=== PATIENT | female | born 1975 | race Caucasian/White ===

== ENCOUNTER → 2017-07-21 10:06 | Outpatient (CLI) | payer MEDICARE, MEDICAID, SELFPAY ==
[2017-07-21 12:16] LABS: Amphetamine Urine VISTA NEGATIVE (<1000 ng/mL); Barbiturate Urine VISTA NEGATIVE (< 200 ng/mL); Benzodiazepine Urine VISTA POSITIVE (< 200 ng/mL); Cocaine Urine VISTA NEGATIVE (< 300 ng/mL); Ecstacy Urine VISTA NEGATIVE (< 500 ng/mL); Methadone Urine VISTA NEGATIVE (< 300 ng/mL); PCP Urine VISTA NEGATIVE (< 25 ng/mL); THC Urine VISTA NEGATIVE (< 50 ng/mL); Vista UDS pH Range 5
== END ==
PROVIDERS: Family Provider Family Medicine; PCP Family Medicine; Visit Provider Family Medicine
DX: Z51.81 Encounter for therapeutic drug level monitoring (principal)
CPT/HCPCS: 80307

== ENCOUNTER → 2017-08-01 11:50 | Outpatient (CLI) | payer MEDICARE, MEDICAID, SELFPAY ==
[2017-08-01 16:39] LABS: Amphetamine Urine VISTA NEGATIVE (<1000 ng/mL); Barbiturate Urine VISTA NEGATIVE (< 200 ng/mL); Benzodiazepine Urine VISTA POSITIVE (< 200 ng/mL); Cocaine Urine VISTA NEGATIVE (< 300 ng/mL); Ecstacy Urine VISTA NEGATIVE (< 500 ng/mL); Methadone Urine VISTA NEGATIVE (< 300 ng/mL); PCP Urine VISTA NEGATIVE (< 25 ng/mL); THC Urine VISTA NEGATIVE (< 50 ng/mL); Vista UDS pH Range 5
== END ==
PROVIDERS: Family Provider Family Medicine; PCP Family Medicine; Visit Provider Family Medicine
DX: Z51.81 Encounter for therapeutic drug level monitoring (principal)
CPT/HCPCS: 80307

== ENCOUNTER → 2017-09-09 16:04 | Outpatient (CLI) | payer MEDICARE, MEDICAID, SELFPAY ==
[2017-09-09 18:05] LABS: Amphetamine Urine VISTA NEGATIVE (<1000 ng/mL); Barbiturate Urine VISTA NEGATIVE (< 200 ng/mL); Benzodiazepine Urine VISTA NEGATIVE (< 200 ng/mL); Cocaine Urine VISTA NEGATIVE (< 300 ng/mL); Ecstacy Urine VISTA NEGATIVE (< 500 ng/mL); Methadone Urine VISTA NEGATIVE (< 300 ng/mL); PCP Urine VISTA NEGATIVE (< 25 ng/mL); THC Urine VISTA NEGATIVE (< 50 ng/mL); Vista UDS pH Range 5
[2017-09-10 10:36] LABS: OXY Internal Control LINE = VALID (VALID); Oxycodone Drug Screen Positive (<100 ng/mL)
== END ==
PROVIDERS: Family Provider Family Medicine; PCP Family Medicine; Visit Provider Family Medicine
DX: Z51.81 Encounter for therapeutic drug level monitoring (principal)
CPT/HCPCS: 80307; 80365; G0480

== ENCOUNTER → 2017-09-30 14:06 | Outpatient (CLI) | payer MEDICARE, MEDICAID, SELFPAY ==
[2017-09-30 14:09] LABS: Mucous, Urine 0 SEEN /hpf (<or=2+)
[2017-09-30 16:01] LABS: Color, Urine Yellow (Yellow); Glucose, Dipstick Normal (Normal); Ketone-Dipstick Negative (Negative); Leukocyte Esterase-Dipstick 500 /ul (Negative); Nitrite-Dipstick Positive (Negative); Occult Blood-Urine 10 /ul (Negative); Protein-Dipstick Negative (Negative); Urine Bilirubin Dipstick Negative (Negative); Urine Clarity Sl. Cloudy (Clear); Urine Urobilinogen Normal (Normal)
[2017-09-30 16:31] LABS: Bacteria 2+ /hpf (None Seen); Red Blood Cells-Urine 0-5 SEEN /hpf (0-5); Squamous Epithelial Cells - UA 0-5 SEEN /hpf (5-10); White Blood Cells 50-100 SEEN /hpf (0-5)
[2017-09-30 19:02] LABS: Amphetamine Urine VISTA NEGATIVE (<1000 ng/mL); Barbiturate Urine VISTA NEGATIVE (< 200 ng/mL); Benzodiazepine Urine VISTA NEGATIVE (< 200 ng/mL); Cocaine Urine VISTA NEGATIVE (< 300 ng/mL); Ecstacy Urine VISTA NEGATIVE (< 500 ng/mL); Methadone Urine VISTA NEGATIVE (< 300 ng/mL); OXY Internal Control LINE = VALID (VALID); PCP Urine VISTA NEGATIVE (< 25 ng/mL); THC Urine VISTA NEGATIVE (< 50 ng/mL); Vista UDS pH Range 6
[2017-09-30 19:03] LABS: Oxycodone Drug Screen Positive (<100 ng/mL)
== END ==
PROVIDERS: Family Provider Family Medicine; PCP Family Medicine; Visit Provider Family Medicine
DX: R30.0 Dysuria (principal); Z51.81 Encounter for therapeutic drug level monitoring
CPT/HCPCS: 36415; 80307; 80365; 81001; 87086; 87088; 87186; G0480

== ENCOUNTER 2018-04-29 21:22 | Inpatient (IN) | payer MEDICARE, SELFPAY ==
[2018-04-29 21:23] VITALS: BP 127/76; PULSE 79; RESP 20; TEMP 36.8; O2SAT 91; BMI 32.5
--- NOTE | 2018-04-29 22:19 | EKG12_ITS ---
Test Reason : SOB Blood Pressure : / mmHG Vent. Rate : 070 BPM Atrial Rate : 070 BPM P-R Int : 184 ms QRS Dur : 104 ms QT Int : 408 ms P-R-T Axes : 060 059 058 degrees QTc Int : 440 ms Normal sinus rhythm Septal infarct , age undetermined Abnormal ECG Confirmed by JEAN PAUL DANIELSON, REEMA ([id number]), newspaper photo editor EDMUND TORRES ([id number]) on 05/04/2018 2:05:21 PM Referred By: DR NEWBERRY Confirmed By:REEMA REAVES MD
--- NOTE | 2018-04-29 22:19 | RAD_ITS ---
STUDY: X-RAY CHEST REASON FOR EXAM: Female, 42 years old. Shortness of breath. Smoker. TECHNIQUE: PA and lateral views of the chest. COMPARISON: June 25, 2017. FINDINGS: Lungs well-expanded. Again seen is bandlike atelectasis versus scarring at both lung bases. There is no new infiltrate or mass. There is no demonstrated pleural abnormality. Normal size heart. Normal mediastinum and sherry. Normal visualized pulmonary arteries. Normal visualized aortic arch and descending thoracic aorta. Normal visualized thoracic spine. Normal visualized ribs, clavicles, and shoulders. There is no demonstrated abnormality of the visualized soft tissue structures of the upper abdomen. RAD/Chest PA and Lateral IMPRESSION: Atelectasis versus scarring at the lung bases without interval change. Electronically Signed: Devyn Fisher DO at 23:19 EST Tel [phone], Service support ,
[2018-04-29 22:35] VITALS: PULSE 101; RESP 18
[2018-04-29 22:36] VITALS: O2SAT 93
[2018-04-29] MEDS: Albuterol 2.5 MG/3 ML VIAL.NEB. INHALATION ×2 (22:40→23:55)
[2018-04-29] MEDS: Ipratropium/Albuterol Sulfate 3 ML AMPUL.NEB INHALATION (22:40)
[2018-04-29] MEDS: Morphine 4 MG/ML Syringe IV (22:47)
[2018-04-29] MEDS: MethylPREDNISolone 125 MG/2 ML Vial 60 MG IV (22:47)
[2018-04-29] MEDS: Ondansetron 4 MG/2 ML Vial IV (22:48)
[2018-04-29 23:11] LABS: Absolute Lymphocyte Count 3.93 X10^3/ul (0.83-4.51); Absolute Neutrophil Count 4.1 X10^3/uL (2.0-7.7); Basophil# 0.02 X10^3/uL; Basophil% 0.2 % (0-1); Eosinophil# 0.31 X10^3/uL; Eosinophils% 3.5 % (0-5); Hematocrit 44.9 % (37-47); Hemoglobin 14.6 g/dl (12.0-15.0); Lymphocyte # 3.93 X10^3/ul (4.0); Lymphocyte % 44.5 % (19-41); Mean Corp Hgb Conc 32.5 g/gl (32-36); Mean Corpuscular Hgb 29.3 pg (27.0-32.0); Mean Corpuscular Volume 90.2 fL (81-99); Mean Platelet Vol. 10.5 fl (6.2-12.0); Monocyte% 5.7 % (0-10); Neutrophil # 4.07 X10^3/uL (2.7-7.7); Platelet Count 271 K/mm3 (150-450); RBC Distribution Width CV 13.1 % (11.6-14.6); RBC Distribution Width SD 42.7 fl (35.1-43.9); Red Blood Count 4.98 M/mm3 (4.2-5.4); White Blood Count 8.8 K/mm3 (4.4-11.0)
[2018-04-29 23:12] LABS: POSITIVE COUNT NO; POSITIVE DIFFERENTIAL NO; POSITIVE MORPHOLOGY NO
[2018-04-29 23:22] LABS: Anion Gap 5 (5-15); BUN 6 mg/dL (7-18); Calcium,Total 8.3 mg/dL (8.5-10.1); Chloride 104 mmol/L (98-107); Creatinine, Serum 0.86 mg/dL (0.55-1.02); EST Glomerular Filtration Rate 76 mL/min (>60); Est Glom Filt Rate - Afr Amer 92 mL/min (>60); Estimated Creatinine Clearance 66.02 ml/min; Glucose 99 mg/dL (74-106); Potassium 3.2 mmol/L (3.5-5.1); Sodium Level 139 mmol/L (136-145)
[2018-04-29 23:25] VITALS: BP 121/88; PULSE 70; RESP 12; O2SAT 91
--- NOTE | 2018-04-29 23:34 | ED.DCSUM_ITS ---
- ER Visit Summary Date of Service: 04/29/18 Chief Complaint: Shortness of breath, wheezing and productive cough of brown colored sputum History of Present Illness: The patient is a 42 F with history of COPD on oxygen as needed at 2 L, type 2 diabetes, hypertension scoliosis who presents with productive cough of brown colored sputum with shortness of breath at rest and exertion. She does complain of wheezing. She denies fever, chills night sweats. She denies ocular, visual auditory symptoms. She denies ear pain, decreased hearing or tinnitus. She denies rhinorrhea, congestion or postnasal drainage. She denies sore throat. She complains of discomfort with coughing and palpitations. She denies abdominal pain, nausea, vomiting or diarrhea. She denies black or maroon stool. She denies urologic symptoms. She denies myalgias or arthralgias. She denies rash. She does complain of mild frontal headache with generalized weakness. She denies paresthesia, anesthesia motors. She denies polyuria, polydipsia or polyphagia. She denies bruising easily. She is on no anticoagulant. She denies urticaria or angioedema. Physical Examination: Vital signs noted. She has not febrile. She appears older than reported age. Head is atraumatic normocephalic. Pupils are equal round reactive. Extraocular muscles are intact. TMs are pearly white with landmarks noted. Nares patent with no drainage. Posterior pharynx without erythema or exudate. Uvula is midline. There is no dysphonia or dysphasia. Trachea is midline. There is no stridor with auscultation of the neck. Lungs reveal wheezing throughout with increased x-ray phase. There is end inspiratory rales noted. Heart is regular without murmur, gallop or rub. Abdomen soft nontender. No palpable cell mass. There is no asymmetry, swelling, discoloration, leg vein distention, palpable cords or tenderness along the distribution of the deep venous system. Neuro exam is nonfocal. Test Results: Two-view chest x-ray reveals chronic changes and there is a nodule noted peripherally left mid lung field that is new from June 2017. EKG reveals sinus rhythm rate of 70 with decreased anterior force. [place] interval is normal. QRS duration is slightly prolonged. [place] is normal. QT interval is not prolonged. White count is normal. Electro panels unremarkable. Emergency Department Course and Treatment: Patient presents with productive cough need to evaluate for aspiration COPD versus pneumonia. Chest x-ray, blood work and EKG were obtained. She was treated with DuoNeb and albuterol x3. She received 125 mg Solu-Medrol. She was reassessed at 2320. She still has wheezing throughout. She is presently on 4 L of oxygen and only saturating 90%. Treatment Plan: The hospitalist has been paged for admission for exacerbation of COPD and respiratory failure with hypoxia Disposition: [facility] surgical floor Impression: 1. Exacerbation of COPD with bronchospasm 2. Purulent bronchitis 3. Respiratory failure with hypoxia 5. Type 2 diabetes 4. History of hypertension This note was generated with [employer] dictation software. It may contain incorrect words, spelling, and punctuation that were not noted in review of the chart prior to signing ED Disposition - Plan for ED Patient: Chief Complaint: Shortness of Breath Referrals: Robert Patel DO [Primary Care Provider] -
[2018-04-29] MEDS: Doxycycline 100 MG CAPSULE PO (23:39)
--- NOTE | 2018-04-29 23:55 | PCM.HP.STD ---
Problem List (1) COPD exacerbation Status: Acute (2) DJD (degenerative joint disease), lumbar Status: Chronic (3) Lumbar spinal stenosis Status: Chronic (4) Peripheral neuropathy Status: Chronic (5) Anxiety Status: Chronic (6) Benign essential HTN Status: Chronic (7) DM2 (diabetes mellitus, type 2) Status: Chronic (8) Depression Status: Chronic (9) Obesity Status: Chronic History of Present Illness Date of Admission: 04/29/18 Chief Complaint: Shortness of breath and wheezing for 3-4 days The patient is a 42 year old F with history of COPD, currently smoker about 1 pack/day since age of 19 on 2 L of form oxygen as needed came to ER with progressive worsening of shortness of breath, wheezing last 3-4 days. Shortness of breath has progressed to the extent that she is short of breath at rest. Patient has cough with productive brownish sputum. Denies fever or chills. Patient complain of mild chest heaviness probably, pleuritic in nature due to shortness of breath/COPD exacerbation [] Patient has significant chronic back pain and is on Percocet, naproxen, Lyrica and Cymbalta and Elavil Past Medical History Past Medical History (Chronic Problems): Chronic Problems DJD (degenerative joint disease), lumbar (Chronic) Lumbar spinal stenosis (Chronic) Peripheral neuropathy (Chronic) Obesity (Chronic) DM2 (diabetes mellitus, type 2) (Chronic) Depression (Chronic) Benign essential HTN (Chronic) Anxiety (Chronic) Allergies sulfamethoxazole [From Bactrim] Allergy (Verified 04/29/18 21:25) Rash trimethoprim [From Bactrim] Allergy (Verified 04/29/18 21:25) Rash erythromycin base [Erythromycin Base] Adverse Reaction (Verified 04/29/18 21:25) Other ketorolac tromethamine [From Toradol] Adverse Reaction (Verified 04/29/18 21:25) Other PLASTIC TAPE Adverse Reaction (Uncoded 04/29/18 21:25) Rash Home Medications: Ambulatory Orders Medication Instructions Recorded Albuterol IH (ProAir) [Proair Hfa] 1 puff INHALATION Q4H PRN PRN 04/02/13 Amitriptyline HCl [Elavil] 100 mg PO QHS 04/02/13 Duloxetine Hcl [Cymbalta] 60 mg PO DAILY 04/02/13 Estradiol [Estrace] 2 mg PO QHS 04/02/13 Metformin HCl [Glucophage] 500 mg PO BIDCM 04/02/13 Metoprolol Tartrate [Lopressor] 25 mg PO BID 04/02/13 Cyanocobalamin [Vitamin B12] 500 mcg PO DAILY@0800 03/22/14 Potassium Chloride [K-Dur] 40 meq PO DAILY #20 tablet 03/22/14 Ondansetron [Zofran Odt] 4 mg PO Q8H PRN PRN #10 tablet 11/09/14 Pregabalin [Lyrica] 75 mg PO BID 05/13/15 Clonazepam 1 mg PO Q6H PRN PRN 04/29/18 Fluticasone/Salmeterol [Advair 2 puff INHALATION BID 04/29/18 250-50 Diskus] Naproxen [Naprosyn] 500 mg PO BID 04/29/18 Oxycodone HCl/Acetaminophen 1 tablet PO Q4H PRN PRN 04/29/18 [Percocet 10-325 mg Tablet] Surgical History: appendectomy Smoking Status: Current every day smoker Review of Systems Constitutional: Denies: Chills, Fever, Weight Change HEENT: Denies: Head Aches, Sinus Congestion, Sinus Drainage Cardiovascular: Reports: Heaviness. Denies: Chest Pain, Palpitations Respiratory: Reports: Cough, Pleuritic Pain, Shortness of Breath, Shortness of breath at rest, Shortness of breath upon exertion, Sputum production, Wheezing. Denies: Hemoptysis Gastrointestinal: Denies: Abdominal Pain, Nausea, Vomiting Genitourinary: Denies: Dysuria Musculoskeletal: Reports: Back Pain, Joint Pain, Joint stiffness, Leg Pain. Denies: Joint Tenderness Skin: Denies: Rash, Wounds Neurological: Denies: Numbness, Tingling, Focal weakness Psychiatric: Denies: Anxiety, Depression, Homicidal Ideations, Suicidal Ideations Hematologic/ Lymphatic: Denies: Easy Bruising, Easy Bleeding VTE Information - Inpt Only VTE Present on Admission: No VTE Mechan Device Prophylaxis: None VTE Pharm Prophylaxis ordered?: Yes Patient Problems: Active and Suspected Problems COPD exacerbation (Acute) - Physical Exam General: Alert, Oriented x3, Cooperative HEENT: Atraumatic, PERRLA, EOMI, Normocephalic Oral: Dry Mucosa Neck: Supple, No JVD, Negative Carotid Bruits Lungs: Diminished, Rhonchi, Short of Breath, Wheezes Cardiovascular: Regular rate, Regular Rhythm, Normal S1, Normal S2, No murmurs Abdomen: Bowel Sounds Present, Soft, Non Tender, Non-Distended Extremities: No edema, Capillary Refill Less than 3 Seconds Skin: No rashes, No breakdown Musculoskeletal: No Tenderness to Palpation of Joints or Extremities, Arthritic Changes Neurological: Cranial nerves II-XII grossly intact, Neuro grossly intact Psych/Mental Status: Normal Affect, Appropriate Vital Signs Temp Pulse Resp BP Pulse Ox 98.2 F 70 12 121/88 H 91 04/29/18 21:23 04/29/18 23:25 04/29/18 23:25 04/29/18 23:25 04/29/18 23:25 Oxygen Flow Rate (L/min) 4 Oxygen Delivery Method Nasal Cannula Weight: 177 lb 14.609 oz Body Mass Index (BMI) 32.5 Laboratory Tests Past 24 Hrs 04/29/18 04/29/18 22:50 22:50 WBC 8.8 RBC 4.98 Hgb 14.6 Hct 44.9 MCV 90.2 MCH 29.3 MCHC 32.5 RDW 13.1 RDW Differential 42.7 Plt Count 271 MPV 10.5 Immature Gran % (Auto) 0.100 Neut % (Auto) 46.0 L Lymph % (Auto) 44.5 H [place] % (Auto) 5.7 Eos % (Auto) 3.5 Baso % (Auto) 0.2 Absolute Neuts (auto) 4.1 Absolute Lymphs (auto) 3.93 Total Counted Not Reportable Sodium 139 Potassium 3.2 L Chloride 104 Carbon Dioxide 30.0 Anion Gap 5 BUN 6 L Creatinine 0.86 Estim Creat Clear Calc 66.02 Est GFR (MDRD) Af Amer 92 Est GFR (MDRD) Non-Af 76 BUN/Creatinine Ratio 7.0 L Glucose 99 Calcium 8.3 L Assessment/Plan All Active Problems COPD exacerbation (Acute) The patient is a 42 year old F with history of COPD, currently smoker about 1 pack/day since age of 19 on 2 L of form oxygen as needed came to ER with progressive worsening of shortness of breath, wheezing last 3-4 days. Shortness of breath has progressed to the extent that she is short of breath at rest. Denies fever or chills. Patient complain of mild chest heaviness probably, pleuritic in nature due to shortness of breath/COPD exacerbation. Chest x-ray PA and lateral reviewed does not show any acute change except bandlike atelectasis versus scarring at both lung bases. [] Patient has significant chronic back pain and is on Percocet, naproxen, Lyrica and Cymbalta and Elavil. 1. COPD exacerbation: Patient is being admitted on [facility] floor. Started on bronchodilator, DuoNeb [id number], albuterol as needed, IV Solu-Medrol, doxycycline. Flu panel ordered. 2. Chronic hypoxic respiratory failure on 2 L of home oxygen as needed: 3. Chronic lumbar degenerative joint disease with spinal stenosis and sciatica pain: Continue home medications as mentioned above. 4. Diabetes mellitus type 2: Continue metformin. Accu-Chek before meals and at bedtime and cover with NovoLog sliding scale as the patient is on Solu-Medrol. 5 hypertension: Blood pressure is normal. Continue home medications. 6. Other chronic comorbidities include anxiety, depression, mild obesity grade 1 and peripheral neuropathy: This note was generated with [employer] dictation software. Every effort was made to ensure accuracy, however computerized skid road man mistakes may persist. Code Visit Inpatient E&M: 16745 Init Hosp L3
[2018-04-29 23:56] VITALS: PULSE 71; RESP 18
[2018-04-30] VITALS (19 sets, daily range): BP systolic 102–127; BP diastolic 54–73; PULSE 65–93; RESP 14–22; TEMP 36.4–36.9; O2SAT 79–95; BMI 32.5
[2018-04-30 02:00] LABS: BNP,B-Type NATRIURETIC PEPTIDE 32.5 pg/mL (0-100)
[2018-04-30] MEDS: Pregabalin 75 MG Capsule PO ×3 (02:20→21:41)
[2018-04-30] MEDS: Metoprolol Tartrate 25 MG Tablet PO ×3 (02:21→21:40)
[2018-04-30] MEDS: oxyCODONE 5 MG Tablet 10 MG PO ×5 (02:21→23:59)
[2018-04-30] MEDS: Amitriptyline 100 MG Tablet PO ×2 (02:24→22:05)
[2018-04-30] MEDS: Ipratropium/Albuterol Sulfate 3 ML AMPUL.NEB INHALATION ×6 (02:45→23:44)
[2018-04-30] MEDS: Enoxaparin 40 MG/0.4 ML Syringe SC (05:46)
[2018-04-30 06:19] LABS: Absolute Neutrophil Count 5.5 X10^3/uL (2.0-7.7); Basophil# 0.01 X10^3/uL; Basophil% 0.1 % (0-1); Eosinophil# 0.01 X10^3/uL; Eosinophils% 0.1 % (0-5); Hematocrit 44.2 % (37-47); Lymphocyte % 17.6 % (19-41); Mean Corp Hgb Conc 31.7 g/gl (32-36); Mean Corpuscular Hgb 28.7 pg (27.0-32.0); Mean Corpuscular Volume 90.6 fL (81-99); Mean Platelet Vol. 10.8 fl (6.2-12.0); Monocyte# 0.09 X10^3/uL; Monocyte% 1.3 % (0-10); Neutrophil # 5.48 X10^3/uL (2.7-7.7); Neutrophil % 80.8 % (47-70); Platelet Count 287 K/mm3 (150-450); RBC Distribution Width CV 13.1 % (11.6-14.6); RBC Distribution Width SD 43.1 fl (35.1-43.9); Red Blood Count 4.88 M/mm3 (4.2-5.4); White Blood Count 6.8 K/mm3 (4.4-11.0)
[2018-04-30 06:34] LABS: POSITIVE COUNT NO; POSITIVE DIFFERENTIAL NO; POSITIVE MORPHOLOGY NO
[2018-04-30] MEDS: Insulin Lispro 100 UNIT/ML INSULN.PEN SQ ×4 (06:53→21:41)
[2018-04-30 06:56] LABS: Bedside Glucose 186 mg/dL (70-110)
[2018-04-30] MEDS: guaiFENesin 1,200 MG Tablet 1200 MG PO ×2 (08:13→21:41)
[2018-04-30] MEDS: Naproxen 500 MG Tablet PO ×2 (08:13→21:41)
[2018-04-30] MEDS: Doxycycline 100 MG CAPSULE PO ×2 (08:13→21:40)
[2018-04-30] MEDS: DULoxetine Hcl 60 MG Capsule PO (08:14)
--- NOTE | 2018-04-30 08:39 | PCM.PN.HOSP ---
Patient Problems: Active and Suspected Problems COPD exacerbation (Acute) Subjective: Patient is a 42-year-old lady with history of hypoxic respiratory failure secondary to COPD on baseline home O2 who presented with progressive shortness of breath as well as wheezing of 3-4-day duration. An assessment of COPD exacerbation made admitted to regular nursing floor for further management Patient seen still complains of shortness of breath at rest. Diagnostic data reviewed significant for potassium of 3.2 correction initiated Objective: GENERAL: cooperative HEENT: Atraumatic; moist oral mucosa EYES; Anicteric, Normal Conjunctiva NECK; supple, normal thyroid, no distended JVD. RESPIRATORY: Diminished to auscultation bilaterally, CARDIOVASCULAR: Regular S1 S2, no audible murmurs GI: soft, non-tender, normoactive bowel sounds, : No Renal angle tenderness; EXTREMITIES: No edema, no clubbing, no cyanosis. MUSCULOSKELETAL: No Joint Tenderness; no muscle waisting NEURO: Awake; no lateralizing signs. SKIN: No Rash PSYCH; Normal affect Vitals/I&O's: Vital Signs Temp Pulse Resp BP Pulse Ox 97.9 F 68 16 112/73 90 04/30/18 05:00 04/30/18 08:14 04/30/18 07:40 04/30/18 05:00 04/30/18 07:40 Oxygen Flow Rate (L/min) 4 Oxygen Delivery Method Nasal Cannula Weight: 80.7 kg Body Mass Index (BMI) 32.5 Intake and Output for Last 24 Hours 04/28/18 04/29/18 04/30/18 23:59 23:59 23:59 Intake Total 300 / 300 Balance 300 / 300 Microbiology Past 72 Hours 04/30/18 02:00 Sputum, Expectorated/Coughed Gram Stain - Preliminary 04/30/18 02:35 Mucosa - Nasopharyngeal Influenza Types A,B Direct FA (ESSIE) - Final Laboratory Results 04/29/18 22:50: WBC 8.8, RBC 4.98, Hgb 14.6, Hct 44.9, MCV 90.2, MCH 29.3, MCHC 32.5, RDW 13.1, RDW Differential 42.7, Plt Count 271, MPV 10.5, Immature Gran % (Auto) 0.100, Neut % (Auto) 46.0 L, Lymph % (Auto) 44.5 H, [place] % (Auto) 5.7, Eos % (Auto) 3.5, Baso % (Auto) 0.2, Absolute Neuts (auto) 4.1, Absolute Lymphs (auto) 3.93, Total Counted Not Reportable 04/29/18 22:50: Sodium 139, Potassium 3.2 L, Chloride 104, Carbon Dioxide 30.0, Anion Gap 5, BUN 6 L, Creatinine 0.86, Estim Creat Clear Calc 66.02, Est GFR (MDRD) Af Amer 92, Est GFR (MDRD) Non-Af 76, BUN/Creatinine Ratio 7.0 L, Glucose 99, Calcium 8.3 L 04/29/18 22:50: B-Natriuretic Peptide 32.5 04/30/18 05:46: WBC 6.8, RBC 4.88, Hgb 14.0, Hct 44.2, MCV 90.6, MCH 28.7, MCHC 31.7 L, RDW 13.1, RDW Differential 43.1, Plt Count 287, MPV 10.8, Immature Gran % (Auto) 0.100, Neut % (Auto) 80.8 H, Lymph % (Auto) 17.6 L, [place] % (Auto) 1.3, Eos % (Auto) 0.1, Baso % (Auto) 0.1, Absolute Neuts (auto) 5.5, Absolute Lymphs (auto) 1.20, Total Counted Not Reportable 04/30/18 06:50: POC Glucose 186 H Current Medications Acetaminophen (Tylenol) 650 mg PO Q6H PRN PRN PRN Reason: Mild Pain (scale 0-3)/T>100.7 Al Hydroxide/Mg Hydroxide (Mylanta Ii) 30 ml PO Q6H PRN PRN PRN Reason: Gastric Burning Albuterol Sulfate (Ventolin Aerosols) 2.5 mg INHALATION Q2H PRN PRN PRN Reason: SHORTNESS OF BREATH Albuterol/Ipratropium (Duoneb) 3 ml INHALATION Q4H.RT [facility] Last Admin: 04/30/18 07:39 Dose: 3 ml Amitriptyline HCl (Elavil) 100 mg PO QHS [facility] Last Admin: 04/30/18 02:24 Dose: 100 mg Bisacodyl (Dulcolax) 10 mg RECTAL DAILY PRN PRN PRN Reason: Constipation Clonazepam (Klonopin) 1 mg PO Q6H PRN PRN PRN Reason: ANXIETY Cyanocobalamin (Vitamin B12) 500 mcg PO DAILY@0800 [facility] Dextrose (D50w Syringe) 0 gm IV X1 PRN; Protocol PRN Reason: Hypoglycemia Docusate Sodium (Colace) 200 mg PO BID PRN PRN PRN Reason: Constipation Doxycycline Monohydrate (Doxycycline) 100 mg PO BID [facility] Stop: 05/05/18 10:01 Last Admin: 04/30/18 08:13 Dose: 100 mg Duloxetine HCl (Cymbalta) 60 mg PO DAILY [facility] Last Admin: 04/30/18 08:14 Dose: 60 mg Enoxaparin Sodium (Lovenox) 40 mg SC DAILY [facility] Last Admin: 04/30/18 07:00 Dose: Not Given Estradiol (Estrace (G)) 2 mg PO QHS [facility] Glucagon () 1 mg IM .X1 PRN PRN Reason: Hypoglycemia Guaifenesin (Mucinex) 1,200 mg PO BID [facility] Last Admin: 04/30/18 08:13 Dose: 1,200 mg Insulin Human Lispro (Humalog Kwikpen (Bkc)) 0 unit SQ ACHS [facility]; Protocol Last Admin: 04/30/18 06:53 Dose: 2 u [facility] Last Admin: 04/30/18 08:12 Dose: 500 mg Methylprednisolone (Solu-Medrol) 40 mg IV Q8 [facility] Last Admin: 04/30/18 05:42 Dose: 40 mg Metoprolol Tartrate (Lopressor (Beta Ángel)) 25 mg PO BID [facility] Last Admin: 04/30/18 08:14 Dose: 25 mg Naproxen (Naprosyn) 500 mg PO BID [facility] Last Admin: 04/30/18 08:13 Dose: 500 mg Nicotine (Nicoderm Cq (Pbkc)) 21 mg TRANSDERM. DAILY [facility] Last Admin: 04/30/18 08:13 Dose: 21 mg Ondansetron HCl (Zofran) 4 mg IV Q6H PRN PRN PRN Reason: Nausea Oxycodone HCl (Oxyir) 10 mg PO Q4H PRN PRN PRN Reason: Moderate Pain (pain scale 4-5) Last Admin: 04/30/18 08:30 Dose: 10 mg Polyethylene Glycol (Miralax) 17 gm PO DAILY [facility] Last Admin: 04/30/18 08:20 Dose: Not Given Pregabalin (Lyrica) 75 mg PO BID [facility] Last Admin: 04/30/18 08:19 Dose: 75 mg Sodium Chloride () 5 - 30 ml IV UD PRN PRN Reason: SALINE FLUSH Zolpidem Tartrate (Ambien (Generic)) 5 mg PO QHS PRN PRN PRN Reason: INSOMNIA Medical Necessity - Tobacco Use Smoking Status: Current every day smoker Assessment/Plan All Active Problems COPD exacerbation (Acute) Patient is a 42-year-old lady with history of hypoxic respiratory failure secondary to COPD on baseline home O2 who presented with progressive shortness of breath as well as wheezing of 3-4-day duration. An assessment of COPD exacerbation made admitted to regular nursing floor for further management 1. Acute COPD exacerbation: Patient is admitted to regular nursing floor where she is currently being managed with systemic steroids, antibiotics as well as bronchodilator treatment. Oxygen titrated to keep pulse ox greater than 90 2. Chronic hypoxic respiratory failure patient is on baseline home O2 3. Degenerative joint disease with spinal stenosis involving the lower lumbar spine 4. Diabetes mellitus type II: Controlled; patient's oral hypoglycemics held. Placed on long acting insulin, Accu-Cheks a.c. and at bedtime and covered with sliding scale insulin 5 Obesity with BMI of 32.5 6. Hypertension-blood pressure controlled, home medications continued with dose adjustment as needed 7. Depression with anxiety 8. Peripheral neuropathy 9. DVT prophylaxis SC Lovenox 10. Hypokalemia corrected per protocol Active Medications Acetaminophen (Tylenol) 650 mg PO Q6H PRN PRN PRN Reason: Mild Pain (scale 0-3)/T>100.7 Al Hydroxide/Mg Hydroxide (Mylanta Ii) 30 ml PO Q6H PRN PRN PRN Reason: Gastric Burning Albuterol Sulfate (Ventolin Aerosols) 2.5 mg INHALATION Q2H PRN PRN PRN Reason: SHORTNESS OF BREATH Albuterol/Ipratropium (Duoneb) 3 ml INHALATION Q4H.RT [facility] Last Admin: 04/30/18 07:39 Dose: 3 ml Amitriptyline HCl (Elavil) 100 mg PO QHS [facility] Last Admin: 04/30/18 02:24 Dose: 100 mg Bisacodyl (Dulcolax) 10 mg RECTAL DAILY PRN PRN PRN Reason: Constipation Clonazepam (Klonopin) 1 mg PO Q6H PRN PRN PRN Reason: ANXIETY Cyanocobalamin (Vitamin B12) 500 mcg PO DAILY@0800 [facility] Dextrose (D50w Syringe) 0 gm IV X1 PRN; Protocol PRN Reason: Hypoglycemia Docusate Sodium (Colace) 200 mg PO BID PRN PRN PRN Reason: Constipation Doxycycline Monohydrate (Doxycycline) 100 mg PO BID [facility] Stop: 05/05/18 10:01 Last Admin: 04/30/18 08:13 Dose: 100 mg Duloxetine HCl (Cymbalta) 60 mg PO DAILY [facility] Last Admin: 04/30/18 08:14 Dose: 60 mg Enoxaparin Sodium (Lovenox) 40 mg SC DAILY [facility] Last Admin: 04/30/18 07:00 Dose: Not Given Estradiol (Estrace (G)) 2 mg PO QHS [facility] Glucagon () 1 mg IM .X1 PRN PRN Reason: Hypoglycemia Guaifenesin (Mucinex) 1,200 mg PO BID [facility] Last Admin: 04/30/18 08:13 Dose: 1,200 mg Insulin Human Lispro (Humalog Kwikpen (Bkc)) 0 unit SQ ACHS [facility]; Protocol Last Admin: 04/30/18 06:53 Dose: 2 u Metformin [facility] (Glucophage) [facility] Last Admin: 04/30/18 08:12 Dose: 500 mg Methylprednisolone (Solu-Medrol) 40 mg IV Q8 [facility] Last Admin: 04/30/18 05:42 Dose: 40 mg Metoprolol Tartrate (Lopressor (Beta Ángel)) 25 mg PO BID [facility] Last Admin: 04/30/18 08:14 Dose: 25 mg Naproxen (Naprosyn) 500 mg PO BID [facility] Last Admin: 04/30/18 08:13 Dose: 500 mg Nicotine (Nicoderm Cq (Pbkc)) 21 mg TRANSDERM. DAILY [facility] Last Admin: 04/30/18 08:13 Dose: 21 mg Ondansetron HCl (Zofran) 4 mg IV Q6H PRN PRN PRN Reason: Nausea Oxycodone HCl (Oxyir) 10 mg PO Q4H PRN PRN PRN Reason: Moderate Pain (pain scale 4-5) Last Admin: 04/30/18 08:30 Dose: 10 mg Polyethylene Glycol (Miralax) 17 gm PO DAILY [facility] Last Admin: 04/30/18 08:20 Dose: Not Given Pregabalin (Lyrica) 75 mg PO BID [facility] Last Admin: 04/30/18 08:19 Dose: 75 mg Sodium Chloride () 5 - 30 ml IV UD PRN PRN Reason: SALINE FLUSH Zolpidem Tartrate (Ambien (Generic)) 5 mg PO QHS PRN PRN PRN Reason: INSOMNIA Clinical Impression(s) from Imaging Studies Chest X-Ray 04/29/18 22:19 IMPRESSION: Atelectasis versus scarring at the lung bases without interval change. Electronically Signed: Devyn Fisher DO at 23:19 EST Tel [phone], Service support , Code Visit Inpatient E&M: 86526 [facility] Hosp L3
--- NOTE | 2018-04-30 08:42 | PN_ITS ---
Patient Problems: Active and Suspected Problems COPD exacerbation (Acute) Subjective: Patient is a 42-year-old lady with history of hypoxic respiratory failure secondary to COPD on baseline home O2 who presented with progressive shortness of breath as well as wheezing of 3-4-day duration. An assessment of COPD exacerbation made admitted to regular nursing floor for further management Patient seen still complains of shortness of breath at rest. Diagnostic data reviewed significant for potassium of 3.2 correction initiated Objective: GENERAL: cooperative HEENT: Atraumatic; moist oral mucosa EYES; Anicteric, Normal Conjunctiva NECK; supple, normal thyroid, no distended JVD. RESPIRATORY: Diminished to auscultation bilaterally, CARDIOVASCULAR: Regular S1 S2, no audible murmurs GI: soft, non-tender, normoactive bowel sounds, : No Renal angle tenderness; EXTREMITIES: No edema, no clubbing, no cyanosis. MUSCULOSKELETAL: No Joint Tenderness; no muscle waisting NEURO: Awake; no lateralizing signs. SKIN: No Rash PSYCH; Normal affect Vitals/I&O's: Vital Signs Temp Pulse Resp BP Pulse Ox 97.9 F 68 16 112/73 90 04/30/18 05:00 04/30/18 08:14 04/30/18 07:40 04/30/18 05:00 04/30/18 07:40 Oxygen Flow Rate (L/min) 4 Oxygen Delivery Method Nasal Cannula Weight: 80.7 kg Body Mass Index (BMI) 32.5 Intake and Output for Last 24 Hours 04/28/18 04/29/18 04/30/18 23:59 23:59 23:59 Intake Total 300 / 300 Balance 300 / 300 Microbiology Past 72 Hours 04/30/18 02:00 Sputum, Expectorated/Coughed Gram Stain - Preliminary 04/30/18 02:35 Mucosa - Nasopharyngeal Influenza Types A,B Direct FA (ESSIE) - Final Laboratory Results 04/29/18 22:50: WBC 8.8, RBC 4.98, Hgb 14.6, Hct 44.9, MCV 90.2, MCH 29.3, MCHC 32.5, RDW 13.1, RDW Differential 42.7, Plt Count 271, MPV 10.5, Immature Gran % (Auto) 0.100, Neut % (Auto) 46.0 L, Lymph % (Auto) 44.5 H, Rains % (Auto) 5.7, Eos % (Auto) 3.5, Baso % (Auto) 0.2, Absolute Neuts (auto) 4.1, Absolute Lymphs (auto) 3.93, Total Counted Not Reportable 04/29/18 22:50: Sodium 139, Potassium 3.2 L, Chloride 104, Carbon Dioxide 30.0, Anion Gap 5, BUN 6 L, Creatinine 0.86, Estim Creat Clear Calc 66.02, Est GFR (MDRD) Af Amer 92, Est GFR (MDRD) Non-Af 76, BUN/Creatinine Ratio 7.0 L, Glucose 99, Calcium 8.3 L 04/29/18 22:50: B-Natriuretic Peptide 32.5 04/30/18 05:46: WBC 6.8, RBC 4.88, Hgb 14.0, Hct 44.2, MCV 90.6, MCH 28.7, MCHC 31.7 L, RDW 13.1, RDW Differential 43.1, Plt Count 287, MPV 10.8, Immature Gran % (Auto) 0.100, Neut % (Auto) 80.8 H, Lymph % (Auto) 17.6 L, Rains % (Auto) 1.3, Eos % (Auto) 0.1, Baso % (Auto) 0.1, Absolute Neuts (auto) 5.5, Absolute Lymphs (auto) 1.20, Total Counted Not Reportable 04/30/18 06:50: POC Glucose 186 H Current Medications Acetaminophen (Tylenol) 650 mg PO Q6H PRN PRN PRN Reason: Mild Pain (scale 0-3)/T>100.7 Al Hydroxide/Mg Hydroxide (Mylanta Ii) 30 ml PO Q6H PRN PRN PRN Reason: Gastric Burning Albuterol Sulfate (Ventolin Aerosols) 2.5 mg INHALATION Q2H PRN PRN PRN Reason: SHORTNESS OF BREATH Albuterol/Ipratropium (Duoneb) 3 ml INHALATION Q4H.RT [facility] Last Admin: 04/30/18 07:39 Dose: 3 ml Amitriptyline HCl (Elavil) 100 mg PO QHS [facility] Last Admin: 04/30/18 02:24 Dose: 100 mg Bisacodyl (Dulcolax) 10 mg RECTAL DAILY PRN PRN PRN Reason: Constipation Clonazepam (Klonopin) 1 mg PO Q6H PRN PRN PRN Reason: ANXIETY Cyanocobalamin (Vitamin B12) 500 mcg PO DAILY@0800 [facility] Dextrose (D50w Syringe) 0 gm IV X1 PRN; Protocol PRN Reason: Hypoglycemia Docusate Sodium (Colace) 200 mg PO BID PRN PRN PRN Reason: Constipation Doxycycline Monohydrate (Doxycycline) 100 mg PO BID [facility] Stop: 05/05/18 10:01 Last Admin: 04/30/18 08:13 Dose: 100 mg Duloxetine HCl (Cymbalta) 60 mg PO DAILY [facility] Last Admin: 04/30/18 08:14 Dose: 60 mg Enoxaparin Sodium (Lovenox) 40 mg SC DAILY [facility] Last Admin: 04/30/18 07:00 Dose: Not Given Estradiol (Estrace (G)) 2 mg PO QHS [facility] Glucagon () 1 mg IM .X1 PRN PRN Reason: Hypoglycemia Guaifenesin (Mucinex) 1,200 mg PO BID [facility] Last Admin: 04/30/18 08:13 Dose: 1,200 mg Insulin Human Lispro (Humalog Kwikpen (Bkc)) 0 unit SQ ACHS [facility]; Protocol Last Admin: 04/30/18 06:53 Dose: 2 u [facility] Last Admin: 04/30/18 08:12 Dose: 500 mg Methylprednisolone (Solu-Medrol) 40 mg IV Q8 [facility] Last Admin: 04/30/18 05:42 Dose: 40 mg Metoprolol Tartrate (Lopressor (Beta Ángel)) 25 mg PO BID [facility] Last Admin: 04/30/18 08:14 Dose: 25 mg Naproxen (Naprosyn) 500 mg PO BID [facility] Last Admin: 04/30/18 08:13 Dose: 500 mg Nicotine (Nicoderm Cq (Pbkc)) 21 mg TRANSDERM. DAILY [facility] Last Admin: 04/30/18 08:13 Dose: 21 mg Ondansetron HCl (Zofran) 4 mg IV Q6H PRN PRN PRN Reason: Nausea Oxycodone HCl (Oxyir) 10 mg PO Q4H PRN PRN PRN Reason: Moderate Pain (pain scale 4-5) Last Admin: 04/30/18 08:30 Dose: 10 mg Polyethylene Glycol (Miralax) 17 gm PO DAILY [facility] Last Admin: 04/30/18 08:20 Dose: Not Given Pregabalin (Lyrica) 75 mg PO BID [facility] Last Admin: 04/30/18 08:19 Dose: 75 mg Sodium Chloride () 5 - 30 ml IV UD PRN PRN Reason: SALINE FLUSH Zolpidem Tartrate (Ambien (Generic)) 5 mg PO QHS PRN PRN PRN Reason: INSOMNIA Medical Necessity - Tobacco Use Smoking Status: Current every day smoker Assessment/Plan All Active Problems COPD exacerbation (Acute) Patient is a 42-year-old lady with history of hypoxic respiratory failure sec ondary to COPD on baseline home O2 who presented with progressive shortness of breath as well as wheezing of 3-4-day duration. An assessment of COPD exacerbation made admitted to regular nursing floor for further management 1. Acute COPD exacerbation: Patient is admitted to regular nursing floor where she is currently being managed with systemic steroids, antibiotics as well as bronchodilator treatment. Oxygen titrated to keep pulse ox greater than 90 2. Chronic hypoxic respiratory failure patient is on baseline home O2 3. Degenerative joint disease with spinal stenosis involving the lower lumbar spine 4. Diabetes mellitus type II: Controlled; patient's oral hypoglycemics held. Placed on long acting insulin, Accu-Cheks a.c. and at bedtime and covered with sliding scale insulin 5 Obesity with BMI of 32.5 6. Hypertension-blood pressure controlled, home medications continued with dose adjustment as needed 7. Depression with anxiety 8. Peripheral neuropathy 9. DVT prophylaxis SC Lovenox 10. Hypokalemia corrected per protocol Active Medications Acetaminophen (Tylenol) 650 mg PO Q6H PRN PRN PRN Reason: Mild Pain (scale 0-3)/T>100.7 Al Hydroxide/Mg Hydroxide (Mylanta Ii) 30 ml PO Q6H PRN PRN PRN Reason: Gastric Burning Albuterol Sulfate (Ventolin Aerosols) 2.5 mg INHALATION Q2H PRN PRN PRN Reason: SHORTNESS OF BREATH Albuterol/Ipratropium (Duoneb) 3 ml INHALATION Q4H.RT [facility] Last Admin: 04/30/18 07:39 Dose: 3 ml Amitriptyline HCl (Elavil) 100 mg PO QHS [facility] Last Admin: 04/30/18 02:24 Dose: 100 mg Bisacodyl (Dulcolax) 10 mg RECTAL DAILY PRN PRN PRN Reason: Constipation Clonazepam (Klonopin) 1 mg PO Q6H PRN PRN PRN Reason: ANXIETY Cyanocobalamin (Vitamin B12) 500 mcg PO DAILY@0800 [facility] Dextrose (D50w Syringe) 0 gm IV X1 PRN; Protocol PRN Reason: Hypoglycemia Docusate Sodium (Colace) 200 mg PO BID PRN PRN PRN Reason: Constipation Doxycycline Monohydrate (Doxycycline) 100 mg PO BID [facility] Stop: 05/05/18 10:01 Last Admin: 04/30/18 08:13 Dose: 100 mg Duloxetine HCl (Cymbalta) 60 mg PO DAILY [facility] Last Admin: 04/30/18 08:14 Dose: 60 mg Enoxaparin Sodium (Lovenox) 40 mg SC DAILY [facility] Last Admin: 04/30/18 07:00 Dose: Not Given Estradiol (Estrace (G)) 2 mg PO QHS [facility] Glucagon () 1 mg IM .X1 PRN PRN Reason: Hypoglycemia Guaifenesin (Mucinex) 1,200 mg PO BID [facility] Last Admin: 04/30/18 08:13 Dose: 1,200 mg Insulin Human Lispro (Humalog Kwikpen (Bkc)) 0 unit SQ ACHS [facility]; Protocol Last Admin: 04/30/18 06:53 Dose: 2 u Metformin [facility] (Glucophage) [facility] Last Admin: 04/30/18 08:12 Dose: 500 mg Methylprednisolone (Solu-Medrol) 40 mg IV Q8 [facility] Last Admin: 04/30/18 05:42 Dose: 40 mg Metoprolol Tartrate (Lopressor (Beta Ángel)) 25 mg PO BID [facility] Last Admin: 04/30/18 08:14 Dose: 25 mg Naproxen (Naprosyn) 500 mg PO BID [facility] Last Admin: 04/30/18 08:13 Dose: 500 mg Nicotine (Nicoderm Cq (Pbkc)) 21 mg TRANSDERM. DAILY [facility] Last Admin: 04/30/18 08:13 Dose: 21 mg Ondansetron HCl (Zofran) 4 mg IV Q6H PRN PRN PRN Reason: Nausea Oxycodone HCl (Oxyir) 10 mg PO Q4H PRN PRN PRN Reason: Moderate Pain (pain scale 4-5) Last Admin: 04/30/18 08:30 Dose: 10 mg Polyethylene Glycol (Miralax) 17 gm PO DAILY [facility] Last Admin: 04/30/18 08:20 Dose: Not Given Pregabalin (Lyrica) 75 mg PO BID [facility] Last Admin: 04/30/18 08:19 Dose: 75 mg Sodium Chloride () 5 - 30 ml IV UD PRN PRN Reason: SALINE FLUSH Zolpidem Tartrate (Ambien (Generic)) 5 mg PO QHS PRN PRN PRN Reason: INSOMNIA Clinical Impression(s) from Imaging Studies Chest X-Ray 04/29/18 22:19 IMPRESSION: Atelectasis versus scarring at the lung bases without interval change. Electronically Signed: Devyn Fisher DO at 23:19 EST Tel [phone], Service support , Code Visit Inpatient E&M: [id number] [facility] Hosp L3
[2018-04-30] MEDS: clonazePAM 1 MG Tablet PO ×2 (09:28→23:56)
[2018-04-30] MEDS: Cyanocobalamin 500 MCG Tablet PO (09:29)
[2018-04-30 11:16] LABS: Bedside Glucose 185 mg/dL (70-110)
--- NOTE | 2018-04-30 11:35 | CASEMGMT ---
EDY SEVILLA Face to Face with patient for initial transition planning/care coordination assessment. RN DI introduced self and role at [facility]. Patient lying in bed, alert and oriented. Patient willing to participate in assessment and is able to answer all questions appropriately. Care providers, pharmacy, and demographics verified. Patient wishes to discharge home, denies need for home health at this time. Patient states she has no further needs or concerns at this time. CM to follow for discharge planning needs that may arise. PCP: Amanda Specialists: None Preferred Pharmacy: [facility] Insurance: [place] [employer] Prescription Benefit: [place] [employer] Living Will/HPOA: None LNOK: Sister Living Arrangements: Patient lives with sister in 1st floor apartment Transportation: Self or public transportation DME/HHC: Oxygen 2lpm through [facility]. Will monitor patient for need for nebulizer Disposition Plan: Patient to discharge home with family support and follow-up plans in place. Radha RUIZN, RN, CM
[2018-04-30] MEDS: Acetaminophen 325 MG Tablet 650 MG PO (14:30)
[2018-04-30] MEDS: 0.9% NaCl Peripheral Flush Adult/Peds IV (14:30)
[2018-04-30 17:00] LABS: Bedside Glucose 284 mg/dL (70-110)
[2018-04-30] MEDS: Estradiol 1 MG Tablet 2 MG PO (21:41)
[2018-04-30 21:51] LABS: Bedside Glucose 220 mg/dL (70-110)
[2018-05-01] VITALS (9 sets, daily range): BP systolic 116–134; BP diastolic 70–82; PULSE 68–84; RESP 16–19; TEMP 36.2–37.2; O2SAT 86–95
--- NOTE | 2018-05-01 01:31 | NURSING ---
I dropped 1 dose of mucinex in the trash in the patients room by accident. I sent it back to pharmacy in a bag with an explanation because I could not waste it in the accudose. Pharmacy sent up a replacement dose to put in patients medication drawer.
[2018-05-01] MEDS: Ipratropium/Albuterol Sulfate 3 ML AMPUL.NEB INHALATION ×2 (03:15→07:24)
[2018-05-01 07:01] LABS: Bedside Glucose 135 mg/dL (70-110)
[2018-05-01 07:43] LABS: Anion Gap 6 (5-15); BUN 8 mg/dL (7-18); BUN/Creat Ratio 10.3 RATIO (10-20); Calcium,Total 8.7 mg/dL (8.5-10.1); Chloride 108 mmol/L (98-107); Creatinine, Serum 0.78 mg/dL (0.55-1.02); EST Glomerular Filtration Rate 85 mL/min (>60); Est Glom Filt Rate - Afr Amer 103 mL/min (>60); Estimated Creatinine Clearance 72.79 ml/min; Glucose 133 mg/dL (74-106); Potassium 4.8 mmol/L (3.5-5.1); Sodium Level 142 mmol/L (136-145)
[2018-05-01] MEDS: oxyCODONE 5 MG Tablet 10 MG PO ×2 (08:29→12:20)
[2018-05-01] MEDS: Doxycycline 100 MG CAPSULE PO (08:30)
[2018-05-01] MEDS: DULoxetine Hcl 60 MG Capsule PO (08:30)
[2018-05-01] MEDS: Metoprolol Tartrate 25 MG Tablet PO (08:30)
[2018-05-01] MEDS: guaiFENesin 1,200 MG Tablet 1200 MG PO (08:31)
[2018-05-01] MEDS: Naproxen 500 MG Tablet PO (08:31)
[2018-05-01] MEDS: Enoxaparin 40 MG/0.4 ML Syringe SC (08:31)
[2018-05-01] MEDS: Cyanocobalamin 500 MCG Tablet PO (08:38)
--- NOTE | 2018-05-01 10:19 | DCINST_ITS ---
- Discharge Diagnoses Current Active Problems: Current Active and Chronic Problems COPD exacerbation (Acute) DJD (degenerative joint disease), lumbar (Chronic) Lumbar spinal stenosis (Chronic) Peripheral neuropathy (Chronic) You will use the following diet at home:: Calorie/Carbohydrate Controlled (specify 1200, 1400, etc) - 1800 Your food should be the consistency of: Regular Discharge Activity: May Not Drive Allergies/Adverse Reactions: Allergies sulfamethoxazole [From Bactrim] Allergy (Verified 04/29/18 21:25) Rash trimethoprim [From Bactrim] Allergy (Verified 04/29/18 21:25) Rash erythromycin base [Erythromycin Base] Adverse Reaction (Verified 04/29/18 21:25) Other ketorolac tromethamine [From Toradol] Adverse Reaction (Verified 04/29/18 21:25) Other PLASTIC TAPE Adverse Reaction (Uncoded 04/29/18 21:25) Rash Medications to take at Discharge Albuterol IH (ProAir) [Proair Hfa] 1 puff INHALATION Q4H PRN PRN 04/02/13 Amitriptyline HCl [Elavil] 100 mg PO QHS 04/02/13 Duloxetine Hcl [Cymbalta] 60 mg PO DAILY 04/02/13 Estradiol [Estrace] 2 mg PO QHS 04/02/13 Metformin HCl [Glucophage] 500 mg PO BIDCM 04/02/13 Metoprolol Tartrate [Lopressor (beta mike)] 25 mg PO BID 04/02/13 Cyanocobalamin [Vitamin B12] 500 mcg PO DAILY@0800 03/22/14 Potassium Chloride [K-Dur] 40 meq PO DAILY #20 tablet 03/22/14 Ondansetron [Zofran Odt] 4 mg PO Q8H PRN PRN #10 tablet 11/09/14 Pregabalin [Lyrica] 75 mg PO BID 05/13/15 Clonazepam 1 mg PO Q6H PRN PRN 04/29/18 Fluticasone/Salmeterol [Advair 250-50 Diskus] 2 puff INHALATION BID 04/29/18 Naproxen [Naprosyn] 500 mg PO BID 04/29/18 Oxycodone HCl/Acetaminophen [Percocet 10-325 mg Tablet] 1 tablet PO Q4H PRN PRN 04/29/18 Doxycycline 100 mg PO BID #14 capsule 05/01/18 Guaifenesin [Mucinex] 1,200 mg PO BID #14 tablet 05/01/18 Prednisone 20 mg PO BID #10 tablet 05/01/18 The following prescriptions were given: Doxycycline 100 mg PO BID #14 capsule Guaifenesin [Mucinex] 1,200 mg PO BID #14 tablet Prednisone 20 mg PO BID #10 tablet Primary Care Physician: Robert Patel DO [Primary Care Provider] - Please follow up with your Primary Care Physician in: in 5-7 days Test Results: Test results from this visit will be discussed in further detail at your follow- up appointment, if applicable. Proposed Discharge Date: 05/01/18
--- NOTE | 2018-05-01 10:22 | PCM.DC.SUM ---
Discharge Date and Diagnosis - Problem List Patient Problems: Active and Suspected Problems COPD exacerbation (Acute) Date of Admission: 04/29/18 Date of Discharge: 05/01/18 - Primary Discharge Diagnosis Active and Suspected Problems COPD exacerbation (Acute) - Secondary Discharge Diagnosis Chronic Problems DJD (degenerative joint disease), lumbar (Chronic) Lumbar spinal stenosis (Chronic) Peripheral neuropathy (Chronic) Obesity (Chronic) DM2 (diabetes mellitus, type 2) (Chronic) Depression (Chronic) Benign essential HTN (Chronic) Anxiety (Chronic) Hospital Course and Treatment Imaging Results: Clinical Impression(s) from Imaging Studies Chest X-Ray 04/29/18 22:19 IMPRESSION: Atelectasis versus scarring at the lung bases without interval change. Electronically Signed: Devyn Fisher DO at 23:19 EST Tel [phone], Service support , Summary of Care Provided: Patient is a 42-year-old lady with history of hypoxic respiratory failure secondary to COPD on baseline home O2 who presented with progressive shortness of breath as well as wheezing of 3-4-day duration. An assessment of COPD exacerbation made admitted to regular nursing floor for further management 1. Acute COPD exacerbation: Patient is admitted to regular nursing floor where she is currently being managed with systemic steroids, antibiotics as well as bronchodilator treatment. Oxygen titrated to keep pulse ox greater than 90 she did improve after 2 days of hospital stay discharged home instructed to follow-up with PCP for subsequent management 2. Chronic hypoxic respiratory failure patient is on baseline home O2 3. Degenerative joint disease with spinal stenosis involving the lower lumbar spine 4. Diabetes mellitus type II: Controlled; patient's oral hypoglycemics held. Placed on long acting insulin, Accu-Cheks a.c. and at bedtime and covered with sliding scale insulin 5 Obesity with BMI of 32.5 6. Hypertension-blood pressure controlled, home medications continued with dose adjustment as needed 7. Depression with anxiety 8. Peripheral neuropathy 9. DVT prophylaxis SC Lovenox 10. Hypokalemia corrected per protocol Patient Problems: Active and Suspected Problems COPD exacerbation (Acute) - Physical Exam General: Alert HEENT: Atraumatic Lungs: Diminished Cardiovascular: Regular rate Neurological: Neuro grossly intact Psych/Mental Status: Normal Affect Vital Signs Temp Pulse Resp BP Pulse Ox 97.1 F L 68 16 134/79 H 93 05/01/18 07:49 05/01/18 08:30 05/01/18 07:49 05/01/18 07:49 05/01/18 07:49 Oxygen Flow Rate (L/min) 4 Oxygen Delivery Method Nasal Cannula Weight: 80.7 kg Body Mass Index (BMI) 32.5 Intake and Output for Last 24 Hours 04/29/18 04/30/18 05/01/18 23:59 23:59 23:59 Intake Total 1100 / 1100 1100 / 1100 Output Total 600 / 600 Balance 1100 / 1100 500 / 500 Microbiology Past 72 Hours 04/30/18 02:00 Gram Stain - Final Sputum, Expectorated/Coughed Respiratory Culture - Preliminary Staphylococcus aureus 04/30/18 02:35 Influenza Types A,B Direct FA (ESSIE) - Final Mucosa - Nasopharyngeal Laboratory Tests Past 24 Hrs 05/01/18 07:07 Sodium 142 Potassium 4.8 Chloride 108 H Carbon Dioxide 28.0 Anion Gap 6 BUN 8 Creatinine 0.78 Estim Creat Clear Calc 72.79 Est GFR (MDRD) Af Amer 103 Est GFR (MDRD) Non-Af 85 BUN/Creatinine Ratio 10.3 Glucose 133 H Calcium 8.7 POC Glucose 05/01/18 04/30/18 04/30/18 06:51 21:38 16:27 POC Glucose 135 H 220 H 284 H 04/30/18 10:43 POC Glucose 185 H Discharge Diet: 1800 Calorie Control Diet Discharge Activity: May Not Drive Home Medications: Medications to take at Discharge Albuterol IH (ProAir) [Proair Hfa] 1 puff INHALATION Q4H PRN PRN 04/02/13 Amitriptyline HCl [Elavil] 100 mg PO QHS 04/02/13 Duloxetine Hcl [Cymbalta] 60 mg PO DAILY 04/02/13 Estradiol [Estrace] 2 mg PO QHS 04/02/13 Metformin HCl [Glucophage] 500 mg PO BIDCM 04/02/13 Metoprolol Tartrate [Lopressor (beta mike)] 25 mg PO BID 04/02/13 Cyanocobalamin [Vitamin B12] 500 mcg PO DAILY@0800 03/22/14 Potassium Chloride [K-Dur] 40 meq PO DAILY #20 tablet 03/22/14 Ondansetron [Zofran Odt] 4 mg PO Q8H PRN PRN #10 tablet 11/09/14 Pregabalin [Lyrica] 75 mg PO BID 05/13/15 Clonazepam 1 mg PO Q6H PRN PRN 04/29/18 Fluticasone/Salmeterol [Advair 250-50 Diskus] 2 puff INHALATION BID 04/29/18 Naproxen [Naprosyn] 500 mg PO BID 04/29/18 Oxycodone HCl/Acetaminophen [Percocet 10-325 mg Tablet] 1 tablet PO Q4H PRN PRN 04/29/18 Doxycycline 100 mg PO BID #14 capsule 05/01/18 Guaifenesin [Mucinex] 1,200 mg PO BID #14 tablet 05/01/18 Prednisone 20 mg PO BID #10 tablet 05/01/18 Following Prescrptions Were Given to Patient: Doxycycline 100 mg PO BID #14 capsule Guaifenesin [Mucinex] 1,200 mg PO BID #14 tablet Prednisone 20 mg PO BID #10 tablet Primary Care Physician: Robert Patel DO [Primary Care Provider] - Please follow up with your Primary Care Physician in: in 5-7 days Minutes spent on discharge:: 35 Patient Condition:: Stable Medical Necessity - Tobacco Use Smoking Status: Current every day smoker Meaningful Use Info Meaningful Use Diagnoses (Choose all that apply): None applicable Code Visit Inpatient E&M: [id number] Disch Hosp
--- NOTE | 2018-05-01 10:26 | DS.PCM_ITS ---
Discharge Date and Diagnosis - Problem List Patient Problems: Active and Suspected Problems COPD exacerbation (Acute) Date of Admission: 04/29/18 Date of Discharge: 05/01/18 - Primary Discharge Diagnosis Active and Suspected Problems COPD exacerbation (Acute) - Secondary Discharge Diagnosis Chronic Problems DJD (degenerative joint disease), lumbar (Chronic) Lumbar spinal stenosis (Chronic) Peripheral neuropathy (Chronic) Obesity (Chronic) DM2 (diabetes mellitus, type 2) (Chronic) Depression (Chronic) Benign essential HTN (Chronic) Anxiety (Chronic) Hospital Course and Treatment Imaging Results: Clinical Impression(s) from Imaging Studies Chest X-Ray 04/29/18 22:19 IMPRESSION: Atelectasis versus scarring at the lung bases without interval change. Electronically Signed: Devyn Fisher DO at 23:19 EST Tel [phone], Service support , Summary of Care Provided: Patient is a 42-year-old lady with history of hypoxic respiratory failure secondary to COPD on baseline home O2 who presented with progressive shortness of breath as well as wheezing of 3-4-day duration. An assessment of COPD exacerbation made admitted to regular nursing floor for further management 1. Acute COPD exacerbation: Patient is admitted to regular nursing floor where she is currently being managed with systemic steroids, antibiotics as well as bronchodilator treatment. Oxygen titrated to keep pulse ox greater than 90 she did improve after 2 days of hospital stay discharged home instructed to follow- up with PCP for subsequent management 2. Chronic hypoxic respiratory failure patient is on baseline home O2 3. Degenerative joint disease with spinal stenosis involving the lower lumbar spine 4. Diabetes mellitus type II: Controlled; patient's oral hypoglycemics held. Placed on long acting insulin, Accu-Cheks a.c. and at bedtime and covered with sliding scale insulin 5 Obesity with BMI of 32.5 6. Hypertension-blood pressure controlled, home medications continued with dose adjustment as needed 7. Depression with anxiety 8. Peripheral neuropathy 9. DVT prophylaxis SC Lovenox 10. Hypokalemia corrected per protocol Patient Problems: Active and Suspected Problems COPD exacerbation (Acute) - Physical Exam General: Alert HEENT: Atraumatic Lungs: Diminished Cardiovascular: Regular rate Neurological: Neuro grossly intact Psych/Mental Status: Normal Affect Vital Signs Temp Pulse Resp BP Pulse Ox 97.1 F L 68 16 134/79 H 93 05/01/18 07:49 05/01/18 08:30 05/01/18 07:49 05/01/18 07:49 05/01/18 07:49 Oxygen Flow Rate (L/min) 4 Oxygen Delivery Method Nasal Cannula Weight: 80.7 kg Body Mass Index (BMI) 32.5 Intake and Output for Last 24 Hours 04/29/18 04/30/18 05/01/18 23:59 23:59 23:59 Intake Total 1100 / 1100 1100 / 1100 Output Total 600 / 600 Balance 1100 / 1100 500 / 500 Microbiology Past 72 Hours 04/30/18 02:00 Gram Stain - Final Sputum, Expectorated/Coughed Respiratory Culture - Preliminary Staphylococcus aureus 04/30/18 02:35 Influenza Types A,B Direct FA (ESSIE) - Final Mucosa - Nasopharyngeal Laboratory Tests Past 24 Hrs 05/01/18 07:07 Sodium 142 Potassium 4.8 Chloride 108 H Carbon Dioxide 28.0 Anion Gap 6 BUN 8 Creatinine 0.78 Estim Creat Clear Calc 72.79 Est GFR (MDRD) Af Amer 103 Est GFR (MDRD) Non-Af 85 BUN/Creatinine Ratio 10.3 Glucose 133 H Calcium 8.7 POC Glucose 05/01/18 04/30/18 04/30/18 06:51 21:38 16:27 POC Glucose 135 H 220 H 284 H 04/30/18 10:43 POC Glucose 185 H Discharge Diet: 1800 Calorie Control Diet Discharge Activity: May Not Drive Home Medications: Medications to take at Discharge Albuterol IH (ProAir) [Proair Hfa] 1 puff INHALATION Q4H PRN PRN 04/02/13 Amitriptyline HCl [Elavil] 100 mg PO QHS 04/02/13 Duloxetine Hcl [Cymbalta] 60 mg PO DAILY 04/02/13 Estradiol [Estrace] 2 mg PO QHS 04/02/13 Metformin HCl [Glucophage] 500 mg PO BIDCM 04/02/13 Metoprolol Tartrate [Lopressor (beta mkie)] 25 mg PO BID 04/02/13 Cyanocobalamin [Vitamin B12] 500 mcg PO DAILY@0800 03/22/14 Potassium Chloride [K-Dur] 40 meq PO DAILY #20 tablet 03/22/14 Ondansetron [Zofran Odt] 4 mg PO Q8H PRN PRN #10 tablet 11/09/14 Pregabalin [Lyrica] 75 mg PO BID 05/13/15 Clonazepam 1 mg PO Q6H PRN PRN 04/29/18 Fluticasone/Salmeterol [Advair 250-50 Diskus] 2 puff INHALATION BID 04/29/18 Naproxen [Naprosyn] 500 mg PO BID 04/29/18 Oxycodone HCl/Acetaminophen [Percocet 10-325 mg Tablet] 1 tablet PO Q4H PRN PRN 04/29/18 Doxycycline 100 mg PO BID #14 capsule 05/01/18 Guaifenesin [Mucinex] 1,200 mg PO BID #14 tablet 05/01/18 Prednisone 20 mg PO BID #10 tablet 05/01/18 Following Prescrptions Were Given to Patient: Doxycycline 100 mg PO BID #14 capsule Guaifenesin [Mucinex] 1,200 mg PO BID #14 tablet Prednisone 20 mg PO BID #10 tablet Primary Care Physician: Robert Patel DO [Primary Care Provider] - Please follow up with your Primary Care Physician in: in 5-7 days Minutes spent on discharge:: 35 Patient Condition:: Stable Medical Necessity - Tobacco Use Smoking Status: Current every day smoker Meaningful Use Info Meaningful Use Diagnoses (Choose all that apply): None applicable Code Visit Inpatient E&M: [id number] Disch Hosp
[2018-05-01] MEDS: Pregabalin 75 MG Capsule PO (10:39)
--- NOTE | 2018-05-01 11:54 | NURSING ---
this rn taking over care of pt at this time
[2018-05-01] MEDS: Insulin Lispro 100 UNIT/ML INSULN.PEN SQ (12:15)
[2018-05-01] MEDS: Acetaminophen 325 MG Tablet 650 MG PO (12:19)
[2018-05-01 12:21] LABS: Bedside Glucose 279 mg/dL (70-110)
[2018-05-01] MEDS: 0.9% NaCl Peripheral Flush Adult/Peds IV (13:16)
--- NOTE | 2018-05-04 12:39 | CASEMGMT ---
EDY SEVILLA Discharge Follow-up Phone Call: LOUISEMargarita: Brittaney Strata: 3 Call Date: 05/04/18 Discharge Date: 05/01/18 Time of Call: [id number] Duration: 5 minutes ? Admitting Diagnosis: COPD exacerbation This EDY SEVILLA spoke with pt in follow up to her status since discharge. Pt states she is slowing getting better. Pt denies any difficulty with breathing. Pt reports she received her home O2 and has been using 4l/min. Pt has a pulse oximetry monitor which has showed a PO of 96-99%. Pt states her PO was 95% on RA at rest. Pt was on O2 at 4l/min per NC during her hospital stay. Encouraged pt to wear O2 especially while ambulating and during sleep. Pt states she was able to obtain her prescriptions, denied any questions about them or her discharge instructions. She has not yet made her follow up appointment as the Dr's office is closed today but will contact them in the morning. Pt denies any further questions or concerns and states she will call her physician's office or 911 for any needs.
== END 2018-05-01 15:03 | disposition home or self-care (01) | DRG 191 ==
LOC: ED 22:52 → MS3 23:51
PROVIDERS: Admitting Provider Internal Medicine; Emergency Provider Emergency Medicine; Family Provider Family Medicine; PCP Family Medicine; Visit Provider Internal Medicine
DX: J44.1 Chronic obstructive pulmonary disease with (acute) exacerbation (principal); J96.11 Chronic respiratory failure with hypoxia; F17.210 Nicotine dependence, cigarettes, uncomplicated; I10 Essential (primary) hypertension; Z99.81 Dependence on supplemental oxygen; M47.896 Other spondylosis, lumbar region; M48.061 Spinal stenosis, lumbar region without neurogenic claudication; E11.42 Type 2 diabetes mellitus with diabetic polyneuropathy; E66.9 Obesity, unspecified; Z79.84 Long term (current) use of oral hypoglycemic drugs; Z68.32 Body mass index [BMI] 32.0-32.9, adult; E87.6 Hypokalemia; F32.9 Major depressive disorder, single episode, unspecified; F41.9 Anxiety disorder, unspecified
CPT/HCPCS: 36415; 71046; 80048; 82962; 83880; 85025; 87070; 87077; 87186; 87205; 87804; 93005; 94640; 94668; 99283; 99406; A4216; J2405

== ENCOUNTER 2018-06-21 13:56 | Emergency (ER) | payer MEDICARE, SELFPAY ==
[2018-06-21 13:57] VITALS: BP 122/87; PULSE 86; RESP 16; TEMP 36.6; O2SAT 98; BMI 27.8
--- NOTE | 2018-06-21 14:57 | RAD_ITS ---
STUDY: X-RAY CHEST REASON FOR EXAM: Female, 42 years old. Shortness of breath, productive cough TECHNIQUE: PA and lateral views of the chest. COMPARISON: 04/29/2018 FINDINGS: Linear densities in the right middle lobe and lingula are similar when compared to the prior study. No superimposed airspace process. There is no demonstrated pleural abnormality. Normal size heart. Normal mediastinum and sherry. Normal visualized pulmonary arteries. Normal visualized aortic arch and descending thoracic aorta. Normal visualized thoracic spine. Normal visualized ribs, clavicles, and shoulders. There is no demonstrated abnormality of the visualized soft tissue structures of the upper abdomen. RAD/Chest PA and Lateral IMPRESSION: 1. Stable exam. No airspace consolidation. 2. Similar lingular and right middle lobe fibrotic scarring. Electronically Signed: Rohit Das MD at 16:22 EST , Service support ,
[2018-06-21 15:04] VITALS: PULSE 75; RESP 18
[2018-06-21] MEDS: Ipratropium/Albuterol Sulfate 3 ML AMPUL.NEB INHALATION (15:04)
[2018-06-21] MEDS: Albuterol 2.5 MG/3 ML VIAL.NEB. INHALATION ×3 (15:04→16:10)
[2018-06-21] MEDS: predniSONE 20 MG Tablet 60 MG PO (15:17)
[2018-06-21 15:51] LABS: Absolute Lymphocyte Count 3.92 X10^3/ul (0.83-4.51); Absolute Neutrophil Count 4.2 X10^3/uL (2.0-7.7); Basophil# 0.06 X10^3/uL; Basophil% 0.6 % (0-1); Eosinophil# 0.42 X10^3/uL; Eosinophils% 4.5 % (0-5); Hematocrit 46.3 % (37-47); Hemoglobin 15.2 g/dl (12.0-15.0); Lymphocyte # 3.92 X10^3/ul (4.0); Lymphocyte % 42.3 % (19-41); Mean Corp Hgb Conc 32.8 g/gl (32-36); Mean Corpuscular Hgb 28.9 pg (27.0-32.0); Mean Platelet Vol. 10.3 fl (6.2-12.0); Monocyte# 0.66 X10^3/uL; Monocyte% 7.1 % (0-10); Neutrophil # 4.19 X10^3/uL (2.7-7.7); Neutrophil % 45.3 % (47-70); Platelet Count 290 K/mm3 (150-450); RBC Distribution Width CV 13.9 % (11.6-14.6); RBC Distribution Width SD 44.9 fl (35.1-43.9); Red Blood Count 5.26 M/mm3 (4.2-5.4); White Blood Count 9.3 K/mm3 (4.4-11.0)
[2018-06-21 15:52] LABS: POSITIVE COUNT NO; POSITIVE DIFFERENTIAL NO; POSITIVE MORPHOLOGY NO
[2018-06-21 15:53] LABS: Anion Gap 6 (5-15); BUN 8 mg/dL (7-18); BUN/Creat Ratio 9.8 RATIO (10-20); Calcium,Total 8.4 mg/dL (8.5-10.1); Chloride 105 mmol/L (98-107); Creatinine, Serum 0.81 mg/dL (0.55-1.02); EST Glomerular Filtration Rate 81 mL/min (>60); Est Glom Filt Rate - Afr Amer 98 mL/min (>60); Estimated Creatinine Clearance 82.97 ml/min; Glucose 97 mg/dL (74-106); Potassium 3.7 mmol/L (3.5-5.1); Sodium Level 138 mmol/L (136-145)
[2018-06-21 16:05] VITALS: PULSE 77; RESP 18
[2018-06-21 16:27] VITALS: PULSE 81; O2SAT 92
[2018-06-21 17:38] VITALS: BP 127/63; PULSE 72; RESP 17; O2SAT 96
[2018-06-21] MEDS: Doxycycline 100 MG CAPSULE PO (17:38)
--- NOTE | 2018-06-21 17:50 | ED.DCSUM_ITS ---
- ER Visit Summary Date of Service: 06/21/18 Chief Complaint: Shortness of breath productive cough of brown colored sputum History of Present Illness: The patient is a 42 F who has history of O2 dependent COPD presents because of increased shortness of breath past 4 days. She reports brown colored sputum. She states she is trying to quit smoking. He is only had 4 cigarettes the last 2 days which is a significant decrease from 1.5 packs/day. She denies fever or chills. She denies night sweats or weight loss. She denies ocular, visual or auditory symptoms. She does report rhinorrhea. She denies chest pain, palpitations or rapid heartbeat. She does report shortness of breath, productive cough and dyspnea on exertion. She denies orthopnea or PND. She denies GI or symptoms. She denies myalgias arthralgias. She denies rash. Denies headache, generalized weakness, anesthesia, paresthesia or motor weakness. She denies hives or urticaria. Physical Examination: Vital signs are unremarkable. She not hypoxic on her baseline oxygen. TMs normal. Nares patent with clear discharge. Uvula midline. No erythema or exudate. Trachea midline. There is no stridor. There is rales right base posteriorly greater than left. There is increased x-ray phase with wheezing heard throughout. Heart is regular without murmur, gallop or rub. Abdomen soft nontender bowel sounds present normal. There is no asymmetry, swelling, discoloration, leg vein distention, palpable cords or tenderness along the distribution of the deep venous system. Neuro exam is nonfocal. Test Results: Chest x-ray reveals discoid atelectasis right and left. The abnormality on left is new. White count is normal at 9.3 thousand with 45 segs no bands 42 lymphs. Basic metabolic panel is unremarkable. Emergency Department Course and Treatment: Chest x-ray was obtained to evaluate for pneumonia. DuoNeb followed by 3 albuterol treatments and 60 mg of prednisone. Treatment Plan: Patient improved after treatment. Plan is to discharge to home with prescription for doxycycline and burst of prednisone. Disposition: Discharged home in stable and improved condition. Impression: 1. Exacerbation of COPD 2. Bronchospasm 3. Exacerbation of chronic bronchitis 4. History of diabetes 5. History of hypertension This note was generated with [employer] software. It may contain incorrect words, spelling, and punctuation that were not noted in review of the chart prior to signing ED Disposition - Plan for ED Patient: Disposition: Home or Assisted Living Chief Complaint: Shortness of Breath Instructions: ED COPD Flare Prescriptions: Prednisone 20 mg PO DAILY #8 tablet Doxycycline [Vibramycin] 100 mg PO BID #14 capsule Referrals: Robert Patel DO [Primary Care Provider] - 3-5 Days if not improving Additional Instructions: Your prescription was electronically transmitted to [facility] pharmacy in [place] your designated pharmacy of choice
== END 2018-06-21 17:39 | disposition home or self-care (01) ==
PROVIDERS: Emergency Provider Emergency Medicine; Family Provider Family Medicine; PCP Family Medicine
DX: J44.0 Chronic obstructive pulmonary disease with (acute) lower respiratory infection (principal); J20.9 Acute bronchitis, unspecified; J44.1 Chronic obstructive pulmonary disease with (acute) exacerbation; I10 Essential (primary) hypertension; E11.9 Type 2 diabetes mellitus without complications; Z99.81 Dependence on supplemental oxygen; F17.210 Nicotine dependence, cigarettes, uncomplicated
CPT/HCPCS: 36415; 71046; 80048; 85025; 94640; 99285; A4216

== ENCOUNTER → 2018-08-07 11:53 | Outpatient (CLI) | payer MEDICARE, SELFPAY ==
[2018-08-07 15:55] LABS: Absolute Lymphocyte Count 4.83 X10^3/ul (0.83-4.51); Absolute Neutrophil Count 5.2 X10^3/uL (2.0-7.7); Basophil# 0.05 X10^3/uL; Basophil% 0.4 % (0-1); Eosinophil# 0.65 X10^3/uL; Eosinophils% 5.7 % (0-5); Hemoglobin 15.4 g/dl (12.0-15.0); Lymphocyte # 4.83 X10^3/ul (4.0); Lymphocyte % 42.4 % (19-41); Mean Corp Hgb Conc 31.4 g/gl (32-36); Mean Corpuscular Hgb 28.4 pg (27.0-32.0); Mean Corpuscular Volume 90.4 fL (81-99); Monocyte# 0.67 X10^3/uL; Monocyte% 5.9 % (0-10); Neutrophil # 5.16 X10^3/uL (2.7-7.7); Neutrophil % 45.4 % (47-70); Platelet Count 317 K/mm3 (150-450); RBC Distribution Width CV 14.2 % (11.6-14.6); RBC Distribution Width SD 46.3 fl (35.1-43.9); Red Blood Count 5.42 M/mm3 (4.2-5.4); White Blood Count 11.4 K/mm3 (4.4-11.0)
[2018-08-07 15:58] LABS: POSITIVE COUNT NO; POSITIVE DIFFERENTIAL NO; POSITIVE MORPHOLOGY NO
[2018-08-07 16:07] LABS: AST(SGOT) 52 U/L (15-37); Alanine Aminotransfer ALT/SGPT 42 U/L (13-56); Albumin, Serum 3.6 g/dL (3.2-5.0); Alkaline Phosphatase 94 U/L (45-117); Anion Gap 9 (5-15); BUN 4 mg/dL (7-18); Calcium,Total 8.6 mg/dL (8.5-10.1); Chloride 103 mmol/L (98-107); Cholesterol 235 mg/dL (200); Creatinine, Serum 0.81 mg/dL (0.55-1.02); EST Glomerular Filtration Rate 82 mL/min (>60); Est Glom Filt Rate - Afr Amer 99 mL/min (>60); Globulin 3.7 g/dL (2.2-4.2); Glucose 87 mg/dL (74-106); High Density Lipoprotein 64 mg/dL; Potassium 3.6 mmol/L (3.5-5.1); Protein, Total 7.3 g/dL (6.4-8.2); Sodium Level 137 mmol/L (136-145); Triglycerides 129 mg/dL; Very Low Density Lipoprotein 26 mg/dL (5-40)
[2018-08-07 16:42] LABS: Microalbumin,Random Urine < 5.0 mg/L (NO RANGE EST.)
== END ==
PROVIDERS: Family Provider Family Medicine; PCP Family Medicine; Visit Provider Family Medicine
DX: E11.9 Type 2 diabetes mellitus without complications (principal); E78.5 Hyperlipidemia, unspecified; I10 Essential (primary) hypertension; Z51.81 Encounter for therapeutic drug level monitoring
CPT/HCPCS: 36415; 80053; 80061; 82043; 82570; 85025

== ENCOUNTER 2018-08-19 14:50 | Emergency (ER) | payer MEDICARE, MEDICAID, SELFPAY ==
[2018-08-19 14:51] VITALS: BP 156/107; PULSE 83; RESP 16; TEMP 36.6; O2SAT 97; BMI 31.9
--- NOTE | 2018-08-19 15:17 | RAD_ITS ---
STUDY: X-RAY - LUMBAR SPINE REASON FOR EXAM: Female, 43 years old. Trauma. TECHNIQUE: 3 view(s) of the lumbar spine were obtained. COMPARISON: Comparison is made with prior study dated January 24, 2017. FINDINGS: Normal lumbar lordosis. There is no substantial scoliosis. There is a normal alignment of the vertebrae. Normal vertebral bodies and endplates. Disc space narrowing and disc degeneration at the L5-S1 level The soft tissue structures are unremarkable. RAD/Lumbar Spine 2 or 3 Views IMPRESSION: Disc space narrowing and disc degeneration at the L5-S1 level. This has progressed as compared to prior study. Electronically Signed: Jaxson Gomez, at 15:43 EST , Service support ,
--- NOTE | 2018-08-19 15:45 | ED.DCSUM_ITS ---
- ER Visit Summary Date of Service: 08/19/18 Chief Complaint: Back pain History of Present Illness: The patient is a 43 F who states that she sleeps walks. Last night she states was walking hit a dresser fell struck the left side of her head on the dresser and landed on her buttocks. She has chronic back pain for which she takes Percocet. He states the Percocets are not helping today. She describes sensitivity over the left frontal forehead. No loss of consciousness or vomiting. No loss of function. She notes pain of the low back both in the midline and paraspinally. She notes painful range of motion. No change in her chronic radicular symptoms. Physical Examination: Afebrile vital signs stable Gen: Well-nourished well-developed Head: Normocephalic atraumatic tender to palpation of the left forehead without palpable depression or significant ecchymosis or hematoma Eyes: Perrl EOMI ENT: TMs clear no rhinorrhea moist mucous membranes Neck: Supple no lymphadenopathy no JVD nontender CVS: Regular rate rhythm no murmurs normal S1-S2 Respiratory: No distress clear to auscultation bilaterally chest nontender Abdomen: Soft nontender nondistended normal bowel sounds no masses Back: Diffusely tender over the lumbar paraspinal and midline tissue but no hematomas. Extremity: Nontender no edema Skin: Normal color no rash Neuro: alert orientated ?3 CN II-XII intact normal strength sensation Psych: Normal affect normal mood Test Results: Lumbar spine films did not demonstrate any fracture. Generative changes L5-S1 noted Emergency Department Course and Treatment: Patient already has narcotics at [facility]. We will add muscle relaxant for her. She is asked for a shot and I will give her Norflex. She notes an allergy to Toradol. Impression: 1. Forehead contusion 2. Acute on chronic low back pain This note was generated with [employer] dictation software. It may contain incorrect words, spelling, and punctuation that were not noted in review of the chart prior to signing ED Disposition - Plan for ED Patient: Disposition: Home or Assisted Living Instructions: ED Contusion Face, ED Sprain Strain Lumbar Prescriptions: Ibuprofen [Motrin] 800 mg PO TID PRN PRN #20 tab PRN Reason: Pain Cyclobenzaprine [Flexeril] 10 mg PO TID PRN #15 tab PRN Reason: Muscle Spasm Referrals: Robert Patel DO [Primary Care Provider] - 1 Week
[2018-08-19] MEDS: Orphenadrine 60 MG/2 ML Ampul IM (16:03)
[2018-08-19 16:23] VITALS: RESP 16
== END 2018-08-19 16:23 | disposition home or self-care (01) ==
PROVIDERS: Emergency Provider Emergency Medicine; Family Provider Family Medicine; PCP Family Medicine
DX: M54.5 Low back pain (principal); G89.29 Other chronic pain; S00.83XA Contusion of other part of head, initial encounter; Z72.0 Tobacco use; Z79.891 Long term (current) use of opiate analgesic; W01.190A Fall on same level from slipping, tripping and stumbling with subsequent striking against furniture, initial encounter; Y93.01 Activity, walking, marching and hiking; Y92.003 Bedroom of unspecified non-institutional (private) residence as the place of occurrence of the external cause; Y99.8 Other external cause status
CPT/HCPCS: 72100; 96372; 99282

== ENCOUNTER → 2018-09-28 | Outpatient (CLI) | payer MEDICARE, MEDICAID, SELFPAY ==
[2018-09-28 14:22] LABS: Mucous, Urine 0 SEEN /hpf (<or=2+); Red Blood Cells-Urine 0 SEEN /hpf (0-5)
[2018-09-28 18:26] LABS: OXY Internal Control LINE = VALID (VALID); Oxycodone Drug Screen Positive (<100 ng/mL)
[2018-09-28 18:32] LABS: Amphetamine Urine VISTA NEGATIVE (<1000 ng/mL); Barbiturate Urine VISTA NEGATIVE (< 200 ng/mL); Benzodiazepine Urine VISTA NEGATIVE (< 200 ng/mL); Cocaine Urine VISTA NEGATIVE (< 300 ng/mL); Ecstacy Urine VISTA NEGATIVE (< 500 ng/mL); Methadone Urine VISTA NEGATIVE (< 300 ng/mL); PCP Urine VISTA NEGATIVE (< 25 ng/mL); THC Urine VISTA NEGATIVE (< 50 ng/mL); Vista UDS pH Range 6
[2018-09-28 19:07] LABS: Color, Urine Yellow (Yellow); Glucose, Dipstick Normal (Normal); Ketone-Dipstick Negative (Negative); Leukocyte Esterase-Dipstick 500 /ul (Negative); Nitrite-Dipstick Positive (Negative); Occult Blood-Urine Negative /ul (Negative); Protein-Dipstick Negative (Negative); Urine Bilirubin Dipstick Negative (Negative); Urine Clarity Cloudy (Clear); Urine Urobilinogen Normal (Normal)
[2018-09-28 19:26] LABS: Squamous Epithelial Cells - UA 0-5 SEEN /hpf (5-10)
[2018-09-28 19:27] LABS: Bacteria 4+ /hpf (None Seen)
[2018-09-28 19:28] LABS: White Blood Cells 10-25 SEEN /hpf (0-5)
== END | disposition home or self-care (01) ==
LOC: BFHLAB 14:18
PROVIDERS: Family Provider Family Medicine; PCP Family Medicine; Visit Provider Family Medicine
DX: R30.0 Dysuria (principal); Z51.81 Encounter for therapeutic drug level monitoring
CPT/HCPCS: 36415; 80307; 80365; 81001; G0480

== ENCOUNTER 2018-10-08 06:54 | Observation (INO) | payer MEDICARE, MEDICAID, SELFPAY ==
[2018-10-08] VITALS (14 sets, daily range): BP systolic 117–170; BP diastolic 62–89; PULSE 65–95; RESP 18–24; TEMP 36.3–37; O2SAT 89–96; BMI 32.0; BMI 32.1
--- NOTE | 2018-10-08 07:25 | EKG12_ITS ---
Test Reason : SOB Blood Pressure : / mmHG Vent. Rate : 077 BPM Atrial Rate : 077 BPM P-R Int : 166 ms QRS Dur : 098 ms QT Int : 384 ms P-R-T Axes : 059 015 055 degrees QTc Int : 434 ms Normal sinus rhythm Incomplete right bundle branch block Borderline ECG Confirmed by SHELBY DANIELSON, FERNANDO ([id number]), editor at large CADEN LIMA ([id number]) on 10/12/2018 10:21:29 AM Referred By: MADHU Confirmed By:FERNANDO RYAN MD
--- NOTE | 2018-10-08 07:26 | RAD_ITS ---
STUDY: X-RAY CHEST REASON FOR EXAM: Female, 43 years old. Cough. Shortness of breath. TECHNIQUE: Single AP portable view of the chest. COMPARISON: Comparison is made with prior study dated June 21, 2018. FINDINGS: EKG electrodes are seen. Mild increased markings in the right middle lobe as well as at the left lung base. These have improved since prior study. This may represent scarring. There is no demonstrated pleural abnormality. Normal size heart. Normal mediastinum and sherry. Normal visualized pulmonary arteries. Normal visualized aortic arch and descending thoracic aorta. Normal visualized thoracic spine. Normal visualized ribs, clavicles, and shoulders. There is no demonstrated abnormality of the visualized soft tissue structures of the upper abdomen. RAD/Chest 1 View (Portable) IMPRESSION: Mild increased linear markings in the right mid lung as well as in the left lower lobe suggestive of scarring. These have improved as compared to prior study. Electronically Signed: Jaxson Gomez, at 8:03 EDT , Service support ,
--- NOTE | 2018-10-08 07:30 | ED.DCSUM_ITS ---
- ER Visit Summary Date of Service: 10/08/18 Chief Complaint: [] Harsh cough for 5 days runny nose History of Present Illness: The patient is a 43 F [] she has had a harsh cough runny nose for for 5 days, indicates she was exposed to a family baby/ child had pneumonia and since that time she has had these complaints, she has history of COPD asthma diabetes indicates she is on home O2 as needed at night she is an inhaler neb laser machine despite using the above she continues to have harsh cough and shortness of breath she just completed an antibiotic for UTI, her other health conditions have been stable and she reports that her diabetes is doing so well she may not require her medications much longer. She has a history of TX PE or DVT normal bowel bladder habits no numbness weakness or paresthesias Physical Examination: [] 170/80, afebrile pulse ox 91- 95% on 2 L General, no distress resting comfortably HEENT is generally unremarkable, she does have rhinorrhea and a very harsh cough The neck is supple no adenopathy Cardiovascular, regular rate and rhythm Lungs, wheezing throughout good excursion no respiratory distress Abdomen, soft nontender Extremities, no clubbing cyanosis or edema Neurologic, awake alert answering questions appropriately moving all 4 extremit ies Test Results: [] Emergency Department Course and Treatment: [] EKG shows a sinus rhythm rate about 80 no interval changes no acute injury appreciated, therapy screening labs reevaluation chest x-ray Screening labs are generally unremarkable see those reports, chest x-ray per radiology shows actually improvement nothing acute see that report, after aerosols and therapy her pulse ox now is around 91 on 2 L and she indicates that normally her pulse ox is 95 on room air she still feels congested does not feel well enough to be discharged home, there is no signs of cardiopulmonary respiratory distress or failure given all the above have asked hospitalist to see her for admission, there is no signs of pneumonia, she will be started on IV steroids continue the aerosols and admit Treatment Plan: [] Disposition: [] Admit stable Impression: [] Exacerbation of COPD, history of home O2 use This note was generated with [employer] dictation software. It may contain incorrect words, spelling, and punctuation that were not noted in review of the chart prior to signing ED Disposition - Plan for ED Patient: Referrals: Robert Patel DO [Primary Care Provider] -
[2018-10-08] MEDS: 0.9% Normal Saline 1,000 ML 150 ML IV (07:42)
[2018-10-08 07:46] LABS: Absolute Lymphocyte Count 1.54 X10^3/ul (0.83-4.51); Absolute Neutrophil Count 4.6 X10^3/uL (2.0-7.7); Basophil# 0.02 X10^3/uL; Basophil% 0.3 % (0-1); Eosinophil# 0.39 X10^3/uL; Eosinophils% 5.6 % (0-5); Hemoglobin 15.3 g/dl (12.0-15.0); Lymphocyte # 1.54 X10^3/ul (4.0); Lymphocyte % 22.1 % (19-41); Mean Corp Hgb Conc 32.6 g/gl (32-36); Mean Corpuscular Hgb 28.7 pg (27.0-32.0); Mean Platelet Vol. 10.7 fl (6.2-12.0); Monocyte# 0.44 X10^3/uL; Monocyte% 6.3 % (0-10); Neutrophil # 4.55 X10^3/uL (2.7-7.7); Neutrophil % 65.4 % (47-70); Platelet Count 264 K/mm3 (150-450); RBC Distribution Width CV 13.4 % (11.6-14.6); RBC Distribution Width SD 43.2 fl (35.1-43.9); Red Blood Count 5.34 M/mm3 (4.2-5.4)
[2018-10-08 07:48] LABS: POSITIVE COUNT NO; POSITIVE DIFFERENTIAL NO; POSITIVE MORPHOLOGY NO
[2018-10-08 07:56] LABS: Anion Gap 8 (5-15); BUN 6 mg/dL (7-18); Calcium,Total 8.4 mg/dL (8.5-10.1); Chloride 102 mmol/L (98-107); Creatinine, Serum 0.86 mg/dL (0.55-1.02); EST Glomerular Filtration Rate 76 mL/min (>60); Est Glom Filt Rate - Afr Amer 92 mL/min (>60); Estimated Creatinine Clearance 65.34 ml/min; Glucose 151 mg/dL (74-106); Potassium 3.6 mmol/L (3.5-5.1); Sodium Level 138 mmol/L (136-145)
[2018-10-08] MEDS: Ipratropium/Albuterol Sulfate 3 ML AMPUL.NEB INHALATION ×5 (07:56→23:52)
[2018-10-08] MEDS: HYDROcodone Bitartrate/Apap 5/325 Tablet PO (08:45)
--- NOTE | 2018-10-08 09:27 | PCM.HP.STD ---
Problem List (1) COPD exacerbation Status: Acute History of Present Illness Date of Admission: 10/08/18 Chief Complaint: shortness of breath. The patient is a 43 year old F [] Presents with a myriad of complaints including shortness of breath and cough. Patient has been short of breath over the past few days and just progressive getting worse. Presented to the emergency room and had audible wheezes and was in the low 90s on 2 L nasal cannula. Requested admission given this patient's history of COPD and increased oxygen requirements. Similar to other bouts of COPD that she has had before. Past Medical History Past Medical History (Chronic Problems): Chronic Problems DJD (degenerative joint disease), lumbar (Chronic) Lumbar spinal stenosis (Chronic) Peripheral neuropathy (Chronic) Obesity (Chronic) DM2 (diabetes mellitus, type 2) (Chronic) Depression (Chronic) Benign essential HTN (Chronic) Anxiety (Chronic) Allergies sulfamethoxazole [From Bactrim] Allergy (Verified 10/08/18 07:00) Rash trimethoprim [From Bactrim] Allergy (Verified 10/08/18 07:00) Rash erythromycin base [Erythromycin Base] Adverse Reaction (Verified 10/08/18 07:00) Other ketorolac tromethamine [From Toradol] Adverse Reaction (Verified 10/08/18 07:00) Other PLASTIC TAPE Adverse Reaction (Uncoded 10/08/18 07:00) Rash Home Medications: Ambulatory Orders Medication Instructions Recorded Albuterol IH (ProAir) [Proair Hfa] 1 puff INHALATION Q4H PRN PRN 04/02/13 Amitriptyline HCl [Elavil] 100 mg PO QHS 04/02/13 Duloxetine Hcl [Cymbalta] 60 mg PO DAILY 04/02/13 Estradiol [Estrace] 2 mg PO QHS 04/02/13 Metformin HCl [Glucophage] 500 mg PO BIDCM 04/02/13 Metoprolol Tartrate [Lopressor 25 mg PO BID 04/02/13 (beta mike)] Cyanocobalamin [Vitamin B12] 500 mcg PO DAILY@0800 03/22/14 Potassium Chloride [K-Dur] 40 meq PO DAILY #20 tablet 03/22/14 Pregabalin [Lyrica] 75 mg PO BID 05/13/15 Clonazepam 1 mg PO Q6H PRN PRN 04/29/18 Fluticasone/Salmeterol [Advair 2 puff INHALATION BID 04/29/18 250-50 Diskus] Naproxen [Naprosyn] 500 mg PO BID 04/29/18 Oxycodone HCl/Acetaminophen 1 tablet PO Q4H PRN PRN 04/29/18 [Percocet 10-325 mg Tablet] Guaifenesin [Mucinex] 1,200 mg PO BID #14 tablet 05/01/18 Cyclobenzaprine [Flexeril] 10 mg PO TID PRN #15 tab 08/19/18 Ibuprofen [Motrin] 800 mg PO TID PRN PRN #20 tab 08/19/18 Surgical History: appendectomy Smoking Status: Current every day smoker - *Family History Sibling History Items: - - Migraines Review of Systems Constitutional: Denies: Anorexia, Chills, Fever Eyes: Denies: Blurred vision, Double vision HEENT: Denies: Head Aches, Sinus Congestion, Sinus Drainage Cardiovascular: Reports: Chest Pain, Edema Respiratory: Reports: Cough, Shortness of Breath Gastrointestinal: Denies: Abdominal Pain, Nausea, Vomiting Genitourinary: Denies: Dysuria Musculoskeletal: Denies: Joint Pain, Joint Tenderness Skin: Denies: Rash, Wounds Neurological: Denies: Numbness, Tingling, Focal weakness Psychiatric: Denies: Anxiety, Depression Hematologic/ Lymphatic: Denies: Easy Bruising, Easy Bleeding, Hx of blood clot VTE Information - Inpt Only VTE Present on Admission: No VTE Mechan Device Prophylaxis: None VTE Pharm Prophylaxis ordered?: No Reason prophylaxis not ordered:: Procedure Not Indicated - Physical Exam General: Alert, Cooperative, No apparent distress, - - Appears older than stated age. No respiratory distress. No conversational dyspnea. HEENT: Atraumatic, Normocephalic Oral: Moist Mucosa, No Gingival or Mucosal Lesions/ Ulcerations Neck: No Nodes, Thyroid Normal Size and Texture Lungs: Diminished, Wheezes Cardiovascular: Regular rate, Regular Rhythm, Normal S1, Normal S2, No murmurs Abdomen: Bowel Sounds Present, Soft, Non Tender, Non-Distended, No Hepato-splenomegaly Extremities: No edema, No Calf Tenderness Skin: No rashes, No breakdown Musculoskeletal: No Tenderness to Palpation of Joints or Extremities, No Muscle Wasting Psych/Mental Status: Normal Affect, Appropriate Vital Signs Temp Pulse Resp BP Pulse Ox 37.0 C 78 18 170/88 H 91 04/18/19 06:55 10/08/18 07:56 10/08/18 09:02 10/08/18 06:55 10/08/18 08:15 Oxygen Flow Rate (L/min) 2 Oxygen Delivery Method Room Air Weight: 79.379 kg Body Mass Index (BMI) 32.0 Laboratory Tests Past 24 Hrs 10/08/18 10/08/18 10/08/18 07:00 07:00 07:00 WBC 7.0 RBC 5.34 Hgb 15.3 H Hct 47.0 MCV 88.0 MCH 28.7 MCHC 32.6 RDW 13.4 RDW Differential 43.2 Plt Count 264 MPV 10.7 Immature Gran % (Auto) 0.300 Neut % (Auto) 65.4 Lymph % (Auto) 22.1 [place] % (Auto) 6.3 Eos % (Auto) 5.6 H Baso % (Auto) 0.3 Absolute Neuts (auto) 4.6 Absolute Lymphs (auto) 1.54 Total Counted Not Reportable Sodium 138 Potassium 3.6 Chloride 102 Carbon Dioxide 28.0 Anion Gap 8 BUN 6 L Creatinine 0.86 Estim Creat Clear Calc 65.34 Est GFR (MDRD) Af Amer 92 Est GFR (MDRD) Non-Af 76 BUN/Creatinine Ratio 7.0 L Glucose 151 H Calcium 8.4 L Troponin I < 0.015 B-Natriuretic Peptide Pending Assessment/Plan All Active Problems COPD exacerbation (Acute) 1. Acute exacerbation of COPD Likely precipitated by a viral infection likely upper respiratory Patient oxygen was turned off when I arrived she did drop down to 89% with deep respirations. My plan is to have her on prednisone as well as bronchodilators and observe. Chest x-ray personally reviewed and was rather unremarkable. No evidence of any infiltrate therefore antibiotics are not indicated at this time. 2. Diabetes mellitus type 2 Continue with home medications plus sliding scale insulin. Would anticipate increased hyperglycemia with concomitant steroids but hopefully that can be muted to a certain extent since she will be on prednisone rather than methylprednisolone. 3. Chronic pain: Patient is on numerous medications, including Percocet. Patient was sure to tell me that she would need her PERC tens. I stated I would continue with her home medications as long as and compromise her overall care. Would advise reevaluation on outpatient basis in regards to utility of the Percocets for her chronic pain 4. VT E prophylaxis: Observation status therefore not indicated. Code Visit OBSV E&M: 13872 Initial observation care L2
--- NOTE | 2018-10-08 09:33 | HP.PCM_ITS ---
Problem List (1) COPD exacerbation Status: Acute History of Present Illness Date of Admission: 10/08/18 Chief Complaint: shortness of breath. The patient is a 43 year old F [] Presents with a myriad of complaints including shortness of breath and cough. Patient has been short of breath over the past few days and just progressive getting worse. Presented to the emergency room and had audible wheezes and was in the low 90s on 2 L nasal cannula. Requested admission given this patient's history of COPD and increased oxygen requirements. Similar to other bouts of COPD that she has had before. Past Medical History Past Medical History (Chronic Problems): Chronic Problems DJD (degenerative joint disease), lumbar (Chronic) Lumbar spinal stenosis (Chronic) Peripheral neuropathy (Chronic) Obesity (Chronic) DM2 (diabetes mellitus, type 2) (Chronic) Depression (Chronic) Benign essential HTN (Chronic) Anxiety (Chronic) Allergies sulfamethoxazole [From Bactrim] Allergy (Verified 10/08/18 07:00) Rash trimethoprim [From Bactrim] Allergy (Verified 10/08/18 07:00) Rash erythromycin base [Erythromycin Base] Adverse Reaction (Verified 10/08/18 07:00) Other ketorolac tromethamine [From Toradol] Adverse Reaction (Verified 10/08/18 07:00) Other PLASTIC TAPE Adverse Reaction (Uncoded 10/08/18 07:00) Rash Home Medications: Ambulatory Orders Medication Instructions Recorded Albuterol IH (ProAir) [Proair Hfa] 1 puff INHALATION Q4H PRN PRN 04/02/13 Amitriptyline HCl [Elavil] 100 mg PO QHS 04/02/13 Duloxetine Hcl [Cymbalta] 60 mg PO DAILY 04/02/13 Estradiol [Estrace] 2 mg PO QHS 04/02/13 Metformin HCl [Glucophage] 500 mg PO BIDCM 04/02/13 Metoprolol Tartrate [Lopressor 25 mg PO BID 04/02/13 (beta mike)] Cyanocobalamin [Vitamin B12] 500 mcg PO DAILY@0800 03/22/14 Potassium Chloride [K-Dur] 40 meq PO DAILY #20 tablet 03/22/14 Pregabalin [Lyrica] 75 mg PO BID 05/13/15 Clonazepam 1 mg PO Q6H PRN PRN 04/29/18 Fluticasone/Salmeterol [Advair 2 puff INHALATION BID 04/29/18 250-50 Diskus] Naproxen [Naprosyn] 500 mg PO BID 04/29/18 Oxycodone HCl/Acetaminophen 1 tablet PO Q4H PRN PRN 04/29/18 [Percocet 10-325 mg Tablet] Guaifenesin [Mucinex] 1,200 mg PO BID #14 tablet 05/01/18 Cyclobenzaprine [Flexeril] 10 mg PO TID PRN #15 tab 08/19/18 Ibuprofen [Motrin] 800 mg PO TID PRN PRN #20 tab 08/19/18 Surgical History: appendectomy Smoking Status: Current every day smoker - *Family History Sibling History Items: - - Migraines Review of Systems Constitutional: Denies: Anorexia, Chills, Fever Eyes: Denies: Blurred vision, Double vision HEENT: Denies: Head Aches, Sinus Congestion, Sinus Drainage Cardiovascular: Reports: Chest Pain, Edema Respiratory: Reports: Cough, Shortness of Breath Gastrointestinal: Denies: Abdominal Pain, Nausea, Vomiting Genitourinary: Denies: Dysuria Musculoskeletal: Denies: Joint Pain, Joint Tenderness Skin: Denies: Rash, Wounds Neurological: Denies: Numbness, Tingling, Focal weakness Psychiatric: Denies: Anxiety, Depression Hematologic/ Lymphatic: Denies: Easy Bruising, Easy Bleeding, Hx of blood clot VTE Information - Inpt Only VTE Present on Admission: No VTE Mechan Device Prophylaxis: None VTE Pharm Prophylaxis ordered?: No Reason prophylaxis not ordered:: Procedure Not Indicated - Physical Exam General: Alert, Cooperative, No apparent distress, - - Appears older than stated age. No respiratory distress. No conversational dyspnea. HEENT: Atraumatic, Normocephalic Oral: Moist Mucosa, No Gingival or Mucosal Lesions/ Ulcerations Neck: No Nodes, Thyroid Normal Size and Texture Lungs: Diminished, Wheezes Cardiovascular: Regular rate, Regular Rhythm, Normal S1, Normal S2, No murmurs Abdomen: Bowel Sounds Present, Soft, Non Tender, Non-Distended, No Hepato- splenomegaly Extremities: No edema, No Calf Tenderness Skin: No rashes, No breakdown Musculoskeletal: No Tenderness to Palpation of Joints or Extremities, No Muscle Wasting Psych/Mental Status: Normal Affect, Appropriate Vital Signs Temp Pulse Resp BP Pulse Ox 37.0 C 78 18 170/88 H 91 04/18/19 06:55 10/08/18 07:56 10/08/18 09:02 10/08/18 06:55 10/08/18 08:15 Oxygen Flow Rate (L/min) 2 Oxygen Delivery Method Room Air Weight: 79.379 kg Body Mass Index (BMI) 32.0 Laboratory Tests Past 24 Hrs 10/08/18 10/08/18 10/08/18 07:00 07:00 07:00 WBC 7.0 RBC 5.34 Hgb 15.3 H Hct 47.0 MCV 88.0 MCH 28.7 MCHC 32.6 RDW 13.4 RDW Differential 43.2 Plt Count 264 MPV 10.7 Immature Gran % (Auto) 0.300 Neut % (Auto) 65.4 Lymph % (Auto) 22.1 Mobile % (Auto) 6.3 Eos % (Auto) 5.6 H Baso % (Auto) 0.3 Absolute Neuts (auto) 4.6 Absolute Lymphs (auto) 1.54 Total Counted Not Reportable Sodium 138 Potassium 3.6 Chloride 102 Carbon Dioxide 28.0 Anion Gap 8 BUN 6 L Creatinine 0.86 Estim Creat Clear Calc 65.34 Est GFR (MDRD) Af Amer 92 Est GFR (MDRD) Non-Af 76 BUN/Creatinine Ratio 7.0 L Glucose 151 H Calcium 8.4 L Troponin I < 0.015 B-Natriuretic Peptide Pending Assessment/Plan All Active Problems COPD exacerbation (Acute) 1. Acute exacerbation of COPD * Likely precipitated by a viral infection likely upper respiratory * Patient oxygen was turned off when I arrived she did drop down to 89% with deep respirations. My plan is to have her on prednisone as well as bronchodilators and observe. * Chest x-ray personally reviewed and was rather unremarkable. No evidence of any infiltrate therefore antibiotics are not indicated at this time. 2. Diabetes mellitus type 2 * Continue with home medications plus sliding scale insulin. Would anticipate increased hyperglycemia with concomitant steroids but hopefully that can be muted to a certain extent since she will be on prednisone rather than methylprednisolone. 3. Chronic pain: Patient is on numerous medications, including Percocet. Patient was sure to tell me that she would need her PERC tens. I stated I would continue with her home medications as long as and compromise her overall care. Would advise reevaluation on outpatient basis in regards to utility of the Percocets for her chronic pain 4. VT E prophylaxis: Observation status therefore not indicated. Code Visit OBSV E&M: 28851 Initial observation care L2
[2018-10-08 10:00] LABS: BNP,B-Type NATRIURETIC PEPTIDE 64.8 pg/mL (0-100)
[2018-10-08] MEDS: DULoxetine Hcl 60 MG Capsule PO (10:59)
[2018-10-08] MEDS: predniSONE 20 MG Tablet 40 MG PO (10:59)
[2018-10-08] MEDS: guaiFENesin 1,200 MG Tablet 1200 MG PO ×2 (10:59→21:23)
[2018-10-08] MEDS: Naproxen 500 MG Tablet PO ×2 (11:13→21:23)
[2018-10-08 11:40] LABS: Bedside Glucose 145 mg/dL (70-110)
[2018-10-08] MEDS: oxyCODONE 5 MG Tablet 10 MG PO ×2 (15:07→20:20)
[2018-10-08] MEDS: Acetaminophen 325 MG Tablet 650 MG PO (15:07)
[2018-10-08] MEDS: Insulin Lispro 100 UNIT/ML INSULN.PEN SQ (17:03)
[2018-10-08 17:05] LABS: Bedside Glucose 258 mg/dL (70-110)
[2018-10-08] MEDS: clonazePAM 1 MG Tablet PO (17:06)
[2018-10-08] MEDS: Albuterol 2.5 MG/3 ML VIAL.NEB. INHALATION (17:12)
[2018-10-08] MEDS: Pregabalin 75 MG Capsule PO (21:22)
[2018-10-08] MEDS: Amitriptyline 100 MG Tablet PO (21:23)
[2018-10-08] MEDS: Metoprolol Tartrate 25 MG Tablet PO (21:24)
[2018-10-08] MEDS: Estradiol 1 MG Tablet 2 MG PO (21:24)
[2018-10-08 22:05] LABS: Bedside Glucose 233 mg/dL (70-110)
[2018-10-09] VITALS (10 sets, daily range): BP systolic 106–153; BP diastolic 58–93; PULSE 67–93; RESP 19–24; TEMP 36.6–36.7; O2SAT 85–99
[2018-10-09] MEDS: oxyCODONE 5 MG Tablet 10 MG PO ×2 (06:33→12:58)
[2018-10-09] MEDS: Acetaminophen 325 MG Tablet 650 MG PO ×2 (06:34→12:58)
[2018-10-09 06:36] LABS: Bedside Glucose 82 mg/dL (70-110)
[2018-10-09] MEDS: Ipratropium/Albuterol Sulfate 3 ML AMPUL.NEB INHALATION ×2 (06:38→11:42)
[2018-10-09] MEDS: Pregabalin 75 MG Capsule PO (07:58)
[2018-10-09] MEDS: clonazePAM 1 MG Tablet PO (07:58)
[2018-10-09] MEDS: guaiFENesin 1,200 MG Tablet 1200 MG PO (07:58)
[2018-10-09] MEDS: Naproxen 500 MG Tablet PO (07:59)
[2018-10-09] MEDS: Cyanocobalamin 500 MCG Tablet PO (07:59)
[2018-10-09] MEDS: DULoxetine Hcl 60 MG Capsule PO (07:59)
[2018-10-09] MEDS: Metoprolol Tartrate 25 MG Tablet PO (07:59)
[2018-10-09] MEDS: predniSONE 20 MG Tablet 40 MG PO (07:59)
--- NOTE | 2018-10-09 09:03 | DCINST_ITS ---
You will use the following diet at home:: Calorie/Carbohydrate Controlled (specify 1200, 1400, etc) - 1800 Your food should be the consistency of: Regular Your liquids should be the consistency of: Regular/Thin Call your doctor if you observe: Fever of 101 or Higher, Shortness of breath Allergies/Adverse Reactions: Allergies sulfamethoxazole [From Bactrim] Allergy (Verified 10/08/18 07:00) Rash trimethoprim [From Bactrim] Allergy (Verified 10/08/18 07:00) Rash erythromycin base [Erythromycin Base] Adverse Reaction (Verified 10/08/18 07:00) Other ketorolac tromethamine [From Toradol] Adverse Reaction (Verified 10/08/18 07:00) Other PLASTIC TAPE Adverse Reaction (Uncoded 10/08/18 07:00) Rash Medications to take at Discharge Albuterol IH (ProAir) [Proair Hfa] 1 puff INHALATION Q4H PRN PRN 04/02/13 Amitriptyline HCl [Elavil] 100 mg PO QHS 04/02/13 Duloxetine Hcl [Cymbalta] 60 mg PO DAILY 04/02/13 Estradiol [Estrace] 2 mg PO QHS 04/02/13 Metformin HCl [Glucophage] 500 mg PO BIDCM 04/02/13 Metoprolol Tartrate [Lopressor (beta mike)] 25 mg PO BID 04/02/13 Cyanocobalamin [Vitamin B12] 500 mcg PO DAILY@0800 03/22/14 Potassium Chloride [K-Dur] 40 meq PO DAILY #20 tablet 03/22/14 Pregabalin [Lyrica] 75 mg PO BID 05/13/15 Clonazepam 1 mg PO Q6H PRN PRN 04/29/18 Fluticasone/Salmeterol [Advair 250-50 Diskus] 2 puff INHALATION BID 04/29/18 Naproxen [Naprosyn] 500 mg PO BID PRN 04/29/18 Oxycodone HCl/Acetaminophen [Percocet 10-325 mg Tablet] 1 tablet PO Q4H PRN PRN 04/29/18 Guaifenesin [Mucinex] 1,200 mg PO BID #14 tablet 05/01/18 Cyclobenzaprine [Flexeril] 10 mg PO TID PRN #15 tab 08/19/18 Ibuprofen [Motrin] 800 mg PO TID PRN PRN #20 tab 08/19/18 Acetaminophen [Tylenol Tablet] 650 mg PO Q6H PRN PRN tablet 10/09/18 predniSONE tablet 2 tab PO DAILY@0800 #6 tablet 10/09/18 The following prescriptions were given: predniSONE tablet 2 tab PO DAILY@0800 #6 tablet Primary Care Physician: Robert Patel DO [Primary Care Provider] - Within 2 Weeks Test Results: Test results from this visit will be discussed in further detail at your follow- up appointment, if applicable. Proposed Discharge Date: 10/09/18
--- NOTE | 2018-10-09 09:03 | PCM.DC.SUM ---
Discharge Date and Diagnosis Date of Admission: 10/08/18 Date of Discharge: 10/09/18 - Primary Discharge Diagnosis 1. Acute exacerbation of COPD Likely precipitated by a viral infection likely upper respiratory Patient oxygen was turned off when I arrived she did drop down to 89% with deep respirations. My plan is to have her on prednisone as well as bronchodilators and observe. Chest x-ray personally reviewed and was rather unremarkable. No evidence of any infiltrate therefore antibiotics are not indicated at this time. 2. Diabetes mellitus type 2 Continue with home medications plus sliding scale insulin. Would anticipate increased hyperglycemia with concomitant steroids but hopefully that can be muted to a certain extent since she will be on prednisone rather than methylprednisolone. 3. Chronic pain: Patient is on numerous medications, including Percocet. Patient was sure to tell me that she would need her PERC tens. I stated I would continue with her home medications as long as and compromise her overall care. Would advise reevaluation on outpatient basis in regards to utility of the Percocets for her chronic pain - Secondary Discharge Diagnosis Chronic Problems DJD (degenerative joint disease), lumbar (Chronic) Lumbar spinal stenosis (Chronic) Peripheral neuropathy (Chronic) Obesity (Chronic) DM2 (diabetes mellitus, type 2) (Chronic) Depression (Chronic) Benign essential HTN (Chronic) Anxiety (Chronic) Hospital Course and Treatment Imaging Results: Clinical Impression(s) from Imaging Studies Chest X-Ray 10/08/18 07:26 IMPRESSION: Mild increased linear markings in the right mid lung as well as in the left lower lobe suggestive of scarring. These have improved as compared to prior study. Electronically Signed: Jaxson Gomez, at 8:03 EDT , Service support , Operations: None Procedures: None Summary of Care Provided: The patient is a 43 year old F presents with a 3-day history of progressive shortness of breath. Patient presented to the emergency room and was placed on oxygen but was still in the low 90s for her pulse ox. I went to evaluate her turned off the oxygen but patient is dropped down to 89% while talking. Patient was admitted with an acute exacerbation of COPD and started on prednisone. No infiltrate was noted on her chest x-ray. Patient was monitored overnight with prednisone and his done fine. She has had no fevers. Feel the patient has likely an upper respiratory tract infection which is likely viral and provide reassurance to patient that she will continue to get better. Patient requested to stay another night by tolerated have a clear indication in order to do so as she was overall appear to be doing better. Patient does have oxygen at home but only uses at night. We will check an amatory pulse ox to see if she will need more [id number] for the time being. [] - Physical Exam General: Alert, No apparent distress HEENT: Atraumatic, Normocephalic Lungs: Normal air movement, - - Coarse upper respiratory wheezes throughout Cardiovascular: Regular rate, Regular Rhythm, Normal S1, Normal S2 Vital Signs Temp Pulse Resp BP Pulse Ox 36.6 C 93 20 H 141/82 H 94 10/09/18 08:01 10/09/18 08:01 10/09/18 08:01 10/09/18 08:01 10/09/18 08:01 Oxygen Flow Rate (L/min) 2 Oxygen Delivery Method Nasal Cannula Weight: 79.56 kg Body Mass Index (BMI) 32.1 Intake and Output for Last 24 Hours 10/07/18 10/08/18 10/09/18 23:59 23:59 23:59 Intake Total 500 / 500 Balance 500 / 500 Laboratory Tests Past 24 Hrs 10/08/18 07:00 B-Natriuretic Peptide 64.8 POC Glucose 10/09/18 10/08/18 10/08/18 06:29 21:22 16:58 POC Glucose 82 233 H 258 H 10/08/18 11:12 POC Glucose 145 H Discharge Diet: 1800 Calorie Control Diet Discharge Activity: Return to Normal Activity Call your doctor if you observe: Fever of 101 or Higher, Shortness of breath Home Medications: Medications to take at Discharge Albuterol IH (ProAir) [Proair Hfa] 1 puff INHALATION Q4H PRN PRN 04/02/13 Amitriptyline HCl [Elavil] 100 mg PO QHS 04/02/13 Duloxetine Hcl [Cymbalta] 60 mg PO DAILY 04/02/13 Estradiol [Estrace] 2 mg PO QHS 04/02/13 Metformin HCl [Glucophage] 500 mg PO BIDCM 04/02/13 Metoprolol Tartrate [Lopressor (beta mike)] 25 mg PO BID 04/02/13 Cyanocobalamin [Vitamin B12] 500 mcg PO DAILY@0800 03/22/14 Potassium Chloride [K-Dur] 40 meq PO DAILY #20 tablet 03/22/14 Pregabalin [Lyrica] 75 mg PO BID 05/13/15 Clonazepam 1 mg PO Q6H PRN PRN 04/29/18 Fluticasone/Salmeterol [Advair 250-50 Diskus] 2 puff INHALATION BID 04/29/18 Naproxen [Naprosyn] 500 mg PO BID PRN 04/29/18 Oxycodone HCl/Acetaminophen [Percocet 10-325 mg Tablet] 1 tablet PO Q4H PRN PRN 04/29/18 Guaifenesin [Mucinex] 1,200 mg PO BID #14 tablet 05/01/18 Cyclobenzaprine [Flexeril] 10 mg PO TID PRN #15 tab 08/19/18 Ibuprofen [Motrin] 800 mg PO TID PRN PRN #20 tab 08/19/18 Acetaminophen [Tylenol Tablet] 650 mg PO Q6H PRN PRN tablet 10/09/18 predniSONE tablet 2 tab PO DAILY@0800 #6 tablet 10/09/18 Following Prescrptions Were Given to Patient: predniSONE tablet 2 tab PO DAILY@0800 #6 tablet Primary Care Physician: Robert Patel DO [Primary Care Provider] - Within 2 Weeks Disposition: Home Minutes spent on discharge:: 26 Patient Condition:: Fair Medical Necessity - Tobacco Use Smoking Status: Current every day smoker Tobacco Use: Cigarettes Meaningful Use Info Meaningful Use Diagnoses (Choose all that apply): None applicable Code Visit OBSV E&M: 60914 Observation care discharge
--- NOTE | 2018-10-09 09:06 | DS.PCM_ITS ---
Discharge Date and Diagnosis Date of Admission: 10/08/18 Date of Discharge: 10/09/18 - Primary Discharge Diagnosis 1. Acute exacerbation of COPD * Likely precipitated by a viral infection likely upper respiratory * Patient oxygen was turned off when I arrived she did drop down to 89% with deep respirations. My plan is to have her on prednisone as well as bronchodilators and observe. * Chest x-ray personally reviewed and was rather unremarkable. No evidence of any infiltrate therefore antibiotics are not indicated at this time. 2. Diabetes mellitus type 2 * Continue with home medications plus sliding scale insulin. Would anticipate increased hyperglycemia with concomitant steroids but hopefully that can be muted to a certain extent since she will be on prednisone rather than methylprednisolone. 3. Chronic pain: Patient is on numerous medications, including Percocet. Patient was sure to tell me that she would need her PERC tens. I stated I would continue with her home medications as long as and compromise her overall care. Would advise reevaluation on outpatient basis in regards to utility of the Percocets for her chronic pain - Secondary Discharge Diagnosis Chronic Problems DJD (degenerative joint disease), lumbar (Chronic) Lumbar spinal stenosis (Chronic) Peripheral neuropathy (Chronic) Obesity (Chronic) DM2 (diabetes mellitus, type 2) (Chronic) Depression (Chronic) Benign essential HTN (Chronic) Anxiety (Chronic) Hospital Course and Treatment Imaging Results: Clinical Impression(s) from Imaging Studies Chest X-Ray 10/08/18 07:26 IMPRESSION: Mild increased linear markings in the right mid lung as well as in the left lower lobe suggestive of scarring. These have improved as compared to prior study. Electronically Signed: Jaxson Gomez, at 8:03 EDT , Service support , Operations: None Procedures: None Summary of Care Provided: The patient is a 43 year old F presents with a 3-day history of progressive shortness of breath. Patient presented to the emergency room and was placed on oxygen but was still in the low 90s for her pulse ox. I went to evaluate her turned off the oxygen but patient is dropped down to 89% while talking. Patient was admitted with an acute exacerbation of COPD and started on prednisone. No infiltrate was noted on her chest x-ray. Patient was monitored overnight with prednisone and his done fine. She has had no fevers. Feel the patient has likely an upper respiratory tract infection which is likely viral and provide reassurance to patient that she will continue to get better. Patient requested to stay another night by tolerated have a clear indication in order to do so as she was overall appear to be doing better. Patient does have oxygen at home but only uses at night. We will check an amatory pulse ox to see if she will need more [id number] for the time being. [] - Physical Exam General: Alert, No apparent distress HEENT: Atraumatic, Normocephalic Lungs: Normal air movement, - - Coarse upper respiratory wheezes throughout Cardiovascular: Regular rate, Regular Rhythm, Normal S1, Normal S2 Vital Signs Temp Pulse Resp BP Pulse Ox 36.6 C 93 20 H 141/82 H 94 10/09/18 08:01 10/09/18 08:01 10/09/18 08:01 10/09/18 08:01 10/09/18 08:01 Oxygen Flow Rate (L/min) 2 Oxygen Delivery Method Nasal Cannula Weight: 79.56 kg Body Mass Index (BMI) 32.1 Intake and Output for Last 24 Hours 10/07/18 10/08/18 10/09/18 23:59 23:59 23:59 Intake Total 500 / 500 Balance 500 / 500 Laboratory Tests Past 24 Hrs 10/08/18 07:00 B-Natriuretic Peptide 64.8 POC Glucose 10/09/18 10/08/18 10/08/18 06:29 21:22 16:58 POC Glucose 82 233 H 258 H 10/08/18 11:12 POC Glucose 145 H Discharge Diet: 1800 Calorie Control Diet Discharge Activity: Return to Normal Activity Call your doctor if you observe: Fever of 101 or Higher, Shortness of breath Home Medications: Medications to take at Discharge Albuterol IH (ProAir) [Proair Hfa] 1 puff INHALATION Q4H PRN PRN 04/02/13 Amitriptyline HCl [Elavil] 100 mg PO QHS 04/02/13 Duloxetine Hcl [Cymbalta] 60 mg PO DAILY 04/02/13 Estradiol [Estrace] 2 mg PO QHS 04/02/13 Metformin HCl [Glucophage] 500 mg PO BIDCM 04/02/13 Metoprolol Tartrate [Lopressor (beta mike)] 25 mg PO BID 04/02/13 Cyanocobalamin [Vitamin B12] 500 mcg PO DAILY@0800 03/22/14 Potassium Chloride [K-Dur] 40 meq PO DAILY #20 tablet 03/22/14 Pregabalin [Lyrica] 75 mg PO BID 05/13/15 Clonazepam 1 mg PO Q6H PRN PRN 04/29/18 Fluticasone/Salmeterol [Advair 250-50 Diskus] 2 puff INHALATION BID 04/29/18 Naproxen [Naprosyn] 500 mg PO BID PRN 04/29/18 Oxycodone HCl/Acetaminophen [Percocet 10-325 mg Tablet] 1 tablet PO Q4H PRN PRN 04/29/18 Guaifenesin [Mucinex] 1,200 mg PO BID #14 tablet 05/01/18 Cyclobenzaprine [Flexeril] 10 mg PO TID PRN #15 tab 08/19/18 Ibuprofen [Motrin] 800 mg PO TID PRN PRN #20 tab 08/19/18 Acetaminophen [Tylenol Tablet] 650 mg PO Q6H PRN PRN tablet 10/09/18 predniSONE tablet 2 tab PO DAILY@0800 #6 tablet 10/09/18 Following Prescrptions Were Given to Patient: predniSONE tablet 2 tab PO DAILY@0800 #6 tablet Primary Care Physician: Robert Patel DO [Primary Care Provider] - Within 2 Weeks Disposition: Home Minutes spent on discharge:: 26 Patient Condition:: Fair Medical Necessity - Tobacco Use Smoking Status: Current every day smoker Tobacco Use: Cigarettes Meaningful Use Info Meaningful Use Diagnoses (Choose all that apply): None applicable Code Visit OBSV E&M: 40366 Observation care discharge
[2018-10-09] MEDS: Albuterol 2.5 MG/3 ML VIAL.NEB. INHALATION (09:11)
--- NOTE | 2018-10-09 11:06 | CASEMGMT ---
RN CM Assessment Note: Intro role of CM to patient who is to be dc'd today. Pt is awake, alert and able to participated in RN CM assessment. PCP: Dr. Patel Pharmacy: [facility] Prescription Coverage: yes. Pt had concerns re: Prescription cost. Prednisone is no cost. Tylenol is OTC medication. Pt updated. Insurance: [employer] DME: Home O2 through [employer]. Called [employer] to verify- concentrator and portability. No new scripts are needed. Transportation: pt's family is bringing portable tank and will provide ride home. DC Plan: home today. Kathy SHERWOOD RN ACM
[2018-10-09 13:11] LABS: Bedside Glucose 148 mg/dL (70-110)
== END 2018-10-09 13:37 | disposition home or self-care (01) ==
LOC: ED 07:25 → MS3 09:35
PROVIDERS: Emergency Provider Emergency Medicine; Family Provider Family Medicine; PCP Family Medicine
DX: J44.1 Chronic obstructive pulmonary disease with (acute) exacerbation (principal); G89.29 Other chronic pain; I25.2 Old myocardial infarction; I10 Essential (primary) hypertension; E11.42 Type 2 diabetes mellitus with diabetic polyneuropathy; E66.9 Obesity, unspecified; Z68.32 Body mass index [BMI] 32.0-32.9, adult; Z71.3 Dietary counseling and surveillance; F32.9 Major depressive disorder, single episode, unspecified; Z79.899 Other long term (current) drug therapy; Z79.84 Long term (current) use of oral hypoglycemic drugs; Z99.81 Dependence on supplemental oxygen; Z86.718 Personal history of other venous thrombosis and embolism; F17.210 Nicotine dependence, cigarettes, uncomplicated
CPT/HCPCS: 71045; 80048; 82962; 83880; 84484; 85025; 93005; 94640; 99283; 99406; J7030; A4216

== ENCOUNTER 2018-10-10 15:25 | Inpatient (IN) | payer MEDICARE, MEDICAID, SELFPAY ==
[2018-10-10] VITALS (15 sets, daily range): BP systolic 142–168; BP diastolic 70–89; PULSE 72–100; RESP 18–24; TEMP 36.4–36.7; O2SAT 90–94; BMI 32.0; BMI 32.3
[2018-10-10] MEDS: Ipratropium/Albuterol Sulfate 3 ML AMPUL.NEB INHALATION ×3 (16:15→22:30)
--- NOTE | 2018-10-10 16:40 | PCM.HP.STD ---
<Andrzej Michaels - Last Filed: 10/10/18 16:40> Problem List (1) COPD exacerbation Status: Acute (2) Anxiety Status: Chronic (3) Benign essential HTN Status: Chronic (4) DJD (degenerative joint disease), lumbar Status: Chronic (5) DM2 (diabetes mellitus, type 2) Status: Chronic (6) Depression Status: Chronic (7) Lumbar spinal stenosis Status: Chronic (8) Nicotine abuse Status: Chronic History of Present Illness Date of Admission: 10/10/18 Chief Complaint: sob The patient is a 43 year old F with past medical history of COPD, ongoing nicotine abuse, chronic hypoxic respiratory failure supposed to be on 3 L oxygen at home, hypertension, obesity, chronic back pain, type 2 diabetes, who presented to the emergency room in [place] with increased shortness of breath. This patient had been discharged from the hospital yesterday following treatment for COPD exacerbation. After discharge she went home and became more short of breath. She did admit to smoking after she went home. So she cannot identify a specific trigger that made her breathing worse. It continued to be worse throughout the night and she felt that she her breathing was much worse. She then reported to [place] ER. She has been coughing intermittently, nonproductive. No fevers or chills. She is significantly wheezy as well. She does not have a loss prevention representative. [] Past Medical History Past Medical History (Chronic Problems): Chronic Problems Nicotine abuse (Chronic) DJD (degenerative joint disease), lumbar (Chronic) Lumbar spinal stenosis (Chronic) Peripheral neuropathy (Chronic) Obesity (Chronic) DM2 (diabetes mellitus, type 2) (Chronic) Depression (Chronic) Benign essential HTN (Chronic) Anxiety (Chronic) Allergies sulfamethoxazole [From Bactrim] Allergy (Verified 10/08/18 07:00) Rash trimethoprim [From Bactrim] Allergy (Verified 10/08/18 07:00) Rash erythromycin base [Erythromycin Base] Adverse Reaction (Verified 10/08/18 07:00) Other ketorolac tromethamine [From Toradol] Adverse Reaction (Verified 10/08/18 07:00) Other PLASTIC TAPE Adverse Reaction (Uncoded 10/08/18 07:00) Rash Home Medications: Ambulatory Orders Medication Instructions Recorded Albuterol IH (ProAir) [Proair Hfa] 1 puff INHALATION Q4H PRN PRN 04/02/13 Amitriptyline HCl [Elavil] 100 mg PO QHS 04/02/13 Duloxetine Hcl [Cymbalta] 60 mg PO DAILY 04/02/13 Estradiol [Estrace] 2 mg PO QHS 04/02/13 Metformin HCl [Glucophage] 500 mg PO BIDCM 04/02/13 Metoprolol Tartrate [Lopressor 25 mg PO BID 04/02/13 (beta mike)] Cyanocobalamin [Vitamin B12] 500 mcg PO DAILY@0800 03/22/14 Potassium Chloride [K-Dur] 40 meq PO DAILY #20 tablet 03/22/14 Pregabalin [Lyrica] 75 mg PO BID 05/13/15 Clonazepam 1 mg PO Q6H PRN PRN 04/29/18 Fluticasone/Salmeterol [Advair 2 puff INHALATION BID 04/29/18 250-50 Diskus] Naproxen [Naprosyn] 500 mg PO BID PRN 04/29/18 Oxycodone HCl/Acetaminophen 1 tablet PO Q4H PRN PRN 04/29/18 [Percocet 10-325 mg Tablet] Guaifenesin [Mucinex] 1,200 mg PO BID #14 tablet 05/01/18 Cyclobenzaprine [Flexeril] 10 mg PO TID PRN #15 tab 08/19/18 Ibuprofen [Motrin] 800 mg PO TID PRN PRN #20 tab 08/19/18 Acetaminophen [Tylenol Tablet] 650 mg PO Q6H PRN PRN tablet 10/09/18 predniSONE tablet 40 mg PO DAILY@0800 10/10/18 Surgical History: appendectomy Smoking Status: Current every day smoker Tobacco Use: Cigarettes Alcohol: None Drugs: None - *Family History Sibling History Items: - - Migraines Review of Systems Constitutional: Denies: Chills, Fever, Weight Change HEENT: Denies: Head Aches, Sinus Congestion, Sinus Drainage Cardiovascular: Denies: Chest Pain, Palpitations Respiratory: Reports: Cough, Shortness of Breath, Shortness of breath at rest, Shortness of breath upon exertion, Wheezing. Denies: Sputum production Gastrointestinal: Denies: Abdominal Pain, Nausea, Vomiting Genitourinary: Denies: Dysuria Musculoskeletal: Denies: Joint Pain, Joint Tenderness Skin: Denies: Rash, Wounds Neurological: Denies: Numbness, Tingling, Focal weakness Psychiatric: Denies: Anxiety, Depression, Homicidal Ideations, Suicidal Ideations Hematologic/ Lymphatic: Denies: Easy Bruising, Easy Bleeding VTE Information - Inpt Only VTE Present on Admission: No VTE Mechan Device Prophylaxis: None VTE Pharm Prophylaxis ordered?: Yes - Physical Exam General: Alert, Oriented x3, Cooperative HEENT: Atraumatic, PERRLA, EOMI, Normocephalic Neck: Supple, No JVD, Negative Carotid Bruits Lungs: Normal air movement, Wheezes - Diffuse wheezing expiration Cardiovascular: Regular rate, No murmurs Abdomen: Bowel Sounds Present, Soft, Non Tender Extremities: No edema, Capillary Refill Less than 3 Seconds Skin: No rashes, No breakdown Musculoskeletal: No Tenderness to Palpation of Joints or Extremities Neurological: Cranial nerves II-XII grossly intact Psych/Mental Status: Normal Affect, Appropriate, Alert and oriented to time, place, person, mood and affect Vital Signs Temp Pulse Resp BP Pulse Ox 97.9 F 81 22 H 142/76 H 90 10/10/18 15:53 10/10/18 15:53 10/10/18 15:53 10/10/18 15:53 10/10/18 15:53 Oxygen Flow Rate (L/min) 5 Oxygen Delivery Method Nasal Cannula Weight: 176 lb 9.444 oz Body Mass Index (BMI) 32.3 Assessment/Plan All Active Problems COPD exacerbation (Acute) 1. Acute on chronic hypoxic respiratory failure secondary to rebound COPD exacerbation-resume IV Solu-Medrol. Start duo nebs. Reviewed labs from [place]. She did have lactic acidosis with lactic acid level of 2.2. Her chest x-ray was reported out as negative, uploaded into our system is pending. She had a mild leukocytosis, however she has been on steroids. She did not have a fever. We will add incentive spirometer. Consider outpatient follow-up with pulmonology. -The patient uses 3 L of oxygen per minute via nasal cannula at home. She required a Ventimask initially to maintain good sats, currently she is on 5 L/min and still short of breath with conversational dyspnea. -Her pH on ABG was 7.35 2. nicotine abuse-she did smoke after she went home. Will provide a patch while here. 3. Type 2 diabetes-hold metformin, start sliding scale insulin. 4. Chronic pain syndrome-secondary to degenerative joint disease and lumbar spinal stenosis patient is on oxycodone, Lyrica, NSAIDs, Flexeril, Cymbalta, and Elavil at home. 5. Hypertension-continue metoprolol 6. Anxiety and depression-Klonopin, Elavil, Cymbalta. DVT prophylaxis: Lovenox Discharge planning: Patient Sacha has home oxygen, will likely return home without additional support when she is stable. After discharge she will need referral to pulmonology. This patient was seen by Andrzej Michaels PA-C under the supervision of Doctor Adria. <Donita Covington - Last Filed: 10/10/18 17:40> History of Present Illness The patient is a 43 year old F [] Past Medical History Allergies sulfamethoxazole [From Bactrim] Allergy (Verified 10/08/18 07:00) Rash trimethoprim [From Bactrim] Allergy (Verified 10/08/18 07:00) Rash erythromycin base [Erythromycin Base] Adverse Reaction (Verified 10/08/18 07:00) Other ketorolac tromethamine [From Toradol] Adverse Reaction (Verified 10/08/18 07:00) Other PLASTIC TAPE Adverse Reaction (Uncoded 10/08/18 07:00) Rash - Physical Exam Vital Signs Temp Pulse Resp BP Pulse Ox 98 F 86 22 H 157/89 H 93 10/10/18 16:45 10/10/18 16:45 10/10/18 16:45 10/10/18 16:45 10/10/18 16:45 Oxygen Flow Rate (L/min) 5 Oxygen Delivery Method Nasal Cannula Weight: 80.1 kg Body Mass Index (BMI) 32.3 Assessment/Plan This patient was seen in conjunction with DIYA Bronson. I have independently interviewed and examined the patient and reviewed pertinent historical, laboratory, and other data. Please refer to DIYA Bronson note for his patient's presentation, findings, and recommendations. I have reviewed and his note and concur with his documentation CC: Progressive SOB HPI: 43 y/o female with medical history of COPD with chronic respiratory failure, on 2-1/2-3 L of oxygen who was recently discharged on 10/09/18 with acute COPD exacerbation. Patient went back to smoking when she was discharged. She presented to the [facility] the ED this morning with progressive shortness of breath. She presented without oxygen. Patient admits to using oxygen and her nebulizers after discharge. Paperwork from over the ED were reviewed. She had mild leukocytosis. Slight elevation in lactic acidosis to 2.2. Chest X-ray in [place] ED showed no acute abnormality., PMHX: PSHx: FHX: SHX: Review of systems was negative except for HPI Physical Exam: Vitals: Gen: On 5 L of oxygen, in mild respiratory distress with use of accessory muscles of respiration, not pale, not jaundiced CVS:HS I +II, regular, no murmurs RESP: Diminished throughout the lungs, generalised wheezes++ GI: BS present and normal, soft, nontender, no palpable organs EXT:No edema ASSESSMENT: 1. Acute COPD exacerbation 2. Chronic respiratory failure, on 2.5-3 L of oxygen 3. Nicotine dependence 4. Lactic acidosis, mild, secondary to hypoxia, no signs of sepsis 5. Type II DM 6. Hypertension 7. Anxiety/depression 8. Obesity, BMI 32.3 Plan: Admit to [facility], monitor on telemetry Breathing treatments, IV steroids Incentive parameter Oxygen per protocol Code Visit Inpatient E&M: 55779 Init Hosp L3
--- NOTE | 2018-10-10 16:45 | HP.PCM_ITS ---
<Andrzej Michaels - Last Filed: 10/10/18 16:40> Problem List (1) COPD exacerbation Status: Acute (2) Anxiety Status: Chronic (3) Benign essential HTN Status: Chronic (4) DJD (degenerative joint disease), lumbar Status: Chronic (5) DM2 (diabetes mellitus, type 2) Status: Chronic (6) Depression Status: Chronic (7) Lumbar spinal stenosis Status: Chronic (8) Nicotine abuse Status: Chronic History of Present Illness Date of Admission: 10/10/18 Chief Complaint: sob The patient is a 43 year old F with past medical history of COPD, ongoing ni cotine abuse, chronic hypoxic respiratory failure supposed to be on 3 L oxygen at home, hypertension, obesity, chronic back pain, type 2 diabetes, who presented to the emergency room in [place] with increased shortness of breath. This patient had been discharged from the hospital yesterday following treatment for COPD exacerbation. After discharge she went home and became more short of breath. She did admit to smoking after she went home. So she cannot identify a specific trigger that made her breathing worse. It continued to be worse throughout the night and she felt that she her breathing was much worse. She then reported to [place] ER. She has been coughing intermittently, nonproductive. No fevers or chills. She is significantly wheezy as well. She does not have a oil heat technician. [] Past Medical History Past Medical History (Chronic Problems): Chronic Problems Nicotine abuse (Chronic) DJD (degenerative joint disease), lumbar (Chronic) Lumbar spinal stenosis (Chronic) Peripheral neuropathy (Chronic) Obesity (Chronic) DM2 (diabetes mellitus, type 2) (Chronic) Depression (Chronic) Benign essential HTN (Chronic) Anxiety (Chronic) Allergies sulfamethoxazole [From Bactrim] Allergy (Verified 10/08/18 07:00) Rash trimethoprim [From Bactrim] Allergy (Verified 10/08/18 07:00) Rash erythromycin base [Erythromycin Base] Adverse Reaction (Verified 10/08/18 07:00) Other ketorolac tromethamine [From Toradol] Adverse Reaction (Verified 10/08/18 07:00) Other PLASTIC TAPE Adverse Reaction (Uncoded 10/08/18 07:00) Rash Home Medications: Ambulatory Orders Medication Instructions Recorded Albuterol IH (ProAir) [Proair Hfa] 1 puff INHALATION Q4H PRN PRN 10/11/13 Amitriptyline HCl [Elavil] 100 mg PO QHS 04/02/13 Duloxetine Hcl [Cymbalta] 60 mg PO DAILY 04/02/13 Estradiol [Estrace] 2 mg PO QHS 04/02/13 Metformin HCl [Glucophage] 500 mg PO BIDCM 04/02/13 Metoprolol Tartrate [Lopressor 25 mg PO BID 04/02/13 (beta mike)] Cyanocobalamin [Vitamin B12] 500 mcg PO DAILY@0800 03/22/14 Potassium Chloride [K-Dur] 40 meq PO DAILY #20 tablet 03/22/14 Pregabalin [Lyrica] 75 mg PO BID 05/13/15 Clonazepam 1 mg PO Q6H PRN PRN 04/29/18 Fluticasone/Salmeterol [Advair 2 puff INHALATION BID 04/29/18 250-50 Diskus] Naproxen [Naprosyn] 500 mg PO BID PRN 04/29/18 Oxycodone HCl/Acetaminophen 1 tablet PO Q4H PRN PRN 04/29/18 [Percocet 10-325 mg Tablet] Guaifenesin [Mucinex] 1,200 mg PO BID #14 tablet 05/01/18 Cyclobenzaprine [Flexeril] 10 mg PO TID PRN #15 tab 08/19/18 Ibuprofen [Motrin] 800 mg PO TID PRN PRN #20 tab 08/19/18 Acetaminophen [Tylenol Tablet] 650 mg PO Q6H PRN PRN tablet 10/09/18 predniSONE tablet 40 mg PO DAILY@0800 10/10/18 Surgical History: appendectomy Smoking Status: Current every day smoker Tobacco Use: Cigarettes Alcohol: None Drugs: None - *Family History Sibling History Items: - - Migraines Review of Systems Constitutional: Denies: Chills, Fever, Weight Change HEENT: Denies: Head Aches, Sinus Congestion, Sinus Drainage Cardiovascular: Denies: Chest Pain, Palpitations Respiratory: Reports: Cough, Shortness of Breath, Shortness of breath at rest, Shortness of breath upon exertion, Wheezing. Denies: Sputum production Gastrointestinal: Denies: Abdominal Pain, Nausea, Vomiting Genitourinary: Denies: Dysuria Musculoskeletal: Denies: Joint Pain, Joint Tenderness Skin: Denies: Rash, Wounds Neurological: Denies: Numbness, Tingling, Focal weakness Psychiatric: Denies: Anxiety, Depression, Homicidal Ideations, Suicidal Ideations Hematologic/ Lymphatic: Denies: Easy Bruising, Easy Bleeding VTE Information - Inpt Only VTE Present on Admission: No VTE Mechan Device Prophylaxis: None VTE Pharm Prophylaxis ordered?: Yes - Physical Exam General: Alert, Oriented x3, Cooperative HEENT: Atraumatic, PERRLA, EOMI, Normocephalic Neck: Supple, No JVD, Negative Carotid Bruits Lungs: Normal air movement, Wheezes - Diffuse wheezing expiration Cardiovascular: Regular rate, No murmurs Abdomen: Bowel Sounds Present, Soft, Non Tender Extremities: No edema, Capillary Refill Less than 3 Seconds Skin: No rashes, No breakdown Musculoskeletal: No Tenderness to Palpation of Joints or Extremities Neurological: Cranial nerves II-XII grossly intact Psych/Mental Status: Normal Affect, Appropriate, Alert and oriented to time, place, person, mood and affect Vital Signs Temp Pulse Resp BP Pulse Ox 97.9 F 81 22 H 142/76 H 90 10/10/18 15:53 10/10/18 15:53 10/10/18 15:53 10/10/18 15:53 10/10/18 15:53 Oxygen Flow Rate (L/min) 5 Oxygen Delivery Method Nasal Cannula Weight: 176 lb 9.444 oz Body Mass Index (BMI) 32.3 Assessment/Plan All Active Problems COPD exacerbation (Acute) 1. Acute on chronic hypoxic respiratory failure secondary to rebound COPD exacerbation-resume IV Solu-Medrol. Start duo nebs. Reviewed labs from [place]. She did have lactic acidosis with lactic acid level of 2.2. Her chest x-ray was reported out as negative, uploaded into our system is pending. She had a mild leukocytosis, however she has been on steroids. She did not have a fever. We will add incentive spirometer. Consider outpatient follow-up with pulmonology. -The patient uses 3 L of oxygen per minute via nasal cannula at home. She required a Ventimask initially to maintain good sats, currently she is on 5 L/min and still short of breath with conversational dyspnea. -Her pH on ABG was 7.35 2. nicotine abuse-she did smoke after she went home. Will provide a patch while here. 3. Type 2 diabetes-hold metformin, start sliding scale insulin. 4. Chronic pain syndrome-secondary to degenerative joint disease and lumbar spinal stenosis patient is on oxycodone, Lyrica, NSAIDs, Flexeril, Cymbalta, and Elavil at home. 5. Hypertension-continue metoprolol 6. Anxiety and depression-Klonopin, Elavil, Cymbalta. DVT prophylaxis: Lovenox Discharge planning: Patient Sacha has home oxygen, will likely return home without additional support when she is stable. After discharge she will need referral to pulmonology. This patient was seen by Andrzej Michaels PA-C under the supervision of Doctor Covington. <Donita Covington - Last Filed: 10/10/18 17:40> History of Present Illness The patient is a 43 year old F [] Past Medical History Allergies sulfamethoxazole [From Bactrim] Allergy (Verified 10/08/18 07:00) Rash trimethoprim [From Bactrim] Allergy (Verified 10/08/18 07:00) Rash erythromycin base [Erythromycin Base] Adverse Reaction (Verified 10/08/18 07:00) Other ketorolac tromethamine [From Toradol] Adverse Reaction (Verified 10/08/18 07:00) Other PLASTIC TAPE Adverse Reaction (Uncoded 10/08/18 07:00) Rash - Physical Exam Vital Signs Temp Pulse Resp BP Pulse Ox 98 F 86 22 H 157/89 H 93 10/10/18 16:45 10/10/18 16:45 10/10/18 16:45 10/10/18 16:45 10/10/18 16:45 Oxygen Flow Rate (L/min) 5 Oxygen Delivery Method Nasal Cannula Weight: 80.1 kg Body Mass Index (BMI) 32.3 Assessment/Plan This patient was seen in conjunction with DIYA Bronson. I have independently interviewed and examined the patient and reviewed pertinent historical, laboratory, and other data. Please refer to DIYA Bronson note for his patient's presentation, findings, and recommendations. I have reviewed and his note and concur with his documentation CC: Progressive SOB HPI: 43 y/o female with medical history of COPD with chronic respiratory failure, on 2-1/2-3 L of oxygen who was recently discharged on 10/09/18 with acute COPD exacerbation. Patient went back to smoking when she was discharged. [facility] this morning with progressive shortness of breath. She presented without oxygen. Patient admits to using oxygen and her nebulizers after discharge. Paperwork from over the ED were reviewed. She had mild leukocytosis. Slight elevation in lactic acidosis to 2.2. Chest X-ray in [place] ED showed no acute abnormality., PMHX: PSHx: FHX: SHX: Review of systems was negative except for HPI Physical Exam: Vitals: Gen: On 5 L of oxygen, in mild respiratory distress with use of accessory muscles of respiration, not pale, not jaundiced CVS:HS I +II, regular, no murmurs RESP: Diminished throughout the lungs, generalised wheezes++ GI: BS present and normal, soft, nontender, no palpable organs EXT:No edema ASSESSMENT: 1. Acute COPD exacerbation 2. Chronic respiratory failure, on 2.5-3 L of oxygen 3. Nicotine dependence 4. Lactic acidosis, mild, secondary to hypoxia, no signs of sepsis 5. Type II DM 6. Hypertension 7. Anxiety/depression 8. Obesity, BMI 32.3 Plan: Admit to [facility], monitor on telemetry Breathing treatments, IV steroids Incentive parameter Oxygen per protocol Code Visit Inpatient E&M: 39575 Init Hosp L3
[2018-10-10] MEDS: 0.9% NaCl Peripheral Flush Adult/Peds IV ×2 (17:06→21:16)
[2018-10-10] MEDS: Ibuprofen 400 MG Tablet 800 MG PO (18:00)
[2018-10-10 18:11] LABS: Bedside Glucose 110 mg/dL (70-110)
--- NOTE | 2018-10-10 19:52 | NURSING ---
Pts vs obtained, spo2 90% on 5L via n/c. Increased O2 to 6L. Sat up to 92%. Pt c/o SOB. LS diminished throughout with expiratory wheezes. Called RT for prn Ventolin.
[2018-10-10] MEDS: Albuterol 2.5 MG/3 ML VIAL.NEB. INHALATION (20:17)
[2018-10-10] MEDS: oxyCODONE 5 MG Tablet 10 MG PO (21:10)
[2018-10-10] MEDS: guaiFENesin 1,200 MG Tablet 1200 MG PO (21:11)
[2018-10-10] MEDS: Metoprolol Tartrate 25 MG Tablet PO (21:12)
[2018-10-10] MEDS: Estradiol 1 MG Tablet 2 MG PO (21:13)
[2018-10-10 23:16] LABS: Bedside Glucose 150 mg/dL (70-110)
[2018-10-10] MEDS: Pregabalin 75 MG Capsule PO (23:18)
[2018-10-10] MEDS: Insulin Lispro 100 UNIT/ML INSULN.PEN SQ (23:18)
[2018-10-10] MEDS: Amitriptyline 100 MG Tablet PO (23:26)
[2018-10-11] VITALS (19 sets, daily range): BP systolic 118–144; BP diastolic 61–84; PULSE 70–91; RESP 18–28; TEMP 36.4–37.1; O2SAT 92–94
[2018-10-11] MEDS: Ipratropium/Albuterol Sulfate 3 ML AMPUL.NEB INHALATION ×6 (02:25→23:32)
[2018-10-11] MEDS: oxyCODONE 5 MG Tablet 10 MG PO ×3 (04:15→17:02)
[2018-10-11] MEDS: Acetaminophen 325 MG Tablet 650 MG PO (04:16)
[2018-10-11 05:52] LABS: Absolute Lymphocyte Count 1.72 X10^3/ul (0.83-4.51); Absolute Neutrophil Count 8.5 X10^3/uL (2.0-7.7); Basophil# 0.01 X10^3/uL; Basophil% 0.1 % (0-1); Hemoglobin 13.5 g/dl (12.0-15.0); Lymphocyte # 1.72 X10^3/ul (4.0); Lymphocyte % 16.2 % (19-41); Mean Corp Hgb Conc 32.1 g/gl (32-36); Mean Corpuscular Hgb 28.1 pg (27.0-32.0); Mean Corpuscular Volume 87.5 fL (81-99); Mean Platelet Vol. 10.8 fl (6.2-12.0); Monocyte# 0.38 X10^3/uL; Monocyte% 3.6 % (0-10); Neutrophil # 8.47 X10^3/uL (2.7-7.7); Neutrophil % 79.9 % (47-70); Platelet Count 270 K/mm3 (150-450); RBC Distribution Width CV 13.4 % (11.6-14.6); RBC Distribution Width SD 42.4 fl (35.1-43.9); White Blood Count 10.6 K/mm3 (4.4-11.0)
[2018-10-11 05:56] LABS: POSITIVE COUNT NO; POSITIVE DIFFERENTIAL NO; POSITIVE MORPHOLOGY NO
[2018-10-11 06:05] LABS: Anion Gap 8 (5-15); BUN 8 mg/dL (7-18); BUN/Creat Ratio 9.9 RATIO (10-20); Calcium,Total 8.6 mg/dL (8.5-10.1); Chloride 104 mmol/L (98-107); Creatinine, Serum 0.81 mg/dL (0.55-1.02); EST Glomerular Filtration Rate 81 mL/min (>60); Est Glom Filt Rate - Afr Amer 98 mL/min (>60); Estimated Creatinine Clearance 69.37 ml/min; Glucose 183 mg/dL (74-106); Potassium 4.4 mmol/L (3.5-5.1); Sodium Level 139 mmol/L (136-145)
[2018-10-11] MEDS: 0.9% NaCl Peripheral Flush Adult/Peds IV ×3 (06:31→21:06)
[2018-10-11 06:41] LABS: Bedside Glucose 146 mg/dL (70-110)
[2018-10-11] MEDS: Pregabalin 75 MG Capsule PO ×2 (08:03→21:06)
[2018-10-11] MEDS: Metoprolol Tartrate 25 MG Tablet PO ×2 (08:04→20:54)
[2018-10-11] MEDS: guaiFENesin 1,200 MG Tablet 1200 MG PO ×2 (08:04→20:54)
[2018-10-11] MEDS: Cyanocobalamin 500 MCG Tablet PO (08:04)
[2018-10-11] MEDS: DULoxetine Hcl 60 MG Capsule PO (08:05)
--- NOTE | 2018-10-11 11:04 | CT_ITS ---
STUDY: CTA CHEST REASON FOR EXAM: Female, 43 years old. Hypoxia RADIATION DOSAGE (If Supplied By Facility): CTDIvol = ( 16.36 ) mGy, DLP = ( 408.05 ) mGycm TECHNIQUE: The examination was performed with the intravenous administration of 10ML IV Isovue 300. Post-processing of the angiographic images was performed, with multiplanar reformation and 3D reconstruction. Individualized dose optimization techniques were used for this CT. COMPARISON: None. FINDINGS: Normal enhancement of the main pulmonary artery and right and left pulmonary arteries. Normal enhancement of the bilateral peripheral pulmonary arteries. There is no demonstrated pulmonary embolism. Normal thoracic aorta and visualized great vessels. There is no demonstrated aortic dissection. Normal heart and pericardium. Normal mediastinum. Normal hilar regions. Normal visualized trachea and bronchi. The lungs are well expanded. There is mild patchy groundglass airspace disease in the upper lobes and left lower lobe. Nonspecific finding. Could represent inflammation, infection. Normal pleura. Normal chest wall structures. Normal osseous structures. Normal visualized upper abdomen. CT/CTA Chest W/WO Contrast IMPRESSION: Negative for pulmonary embolism. Negative for thoracic aortic dissection. Scattered nonspecific groundglass airspace disease as detailed above Electronically Signed: Gilles Browning DO at 12:03 EDT Tel , Service support ,
[2018-10-11] MEDS: Insulin Lispro 100 UNIT/ML INSULN.PEN SQ ×3 (11:11→21:13)
[2018-10-11 11:20] LABS: Bedside Glucose 293 mg/dL (70-110)
--- NOTE | 2018-10-11 12:21 | PCM.PROGNOTE ---
<Andrzej Michaels - Last Filed: 10/11/18 12:21> Subjective: Pt has not made progress with SOB and her O2 requirement has increased to 6lpm. She also has chest tightness and BL chest pain with deep breathing. Her sister has a hx of DVTs. She is a smoker still as well. She has no fever or chills. She has a nonproductive cough. - Physical Exam General: Alert, Oriented x3, Cooperative HEENT: Atraumatic, PERRLA, EOMI, Normocephalic Neck: Supple, No JVD, Negative Carotid Bruits Lungs: Diminished, Wheezes Cardiovascular: Regular rate, No murmurs Abdomen: Bowel Sounds Present, Soft, Non Tender Extremities: No edema, Capillary Refill Less than 3 Seconds Skin: No rashes, No breakdown Musculoskeletal: No Tenderness to Palpation of Joints or Extremities Neurological: Cranial nerves II-XII grossly intact Psych/Mental Status: Normal Affect, Appropriate, Alert and oriented to time, place, person, mood and affect Vital Signs Temp Pulse Resp BP Pulse Ox 97.5 F L 78 26 H 144/80 H 94 10/11/18 08:07 10/11/18 11:39 10/11/18 11:04 10/11/18 08:07 10/11/18 08:07 Oxygen Flow Rate (L/min) 6 Oxygen Delivery Method Nasal Cannula Weight: 176 lb 9.444 oz Body Mass Index (BMI) 32.3 Intake and Output for Last 24 Hours 10/09/18 10/10/18 10/11/18 23:59 23:59 23:59 Intake Total 240 / 240 1163 / 1163 Balance 240 / 240 1163 / 1163 Laboratory Tests Past 24 Hrs 10/11/18 10/11/18 05:15 05:15 WBC 10.6 RBC 4.80 Hgb 13.5 Hct 42.0 MCV 87.5 MCH 28.1 MCHC 32.1 RDW 13.4 RDW Differential 42.4 Plt Count 270 MPV 10.8 Immature Gran % (Auto) 0.200 Neut % (Auto) 79.9 H Lymph % (Auto) 16.2 L Will % (Auto) 3.6 Eos % (Auto) 0.0 Baso % (Auto) 0.1 Absolute Neuts (auto) 8.5 H Absolute Lymphs (auto) 1.72 Total Counted Not Reportable Sodium 139 Potassium 4.4 Chloride 104 Carbon Dioxide 27.0 Anion Gap 8 BUN 8 Creatinine 0.81 Estim Creat Clear Calc 69.37 Est GFR (MDRD) Af Amer 98 Est GFR (MDRD) Non-Af 81 BUN/Creatinine Ratio 9.9 L Glucose 183 H Calcium 8.6 POC Glucose 10/11/18 10/11/18 10/10/18 11:09 06:30 23:10 POC Glucose 293 H 146 H 150 H 10/10/18 17:56 POC Glucose 110 Medical Necessity - Tobacco Use Smoking Status: Current every day smoker Tobacco Use: Cigarettes Assessment/Plan All Active Problems COPD exacerbation (Acute) 1. Acute on chronic hypoxic respiratory failure secondary to rebound COPD exacerbation- continue steroids, aerosols, IS/PEP therapy. -Has chest pain, hx of smoking, and family hx of DVTs. Will obtain CTA chest for further evaluation. 2. nicotine abuse-Will provide a patch while here. 3. Type 2 diabetes-held metformin, continue sliding scale insulin. 4. Chronic pain syndrome-secondary to degenerative joint disease and lumbar spinal stenosis patient is on oxycodone, Lyrica, NSAIDs, Flexeril, Cymbalta, and Elavil at home. 5. Hypertension-continue metoprolol 6. Anxiety and depression-Klonopin, Elavil, Cymbalta. DVT prophylaxis: Lovenox Discharge planning: pt has o2, needs to establish care with a emergency communications dispatcher as an outpatient. This patient was seen by Andrzej Michaels PA-C under the supervision of Doctor Everardo. <Hubert Mcgee - Last Filed: 10/11/18 14:55> Subjective: The patient is short of breath, wheezy. She is a chronic smoker since age of 19 a pack per day about 30 pack years of his smoking. She still has chest tightness and pleuritic chest pain. - Physical Exam General: Alert, Oriented x3, Cooperative HEENT: Atraumatic, PERRLA, EOMI, Normocephalic Neck: Supple, No JVD, Negative Carotid Bruits Lungs: Diminished, Short of Breath, Wheezes Cardiovascular: Regular rate, Regular Rhythm, Normal S1, Normal S2, No murmurs Abdomen: Bowel Sounds Present, Soft, Non Tender, Non-Distended Extremities: No edema, Capillary Refill Less than 3 Seconds Skin: No rashes, No breakdown Musculoskeletal: No Tenderness to Palpation of Joints or Extremities, Arthritic Changes Lymphatic: No Cervical, Supraclavicular, or Inguinal Adenopathy Neurological: Cranial nerves II-XII grossly intact, Deep Tendon Reflexes 2+/4 and Symmetrical, Neuro grossly intact, Motor Exam 5/5 strength throughout Psych/Mental Status: Normal Affect, Appropriate Vital Signs Temp Pulse Resp BP Pulse Ox 98.7 F 75 20 H 118/61 93 10/11/18 13:45 10/11/18 13:45 10/11/18 13:45 10/11/18 13:45 10/11/18 13:45 Oxygen Flow Rate (L/min) 6 Oxygen Delivery Method Nasal Cannula Weight: 176 lb 9.444 oz Body Mass Index (BMI) 32.3 Intake and Output for Last 24 Hours 10/09/18 10/10/18 10/11/18 23:59 23:59 23:59 Intake Total 240 / 240 1163 / 1163 Balance 240 / 240 1163 / 1163 Microbiology Past 72 Hours 10/11/18 11:00 Respiratory Panel (PCR) - Final Mucosa - Nasopharyngeal Laboratory Tests Past 24 Hrs 10/11/18 10/11/18 05:15 05:15 WBC 10.6 RBC 4.80 Hgb 13.5 Hct 42.0 MCV 87.5 MCH 28.1 MCHC 32.1 RDW 13.4 RDW Differential 42.4 Plt Count 270 MPV 10.8 Immature Gran % (Auto) 0.200 Neut % (Auto) 79.9 H Lymph % (Auto) 16.2 L Will % (Auto) 3.6 Eos % (Auto) 0.0 Baso % (Auto) 0.1 Absolute Neuts (auto) 8.5 H Absolute Lymphs (auto) 1.72 Total Counted Not Reportable Sodium 139 Potassium 4.4 Chloride 104 Carbon Dioxide 27.0 Anion Gap 8 BUN 8 Creatinine 0.81 Estim Creat Clear Calc 69.37 Est GFR (MDRD) Af Amer 98 Est GFR (MDRD) Non-Af 81 BUN/Creatinine Ratio 9.9 L Glucose 183 H Calcium 8.6 POC Glucose 10/11/18 10/11/18 10/10/18 11:09 06:30 23:10 POC Glucose 293 H 146 H 150 H 10/10/18 17:56 POC Glucose 110 Assessment/Plan This patient was seen in conjunction with Andrzej KEANE. I have independently interviewed and examined the patient and reviewed pertinent history, examination findings, laboratory and plan of management. I have reviewed the note and agree with the documented findings with the few additional points. In brief, patient is admitted for acute on chronic hypoxic respiratory failure secondary to COPD exacerbation. CT chest was done and did not show PE but see chronic COPD changes with patchy groundglass opacities in bilateral upper lobes and left lower lobe. The patient is on bronchodilator, IV Solu-Medrol, incentive spirometry and chest physiotherapy. Patient has other comorbidities including chronic pain syndrome significant degenerative joint disease, hypertension, anxiety and depression and chronic smoker with nicotine dependence. I have discussed my assessment with Andrzej KEANE and orders have been reviewed. Code Visit Inpatient E&M: 09383 Subs Hosp L2
[2018-10-11 17:10] LABS: Bedside Glucose 158 mg/dL (70-110)
[2018-10-11] MEDS: Ibuprofen 600 MG Tablet PO (20:41)
[2018-10-11] MEDS: Amitriptyline 100 MG Tablet PO (20:42)
[2018-10-11] MEDS: Estradiol 1 MG Tablet 2 MG PO (20:53)
[2018-10-12] VITALS (18 sets, daily range): BP systolic 141–159; BP diastolic 83–95; PULSE 67–84; RESP 18–26; TEMP 36.3–36.9; O2SAT 93–95
[2018-10-12 01:10] LABS: Bedside Glucose 227 mg/dL (70-110)
[2018-10-12] MEDS: Ipratropium/Albuterol Sulfate 3 ML AMPUL.NEB INHALATION ×6 (02:24→23:08)
[2018-10-12] MEDS: 0.9% NaCl Peripheral Flush Adult/Peds IV ×2 (05:48→21:51)
[2018-10-12 06:06] LABS: Bedside Glucose 138 mg/dL (70-110)
[2018-10-12 06:31] LABS: Anion Gap 2 (5-15); BUN 11 mg/dL (7-18); BUN/Creat Ratio 15.5 RATIO (10-20); Calcium,Total 8.7 mg/dL (8.5-10.1); Chloride 101 mmol/L (98-107); Creatinine, Serum 0.71 mg/dL (0.55-1.02); EST Glomerular Filtration Rate 95 mL/min (>60); Est Glom Filt Rate - Afr Amer 114 mL/min (>60); Estimated Creatinine Clearance 79.14 ml/min; Glucose 134 mg/dL (74-106); Potassium 4.5 mmol/L (3.5-5.1); Sodium Level 136 mmol/L (136-145)
[2018-10-12] MEDS: oxyCODONE 5 MG Tablet 10 MG PO ×3 (08:40→20:38)
[2018-10-12] MEDS: DULoxetine Hcl 60 MG Capsule PO (08:42)
[2018-10-12] MEDS: Metoprolol Tartrate 25 MG Tablet PO ×2 (08:42→21:44)
[2018-10-12] MEDS: guaiFENesin 1,200 MG Tablet 1200 MG PO ×2 (08:42→21:46)
[2018-10-12] MEDS: Cyanocobalamin 500 MCG Tablet PO (08:43)
[2018-10-12] MEDS: Acetaminophen 325 MG Tablet 650 MG PO (08:45)
[2018-10-12] MEDS: Pregabalin 75 MG Capsule PO ×2 (08:45→21:45)
--- NOTE | 2018-10-12 11:26 | ECHOD_ITS ---
Reason For Study: SOB Procedure This was a 2D Doppler, Color Flow transthoracic echocardiogram. The study was technically difficult. Exam performed portable in patient room. Left Ventricle Normal LV size. Left ventricular systolic function is normal. The estimated ejection fraction is 70 %. Transmitral doppler flow suggestive of impaired relaxation of left ventricle. No regional wall motion abnormalities noted. Right Ventricle Normal RV size. Normal systolic function. Atria Normal left atrium. Normal right atrium. No doppler evidence for ASD. Mitral Valve There is no mitral annular calcification. Normal mitral valve. Trivial mitral valve insufficiency. Tricuspid Valve Normal tricuspid valve. Trivial tricuspid valve insufficiency. Right ventricular systolic pressure estimated to be 24 mmHg. Aortic Valve Trisinus/trileaflet aortic valve. Normal aortic valve. Pulmonic Valve The pulmonic valve is not well visualized. Great Vessels Normal sized aortic root. Pericardium/Pleural No pericardial effusion. MMode/2D Measurements & Calculations LVIDd: 4.5 cm IVSd: 1.3 cm Ao root diam: 2.8 cm LVIDs: 2.5 cm LVPWd: 0.80 cm RVDd: 3.8 cm FS: 44.4 % LAV(MOD-bp): 35.4 ml LVAd ap4: 24.4 cm2 SV(MOD-sp4): 44.0 ml LAV(MOD-bp) Indexed: 19.6 ml/m2 EDV(MOD-sp4): 63.8 ml LAV(MOD-sp2): 28.0 ml EDV(sp4-el): 64.3 ml LAV(MOD-sp4): 39.8 ml LVAs ap4: 11.9 cm2 ESV(MOD-sp4): 19.8 ml ESV(sp4-el): 19.4 ml EF(MOD-sp4): 68.9 % EF(sp4-el): 69.8 % SV(sp4-el): 44.9 ml LA A4 area: 16.4 cm2 LA dimension(2D): 3.2 cm RA A4 area: 16.6 cm2 Doppler Measurements & Calculations MV E max randal: 65.9 cm/sec Lat Peak E' Randal: 8.5 cm/sec Med Peak E' Randal: 6.1 cm/sec MV A max randal: 98.3 cm/sec E/E' lat: 7.8 E/E' med: 10.9 MV E/A: 0.67 Ao V2 max: 181.2 cm/sec LV V1 max: 130.3 cm/sec PA V2 max: 93.6 cm/sec Ao max P.1 mmHg LV V1 max P.8 mmHg Ao V2 mean: 126.7 cm/sec Ao mean P.1 mmHg Ao V2 VTI: 38.7 cm TR max randal: 146.1 cm/sec TR max P.5 mmHg Interpretation Summary The study was technically difficult. Left ventricular systolic function is normal. The estimated ejection fraction is 70 %. Trivial mitral valve insufficiency. Trivial tricuspid valve insufficiency. Right ventricular systolic pressure estimated to be 24 mmHg. Ordering Physician: Andrzej Michaels Referring Physician: Robert Patel Performed By: Kelsie Urbina, YESSENIA, RVT
--- NOTE | 2018-10-12 11:55 | CASEMGMT ---
EDY SEVILLA ASSESSMENT: Pt recently @ [facility] under observation status for COPD Exac and discharged home on 10/09. See EDY Brown CM, assessment. Pt admitted to [facility] for resp failure/COPD exac 10/10/18. EDY SEVILLA to room. Intro self and role of EDY SEVILLA to patient and her sister who is at bedside. Pt alert/oriented and agreeable to assessment. Pt states her oxygen thru [employer] is @ 2-2.5 L/M and she uses it @ night and during the day as needed. Her portable tank is in room with pt for discharge. Sister states she is able to drive pt home on discharge. Pt and sister live together in an apt. They state they received notice 4 days ago that they are being evicted from their apt and are supposed to be moved out by October 23. They state they are in the process of looking for another apt. Discussed financial concerns with pt. Pt states she and her sister are both already on disability and currently receive assistance w/food stamps. Plan: Home with sister and discharge plans in place. Will need Home O2 qualification testing completed prior to discharge. Pt states she is interested in referral to pulmonology as an out-pt. Dr Queen has been consulted for pt here @ [facility] and room with DI will schedule follow-up appt with pulmonology. Ingrid SHERWOOD RN, CM
--- NOTE | 2018-10-12 11:56 | PCM.CONS.PUL ---
Reason for Consult Date of Consultation: 10/12/18 Reason for Consultation: Shortness of breath and possible COPD History of Present Illness: The patient is a 43-year-old female, with a history as outlined below, who presented to the hospital on October 10 with progressive shortness of breath. The patient had just been admitted to the hospital October 08, during which time, she was treated for an acute exacerbation of COPD, felt likely to be secondary to a viral upper respiratory infection. The patient was treated symptomatically with bronchodilators and prednisone. The patient reports a 41-noon-nwud smoking history and currently smokes approximately 1 pack of cigarettes per day. She states that she has been on supplemental oxygen at 2 L/min since a hospitalization at an outside hospital last summer. However, the patient only utilizes her supplemental oxygen periodically. She does report that she was previously prescribed Advair Diskus and an albuterol rescue inhaler by her primary care provider. However, the patient ran out of her medications approximately 1 week ago. She also reports having been exposed to a sick baby, who then required hospitalization, also approximately 1 week ago. She has never been evaluated by a human development professor, nor has she undergone formal pulmonary function testing. She does recall having been told during her hospitalization last summer that she had emphysema. She currently endorses the presence of shortness of breath, chest tightness, wheezing and a productive cough. CTA chest completed on October 11 revealed no evidence for pulmonary embolism. However, there were patchy groundglass changes noted in the bilateral upper lobes. Past Medical History Past Medical History (Chronic Problems): Chronic Problems Nicotine abuse (Chronic) DJD (degenerative joint disease), lumbar (Chronic) Lumbar spinal stenosis (Chronic) Peripheral neuropathy (Chronic) Obesity (Chronic) DM2 (diabetes mellitus, type 2) (Chronic) Depression (Chronic) Benign essential HTN (Chronic) Anxiety (Chronic) Allergies sulfamethoxazole [From Bactrim] Allergy (Verified 10/08/18 07:00) Rash trimethoprim [From Bactrim] Allergy (Verified 10/08/18 07:00) Rash erythromycin base [Erythromycin Base] Adverse Reaction (Verified 10/08/18 07:00) Other ketorolac tromethamine [From Toradol] Adverse Reaction (Verified 10/08/18 07:00) Other PLASTIC TAPE Adverse Reaction (Uncoded 10/08/18 07:00) Rash Home Medications: Ambulatory Orders Medication Instructions Recorded Albuterol IH (ProAir) [Proair Hfa] 1 puff INHALATION Q4H PRN PRN 04/02/13 Amitriptyline HCl [Elavil] 100 mg PO QHS 04/02/13 Duloxetine Hcl [Cymbalta] 60 mg PO DAILY 04/02/13 Estradiol [Estrace] 2 mg PO QHS 04/02/13 Metformin HCl [Glucophage] 500 mg PO BIDCM 04/02/13 Metoprolol Tartrate [Lopressor 25 mg PO BID 04/02/13 (beta mike)] Cyanocobalamin [Vitamin B12] 500 mcg PO DAILY@0800 03/22/14 Potassium Chloride [K-Dur] 40 meq PO DAILY #20 tablet 03/22/14 Pregabalin [Lyrica] 75 mg PO BID 05/13/15 Clonazepam 1 mg PO Q6H PRN PRN 04/29/18 Fluticasone/Salmeterol [Advair 2 puff INHALATION BID 04/29/18 250-50 Diskus] Naproxen [Naprosyn] 500 mg PO BID PRN 04/29/18 Oxycodone HCl/Acetaminophen 1 tablet PO Q4H PRN PRN 04/29/18 [Percocet 10-325 mg Tablet] Guaifenesin [Mucinex] 1,200 mg PO BID #14 tablet 05/01/18 Cyclobenzaprine [Flexeril] 10 mg PO TID PRN #15 tab 08/19/18 Ibuprofen [Motrin] 800 mg PO TID PRN PRN #20 tab 08/19/18 Acetaminophen [Tylenol Tablet] 650 mg PO Q6H PRN PRN tablet 10/09/18 predniSONE tablet 40 mg PO DAILY@0800 10/10/18 Surgical History: appendectomy Smoking Status: Current every day smoker Tobacco Use: Cigarettes Alcohol: None Drugs: None - *Family History Sibling History Items: - - Migraines Review of Systems Constitutional: Denies: Chills, Fever Eyes: Denies: Blurred vision, Double vision HEENT: Denies: Head Aches, Sinus Congestion, Sinus Drainage Cardiovascular: Reports: Chest Tightness Respiratory: Reports: Cough, Shortness of Breath, Sputum production, Wheezing Gastrointestinal: Denies: Abdominal Pain, Nausea, Vomiting Genitourinary: Denies: Dysuria Musculoskeletal: Reports: Back Pain Skin: Denies: Rash, Wounds Neurological: Denies: Numbness, Tingling, Focal weakness Psychiatric: Reports: Anxiety Hematologic/ Lymphatic: Denies: Easy Bruising, Easy Bleeding Objective: The patient's most recent lab work, culture data and imaging studies have all been personally reviewed. Respiratory viral panel was negative. - Physical Exam General: Alert, Oriented x3, Cooperative, No apparent distress HEENT: Atraumatic, PERRLA, Normocephalic Oral: No Gingival or Mucosal Lesions/ Ulcerations Neck: Supple, No Nodes, Trachea Midline Lungs: No rhonchi, No rales, Diminished, Wheezes Cardiovascular: Regular rate, Regular Rhythm, Normal S1, Normal S2, No murmurs Abdomen: Bowel Sounds Present, Soft, Non Tender Extremities: No clubbing, No cyanosis, No edema Skin: No breakdown Musculoskeletal: No Tenderness to Palpation of Joints or Extremities Lymphatic: No Cervical, Supraclavicular, or Inguinal Adenopathy Neurological: Cranial nerves II-XII grossly intact, Neuro grossly intact Psych/Mental Status: Normal Affect, Appropriate Vital Signs Temp Pulse Resp BP Pulse Ox 97.4 F L 72 19 H 159/92 H 94 10/12/18 08:38 10/12/18 11:14 10/12/18 11:14 10/12/18 08:38 10/12/18 10:42 Oxygen Flow Rate (L/min) 4 Oxygen Delivery Method Room Air Weight: 176 lb 9.444 oz Body Mass Index (BMI) 32.3 Intake and Output for Last 24 Hours 10/10/18 10/11/18 10/12/18 23:59 23:59 23:59 Intake Total 240 / 240 1933 / 4 251 / 251 Balance 240 / 240 1933 / 1933 251 / 251 Microbiology Past 72 Hours 10/11/18 11:00 Respiratory Panel (PCR) - Final Mucosa - Nasopharyngeal Laboratory Tests Past 24 Hrs 10/12/18 05:20 Sodium 136 Potassium 4.5 Chloride 101 Carbon Dioxide 33.0 H Anion Gap 2 L BUN 11 Creatinine 0.71 Estim Creat Clear Calc 79.14 Est GFR (MDRD) Af Amer 114 Est GFR (MDRD) Non-Af 95 BUN/Creatinine Ratio 15.5 Glucose 134 H Calcium 8.7 POC Glucose 10/12/18 10/11/18 10/11/18 05:51 21:11 17:02 POC Glucose 138 H 227 H 158 H Clinical Impression(s) from Imaging Studies Chest CTA 10/11/18 11:04 IMPRESSION: Negative for pulmonary embolism. Negative for thoracic aortic dissection. Scattered nonspecific groundglass airspace disease as detailed above Electronically Signed: Gilles Browning at 12:03 EDT Tel , Service support , Assessment/Plan All Active Problems COPD exacerbation (Acute) RECOMMENDATIONS: 1. Continue scheduled bronchodilators and steroids. The patient can likely be transitioned to prednisone beginning tomorrow. 2. Given findings noted on CT chest, recommend treating with Levaquin x5 days. 3. Wean supplemental oxygen to maintain saturations at or above 90%. 4. Continue nicotine replacement therapy. 5. Obtain echocardiogram 6. Perform walking oximetry study prior to consideration for discharge from the hospital. 7. Outpatient pulmonary follow-up within 2 weeks is warranted. Baseline pulmonary function testing can be obtained at that time. IMPRESSIONS: 1. Acute on chronic respiratory failure Could certainly be related to underlying COPD with exacerbation. However, the patient has never undergone pulmonary function testing. Therefore, a diagnosis of obstructive lung disease would be presumptive. The patient CTA chest did reveal patchy areas of groundglass changes, which may represent infection. Given her recent sick contact exposure, I would advocate for treating the patient with Levaquin x5 days. Agree with continuing scheduled bronchodilators and steroids. The patient's current clinical state is likely a combination of the aforementioned along with noncompliance with her prescribed outpatient inhaler regimen coupled with continued tobacco dependency. The importance of tobacco cessation was emphasized to the patient. She is agreeable to following up in the pulmonary medicine clinic upon discharge so that baseline PFTs can be obtained. I would also recommend checking an echocardiogram to evaluate for the presence of any diastolic dysfunction and/or pulmonary hypertension. Continue to wean supplemental oxygen to maintain saturations at or above 90%. If the patient is able to expectorate any sputum, please send for culture. If needed, the patient can be provided with samples for her baseline inhaler regimen until she follows up in the pulmonary medicine clinic. 2. Long-standing tobacco dependency I personally counseled the patient regarding the deleterious effects of ongoing tobacco use, including modalities which could be utilized to achieve a smoke-free lifestyle. This note was generated with Rangespanation software. It may contain incorrect words, spelling, and punctuation that were not noted in checking the note before signing. Code Visit Inpatient E&M: 69225 Init Hosp L3
--- NOTE | 2018-10-12 12:00 | CON.PCM_ITS ---
Reason for Consult Date of Consultation: 10/12/18 Reason for Consultation: Shortness of breath and possible COPD History of Present Illness: The patient is a 43-year-old female, with a history as outlined below, who presented to the hospital on October 10 with progressive shortness of breath. The patient had just been admitted to the hospital October 08, during which time, she was treated for an acute exacerbation of COPD, felt likely to be secondary to a viral upper respiratory infection. The patient was treated symptomatically with bronchodilators and prednisone. The patient reports a [id number] smoking history and currently smokes approximately 1 pack of cigarettes per day. She states that she has been on supplemental oxygen at 2 L/min since a hospitalization at an outside hospital last summer. However, the patient only utilizes her supplemental oxygen periodically. She does report that she was previously prescribed Advair Diskus and an albuterol rescue inhaler by her primary care provider. However, the patient ran out of her medications approximately 1 week ago. She also reports having been exposed to a sick baby, who then required hospitalization, also approximately 1 week ago. She has never been evaluated by a animal geneticist, nor has she undergone formal pulmonary function testing. She does recall having been told during her hospitalization last summer that she had emphysema. She currently endorses the presence of shortness of breath, chest tightness, whe ezing and a productive cough. CTA chest completed on October 11 revealed no evidence for pulmonary embolism. However, there were patchy groundglass changes noted in the bilateral upper lobes. Past Medical History Past Medical History (Chronic Problems): Chronic Problems Nicotine abuse (Chronic) DJD (degenerative joint disease), lumbar (Chronic) Lumbar spinal stenosis (Chronic) Peripheral neuropathy (Chronic) Obesity (Chronic) DM2 (diabetes mellitus, type 2) (Chronic) Depression (Chronic) Benign essential HTN (Chronic) Anxiety (Chronic) Allergies sulfamethoxazole [From Bactrim] Allergy (Verified 10/08/18 07:00) Rash trimethoprim [From Bactrim] Allergy (Verified 10/08/18 07:00) Rash erythromycin base [Erythromycin Base] Adverse Reaction (Verified 10/08/18 07:00) Other ketorolac tromethamine [From Toradol] Adverse Reaction (Verified 10/08/18 07:00) Other PLASTIC TAPE Adverse Reaction (Uncoded 10/08/18 07:00) Rash Home Medications: Ambulatory Orders Medication Instructions Recorded Albuterol IH (ProAir) [Proair Hfa] 1 puff INHALATION Q4H PRN PRN 04/02/13 Amitriptyline HCl [Elavil] 100 mg PO QHS 04/02/13 Duloxetine Hcl [Cymbalta] 60 mg PO DAILY 04/02/13 Estradiol [Estrace] 2 mg PO QHS 04/02/13 Metformin HCl [Glucophage] 500 mg PO BIDCM 04/02/13 Metoprolol Tartrate [Lopressor 25 mg PO BID 04/02/13 (beta mike)] Cyanocobalamin [Vitamin B12] 500 mcg PO DAILY@0800 03/22/14 Potassium Chloride [K-Dur] 40 meq PO DAILY #20 tablet 03/22/14 Pregabalin [Lyrica] 75 mg PO BID 05/13/15 Clonazepam 1 mg PO Q6H PRN PRN 04/29/18 Fluticasone/Salmeterol [Advair 2 puff INHALATION BID 04/29/18 250-50 Diskus] Naproxen [Naprosyn] 500 mg PO BID PRN 04/29/18 Oxycodone HCl/Acetaminophen 1 tablet PO Q4H PRN PRN 04/29/18 [Percocet 10-325 mg Tablet] Guaifenesin [Mucinex] 1,200 mg PO BID #14 tablet 05/01/18 Cyclobenzaprine [Flexeril] 10 mg PO TID PRN #15 tab 08/19/18 Ibuprofen [Motrin] 800 mg PO TID PRN PRN #20 tab 08/19/18 Acetaminophen [Tylenol Tablet] 650 mg PO Q6H PRN PRN tablet 10/09/18 predniSONE tablet 40 mg PO DAILY@0800 10/10/18 Surgical History: appendectomy Smoking Status: Current every day smoker Tobacco Use: Cigarettes Alcohol: None Drugs: None - *Family History Sibling History Items: - - Migraines Review of Systems Constitutional: Denies: Chills, Fever Eyes: Denies: Blurred vision, Double vision HEENT: Denies: Head Aches, Sinus Congestion, Sinus Drainage Cardiovascular: Reports: Chest Tightness Respiratory: Reports: Cough, Shortness of Breath, Sputum production, Wheezing Gastrointestinal: Denies: Abdominal Pain, Nausea, Vomiting Genitourinary: Denies: Dysuria Musculoskeletal: Reports: Back Pain Skin: Denies: Rash, Wounds Neurological: Denies: Numbness, Tingling, Focal weakness Psychiatric: Reports: Anxiety Hematologic/ Lymphatic: Denies: Easy Bruising, Easy Bleeding Objective: The patient's most recent lab work, culture data and imaging studies have all been personally reviewed. Respiratory viral panel was negative. - Physical Exam General: Alert, Oriented x3, Cooperative, No apparent distress HEENT: Atraumatic, PERRLA, Normocephalic Oral: No Gingival or Mucosal Lesions/ Ulcerations Neck: Supple, No Nodes, Trachea Midline Lungs: No rhonchi, No rales, Diminished, Wheezes Cardiovascular: Regular rate, Regular Rhythm, Normal S1, Normal S2, No murmurs Abdomen: Bowel Sounds Present, Soft, Non Tender Extremities: No clubbing, No cyanosis, No edema Skin: No breakdown Musculoskeletal: No Tenderness to Palpation of Joints or Extremities Lymphatic: No Cervical, Supraclavicular, or Inguinal Adenopathy Neurological: Cranial nerves II-XII grossly intact, Neuro grossly intact Psych/Mental Status: Normal Affect, Appropriate Vital Signs Temp Pulse Resp BP Pulse Ox 97.4 F L 72 19 H 159/92 H 94 10/12/18 08:38 10/12/18 11:14 10/12/18 11:14 10/12/18 08:38 10/12/18 10:42 Oxygen Flow Rate (L/min) 4 Oxygen Delivery Method Room Air Weight: 176 lb 9.444 oz Body Mass Index (BMI) 32.3 Intake and Output for Last 24 Hours 10/10/18 10/11/18 10/12/18 23:59 23:59 23:59 Intake Total 240 / 240 1933 / 4 251 / 251 Balance 240 / 240 1933 / 1933 251 / 251 Microbiology Past 72 Hours 10/11/18 11:00 Respiratory Panel (PCR) - Final Mucosa - Nasopharyngeal Laboratory Tests Past 24 Hrs 10/12/18 05:20 Sodium 136 Potassium 4.5 Chloride 101 Carbon Dioxide 33.0 H Anion Gap 2 L BUN 11 Creatinine 0.71 Estim Creat Clear Calc 79.14 Est GFR (MDRD) Af Amer 114 Est GFR (MDRD) Non-Af 95 BUN/Creatinine Ratio 15.5 Glucose 134 H Calcium 8.7 POC Glucose 10/12/18 10/11/18 10/11/18 05:51 21:11 17:02 POC Glucose 138 H 227 H 158 H Clinical Impression(s) from Imaging Studies Chest CTA 10/11/18 11:04 IMPRESSION: Negative for pulmonary embolism. Negative for thoracic aortic dissection. Scattered nonspecific groundglass airspace disease as detailed above Electronically Signed: Gilles Browning DO at 12:03 EDT Tel , Service support , Assessment/Plan All Active Problems COPD exacerbation (Acute) RECOMMENDATIONS: 1. Continue scheduled bronchodilators and steroids. The patient can likely be transitioned to prednisone beginning tomorrow. 2. Given findings noted on CT chest, recommend treating with Levaquin x5 days. 3. Wean supplemental oxygen to maintain saturations at or above 90%. 4. Continue nicotine replacement therapy. 5. Obtain echocardiogram 6. Perform walking oximetry study prior to consideration for discharge from the hospital. 7. Outpatient pulmonary follow-up within 2 weeks is warranted. Baseline pulmonary function testing can be obtained at that time. IMPRESSIONS: 1. Acute on chronic respiratory failure Could certainly be related to underlying COPD with exacerbation. However, the patient has never undergone pulmonary function testing. Therefore, a diagnosis of obstructive lung disease would be presumptive. The patient CTA chest did reveal patchy areas of groundglass changes, which may represent infection. Given her recent sick contact exposure, I would advocate for treating the patient with Levaquin x5 days. Agree with continuing scheduled bronchodilators and steroids. The patient's current clinical state is likely a combination of the aforementioned along with noncompliance with her prescribed outpatient inhaler regimen coupled with continued tobacco dependency. The importance of tobacco cessation was emphasized to the patient. She is agreeable to following up in the pulmonary medicine clinic upon discharge so that baseline PFTs can be obtained. I would also recommend checking an echocardiogram to evaluate for the presence of any diastolic dysfunction and/or pulmonary hypertension. Continue to wean supplemental oxygen to maintain saturations at or above 90%. If the patient is able to expectorate any sputum, please send for culture. If needed, the patient can be provided with samples for her baseline inhaler regimen until she follows up in the pulmonary medicine clinic. 2. Long-standing tobacco dependency I personally counseled the patient regarding the deleterious effects of ongoing tobacco use, including modalities which could be utilized to achieve a smoke- free lifestyle. This note was generated with [employer] software. It may contain incorrect words, spelling, and punctuation that were not noted in checking the note before signing. Code Visit Inpatient E&M: 85808 Init Hosp L3
[2018-10-12] MEDS: Insulin Lispro 100 UNIT/ML INSULN.PEN SQ ×3 (12:20→21:43)
[2018-10-12 12:35] LABS: Bedside Glucose 344 mg/dL (70-110)
--- NOTE | 2018-10-12 13:28 | PCM.PROGNOTE ---
<Andrzej Michaels - Last Filed: 10/12/18 13:28> - Physical Exam General: Alert, Oriented x3, Cooperative HEENT: Atraumatic, PERRLA, EOMI, Normocephalic Neck: Supple, No JVD, Negative Carotid Bruits Lungs: Wheezes Cardiovascular: Regular rate, No murmurs Abdomen: Bowel Sounds Present, Soft, Non Tender Extremities: No edema, Capillary Refill Less than 3 Seconds Skin: No rashes, No breakdown Musculoskeletal: No Tenderness to Palpation of Joints or Extremities Neurological: Cranial nerves II-XII grossly intact Psych/Mental Status: Normal Affect, Appropriate, Alert and oriented to time, place, person, mood and affect Vital Signs Temp Pulse Resp BP Pulse Ox 97.4 F L 72 19 H 159/92 H 94 10/12/18 08:38 10/12/18 11:14 10/12/18 11:14 10/12/18 08:38 10/12/18 10:42 Oxygen Flow Rate (L/min) 4 Oxygen Delivery Method Room Air Weight: 176 lb 9.444 oz Body Mass Index (BMI) 32.3 Intake and Output for Last 24 Hours 10/10/18 10/11/18 10/12/18 23:59 23:59 23:59 Intake Total 240 / 240 1934 / 1934 731 / 731 Balance 240 / 240 193 / 1934 731 / 731 Microbiology Past 72 Hours 10/11/18 11:00 Respiratory Panel (PCR) - Final Mucosa - Nasopharyngeal Laboratory Tests Past 24 Hrs 10/12/18 05:20 Sodium 136 Potassium 4.5 Chloride 101 Carbon Dioxide 33.0 H Anion Gap 2 L BUN 11 Creatinine 0.71 Estim Creat Clear Calc 79.14 Est GFR (MDRD) Af Amer 114 Est GFR (MDRD) Non-Af 95 BUN/Creatinine Ratio 15.5 Glucose 134 H Calcium 8.7 POC Glucose 10/12/18 10/12/18 10/11/18 12:28 05:51 21:11 POC Glucose 344 H 138 H 227 H 10/11/18 17:02 POC Glucose 158 H Medical Necessity - Tobacco Use Smoking Status: Current every day smoker Tobacco Use: Cigarettes Assessment/Plan All Active Problems COPD exacerbation (Acute) 1. Acute on chronic hypoxic respiratory failure secondary to rebound COPD exacerbation- continue steroids, aerosols, IS/PEP therapy. - CTA with no PE. Nonspecific groundglass opacities noted -Pulm consulted -Empiric levaquin -O2 is not being weaned down -Some CO2 retention -Suspect JCARLOS - Sister is present, states the patient has apneic episodes at home. 2. nicotine abuse-Will provide a patch while here. 3. Type 2 diabetes-held metformin, continue sliding scale insulin. 4. Chronic pain syndrome-secondary to degenerative joint disease and lumbar spinal stenosis patient is on oxycodone, Lyrica, NSAIDs, Flexeril, Cymbalta, and Elavil at home. 5. Hypertension-continue metoprolol 6. Anxiety and depression-Klonopin, Elavil, Cymbalta. DVT prophylaxis: Lovenox Discharge planning: pt has o2, needs to establish care with a rotary cutter operator as an outpatient. This patient was seen by Andrzej Michaels PA-C under the supervision of Doctor Everardo. <Hubert Mcgee - Last Filed: 10/14/18 16:24> Subjective: Seen and examined. Patient is still short of breath and wheezing. CT chest reviewed. Mild upper lobes patchy groundglass opacity in left lower lobe opacity This might be atypical presentation of pneumonia and therefore started on Levaquin. - Physical Exam General: Alert, Oriented x3, Cooperative HEENT: Atraumatic, PERRLA, EOMI, Normocephalic Neck: Supple, No JVD, Negative Carotid Bruits Lungs: Diminished, Short of Breath, Wheezes Cardiovascular: Regular rate, Regular Rhythm, Normal S1, Normal S2, No murmurs Abdomen: Bowel Sounds Present, Soft, Non Tender, Non-Distended Extremities: No edema, Capillary Refill Less than 3 Seconds Skin: No rashes, No breakdown Musculoskeletal: No Tenderness to Palpation of Joints or Extremities, Arthritic Changes Lymphatic: No Cervical, Supraclavicular, or Inguinal Adenopathy Neurological: Cranial nerves II-XII grossly intact, Deep Tendon Reflexes 2+/4 and Symmetrical, Neuro grossly intact Psych/Mental Status: Normal Affect, Appropriate Vital Signs Temp Pulse Resp BP Pulse Ox 97.8 F 76 18 129/83 H 92 10/14/18 10:00 10/14/18 11:18 10/14/18 11:18 10/14/18 10:00 10/14/18 11:18 Oxygen Flow Rate (L/min) [ 2 AMBULATION with Oxygen] Oxygen Flow Rate (L/min) 2 Oxygen Delivery Method Nasal Cannula Weight: 176 lb 9.444 oz Body Mass Index (BMI) 32.3 Intake and Output for Last 24 Hours 10/12/18 10/13/18 10/14/18 23:59 23:59 23:59 Intake Total 1731 / 1731 600 / 600 Balance 1731 / 1731 600 / 600 Microbiology Past 72 Hours 10/12/18 16:18 Gram Stain - Final Sputum, Expectorated/Coughed Respiratory Culture - Preliminary Presumptive C albicans 10/11/18 11:00 Respiratory Panel (PCR) - Final Mucosa - Nasopharyngeal Laboratory Tests Past 24 Hrs 10/14/18 05:35 Sodium 139 Potassium 3.9 Chloride 98 Carbon Dioxide 37.0 H Anion Gap 4 L BUN 12 Creatinine 0.75 Estim Creat Clear Calc 74.92 Est GFR (MDRD) Af Amer 108 Est GFR (MDRD) Non-Af 89 BUN/Creatinine Ratio 16.0 Glucose 93 Calcium 8.4 L POC Glucose 10/14/18 10/14/18 10/14/18 11:23 09:58 06:45 POC Glucose 77 88 93 10/13/18 10/13/18 21:56 16:13 POC Glucose 128 H 154 H Assessment/Plan This patient was seen in conjunction with Andrzej KEANE. I have independently interviewed and examined the patient and reviewed pertinent history, examination findings, laboratory and plan of management. I have reviewed the note and agree with the documented findings with the few additional points. In brief, patient is admitted for acute on chronic hypoxic respiratory failure secondary to COPD exacerbation. CT chest was done and did not show PE but see chronic COPD changes with patchy groundglass opacities in bilateral upper lobes and left lower lobe. The patient is on bronchodilator, IV Solu-Medrol, incentive spirometry and chest physiotherapy. Pulmonary consult requested and seen by Dr. Queen. Patient is started on Levaquin. Patient is still on high oxygen and patient is symptomatic. Patient has other comorbidities including chronic pain syndrome significant degenerative joint disease, hypertension, anxiety and depression and chronic smoker with nicotine dependence. I have discussed my assessment with Andrzej KEANE and orders have been reviewed. Code Visit Inpatient E&M: 08259 Subs Hosp L2
[2018-10-12] MEDS: levoFLOXacin IV 750 MG/150 ML BAG 100 MG IV (13:48)
[2018-10-12] MEDS: Ondansetron ODT 4 MG Tablet PO (14:38)
[2018-10-12] MEDS: Enoxaparin 40 MG/0.4 ML Syringe SC (14:38)
[2018-10-12 16:05] LABS: Bedside Glucose 178 mg/dL (70-110)
[2018-10-12] MEDS: Estradiol 1 MG Tablet 2 MG PO (21:45)
[2018-10-12] MEDS: Amitriptyline 100 MG Tablet PO (21:45)
[2018-10-12 21:56] LABS: Bedside Glucose 190 mg/dL (70-110)
[2018-10-13] VITALS (16 sets, daily range): BP systolic 127–165; BP diastolic 76–95; PULSE 61–77; RESP 12–20; TEMP 36.4–37.2; O2SAT 91–96
[2018-10-13] MEDS: Ipratropium/Albuterol Sulfate 3 ML AMPUL.NEB INHALATION ×6 (03:12→23:12)
[2018-10-13] MEDS: Enoxaparin 40 MG/0.4 ML Syringe SC (06:22)
[2018-10-13] MEDS: 0.9% NaCl Peripheral Flush Adult/Peds IV ×2 (06:25→09:01)
[2018-10-13 06:32] LABS: Bedside Glucose 137 mg/dL (70-110)
[2018-10-13 07:50] LABS: Anion Gap 5 (5-15); BUN 14 mg/dL (7-18); BUN/Creat Ratio 18.1 RATIO (10-20); Calcium,Total 8.9 mg/dL (8.5-10.1); Chloride 97 mmol/L (98-107); Creatinine, Serum 0.77 mg/dL (0.55-1.02); EST Glomerular Filtration Rate 86 mL/min (>60); Est Glom Filt Rate - Afr Amer 104 mL/min (>60); Estimated Creatinine Clearance 72.97 ml/min; Glucose 137 mg/dL (74-106); Potassium 4.4 mmol/L (3.5-5.1); Sodium Level 139 mmol/L (136-145)
[2018-10-13] MEDS: guaiFENesin 1,200 MG Tablet 1200 MG PO ×2 (08:59→22:00)
[2018-10-13] MEDS: oxyCODONE 5 MG Tablet 10 MG PO ×3 (09:00→20:05)
[2018-10-13] MEDS: Metoprolol Tartrate 25 MG Tablet PO ×2 (09:00→22:00)
[2018-10-13] MEDS: Cyanocobalamin 500 MCG Tablet PO (09:00)
[2018-10-13] MEDS: DULoxetine Hcl 60 MG Capsule PO (09:01)
[2018-10-13] MEDS: Pregabalin 75 MG Capsule PO ×2 (09:01→22:00)
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
[2018-10-13] MEDS: levoFLOXacin IV 750 MG/150 ML BAG 100 MG IV (11:11)
--- NOTE | 2018-10-13 11:12 | PN_ITS ---
Subjective: The patient was seen and examined at the bedside this morning. Events from the last 24 hours have been reviewed. The patient is currently afebrile, hemodynamically stable and maintaining appropriate oxygen saturations on 3 L/min via nasal cannula. She does report some interval improvement in her breathing quality. Objective: The patient's most recent lab work, culture data and imaging studies have all been personally reviewed. Respiratory viral panel was negative. Expectorated sputum culture appears to be normal respiratory angeli. Surface echocardiogram revealed normal LV size and function with an ejection fraction of 70%, along with diastolic dysfunction and a right ventricular systolic pressure estimated to be 24 mmHg. - Physical Exam General: Alert, Oriented x3, Cooperative, No apparent distress HEENT: Atraumatic, PERRLA, Normocephalic Oral: No Gingival or Mucosal Lesions/ Ulcerations Neck: Supple, No Nodes, Trachea Midline Lungs: Diminished, Wheezes - Improving Cardiovascular: Regular rate, Regular Rhythm, Normal S1, Normal S2, No murmurs Abdomen: Bowel Sounds Present, Soft, Non Tender Extremities: No clubbing, No cyanosis, No edema Skin: No breakdown Musculoskeletal: No Tenderness to Palpation of Joints or Extremities Lymphatic: No Cervical, Supraclavicular, or Inguinal Adenopathy Neurological: Cranial nerves II-XII grossly intact, Neuro grossly intact Psych/Mental Status: Normal Affect, Appropriate Vital Signs Temp Pulse Resp BP Pulse Ox 98.8 F 69 18 165/95 H 95 10/13/18 08:47 10/13/18 09:00 10/13/18 08:47 10/13/18 08:47 10/13/18 08:47 Oxygen Flow Rate (L/min) 3 Oxygen Delivery Method Nasal Cannula Weight: 176 lb 9.444 oz Body Mass Index (BMI) 32.3 Intake and Output for Last 24 Hours 10/11/18 10/12/18 10/13/18 23:59 23:59 23:59 Intake Total 1933 1731 / 1731 600 / 600 Balance 1933 173 / 1731 600 / 600 Microbiology Past 72 Hours 10/12/18 16:18 Gram Stain - Preliminary Sputum, Expectorated/Coughed Respiratory Culture - Preliminary Appears to be normal respiratory angeli. Further studies to follow. 10/11/18 11:00 Respiratory Panel (PCR) - Final Mucosa - Nasopharyngeal Laboratory Tests Past 24 Hrs 10/13/18 06:30 Sodium 139 Potassium 4.4 Chloride 97 L Carbon Dioxide 37.0 H Anion Gap 5 BUN 14 Creatinine 0.77 Estim Creat Clear Calc 72.97 Est GFR (MDRD) Af Amer 104 Est GFR (MDRD) Non-Af 86 BUN/Creatinine Ratio 18.1 Glucose 137 H Calcium 8.9 POC Glucose 10/13/18 10/12/18 10/12/18 06:21 21:40 16:01 POC Glucose 137 H 190 H 178 H 10/12/18 12:28 POC Glucose 344 H Labs (Last 48 Hours) 10/11/18 10/11/18 10/11/18 11:09 17:02 21:11 Sodium Potassium Chloride Carbon Dioxide Anion Gap BUN Creatinine Estim Creat Clear Calc Est GFR (MDRD) Af Amer Est GFR (MDRD) Non-Af BUN/Creatinine Ratio Glucose Calcium POC Glucose 293 H 158 H 227 H 10/12/18 10/12/18 10/12/18 05:20 05:51 12:28 Sodium 136 Potassium 4.5 Chloride 101 Carbon Dioxide 33.0 H Anion Gap 2 L BUN 11 Creatinine 0.71 Estim Creat Clear Calc 79.14 Est GFR (MDRD) Af Amer 114 Est GFR (MDRD) Non-Af 95 BUN/Creatinine Ratio 15.5 Glucose 134 H Calcium 8.7 POC Glucose 138 H 344 H 10/12/18 10/12/18 10/13/18 16:01 21:40 06:21 Sodium Potassium Chloride Carbon Dioxide Anion Gap BUN Creatinine Estim Creat Clear Calc Est GFR (MDRD) Af Amer Est GFR (MDRD) Non-Af BUN/Creatinine Ratio Glucose Calcium POC Glucose 178 H 190 H 137 H 10/13/18 06:30 Sodium 139 Potassium 4.4 Chloride 97 L Carbon Dioxide 37.0 H Anion Gap 5 BUN 14 Creatinine 0.77 Estim Creat Clear Calc 72.97 Est GFR (MDRD) Af Amer 104 Est GFR (MDRD) Non-Af 86 BUN/Creatinine Ratio 18.1 Glucose 137 H Calcium 8.9 POC Glucose Microbiology 10/12/18 16:18 Sputum, Expectorated/Coughed Gram Stain - Preliminary 10/12/18 16:18 Sputum, Expectorated/Coughed Respiratory Culture - Preliminary Appears to be normal respiratory angeli. Further studies to follow. 10/11/18 11:00 Mucosa - Nasopharyngeal Respiratory Panel (PCR) - Final Clinical Impression(s) from Imaging Studies Chest CTA 10/11/18 11:04 IMPRESSION: Negative for pulmonary embolism. Negative for thoracic aortic dissection. Scattered nonspecific groundglass airspace disease as detailed above Electronically Signed: Gilles Hanlexi at 12:03 EDT Tel , Service support , Medical Necessity - Tobacco Use Smoking Status: Current every day smoker Tobacco Use: Cigarettes Assessment/Plan All Active Problems COPD exacerbation (Acute) RECOMMENDATIONS: 1. Given the patient's elevated serum bicarbonate on chemistry profile from this morning, recommend obtaining baseline arterial blood gas. 2. Continue scheduled bronchodilators. The patient will be transitioned to prednisone 40 mg daily. 3. At discharge, recommend the patient continue prednisone 40 mg x 5 days. 4. Continue Levaquin with plans to complete a 5-day treatment course. 5. Continue nicotine replacement therapy. 6. Perform walking oximetry study prior to consideration for discharge from the hospital. 7. Outpatient pulmonary follow-up within 2 weeks is warranted. Baseline pulmonary function testing can be obtained at that time. IMPRESSIONS: 1. Acute on chronic respiratory failure Could certainly be related to underlying COPD with exacerbation. However, the patient has never undergone pulmonary function testing. Therefore, a diagnosis of obstructive lung disease would be presumptive. The patient CTA chest did reveal patchy areas of groundglass changes, which may represent infection. Given her recent sick contact exposure, I would advocate for treating the patient with Levaquin x5 days. Agree with continuing scheduled bronchodilators and steroids. The patient's current clinical state is likely a combination of the aforementioned along with noncompliance with her prescribed outpatient inhaler regimen coupled with continued tobacco dependency. The importance of tobacco cessation was emphasized to the patient. She is agreeable to following up in the pulmonary medicine clinic upon discharge so that baseline PFTs can be obtained. Continue to wean supplemental oxygen to maintain saturations at or above 90%. If needed, the patient can be provided with samples for her baseline inhaler regimen until she follows up in the pulmonary medicine clinic. 2. Long-standing tobacco dependency I personally counseled the patient regarding the deleterious effects of ongoing tobacco use, including modalities which could be utilized to achieve a smoke- free lifestyle. This note was generated with [employer]ation software. It may contain incorrect words, spelling, and punctuation that were not noted in checking the note before signing. Code Visit Inpatient E&M: 94202 Subs Hosp L2
[2018-10-13] MEDS: Insulin Lispro 100 UNIT/ML INSULN.PEN SQ (11:13)
[2018-10-13 11:26] LABS: Bedside Glucose 312 mg/dL (70-110)
[2018-10-13 13:45] LABS: Base Excess 5 mmol/L (-2 to +2); Bicarbonate 31.1 mmol/L (22-26); Blood Gas Specimen Type ART; O2 Delivery Device Nasal Can; PO2 70 mmHG (75-100); SITE L Radial; SO2 91 % (95-99); Time Given 1340; Total Carbon Dioxide 33 mmol/L; pCO2 63.8 mmHg (35-45)
--- NOTE | 2018-10-13 15:10 | PCM.PROGNOTE ---
<Andrzej Michaels - Last Filed: 10/13/18 15:10> Subjective: Pt O2 requirement stable at 3, however she is still SOB and very wheezy. Nonproductive cough. No fever/chills. No dizziness/LH. No events on tele. No palp. - Physical Exam General: Alert, Oriented x3, Cooperative HEENT: Atraumatic, PERRLA, EOMI, Normocephalic Neck: Supple, No JVD, Negative Carotid Bruits Lungs: Wheezes Cardiovascular: Regular rate, No murmurs Abdomen: Bowel Sounds Present, Soft, Non Tender Extremities: No edema, Capillary Refill Less than 3 Seconds Skin: No rashes, No breakdown Musculoskeletal: No Tenderness to Palpation of Joints or Extremities Neurological: Cranial nerves II-XII grossly intact Psych/Mental Status: Normal Affect, Appropriate, Alert and oriented to time, place, person, mood and affect Vital Signs Temp Pulse Resp BP Pulse Ox 98.3 F 77 18 146/90 H 93 10/13/18 14:19 10/13/18 14:19 10/13/18 14:19 10/13/18 14:19 10/13/18 14:19 Oxygen Flow Rate (L/min) 3 Oxygen Delivery Method Nasal Cannula Weight: 176 lb 9.444 oz Body Mass Index (BMI) 32.3 Intake and Output for Last 24 Hours 10/11/18 10/12/18 10/13/18 23:59 23:59 23:59 Intake Total 1933 1731 / 1731 600 / 600 Balance 1933 1731 / 1731 600 / 600 Microbiology Past 72 Hours 10/12/18 16:18 Gram Stain - Final Sputum, Expectorated/Coughed Respiratory Culture - Preliminary Appears to be normal respiratory angeli. Further studies to follow. 10/11/18 11:00 Respiratory Panel (PCR) - Final Mucosa - Nasopharyngeal Laboratory Tests Past 24 Hrs 10/13/18 10/13/18 06:30 13:41 Specimen Type ART Sample Site L Radial pH 7.30 L Bicarbonate Actual 31.1 H POC Total CO2 33 Base Excess 5 H O2 Saturation 91 L ABG pCO2 63.8 H ABG pO2 70 L O2 Delivery Device Nasal Can Liter Flow 3.0 Blood Gas Notified Whom ICU Blood Gas Notified Time 1340 Sodium 139 Potassium 4.4 Chloride 97 L Carbon Dioxide 37.0 H Anion Gap 5 BUN 14 Creatinine 0.77 Estim Creat Clear Calc 72.97 Est GFR (MDRD) Af Amer 104 Est GFR (MDRD) Non-Af 86 BUN/Creatinine Ratio 18.1 Glucose 137 H Calcium 8.9 POC Glucose 10/13/18 10/13/18 10/12/18 11:10 06:21 21:40 POC Glucose 312 H 137 H 190 H 10/12/18 16:01 POC Glucose 178 H Medical Necessity - Tobacco Use Smoking Status: Current every day smoker Tobacco Use: Cigarettes Assessment/Plan All Active Problems COPD exacerbation (Acute) 1. Acute on chronic hypoxic respiratory failure secondary to rebound COPD exacerbation- continue steroids, aerosols, IS/PEP therapy. -Bicarb more elevated on BMP. ABG showed mild acidosis pH 7.30, pco2 63, pO2 70. - CTA with no PE. Nonspecific groundglass opacities noted -Pulm consulted -levaquin to PO -O2 is not being weaned down -Suspect JCARLOS - Sister states the patient has apneic episodes at home. 2. nicotine abuse-Will provide a patch while here. 3. Type 2 diabetes-held metformin, continue sliding scale insulin. 4. Chronic pain syndrome-secondary to degenerative joint disease and lumbar spinal stenosis patient is on oxycodone, Lyrica, NSAIDs, Flexeril, Cymbalta, and Elavil at home. 5. Hypertension-continue metoprolol 6. Anxiety and depression-Klonopin, Elavil, Cymbalta. DVT prophylaxis: Lovenox Discharge planning: needs PSG, o/p Pulm f/u. This patient was seen by Andrzej Michaels PA-C under the supervision of Doctor Everardo. <Hubert Mcgee - Last Filed: 10/14/18 16:28> Subjective: Patient ABG reviewed. Patient short of breath and mild wheezing but better than before. On 3 L of oxygen. - Physical Exam General: Alert, Oriented x3, Cooperative HEENT: Atraumatic, PERRLA, EOMI, Normocephalic Neck: Supple, No JVD, Negative Carotid Bruits Lungs: Diminished - air entry is diffusely diminished., Rhonchi, Short of Breath, Wheezes Cardiovascular: Regular rate, Regular Rhythm, Normal S1, Normal S2, No murmurs Abdomen: Bowel Sounds Present, Soft, Non Tender Extremities: No edema, Capillary Refill Less than 3 Seconds Skin: No rashes, No breakdown Musculoskeletal: No Tenderness to Palpation of Joints or Extremities Lymphatic: No Cervical, Supraclavicular, or Inguinal Adenopathy Neurological: Cranial nerves II-XII grossly intact, Deep Tendon Reflexes 2+/4 and Symmetrical, Neuro grossly intact Psych/Mental Status: Normal Affect, Appropriate Vital Signs Temp Pulse Resp BP Pulse Ox 97.8 F 76 18 129/83 H 92 10/14/18 10:00 10/14/18 11:18 10/14/18 11:18 10/14/18 10:00 10/14/18 11:18 Oxygen Flow Rate (L/min) [ 2 AMBULATION with Oxygen] Oxygen Flow Rate (L/min) 2 Oxygen Delivery Method Nasal Cannula Weight: 176 lb 9.444 oz Body Mass Index (BMI) 32.3 Intake and Output for Last 24 Hours 10/12/18 10/13/18 10/14/18 23:59 23:59 23:59 Intake Total 1731 / 1731 600 / 600 Balance 1731 / 1731 600 / 600 Microbiology Past 72 Hours 10/12/18 16:18 Gram Stain - Final Sputum, Expectorated/Coughed Respiratory Culture - Preliminary Presumptive C albicans 10/11/18 11:00 Respiratory Panel (PCR) - Final Mucosa - Nasopharyngeal Laboratory Tests Past 24 Hrs 10/14/18 05:35 Sodium 139 Potassium 3.9 Chloride 98 Carbon Dioxide 37.0 H Anion Gap 4 L BUN 12 Creatinine 0.75 Estim Creat Clear Calc 74.92 Est GFR (MDRD) Af Amer 108 Est GFR (MDRD) Non-Af 89 BUN/Creatinine Ratio 16.0 Glucose 93 Calcium 8.4 L POC Glucose 10/14/18 10/14/18 10/14/18 11:23 09:58 06:45 POC Glucose 77 88 93 10/13/18 10/13/18 21:56 16:13 POC Glucose 128 H 154 H Assessment/Plan This patient was seen in conjunction with Andrzej KEANE. I have independently interviewed and examined the patient and reviewed pertinent history, examination findings, laboratory and plan of management. I have reviewed the note and agree with the documented findings with the few additional points. In brief, patient is admitted for acute on chronic hypoxic respiratory failure secondary to COPD exacerbation. CT chest was done and did not show PE but see chronic COPD changes with patchy groundglass opacities in bilateral upper lobes and left lower lobe. The patient is on bronchodilator, incentive spirometry and chest physiotherapy. Pulmonary consult requested and seen by Dr. Queen. Patient is started on Levaquin. Patient is still on 3 L oxygen. ABG was done for history of COPD. ABG 7.3 0/70 on 3 L of oxygen. Solu-Medrol converted to prednisone. Patient has other comorbidities including chronic pain syndrome significant degenerative joint disease, hypertension, anxiety and depression and chronic smoker with nicotine dependence. I have discussed my assessment with Andrzej KEANE and orders have been reviewed. Code Visit Inpatient E&M: 58339 Subs Hosp L2
--- NOTE | 2018-10-13 15:23 | NURSING ---
Geraldine cps in room and has BIPAT set up.
[2018-10-13 16:25] LABS: Bedside Glucose 154 mg/dL (70-110)
[2018-10-13] MEDS: Insulin Lispro 100 UNIT/ML INSULN.PEN 10 UNIT SC (16:43)
[2018-10-13] MEDS: Estradiol 1 MG Tablet 2 MG PO (22:00)
[2018-10-13] MEDS: Amitriptyline 100 MG Tablet PO (22:00)
[2018-10-13 22:16] LABS: Bedside Glucose 128 mg/dL (70-110)
[2018-10-14] VITALS (9 sets, daily range): BP systolic 129–146; BP diastolic 79–96; PULSE 68–77; RESP 12–18; TEMP 36.6–36.9; O2SAT 2–98
[2018-10-14] MEDS: Ipratropium/Albuterol Sulfate 3 ML AMPUL.NEB INHALATION ×3 (03:07→11:18)
[2018-10-14] MEDS: oxyCODONE 5 MG Tablet 10 MG PO ×2 (03:41→08:29)
[2018-10-14 06:28] LABS: Anion Gap 4 (5-15); BUN 12 mg/dL (7-18); Calcium,Total 8.4 mg/dL (8.5-10.1); Chloride 98 mmol/L (98-107); Creatinine, Serum 0.75 mg/dL (0.55-1.02); EST Glomerular Filtration Rate 89 mL/min (>60); Est Glom Filt Rate - Afr Amer 108 mL/min (>60); Estimated Creatinine Clearance 74.92 ml/min; Glucose 93 mg/dL (74-106); Potassium 3.9 mmol/L (3.5-5.1); Sodium Level 139 mmol/L (136-145)
[2018-10-14] MEDS: Enoxaparin 40 MG/0.4 ML Syringe SC (06:47)
[2018-10-14] MEDS: levoFLOXacin 750 MG Tablet PO (06:47)
[2018-10-14 06:55] LABS: Bedside Glucose 93 mg/dL (70-110)
[2018-10-14] MEDS: Metoprolol Tartrate 25 MG Tablet PO (08:25)
[2018-10-14] MEDS: predniSONE 20 MG Tablet 40 MG PO (08:26)
[2018-10-14] MEDS: Cyanocobalamin 500 MCG Tablet PO (08:26)
[2018-10-14] MEDS: guaiFENesin 1,200 MG Tablet 1200 MG PO (08:26)
[2018-10-14] MEDS: DULoxetine Hcl 60 MG Capsule PO (08:26)
[2018-10-14] MEDS: Pregabalin 75 MG Capsule PO (08:30)
[2018-10-14] MEDS: Insulin Lispro 100 UNIT/ML INSULN.PEN 10 UNIT SC (08:32)
--- NOTE | 2018-10-14 09:48 | PCM.PN.PUL ---
Subjective: The patient was seen and examined at the bedside this morning. Events from the last 24 hours have been reviewed. The patient is currently afebrile, hemodynamically stable and maintaining appropriate oxygen saturations on 3 L/min via nasal cannula. An arterial blood gas was collected yesterday on 3 L/min and did reveal a pH of 7.3 with a corresponding PCO2 of 64 and PO2 of 70. There is some concern for underlying sleep disordered breathing, which will require outpatient work-up. Objective: The patient's most recent lab work, culture data and imaging studies have all been personally reviewed. Respiratory viral panel was negative. Expectorated sputum culture appears to be normal respiratory angeli. Surface echocardiogram revealed normal LV size and function with an ejection fraction of 70%, along with diastolic dysfunction and a right ventricular systolic pressure estimated to be 24 mmHg. - Physical Exam General: Alert, Cooperative, No apparent distress HEENT: Atraumatic, PERRLA, Normocephalic Oral: No Gingival or Mucosal Lesions/ Ulcerations Neck: Supple, No Nodes, Trachea Midline Lungs: No rhonchi, No wheeze, No rales, Diminished Cardiovascular: Regular rate, Regular Rhythm, Normal S1, Normal S2, No murmurs Abdomen: Bowel Sounds Present, Soft, Non Tender Extremities: No clubbing, No cyanosis, No edema Skin: No breakdown Musculoskeletal: No Tenderness to Palpation of Joints or Extremities, No Muscle Wasting Lymphatic: No Cervical, Supraclavicular, or Inguinal Adenopathy Neurological: Cranial nerves II-XII grossly intact, Neuro grossly intact Psych/Mental Status: Normal Affect, Appropriate Vital Signs Temp Pulse Resp BP Pulse Ox 98.4 F 68 15 146/96 H 92 10/14/18 02:10 10/14/18 08:25 10/14/18 07:57 10/14/18 08:25 10/14/18 07:16 Oxygen Flow Rate (L/min) 3 Oxygen Delivery Method Nasal Cannula Weight: 176 lb 9.444 oz Body Mass Index (BMI) 32.3 Intake and Output for Last 24 Hours 10/12/18 10/13/18 10/14/18 23:59 23:59 23:59 Intake Total 1731 / 1731 600 / 600 Balance 1731 / 1731 600 / 600 Microbiology Past 72 Hours 10/12/18 16:18 Gram Stain - Final Sputum, Expectorated/Coughed Respiratory Culture - Preliminary Presumptive C albicans 10/11/18 11:00 Respiratory Panel (PCR) - Final Mucosa - Nasopharyngeal Laboratory Tests Past 24 Hrs 10/13/18 10/14/18 13:41 05:35 Specimen Type ART Sample Site L Radial pH 7.30 L Bicarbonate Actual 31.1 H POC Total CO2 33 Base Excess 5 H O2 Saturation 91 L ABG pCO2 63.8 H ABG pO2 70 L O2 Delivery Device Nasal Can Liter Flow 3.0 Blood Gas Notified Whom ICU Blood Gas Notified Time 1340 Sodium 139 Potassium 3.9 Chloride 98 Carbon Dioxide 37.0 H Anion Gap 4 L BUN 12 Creatinine 0.75 Estim Creat Clear Calc 74.92 Est GFR (MDRD) Af Amer 108 Est GFR (MDRD) Non-Af 89 BUN/Creatinine Ratio 16.0 Glucose 93 Calcium 8.4 L POC Glucose 10/14/18 10/13/18 10/13/18 06:45 21:56 16:13 POC Glucose 93 128 H 154 H 10/13/18 11:10 POC Glucose 312 H Clinical Impression(s) from Imaging Studies Chest CTA 10/11/18 11:04 IMPRESSION: Negative for pulmonary embolism. Negative for thoracic aortic dissection. Scattered nonspecific groundglass airspace disease as detailed above Electronically Signed: Gilles Browning DO at 12:03 EDT Tel , Service support , Medical Necessity - Tobacco Use Smoking Status: Current every day smoker Tobacco Use: Cigarettes Assessment/Plan All Active Problems COPD exacerbation (Acute) RECOMMENDATIONS: 1. Continue scheduled bronchodilators and prednisone 40 mg daily. 2. At discharge, recommend the patient continue prednisone 40 mg x 5 days. 3. Continue Levaquin with plans to complete a 5-day treatment course. 4. Continue nicotine replacement therapy. 5. Perform walking oximetry study prior to consideration for discharge from the hospital. 6. The patient was provided with samples of Breo and instructed on inhaler use. She is currently scheduled to follow-up in the pulmonary medicine clinic on October 19 at 1:45 PM. The patient was provided with an appointment card for follow-up and new patient packet. IMPRESSIONS: 1. Acute on chronic respiratory failure Could certainly be related to underlying COPD with exacerbation. However, the patient has never undergone pulmonary function testing. Therefore, a diagnosis of obstructive lung disease would be presumptive. The patient CTA chest did reveal patchy areas of groundglass changes, which may represent infection. Given her recent sick contact exposure, I would advocate for treating the patient with Levaquin x5 days. Agree with continuing scheduled bronchodilators and steroids. The patient's current clinical state is likely a combination of the aforementioned along with noncompliance with her prescribed outpatient inhaler regimen coupled with continued tobacco dependency. The importance of tobacco cessation was emphasized to the patient. She is agreeable to following up in the pulmonary medicine clinic upon discharge so that baseline PFTs can be obtained. Continue to wean supplemental oxygen to maintain saturations at or above 90%. The patient was provided with samples of Breo today as a bridge for her follow-up office visit. Given the patient's baseline CO2 retention and questionable sleep disordered breathing, would also recommend outpatient polysomnogram. 2. Long-standing tobacco dependency I personally counseled the patient regarding the deleterious effects of ongoing tobacco use, including modalities which could be utilized to achieve a smoke-free lifestyle. This note was generated with [employer] dictation software. It may contain incorrect words, spelling, and punctuation that were not noted in checking the note before signing. Code Visit Inpatient E&M: 80882 Subs Hosp L2
[2018-10-14 10:06] LABS: Bedside Glucose 88 mg/dL (70-110)
--- NOTE | 2018-10-14 11:17 | DCINST_ITS ---
- Discharge Diagnoses Current Active Problems: Current Active and Chronic Problems Nicotine abuse (Chronic) You will use the following diet at home:: Calorie/Carbohydrate Controlled (specify 1200, 1400, etc) - 1800 stephen / day, Cardiac Your food should be the consistency of: Regular Your liquids should be the consistency of: Regular/Thin Discharge Activity: Return to Normal Activity Additional Instructions: Pursue pulmonary function testing and sleep study with your pulmonologists. Avoid all smoking. Allergies/Adverse Reactions: Allergies sulfamethoxazole [From Bactrim] Allergy (Verified 10/08/18 07:00) Rash trimethoprim [From Bactrim] Allergy (Verified 10/08/18 07:00) Rash erythromycin base [Erythromycin Base] Adverse Reaction (Verified 10/08/18 07:00) Other ketorolac tromethamine [From Toradol] Adverse Reaction (Verified 10/08/18 07:00) Other PLASTIC TAPE Adverse Reaction (Uncoded 10/08/18 07:00) Rash Medications to take at Discharge Albuterol IH (ProAir) [Proair Hfa] 1 puff INHALATION Q4H PRN PRN 04/02/13 Amitriptyline HCl [Elavil] 100 mg PO QHS 04/02/13 Duloxetine Hcl [Cymbalta] 60 mg PO DAILY 04/02/13 Estradiol [Estrace] 2 mg PO QHS 04/02/13 Metformin HCl [Glucophage] 500 mg PO BIDCM 04/02/13 Metoprolol Tartrate [Lopressor (beta mike)] 25 mg PO BID 04/02/13 Cyanocobalamin [Vitamin B12] 500 mcg PO DAILY@0800 03/22/14 Potassium Chloride [K-Dur] 40 meq PO DAILY #20 tablet 03/22/14 Pregabalin [Lyrica] 75 mg PO BID 05/13/15 Clonazepam 1 mg PO Q6H PRN PRN 04/29/18 Fluticasone/Salmeterol [Advair 250-50 Diskus] 2 puff INHALATION BID 04/29/18 Oxycodone HCl/Acetaminophen [Percocet 10-325 mg Tablet] 1 tablet PO Q4H PRN PRN 04/29/18 Guaifenesin [Mucinex] 1,200 mg PO BID #14 tablet 05/01/18 Cyclobenzaprine [Flexeril] 10 mg PO TID PRN #15 tab 08/19/18 Ibuprofen [Motrin] 800 mg PO TID PRN PRN #20 tab 08/19/18 Acetaminophen [Tylenol Tablet] 650 mg PO Q6H PRN PRN tablet 10/09/18 Ipratropium/Albuterol Sulfate [Duoneb] 3 ml INHALATION Q6H #120 ampul.neb 10/14/18 Prednisone 40 mg PO DAILY #10 tablet 10/14/18 levoFLOXacin tablet [Levaquin tablet] 750 mg PO DAILY@0600 #2 tablet 10/14/18 The following prescriptions were given: Ipratropium/Albuterol Sulfate [Duoneb] 3 ml INHALATION Q6H #120 ampul.neb levoFLOXacin tablet [Levaquin tablet] 750 mg PO DAILY@0600 #2 tablet Prednisone 40 mg PO DAILY #10 tablet Primary Care Physician: Robert Patel DO [Primary Care Provider] - Please follow up with your Primary Care Physician in: robert patel Test Results: Test results from this visit will be discussed in further detail at your follow- up appointment, if applicable. Please Follow Up With: robert patel When: 1-2 weeks Please Follow Up With: Pulmonary medicine When: 1-2 weeks Proposed Discharge Date: 10/14/18
[2018-10-14 11:31] LABS: Bedside Glucose 77 mg/dL (70-110)
--- NOTE | 2018-10-14 14:44 | PCM.DC.SUM ---
<Andrzej Michaels - Last Filed: 10/14/18 14:44> Discharge Date and Diagnosis Date of Admission: 10/10/18 Date of Discharge: 10/14/18 - Primary Discharge Diagnosis Acute on chronic hypoxic and hypercapnic respiratory failure secondary to COPD exacerbation Ongoing nicotine abuse Type 2 diabetes Chronic pain syndrome Anxiety and depression Suspected underlying sleep apnea - Secondary Discharge Diagnosis Chronic Problems Nicotine abuse (Chronic) DJD (degenerative joint disease), lumbar (Chronic) Lumbar spinal stenosis (Chronic) Peripheral neuropathy (Chronic) Obesity (Chronic) DM2 (diabetes mellitus, type 2) (Chronic) Depression (Chronic) Benign essential HTN (Chronic) Anxiety (Chronic) Hospital Course and Treatment Imaging Results: Imaging: CT/CTA Chest W/WO Contrast IMPRESSION: Negative for pulmonary embolism. Negative for thoracic aortic dissection. Scattered nonspecific groundglass airspace disease as detailed above Echocardiogram: LV function normal, EF 70%, trivial MVI, trivial TBI, RVSP 24 mmHg. Consultations: Pulmonology-[facility] Operations: None Procedures: 2-D Echocardiogram Summary of Care Provided: Hospital Course: The patient is a 43 year old F with past medical history of COPD, chronic hypoxic respiratory failure on 2-3 L oxygen chronically at home, nicotine abuse, type 2 diabetes, chronic pain syndrome, anxiety depression, who presented to the emergency room 1 day after being discharged from the hospital after being treated for COPD exacerbation. After leaving the hospital she went home and smoke cigarettes, and she admitted that she was out of her home medications. She came back short of breath, severely wheezy, and hypoxic. In [facility] emergency room she reportedly had a ABG with pH of 7.35, she required a Ventimask at first to maintain good saturations, her lactic acid was elevated at 2.2, and she had a mild leukocytosis. She was transferred to [facility] and admitted to the medical surgical floor. She was started on Solu-Medrol, duo nebs, incentive spirometer, 5 L of oxygen. She continued to require 5 L of oxygen, and was severely wheezy for the first 2 days. Given her slow improvement and rapid readmission to the hospital, a CTA of the chest was obtained which demonstrated nonspecific groundglass opacities, no PE. Pulmonary medicine was consulted. She was started on IV Levaquin empirically. Her CO2 increased on BMP. An ABG was obtained which demonstrated a pH of 7.30, PCO2 of 63.8, PO2 of 70. Echo was obtained with minimal findings as above. She was given an overnight trial of BiPAP which she tolerated for about 4 hours. Her wheezing improved, she was able to be weaned down to 2-3 L of oxygen. She was transitioned to oral Levaquin and oral prednisone. We discussed risk factors for obstructive sleep apnea as well, per discussion with the patient and with her sister who lives with her, she does have witnessed apneic episodes at home. She was discharged home in stable condition. She will need to follow-up with pulmonology in 1-2 weeks, follow-up with her PCP in 1-2 weeks, and she will need outpatient polysomnogram, and pulmonary function testing. She was given a one-month supply of Brio by pulmonology. She was also given 5 days of prednisone. We also gave her a prescription for duo nebs as she has a home nebulizer. She already is set up with home oxygen. We strongly reemphasized the importance of nicotine cessation. This patient was seen by Andrzej Michaels PA-C under the supervision of Dr. Mcgee. [] - Physical Exam General: Alert, Oriented x3, Cooperative HEENT: Atraumatic, PERRLA, EOMI, Normocephalic Neck: Supple, No JVD, Negative Carotid Bruits Lungs: Diminished, Wheezes Cardiovascular: Regular rate, No murmurs Abdomen: Bowel Sounds Present, Soft, Non Tender, Obese Extremities: No edema, Capillary Refill Less than 3 Seconds Skin: No rashes, No breakdown Musculoskeletal: No Tenderness to Palpation of Joints or Extremities Neurological: Cranial nerves II-XII grossly intact Psych/Mental Status: Normal Affect, Appropriate Vital Signs Temp Pulse Resp BP Pulse Ox 97.8 F 76 18 129/83 H 92 10/14/18 10:00 10/14/18 11:18 10/14/18 11:18 10/14/18 10:10/14/18 11:18 Oxygen Flow Rate (L/min) [ 2 AMBULATION with Oxygen] Oxygen Flow Rate (L/min) 2 Oxygen Delivery Method Nasal Cannula Weight: 176 lb 9.444 oz Body Mass Index (BMI) 32.3 Intake and Output for Last 24 Hours 10/12/18 10/13/18 10/14/18 23:59 23:59 23:59 Intake Total 1731 / 1731 600 / 600 Balance 1731 / 1731 600 / 600 Microbiology Past 72 Hours 10/12/18 16:18 Gram Stain - Final Sputum, Expectorated/Coughed Respiratory Culture - Preliminary Presumptive C albicans 10/11/18 11:00 Respiratory Panel (PCR) - Final Mucosa - Nasopharyngeal Laboratory Tests Past 24 Hrs 10/14/18 05:35 Sodium 139 Potassium 3.9 Chloride 98 Carbon Dioxide 37.0 H Anion Gap 4 L BUN 12 Creatinine 0.75 Estim Creat Clear Calc 74.92 Est GFR (MDRD) Af Amer 108 Est GFR (MDRD) Non-Af 89 BUN/Creatinine Ratio 16.0 Glucose 93 Calcium 8.4 L POC Glucose 10/14/18 10/14/18 10/14/18 11:23 09:58 06:45 POC Glucose 77 88 93 10/13/18 10/13/18 21:56 16:13 POC Glucose 128 H 154 H Discharge Diet: Low fat/ Low Cholesterol, 1800 Calorie Control Diet, 2000 mg Sodium Diet Discharge Activity: Return to Normal Activity Home Medications: Medications to take at Discharge Albuterol IH (ProAir) [Proair Hfa] 1 puff INHALATION Q4H PRN PRN 04/02/13 Amitriptyline HCl [Elavil] 100 mg PO QHS 04/02/13 Duloxetine Hcl [Cymbalta] 60 mg PO DAILY 04/02/13 Estradiol [Estrace] 2 mg PO QHS 04/02/13 Metformin HCl [Glucophage] 500 mg PO BIDCM 04/02/13 Metoprolol Tartrate [Lopressor (beta mike)] 25 mg PO BID 04/02/13 Cyanocobalamin [Vitamin B12] 500 mcg PO DAILY@0800 03/22/14 Potassium Chloride [K-Dur] 40 meq PO DAILY #20 tablet 03/22/14 Pregabalin [Lyrica] 75 mg PO BID 05/13/15 Clonazepam 1 mg PO Q6H PRN PRN 04/29/18 Fluticasone/Salmeterol [Advair 250-50 Diskus] 2 puff INHALATION BID 04/29/18 Oxycodone HCl/Acetaminophen [Percocet 10-325 mg Tablet] 1 tablet PO Q4H PRN PRN 11/07/18 Guaifenesin [Mucinex] 1,200 mg PO BID #14 tablet 05/01/18 Cyclobenzaprine [Flexeril] 10 mg PO TID PRN #15 tab 08/19/18 Ibuprofen [Motrin] 800 mg PO TID PRN PRN #20 tab 08/19/18 Acetaminophen [Tylenol Tablet] 650 mg PO Q6H PRN PRN tablet 10/09/18 Ipratropium/Albuterol Sulfate [Duoneb] 3 ml INHALATION Q6H #120 ampul.neb 10/14/18 Prednisone 40 mg PO DAILY #10 tab 10/14/18 levoFLOXacin tablet [Levaquin tablet] 750 mg PO DAILY@0600 #2 tablet 10/14/18 Following Prescrptions Were Given to Patient: Ipratropium/Albuterol Sulfate [Duoneb] 3 ml INHALATION Q6H #120 ampul.neb levoFLOXacin tablet [Levaquin tablet] 750 mg PO DAILY@0600 #2 tablet Prednisone 40 mg PO DAILY #10 tab Primary Care Physician: Sebastian Patel DO [Primary Care Provider] - Please follow up with your Primary Care Physician in: sebastian patel Please Follow Up With: sebastian patel When: 1-2 weeks Please Follow Up With: Pulmonary medicine When: 1-2 weeks Disposition: Home Minutes spent on discharge:: 35 Patient Condition:: Stable Medical Necessity - Tobacco Use Smoking Status: Current every day smoker Tobacco Use: Cigarettes Meaningful Use Info Meaningful Use Diagnoses (Choose all that apply): None applicable <Hubert Mcgee - Last Filed: 10/14/18 16:32> Discharge Date and Diagnosis - Secondary Discharge Diagnosis Chronic Problems Nicotine abuse (Chronic) DJD (degenerative joint disease), lumbar (Chronic) Lumbar spinal stenosis (Chronic) Peripheral neuropathy (Chronic) Obesity (Chronic) DM2 (diabetes mellitus, type 2) (Chronic) Depression (Chronic) Benign essential HTN (Chronic) Anxiety (Chronic) Hospital Course and Treatment Summary of Care Provided: This patient was seen in conjunction with Andrzej KEANE. I have independently interviewed and examined the patient and reviewed pertinent history, examination findings, laboratory and plan of management. I have reviewed the note and agree with the documented findings with the few additional points. In brief, patient is admitted for acute on chronic hypoxic respiratory failure secondary to COPD exacerbation. CT chest was done and did not show PE but see chronic COPD changes with patchy groundglass opacities in bilateral upper lobes and left lower lobe. The patient is on bronchodilator, incentive spirometry and chest physiotherapy. Pulmonary consult requested and seen by Dr. Queen. Patient is started on Levaquin. Patient is still on 3 L oxygen. ABG was done for history of COPD. ABG 7.3 0/60/70 on 3 L of oxygen. Solu-Medrol converted to prednisone. Patient to complete 5 days of antibiotic Levaquin. Prednisone 40 mg daily for 5 days after discharge. Patient has other comorbidities including chronic pain syndrome significant degenerative joint disease, hypertension, anxiety and depression and chronic smoker with nicotine dependence. Discharge medication reconciliation done. Discharge follow-up instructions completed. Discharge process discussed with the patient and all questions were answered to patient's satisfaction. Dr. Queen was kind an appointment on 10/19 in pulmonary clinic. He also gave him 1 month supply of Breo. Patient was taught inhalation technique, advised to quit smoking and follow-up with pulmonary clinic Total time spent, exact 35 minutes on discharge meds reconciliation, examination, review of imaging and blood test and discussion with the patient on follow-up instructions. I have discussed my assessment with Andrzej KEANE and orders have been reviewed. - Physical Exam Vital Signs Temp Pulse Resp BP Pulse Ox 97.8 F 76 18 129/83 H 92 10/14/18 10:00 10/14/18 11:18 10/14/18 11:18 10/14/18 10:00 10/14/18 11:18 Oxygen Flow Rate (L/min) [ 2 AMBULATION with Oxygen] Oxygen Flow Rate (L/min) 2 Oxygen Delivery Method Nasal Cannula Weight: 176 lb 9.444 oz Body Mass Index (BMI) 32.3 Intake and Output for Last 24 Hours 10/12/18 10/13/18 10/14/18 23:59 23:59 23:59 Intake Total 1731 / 1731 600 / 600 Balance 1731 / 1731 600 / 600 Microbiology Past 72 Hours 10/12/18 16:18 Gram Stain - Final Sputum, Expectorated/Coughed Respiratory Culture - Preliminary Presumptive C albicans 10/11/18 11:00 Respiratory Panel (PCR) - Final Mucosa - Nasopharyngeal Laboratory Tests Past 24 Hrs 10/14/18 05:35 Sodium 139 Potassium 3.9 Chloride 98 Carbon Dioxide 37.0 H Anion Gap 4 L BUN 12 Creatinine 0.75 Estim Creat Clear Calc 74.92 Est GFR (MDRD) Af Amer 108 Est GFR (MDRD) Non-Af 89 BUN/Creatinine Ratio 16.0 Glucose 93 Calcium 8.4 L POC Glucose 10/14/18 10/14/18 10/14/18 11:23 09:58 06:45 POC Glucose 77 88 93 10/13/18 21:56 POC Glucose 128 H Code Visit Inpatient E&M: 61983 Disch Hosp
--- NOTE | 2018-10-16 14:49 | CASEMGMT ---
EDY SEVILLA DC PHONE CALL DC DATE: 10/14/18 DC Disposition: Home LACE/STRATA: 02/23 Intro role of CM to patient via phone. Pt states she understands her medications and instructions, still is feeling winded at times with activity and tired. EDY SEVILLA reviewed medications; pt is taking her Duoneb Q 6 hrs. Discussed spacing activities and resting in between. Pt states she made appts with pulmonology on Friday, and her PCP on Fri. -No care improvement suggestions given; pt states her stay @ [facility] was 100%. Kathy RUIZN RN ACM
== END 2018-10-14 12:43 | disposition home or self-care (01) | DRG 189 ==
PROVIDERS: Internal Medicine; Physician Assistant; Admitting Provider Internal Medicine; Family Provider Family Medicine; PCP Family Medicine; Visit Provider Internal Medicine
DX: J96.21 Acute and chronic respiratory failure with hypoxia (principal); J44.1 Chronic obstructive pulmonary disease with (acute) exacerbation; Z99.81 Dependence on supplemental oxygen; G89.4 Chronic pain syndrome; F41.9 Anxiety disorder, unspecified; F32.9 Major depressive disorder, single episode, unspecified; G47.30 Sleep apnea, unspecified; I10 Essential (primary) hypertension; E11.42 Type 2 diabetes mellitus with diabetic polyneuropathy; E66.9 Obesity, unspecified; Z68.32 Body mass index [BMI] 32.0-32.9, adult; M47.896 Other spondylosis, lumbar region; M48.061 Spinal stenosis, lumbar region without neurogenic claudication; F17.210 Nicotine dependence, cigarettes, uncomplicated; I25.2 Old myocardial infarction; Z71.3 Dietary counseling and surveillance; Z79.899 Other long term (current) drug therapy; Z79.84 Long term (current) use of oral hypoglycemic drugs; Z86.718 Personal history of other venous thrombosis and embolism
CPT/HCPCS: 36415; 36600; 71045; 71275; 80048; 82803; 82962; 83880; 84484; 85025; 87070; 87077; 87186; 87205; 87633; 93005; 93306; 94002; 94003; 94640; 94667; 94668; 96360; 96361; 99218; 99283; 99284; 99406; J7030; Q9957; Q9967; A4216; G0378

== ENCOUNTER → 2018-11-12 | Outpatient (CLI) | payer MEDICARE, MEDICAID, SELFPAY ==
[2018-10-19 13:52] VITALS: BMI 32.0
== END | disposition home or self-care (01) ==
PROVIDERS: Family Provider Family Medicine; PCP Family Medicine; Referring Provider Nurse Practitioner Acute Care; Visit Provider Nurse Practitioner Acute Care
DX: G47.33 Obstructive sleep apnea (adult) (pediatric) (principal)
CPT/HCPCS: 95810

== ENCOUNTER 2019-03-25 14:27 | Emergency (ER) | payer MEDICARE, MEDICAID, SELFPAY ==
[2018-10-19 13:52] VITALS: BMI 32.0
[2019-03-25 14:27] VITALS: BP 119/89; PULSE 120; RESP 21; TEMP 36.7; O2SAT 94; BMI 29.9
--- NOTE | 2019-03-25 16:51 | ED.RN ---
left without being seen.
== END 2019-03-25 16:55 | disposition left against medical advice (07) ==
LOC: ED 16:18
PROVIDERS: Emergency Provider Emergency Medicine; Family Provider Family Medicine; PCP Family Medicine
DX: R06.02 Shortness of breath (principal)

== ENCOUNTER 2019-04-23 15:59 | Emergency (ER) | payer MEDICARE, SELFPAY ==
[2019-04-23 16:01] VITALS: BP 136/91; PULSE 89; RESP 14; TEMP 36.8; O2SAT 96; BMI 31.5
[2019-04-23] MEDS: 0.9% Normal Saline 1,000 ML 1000 ML IV (16:31)
[2019-04-23] MEDS: LORazepam 2 MG/ML Syringe 1 MG IV (16:31)
[2019-04-23 16:46] LABS: Absolute Lymphocyte Count 4.02 X10^3/uL (0.83-4.51); Absolute Neutrophil Count 6.7 X10^3/uL (2.0-7.7); Basophil# 0.06 X10^3/uL; Basophil% 0.5 % (0-1); Eosinophil# 0.34 X10^3/uL; Eosinophils% 2.9 % (0-5); Hemoglobin 16.2 g/dL (12.0-15.0); Lymphocyte # 4.02 X10^3/ul (4.0); Lymphocyte % 33.8 % (19-41); Mean Corp Hgb Conc 33.1 g/dL (32-36); Mean Corpuscular Volume 87.7 fL (81-99); Mean Platelet Vol. 10.6 fl (6.2-12.0); Monocyte# 0.79 X10^3/uL; Monocyte% 6.6 % (0-10); NRBC Flagged by Analyzer 0 % (0-5); Neutrophil # 6.66 X10^3/uL (2.7-7.7); Neutrophil % 55.9 % (47-70); Platelet Count 294 K/mm3 (150-450); RBC Distribution Width CV 13.4 % (11.6-14.6); RBC Distribution Width SD 42.8 fl (35.1-43.9); Red Blood Count 5.59 M/mm3 (4.2-5.4); White Blood Count 11.9 K/mm3 (4.4-11.0)
--- NOTE | 2019-04-23 16:51 | ED.DCSUM_ITS ---
History of Present Illness Chief Complaint: Anxiety Informant: Patient Onset: Today Context: Gradual Onset Timing: Intermittent Current Severity: Moderate Maximum Severity: Moderate Narrative: The patient presents to the emergency department generalized shakiness. Patient has a history of COPD. She states that today, she does not feel herself. She states that she felt just generally unwell. She went to the grocery store and states that she began to shake and panic. She denies being short of breath or having chest pain. She denies any fevers or chills. She does take anxiety medication, but states she is never had a panic attack like this. She has otherwise been in her normal state of health. Prior similar symptoms: No Recent Illness/Hospitalization: No Past Medical History - Allergies and Home Meds Allergies/Adverse Reactions: Allergies sulfamethoxazole [From Bactrim] Allergy (Verified 04/23/19 16:05) Rash trimethoprim [From Bactrim] Allergy (Verified 04/23/19 16:05) Rash erythromycin base [Erythromycin Base] Adverse Reaction (Verified 04/23/19 16:05) Other ketorolac tromethamine [From Toradol] Adverse Reaction (Verified 04/23/19 16:05) Other PLASTIC TAPE Adverse Reaction (Uncoded 04/23/19 16:05) Rash Primary Care Physician: Robert Patel DO [Primary Care Provider] - Prior records reviewed: Yes Past Medical History: - - Anxiety, COPD Surgical History: appendectomy Smoking Status: Unknown if ever smoked - Family History Sibling Family History: Reports: - - Migraines Review of Systems General: Denies: Chills, Fever, Sweats Eyes: Denies: Visual changes - bilaterally, Diplopia ENT: Denies: Rhinorrhea, Sore throat Cardiovascular: Denies: Chest pain, Palpitations Respiratory: Denies: Dyspnea, Cough, Dyspnea on exertion Gastrointestinal: Denies: Abdominal pain, Nausea, Vomiting, Diarrhea, Melena, Hematochezia Genitourinary: Denies: Dysuria, Hematuria, Frequency Musculoskeletal: Denies: Back pain, Extremity Pain Skin: Denies: Rash, Wounds Neurological: Denies: Headache, Weakness, Numbness Physical Exam Vital Signs/Narrative: Vital Signs Temp Pulse Resp BP Pulse Ox 04/23/19 16:01 98.3 F 89 14 136/91 H 96 Inital Vital Signs reviewed: Yes General: Well nourished, Well developed, No Acute Distress Head: Normocephalic, Atraumatic Eyes: Perrl, EOMI ENT: Moist mucous membranes, No rhinorrhea Neck: Supple, Nontender Cardiovascular: Regular rate, Regular rhythm, No murmurs Respiratory: No distress, CTA bilaterally, Chest nontender Abdomen: Soft, Nontender, Nondistended, Normal bowel sounds Back: Nontender, Normal Inspection Extremities: Nontender, No edema Skin: Normal color, No rash Neurological: Alert, Oriented x3, Cranial nerves II-XII grossly intact, Normal Strength, Normal Sensation Psychological: Normal affect, Normal Mood Diagnostic/Tx/Re-eval Abnormal Lab Results 04/23/19 04/23/19 16:30 16:30 WBC 11.9 H RBC 5.59 H Hgb 16.2 H Hct 49.0 H MCV 87.7 MCH 29.0 MCHC 33.1 RDW Std Deviation 42.8 RDW Coeff of Afshin 13.4 Plt Count 294 MPV 10.6 Immature Gran % (Auto) 0.300 Neut % (Auto) 55.9 Lymph % (Auto) 33.8 Appling % (Auto) 6.6 Eos % (Auto) 2.9 Baso % (Auto) 0.5 Absolute Neuts (auto) 6.7 Absolute Lymphs (auto) 4.02 Nucleated RBC % 0 Sodium 141 Potassium 3.6 Chloride 107 Carbon Dioxide 24.0 Anion Gap 10 BUN 5 L Creatinine 0.87 Estim Creat Clear Calc 64.58 Est GFR (MDRD) Af Amer 90 Est GFR (MDRD) Non-Af 75 BUN/Creatinine Ratio 5.7 L Glucose 111 H Calcium 9.0 - Medical Decision Making I do feel that this is likely an underlying anxiety exacerbation. The patient is not hypoxic, tachypneic, hypotensive. Metabolic work-up was pursued and was unremarkable. The patient was given fluids and Ativan. On reevaluation, she is resting comfortably and had us resolution of symptoms. At this point, I do not suspect a dangerous process. I do feel that the patient is safe for outpatient therapy and she is comfortable with this plan of care. She will be discharged home. 1. Anxiety exacerbation ED Disposition - Plan for ED Patient: Disposition: Home or Assisted Living Instructions: Anxiety Reaction Referrals: Robert Patel DO [Primary Care Provider] -
[2019-04-23 17:04] LABS: Anion Gap 10 (5-15); BUN 5 mg/dL (7-18); BUN/Creat Ratio 5.7 RATIO (10-20); Chloride 107 mmol/L (98-107); Creatinine, Serum 0.87 mg/dL (0.55-1.02); EST Glomerular Filtration Rate 75 mL/min (>60); Est Glom Filt Rate - Afr Amer 90 mL/min (>60); Estimated Creatinine Clearance 64.58 ml/min; Glucose 111 mg/dL (74-106); Potassium 3.6 mmol/L (3.5-5.1); Sodium Level 141 mmol/L (136-145)
[2019-04-23 17:24] VITALS: BP 119/89; PULSE 98; RESP 18; O2SAT 99
== END 2019-04-23 17:25 | disposition home or self-care (01) ==
LOC: ED 16:27
PROVIDERS: Emergency Provider Emergency Medicine; Family Provider Family Medicine; PCP Family Medicine
DX: F41.9 Anxiety disorder, unspecified (principal); J44.9 Chronic obstructive pulmonary disease, unspecified
CPT/HCPCS: 80048; 85025; 96361; 96374; 99285; J7030; A4216

== ENCOUNTER 2019-08-04 15:12 | Emergency (ER) | payer MEDICARE, MEDICAID, SELFPAY ==
[2019-08-04 15:14] VITALS: BP 160/93; PULSE 102; RESP 17; TEMP 36.9; O2SAT 97; BMI 34.1
--- NOTE | 2019-08-04 15:30 | RAD_ITS ---
STUDY: X-RAY CHEST REASON FOR EXAM: Female, 44 years old. INCREASED SOB AND CHEST PAIN WITH COUGH/DEEP BREATHING TECHNIQUE: PA and lateral views of the chest. COMPARISON: Previous study of 10/08/2018 FINDINGS: There are streaky fibrotic changes of the lung bases. There is no demonstrated pleural abnormality. Normal size heart. Normal mediastinum and sheryr. Normal visualized pulmonary arteries. Normal visualized aortic arch and descending thoracic aorta. Normal visualized thoracic spine. Normal visualized ribs, clavicles, and shoulders. There is no demonstrated abnormality of the visualized soft tissue structures of the upper abdomen. RAD/Chest PA and Lateral IMPRESSION: Streaky fibrotic changes in the lung bases. Chest findings are stable in the interval. No acute cardiopulmonary disease process is seen. Electronically Signed: Rodolfo Ramirez MD at 16:28 EST , Service support ,
--- NOTE | 2019-08-04 15:30 | EKG12_ITS ---
Test Reason : CP Blood Pressure : / mmHG Vent. Rate : 094 BPM Atrial Rate : 094 BPM P-R Int : 160 ms QRS Dur : 098 ms QT Int : 348 ms P-R-T Axes : 037 023 031 degrees QTc Int : 435 ms Normal sinus rhythm Incomplete right bundle branch block Borderline ECG Confirmed by MARTY DANIELSON, MYRNA ([id number]), editor book SHANTEL AMATO ([id number]) on 08/06/2019 8:02:01 AM Referred By: MAURO Confirmed By:RONALD FERGUSON MD
--- NOTE | 2019-08-04 15:32 | ED.DCSUM_ITS ---
- ER Visit Summary Date of Service: 08/04/19 Chief Complaint: Shortness of breath and chest pain History of Present Illness: The patient is a 44 F who presents with shortness of breath and chest pain that has been getting worse over the past 2 days. Patient describes her pain as dull. Patient admits to subjective fevers but does not have a thermometer. Patient admits to a sore throat. Patient admits to nausea but denies any vomiting or abdominal pain. Patient states nothing has helped her breathing or made it worse. Patient is a smoker. Physical Examination: Vital signs are stable. Patient is afebrile. Patient is in no acute distress. Oral mucosa is pink and moist. Neck is supple. Trachea is midline. There is no JVD. Heart was regular rate and rhythm. Lungs showed diffuse expiratory wheezing. There is good respiratory effort. Abdomen is soft. Bowel sounds are normal. There is no tenderness. Cranial nerves II through XII are intact. There are no focal motor or sensory deficits noted. Extremities are intact. There is no calf tenderness or edema. Test Results: EKG shows a normal sinus rhythm with a rate of 94. There is an incomplete right bundle branch block. There are no acute ST or T wave changes. This was unchanged compared to previous EKG dated 10/08/2018. CBC was within normal limits. Comprehensive metabolic profile showed a slightly elevated glucose of 222. Troponin was normal. Influenza swab was normal. PA and lateral chest x-ray shows chronic changes but no acute cardiopulmonary process. Urinalysis shows leukocyte esterase of 500 with 10-25 white blood cells. Emergency Department Course and Treatment: Patient was given a DuoNeb aerosol here. Patient still has a faint wheeze on reevaluation. Patient was given an albuterol inhaler prescription. Patient was also given a prescription for Cipro. Patient was instructed to drink plenty of fluids. Patient was instructed to take Tylenol or ibuprofen as needed for pain or fever. Patient was instructed to return if worse in any way. Patient was instructed to follow- up with her primary care physician in 5 to 7 days. Disposition: Discharge home Impression: 1. Viral upper respiratory infection 2. Urinary tract infection This note was generated with [employer] software. It may contain incorrect words, spelling, and punctuation that were not noted in review of the chart prior to signing ED Disposition - Plan for ED Patient: Disposition: Home or Assisted Living Diagnosis: Viral upper respiratory tract infection with cough, Urinary tract infection Instructions: BRONCHITIS, No Antibiotic (Adult) Prescriptions: Ciprofloxacin [Cipro] 500 mg PO BID #6 tab Prescription Printed Albuterol Inhaler [Ventolin Hfa] 2 puff INHALATION Q4H PRN PRN #1 inhaler PRN Reason: Wheezing Prescription Printed Referrals: Robert Patel DO [Primary Care Provider] - 5-7 Days
[2019-08-04] MEDS: Ipratropium/Albuterol Sulfate 3 ML AMPUL.NEB INHALATION (15:44)
[2019-08-04 15:49] VITALS: PULSE 93; RESP 18
[2019-08-04 15:51] LABS: Bacteria 0 SEEN /hpf (None Seen); Mucous, Urine 0 SEEN /hpf (<or=2+); Red Blood Cells-Urine 0 SEEN /hpf (0-5)
[2019-08-04 15:57] LABS: Color, Urine Yellow (Yellow); Glucose, Dipstick 100 mg/dl (Normal); Ketone-Dipstick Negative (Negative); Leukocyte Esterase-Dipstick 500 /ul (Negative); Nitrite-Dipstick Negative (Negative); Occult Blood-Urine Negative /ul (Negative); Protein-Dipstick Negative (Negative); Specific Gravity, Urine 1.005 (1.002-1.030); Urine Bilirubin Dipstick Negative (Negative); Urine Clarity Clear (Clear); Urine Urobilinogen Normal (Normal); Urine pH 6.5 (5.0 - 8.0)
[2019-08-04 16:13] LABS: Absolute Lymphocyte Count 2.62 X10^3/uL (0.83-4.51); Absolute Neutrophil Count 4.6 X10^3/uL (2.0-7.7); Basophil# 0.03 X10^3/uL; Basophil% 0.4 % (0-1); Eosinophil# 0.34 X10^3/uL; Eosinophils% 4.2 % (0-5); Hematocrit 45.4 % (37-47); Hemoglobin 14.6 g/dL (12.0-15.0); Lymphocyte # 2.62 X10^3/ul (4.0); Lymphocyte % 32.3 % (19-41); Mean Corp Hgb Conc 32.2 g/dL (32-36); Mean Corpuscular Hgb 28.9 pg (27.0-32.0); Mean Corpuscular Volume 89.9 fL (81-99); Mean Platelet Vol. 10.1 fl (6.2-12.0); Monocyte% 6.2 % (0-10); NRBC Flagged by Analyzer 0 % (0-5); Neutrophil # 4.58 X10^3/uL (2.7-7.7); Neutrophil % 56.5 % (47-70); Platelet Count 278 K/mm3 (150-450); RBC Distribution Width CV 12.8 % (11.6-14.6); RBC Distribution Width SD 42.1 fl (35.1-43.9); Red Blood Count 5.05 M/mm3 (4.2-5.4); White Blood Count 8.1 K/mm3 (4.4-11.0)
[2019-08-04 16:29] LABS: ALB/GLOB Ratio 0.9 RATIO (0.9-2.4); AST(SGOT) 50 U/L (15-37); Alanine Aminotransfer ALT/SGPT 39 U/L (13-56); Albumin, Serum 3.1 g/dL (3.2-5.0); Alkaline Phosphatase 107 U/L (45-117); Anion Gap 5 (5-15); BUN 6 mg/dL (7-18); BUN/Creat Ratio 7.3 RATIO (10-20); Calcium,Total 8.9 mg/dL (8.5-10.1); Chloride 106 mmol/L (98-107); Creatinine, Serum 0.82 mg/dL (0.55-1.02); EST Glomerular Filtration Rate 80 mL/min (>60); Est Glom Filt Rate - Afr Amer 97 mL/min (>60); Globulin 3.5 g/dL (2.2-4.2); Glucose 222 mg/dL (74-106); Potassium 4.2 mmol/L (3.5-5.1); Protein, Total 6.6 g/dL (6.4-8.2); Sodium Level 138 mmol/L (136-145)
[2019-08-04 16:33] LABS: White Blood Cells 10-25 SEEN /hpf (0-5)
[2019-08-04 16:34] LABS: Squamous Epithelial Cells - UA 0-5 SEEN /hpf (5-10)
[2019-08-04 17:14] VITALS: PULSE 91; RESP 17; O2SAT 99
[2019-08-04] MEDS: Acetaminophen 325 MG Tablet 1000 MG PO (17:19)
== END 2019-08-04 17:30 | disposition home or self-care (01) ==
PROVIDERS: Emergency Provider Emergency Medicine; PCP Family Medicine
DX: J06.9 Acute upper respiratory infection, unspecified (principal); N39.0 Urinary tract infection, site not specified; I10 Essential (primary) hypertension; E11.9 Type 2 diabetes mellitus without complications; M79.7 Fibromyalgia; F32.9 Major depressive disorder, single episode, unspecified; Z72.0 Tobacco use; Z79.899 Other long term (current) drug therapy; Z79.84 Long term (current) use of oral hypoglycemic drugs
CPT/HCPCS: 71046; 80053; 81001; 84484; 85025; 87804; 93005; 94640; 99283; A4216

== ENCOUNTER 2019-09-03 16:26 | Inpatient (IN) | payer MEDICARE, SELFPAY ==
[2019-09-03] VITALS (18 sets, daily range): BP systolic 82–154; BP diastolic 46–87; PULSE 84–127; RESP 18–27; TEMP 36.7–38.1; O2SAT 87–99; BMI 33.8; BMI 35.2
--- NOTE | 2019-09-03 17:01 | EKG12_ITS ---
Test Reason : Blood Pressure : / mmHG Vent. Rate : 121 BPM Atrial Rate : 121 BPM P-R Int : 158 ms QRS Dur : 100 ms QT Int : 286 ms P-R-T Axes : 047 044 069 degrees QTc Int : 406 ms Sinus tachycardia Incomplete right bundle branch block ST depression, consider subendocardial injury Nonspecific T wave abnormality Abnormal ECG Confirmed by MARTY DANIELSON, MYRNA ([id number]), news editor SHANTEL AMATO ([id number]) on 09/06/2019 1:49:39 PM Referred By: ASHLEY Confirmed By:RONALD FERGUSON MD
--- NOTE | 2019-09-03 17:09 | ED.VIS.GEN ---
History of Present Illness Chief Complaint: Fever Informant: Patient Onset: Days Context: Gradual Onset Current Severity: Moderate Maximum Severity: Moderate Narrative: Patient presents with fever, cough, chest wall pain, shortness of breath for the past 4 to 5 days. She states she developed head congestion and cough for 5 days ago that is continued to worsen. She has some congestion in her chest now as well. She states that she was sleepwalking last night and fell, causing abrasions to her left side. She is complaining of headache. - Past Medical History (1) COPD (chronic obstructive pulmonary disease) Status: Chronic (2) JCARLOS (obstructive sleep apnea) Status: Chronic (3) DJD (degenerative joint disease), lumbar Status: Chronic (4) Lumbar spinal stenosis Status: Chronic (5) Peripheral neuropathy Status: Chronic (6) DM2 (diabetes mellitus, type 2) Status: Chronic (7) Depression Status: Chronic (8) Benign essential HTN Status: Chronic (9) Anxiety Status: Chronic Past Medical History - Allergies and Home Meds Allergies/Adverse Reactions: Allergies sulfamethoxazole [From Bactrim] Allergy (Verified 09/03/19 16:26) Rash trimethoprim [From Bactrim] Allergy (Verified 09/03/19 16:26) Rash erythromycin base [Erythromycin Base] Adverse Reaction (Verified 09/03/19 16:26) Other ketorolac tromethamine [From Toradol] Adverse Reaction (Verified 09/03/19 16:26) Other IV FORM ONLY PLASTIC TAPE Adverse Reaction (Uncoded 08/04/19 15:14) Rash Primary Care Physician: Robert Patel DO [Primary Care Provider] - Prior records reviewed: Yes Surgical History: appendectomy Smoking Status: Current every day smoker - Family History Sibling Family History: Reports: - - Migraines Review of Systems General: Reports: Chills, Fever Eyes: Denies: Visual changes - bilaterally ENT: Reports: - - Congestion. Denies: Bilateral ear pain Cardiovascular: Reports: Chest pain Respiratory: Reports: Dyspnea, Cough Gastrointestinal: Denies: Abdominal pain, Nausea, Vomiting, Diarrhea Musculoskeletal: Reports: Back pain - Left lower flank pain secondary to fall Skin: Reports: Abrasions Neurological: Reports: Headache Endocrine: Denies: Polyuria, Polydipsia Hematologic: Denies: Easy bruising, Easy bleeding Allergy: Denies: Uticaria Physical Exam Vital Signs/Narrative: Vital Signs Temp Pulse Resp BP Pulse Ox 09/03/19 16:27 100.6 F H 122 H 18 135/87 H 99 Inital Vital Signs reviewed: Yes General: Well nourished, Well developed Head: Normocephalic ENT: Moist mucous membranes, TM's clear, - - Normal posterior pharynx Neck: Supple Cardiovascular: Tachycardia Respiratory: No distress, - - Expiratory wheezes at the bilateral bases Abdomen: Soft, Nontender Back: - - Linear superficial abrasions on the left lateral lower flank. No palpable hematoma or mass. Skin: - - Abrasions as above Neurological: Alert, Oriented x3 Psychological: Normal affect Diagnostic/Tx/Re-eval Impressions Chest X-Ray 09/03/19 17:10 IMPRESSION: Normal x-ray examination of the chest. Electronically Signed: Yamil Colon MD at 17:42 EDT , Service support , 09/03/19 17:10 Chest 1 View (Portable) [RAD] Stat 09/03/19 17:46 Mucosa - Nose Influenza Types A,B Direct FA (ESSIE) - Final Laboratory Results 09/03/19 09/03/19 09/03/19 17:30 17:30 17:30 WBC 7.5 RBC 5.01 Hgb 14.6 Hct 45.0 MCV 89.8 MCH 29.1 MCHC 32.4 RDW Std Deviation 42.6 RDW Coeff of Afshin 12.9 Plt Count 245 MPV 10.8 Immature Gran % (Auto) 0.900 Neut % (Auto) 80.4 H Lymph % (Auto) 14.2 L [place] % (Auto) 3.7 Eos % (Auto) 0.5 Baso % (Auto) 0.3 Absolute Neuts (auto) 6.0 Absolute Lymphs (auto) 1.06 Nucleated RBC % 0 Sodium 134 L Potassium 3.8 Chloride 101 Carbon Dioxide 27.0 Anion Gap 6 BUN 5 L Creatinine 1.00 Estim Creat Clear Calc 55.60 Est GFR (MDRD) Af Amer 77 Est GFR (MDRD) Non-Af 63 BUN/Creatinine Ratio 5.0 L Glucose 211 H Lactic Acid 3.5 H* Calcium 8.7 Urine Color Urine Clarity Urine pH Ur Specific [place] Urine Protein Urine Glucose (UA) Urine Ketones Urine Occult Blood Urine Nitrite Urine Bilirubin Urine Urobilinogen Ur Leukocyte Esterase Urine RBC Urine WBC Ur Squamous Epith Cells Urine Bacteria Urine Mucus 09/03/19 17:30 WBC RBC Hgb Hct MCV MCH MCHC RDW Std Deviation RDW Coeff of Afshin Plt Count MPV Immature Gran % (Auto) Neut % (Auto) Lymph % (Auto) [place] % (Auto) Eos % (Auto) Baso % (Auto) Absolute Neuts (auto) Absolute Lymphs (auto) Nucleated RBC % Sodium Potassium Chloride Carbon Dioxide Anion Gap BUN Creatinine Estim Creat Clear Calc Est GFR (MDRD) Af Amer Est GFR (MDRD) Non-Af BUN/Creatinine Ratio Glucose Lactic Acid Calcium Urine Color Yellow Urine Clarity Clear Urine pH 6.0 Ur Specific [place] 1.010 Urine Protein Negative Urine Glucose (UA) 100 H Urine Ketones Negative Urine Occult Blood Negative Urine Nitrite Negative Urine Bilirubin Negative Urine Urobilinogen Normal Ur Leukocyte Esterase 25 H Urine RBC 0 SEEN Urine WBC 0-5 SEEN Ur Squamous Epith Cells 0 SEEN Urine Bacteria 1+ Urine Mucus 0 SEEN - EKG Initial EKG Interpretation: Sinus Tachycardia - Sinus tach at 121. No obvious acute ischemia noted, but wandering baseline is noted secondary to her breathing pattern. - Medical Decision Making Patient was initially given aerosols, Solu-Medrol, morphine, and Zofran. Nursing staff advised me that her O2 sat did drop to 88% after her breathing treatments and she was placed on 4 L nasal cannula. At this time she is satting in the mid 90s on 4 L nasal cannula. She continues to have expiratory wheezes. Patient's lactic acid is elevated. IV fluid bolus has been ordered. Patient will be admitted to the ICU for severe sepsis. Influenza swab is negative. Viral respiratory panel will be added at this time. She will be given a dose of Levaquin. ED Disposition - Plan for ED Patient: Disposition: Acute Care Hospital [facility] Diagnosis: Severe sepsis, COPD exacerbation Referrals: Robert Patel DO [Primary Care Provider] -
--- NOTE | 2019-09-03 17:10 | RAD_ITS ---
STUDY: X-RAY CHEST REASON FOR EXAM: Female, 44 years old. C/O FEVER, COUGH, CHEST WALL PAIN, SOB, DIZZINESS AND WEAKNESS WITH SYMPTOMS STARTING 4-5 DAYS AGO TECHNIQUE: Single AP portable view of the chest. COMPARISON: August 04, 2019 FINDINGS: The lungs are clear and expanded. There is no demonstrated pleural abnormality. Normal size heart. Normal mediastinum and sherry. Normal visualized pulmonary arteries. Normal visualized aortic arch and descending thoracic aorta. Normal visualized thoracic spine. Normal visualized ribs, clavicles, and shoulders. There is no demonstrated abnormality of the visualized soft tissue structures of the upper abdomen. RAD/Chest 1 View (Portable) IMPRESSION: Normal x-ray examination of the chest. Electronically Signed: Yamil Colon MD at 17:42 EDT , Service support ,
[2019-09-03] MEDS: Albuterol 2.5 MG/3 ML VIAL.NEB. INHALATION ×3 (17:27→17:28)
[2019-09-03] MEDS: Ipratropium/Albuterol Sulfate 3 ML AMPUL.NEB INHALATION ×2 (17:27→22:48)
[2019-09-03] MEDS: MethylPREDNISolone 125 MG/2 ML Vial IV (17:46)
[2019-09-03] MEDS: Ondansetron 4 MG/2 ML Vial IV (17:46)
[2019-09-03] MEDS: Morphine 4 MG/ML Syringe IV (17:46)
[2019-09-03] MEDS: 0.9% Normal Saline 1,000 ML 150 ML IV ×2 (17:46→20:44)
[2019-09-03 17:51] LABS: Absolute Lymphocyte Count 1.06 X10^3/uL (0.83-4.51); Basophil# 0.02 X10^3/uL; Basophil% 0.3 % (0-1); Eosinophil# 0.04 X10^3/uL; Eosinophils% 0.5 % (0-5); Hemoglobin 14.6 g/dL (12.0-15.0); Lymphocyte # 1.06 X10^3/ul (4.0); Lymphocyte % 14.2 % (19-41); Mean Corp Hgb Conc 32.4 g/dL (32-36); Mean Corpuscular Hgb 29.1 pg (27.0-32.0); Mean Corpuscular Volume 89.8 fL (81-99); Mean Platelet Vol. 10.8 fl (6.2-12.0); Monocyte# 0.28 X10^3/uL; Monocyte% 3.7 % (0-10); NRBC Flagged by Analyzer 0 % (0-5); Neutrophil # 6.01 X10^3/uL (2.7-7.7); Neutrophil % 80.4 % (47-70); POSITIVE COUNT YES; Platelet Count 245 K/mm3 (150-450); RBC Distribution Width CV 12.9 % (11.6-14.6); RBC Distribution Width SD 42.6 fl (35.1-43.9); Red Blood Count 5.01 M/mm3 (4.2-5.4); White Blood Count 7.5 K/mm3 (4.4-11.0)
[2019-09-03 18:04] LABS: Anion Gap 6 (5-15); BUN 5 mg/dL (7-18); Calcium,Total 8.7 mg/dL (8.5-10.1); Chloride 101 mmol/L (98-107); EST Glomerular Filtration Rate 63 mL/min (>60); Est Glom Filt Rate - Afr Amer 77 mL/min (>60); Glucose 211 mg/dL (74-106); Potassium 3.8 mmol/L (3.5-5.1); Sodium Level 134 mmol/L (136-145)
[2019-09-03 18:05] LABS: Differential Indicated SCAN CRITERIA MET
[2019-09-03 18:24] LABS: Lactic Acid 3.5 mmol/L (0.4-1.9)
[2019-09-03 18:29] LABS: Mucous, Urine 0 SEEN /hpf (<or=2+); Red Blood Cells-Urine 0 SEEN /hpf (0-5); Squamous Epithelial Cells - UA 0 SEEN /hpf (5-10)
[2019-09-03 18:33] LABS: Color, Urine Yellow (Yellow); Glucose, Dipstick 100 mg/dl (Normal); Ketone-Dipstick Negative (Negative); Leukocyte Esterase-Dipstick 25 /ul (Negative); Nitrite-Dipstick Negative (Negative); Occult Blood-Urine Negative /ul (Negative); Protein-Dipstick Negative (Negative); Urine Bilirubin Dipstick Negative (Negative); Urine Clarity Clear (Clear); Urine Urobilinogen Normal (Normal)
[2019-09-03 18:40] LABS: Bacteria 1+ /hpf (None Seen); White Blood Cells 0-5 SEEN /hpf (0-5)
[2019-09-03 18:46] LABS: Platelet Estimate ADEQUATE (ADEQ); Red Cell Morphology NORM C+C NORMAL (NORM C&C)
[2019-09-03] MEDS: 0.9% Normal Saline 1,000 ML 999 ML IV ×3 (19:00→23:13)
[2019-09-03] MEDS: levoFLOXacin IV 750 MG/150 ML BAG 100 MG IV (19:00)
[2019-09-03] MEDS: Acetaminophen 500 MG Tablet 1000 MG PO (19:01)
--- NOTE | 2019-09-03 19:40 | PCM.HP.STD ---
Problem List (1) Obesity (BMI 30.0-34.9) Status: Chronic (2) Hyponatremia Status: Acute (3) Lactic acidosis Status: Acute (4) Respiratory insufficiency Status: Acute Comment: With hypoxia (5) COPD (chronic obstructive pulmonary disease) Status: Chronic Comment: has not had PFT's (6) Severe sepsis Status: Acute (7) Pneumonia Status: Resolved Comment: has had MRSA pneumonia in the past (8) Bronchitis Status: Acute (9) Nicotine abuse Status: Chronic (10) JCARLOS (obstructive sleep apnea) Status: Chronic (11) COPD exacerbation Status: Suspected Comment: She has never had a sleep study (12) DJD (degenerative joint disease), lumbar Status: Chronic (13) Lumbar spinal stenosis Status: Chronic (14) Peripheral neuropathy Status: Chronic (15) DM2 (diabetes mellitus, type 2) Status: Chronic (16) Depression Status: Chronic (17) Benign essential HTN Status: Chronic (18) Anxiety Status: Chronic (19) Chronic prescription benzodiazepine use Status: Chronic (20) Family history of bipolar disorder Status: Chronic Comment: in her sister History of Present Illness Date of Admission: 09/03/19 Chief Complaint: cough, feels hot and has shaking chills The patient is a 44 year old F with a past medical history of hypertension, diabetes mellitus type 2, morbid obesity, COPD, suspected sleep apnea, tobacco dependence, chronic benzodiazepine use, endometriosis(S/P AGA with BSO), Depression, spinal canal stenosis with radiculopathy a dn HLD who presented to the emergency department at [facility] on 09/03/2019 complaining of a nonproductive cough for 3 to 5 days, shortness of breath, feeling hot and having shaking chills. She does not have a thermometer at home. She denied any recent travel out of the country. She has not been exposed to anyone that she knows of who has traveled outside the country. She has not had exposure to anyone who has coronavirus that she knows of. She was seen by Skyla Campuzano in the past and was to have had PFT's and a split sleep study but she never had this done. She is a smoker. She uses duoneb aerosols PRN and has been using the aerosols 3-4 times a day for the past few days and continues to be SOB. Vital signs at presentation to the emergency department are temperature 100.6, pulse rate 122, blood pressure 135/87, respiratory rate 20 and she was 87% on room air. White blood cell count is normal at 7.5 but there is a left shift. Hemoglobin and platelets were normal. The sodium was mildly decreased at 134. Serum bicarb is normal at 27. The BUN is 5 and the creatinine is 1.0. Lactic acid was 3.5. UA had 0-5 WBCs with +1 bacteria. Influenza swab is negative. Chest x-ray showed no infiltrates, pleural effusions or pulmonary vascular congestion. Respiratory panel was ordered but is not resulted yet. She is being admitted to the ICU with severe sepsis. She was given Levaquin 750 mg IV in the ER which will be continued and we will add Vancomycin due to a hx of MRSA pneumonia within the past year. Past Medical History Past Medical History (Chronic Problems): Chronic Problems (Last Reviewed 09/03/19 @ 19:[address] Deepthi Monique DO) COPD (chronic obstructive pulmonary disease) (Chronic) has not had PFT's Obesity (BMI 30.0-34.9) (Chronic) Chronic prescription benzodiazepine use (Chronic) Family history of bipolar disorder (Chronic) in her sister Nicotine abuse (Chronic) JCARLOS (obstructive sleep apnea) (Chronic) DJD (degenerative joint disease), lumbar (Chronic) Lumbar spinal stenosis (Chronic) Peripheral neuropathy (Chronic) DM2 (diabetes mellitus, type 2) (Chronic) Depression (Chronic) Benign essential HTN (Chronic) Anxiety (Chronic) Medical History: Medical History (Last Reviewed 09/03/19 @ 19:[address] Deepthi Monique DO) Bronchitis (Acute) J40 Nicotine abuse (Chronic) Z72.0 JCARLOS (obstructive sleep apnea) (Chronic) G47.33 COPD exacerbation (Suspected) J44.1 She has never had a sleep study DJD (degenerative joint disease), lumbar (Chronic) M47.816 Lumbar spinal stenosis (Chronic) Peripheral neuropathy (Chronic) G62.9 DM2 (diabetes mellitus, type 2) (Chronic) E11.9 Depression (Chronic) F32.9 Benign essential HTN (Chronic) I10 Anxiety (Chronic) F41.9 Pneumonia (Resolved) J18.9 has had MRSA pneumonia in the past Allergies sulfamethoxazole [From Bactrim] Allergy (Verified 09/03/19 16:26) Rash trimethoprim [From Bactrim] Allergy (Verified 09/03/19 16:26) Rash erythromycin base [Erythromycin Base] Adverse Reaction (Verified 09/03/19 16:26) Other ketorolac tromethamine [From Toradol] Adverse Reaction (Verified 09/03/19 16:26) Other IV FORM ONLY PLASTIC TAPE Adverse Reaction (Uncoded 08/04/19 15:14) Rash Home Medications: Ambulatory Orders Medication Instructions Recorded Albuterol IH (ProAir) [Proair Hfa] 1 puff INHALATION Q4H PRN PRN 04/02/13 Amitriptyline HCl [Elavil] 100 mg PO QHS 04/02/13 Estradiol [Estrace] 2 mg PO QHS 04/02/13 Metoprolol Tartrate [Lopressor 25 mg PO BID 04/02/13 (beta mike)] metFORMIN HCl [Glucophage] 500 mg PO BIDCM 04/02/13 Cyanocobalamin [Vitamin B12] 500 mcg PO DAILY@0800 03/22/14 Potassium Chloride [K-Dur] 40 meq PO DAILY #20 tab 03/22/14 Pregabalin [Lyrica] 150 mg PO BID 05/13/15 Clonazepam 1 mg PO Q6H PRN PRN 04/29/18 Ibuprofen [Motrin] 800 mg PO TID PRN PRN #20 tab 08/19/18 Acetaminophen [Tylenol Tablet] 650 mg PO Q6H PRN PRN tab 10/09/18 Ipratropium/Albuterol Sulfate 3 ml INHALATION Q6H #120 ampul.neb 10/14/18 [Duoneb] nystatin 100,000 unit/mL oral 15 ml MUCOUS MEMBRANE TID #250 ml 10/19/18 suspension fluticasone furoate 200 1 inh INHALATION QDAY #60 ea 06/09/19 mcg-vilanterol 25 mcg/dose inhalation powder Albuterol Inhaler [Ventolin Hfa] 2 puff INHALATION Q4H PRN PRN #1 08/04/19 inhaler Fluticasone/Vilanterol [Breo 1 ea IH DAILY 08/04/19 Ellipta 200-25 Mcg INH] Surgical History: appendectomy, hysterectomy - With bilateral oophorectomy, - - She had a lung biopsy at the [facility] which was negative Psychiatric History: Depression, - - She has a sister who has bipolar disorder [employer] History: endometriosis Lives: Alone Smoking Status: Current every day smoker Tobacco Use: Cigarettes - 1 pack/day since she was 23 years of age for a 19-eymo-miwi history Alcohol: Rare Drugs: None - *Family History Sibling History Items: - - Migraines, bipolar disorder Maternal History Items: COPD, - - Mother of COPD Paternal History Items: - - Her father at the age of 65 from COPD Review of Systems Constitutional: Reports: Chills, Fever - she feels hot but, she has not checked her temp, Malaise. Denies: Weight Change HEENT: Reports: Sore Throat. Denies: Difficulty Swallowing, Ear Pain, Head Aches, Sinus Congestion, Sinus Drainage Cardiovascular: Denies: Chest Pain, Light Headedness, Palpitations Respiratory: Reports: Cough, Shortness of Breath, Shortness of breath upon exertion, Wheezing. Denies: Hemoptysis, Pleuritic Pain, Shortness of breath at rest, Sputum production Gastrointestinal: Denies: Abdominal Pain, Constipation, Diarrhea, Nausea, Vomiting Genitourinary: Denies: Dysuria Musculoskeletal: Reports: Back Pain - Chronic. Denies: Joint Pain, Joint Tenderness, Neck Pain Skin: Denies: Jaundice, Rash, Wounds Neurological: Denies: Confusion, Focal weakness, Numbness, Tingling, Tremor, Seizures Psychiatric: Reports: Anxiety, Depression, - - She has had a suicide attempt in the past when her mother . Denies: Homicidal Ideations, Suicidal Ideations Endocrine: Denies: Hx of Thyroiditis Hematologic/ Lymphatic: Denies: Easy Bruising, Easy Bleeding, Hx of blood clot VTE Information - Inpt Only VTE Present on Admission: No VTE Mechan Device Prophylaxis: Knee High RICHARD Hose VTE Pharm Prophylaxis ordered?: Yes Patient Problems: Active and Suspected Problems (Last Reviewed 09/03/19 @ 19:[address] Deepthi Monique DO) Severe sepsis (Acute) Hyponatremia (Acute) Lactic acidosis (Acute) Respiratory insufficiency (Acute) With hypoxia COPD exacerbation (Suspected) She has never had a sleep study - Physical Exam Vitals/I&O's: Vital Signs Temp Pulse Resp BP Pulse Ox 99.8 F H 112 H 25 H 140/87 H 97 09/03/19 19:28 09/03/19 19:28 09/03/19 19:28 09/03/19 19:28 09/03/19 19:28 Oxygen Flow Rate (L/min) 4 Oxygen Delivery Method Nasal Cannula Weight: 185 lb 3.013 oz Body Mass Index (BMI) 33.8 Intake and Output for Last 24 Hours 09/01/19 09/02/19 09/03/19 23:59 23:59 23:59 Intake Total 640 / 640 Balance 640 / 640 General: Alert, Oriented x3, Cooperative, Well developed, Well nourished HEENT: Atraumatic, PERRLA, EOMI, Normocephalic Oral: No Gingival or Mucosal Lesions/ Ulcerations, Dry Mucosa Neck: Supple, No JVD, Negative Carotid Bruits, No Nodes, No Nuchal Rigidity, Trachea Midline Lungs: No rales, Diminished, Short of Breath, Tachypneic, Wheezes Cardiovascular: Regular Rhythm, Normal S1, Normal S2, No murmurs, No rub noted, No Gallop, Tachycardic Abdomen: Bowel Sounds Present, Soft, Non Tender, Non-Distended, Obese Extremities: No clubbing, No cyanosis, No edema, No Calf Tenderness, Peripheral Pulses Normal Skin: No rashes, No breakdown Musculoskeletal: No Muscle Wasting Neurological: Cranial nerves II-XII grossly intact, Neuro grossly intact Psych/Mental Status: Normal Affect, Appropriate Microbiology Past 72 Hours 09/03/19 17:46 Mucosa - Nose Influenza Types A,B Direct FA (ESSIE) - Final Laboratory Results 09/03/19 17:30: WBC 7.5, RBC 5.01, Hgb 14.6, Hct 45.0, MCV 89.8, MCH 29.1, MCHC 32.4, RDW Std Deviation 42.6, RDW Coeff of Afshin 12.9, Plt Count 245, MPV 10.8, Immature Gran % (Auto) 0.900, Neut % (Auto) 80.4 H, Lymph % (Auto) 14.2 L, [place] % (Auto) 3.7, Eos % (Auto) 0.5, Baso % (Auto) 0.3, Absolute Neuts (auto) 6.0, Absolute Lymphs (auto) 1.06, Nucleated RBC % 0, Platelet Estimate ADEQUATE, RBC Morphology NORM C+C 09/03/19 17:30: Sodium 134 L, Potassium 3.8, Chloride 101, Carbon Dioxide 27.0, Anion Gap 6, BUN 5 L, Creatinine 1.00, Estim Creat Clear Calc 55.60, Est GFR (MDRD) Af Amer 77, Est GFR (MDRD) Non-Af 63, BUN/Creatinine Ratio 5.0 L, Glucose 211 H, Calcium 8.7 09/03/19 17:30: Lactic Acid 3.5 H* 09/03/19 17:30: Urine Color Yellow, Urine Clarity Clear, Urine pH 6.0, Ur Specific [place] 1.010, Urine Protein Negative, Urine Glucose (UA) 100 H, Urine Ketones Negative, Urine Occult Blood Negative, Urine Nitrite Negative, Urine Bilirubin Negative, Urine Urobilinogen Normal, Ur Leukocyte Esterase 25 H, Urine RBC 0 SEEN, Urine WBC 0-5 SEEN, Ur Squamous Epith Cells 0 SEEN, Urine Bacteria 1+, Urine Mucus 0 SEEN Current Medications Sodium Chloride () 1,000 mls @ 150 mls/hr IV .Q6H40M [facility] Last Infusion: 09/03/19 18:42 Dose: 0 mls/hr Documented by: Sodium Chloride () 1,000 mls @ 999 mls/hr IV .Q1H1M FARHANA Stop: 09/03/19 20:25 Last Admin: 09/03/19 19:00 Dose: 999 mls/hr Documented by: Levofloxacin (Levaquin Iv) 750 mg in 150 mls @ 100 mls/hr IV X1 ONE Stop: 09/03/19 20:09 Last Admin: 09/03/19 19:00 Dose: 100 mls/hr Documented by: Assessment/Plan All Active Problems (Last Reviewed 09/03/19 @ 19:[address] Deepthi Monique, DO) Severe sepsis (Acute) Hyponatremia (Acute) Lactic acidosis (Acute) Respiratory insufficiency (Acute) Bronchitis (Acute) Pneumonia (Resolved) Impressions 1. severe sepsis - due to respiratory illness with Dry cough, fever and shaking chills but no infiltrates on the CXR. + hx of MRSA pneumonia within the past year. No risk factors for Joyce virus. Influenza swab is negative. Respiratory panel is pending. She has a history of MRSA pneumonia within the past year. She received Levaquin 750 mg IV in the emergency department and vancomycin has been added to the drug regimen. Lactic acid is 3.5 and will be rechecked in 3 hours. She has been admitted to the intensive care unit with a diagnosis of severe sepsis secondary to respiratory illness. Dr. Queen was consulted to participate in management. 2. Acute exacerbation presumed COPD......has never had PFT's. Steroids, aerosolized bronchodilators, Mucinex ordered. 3. respiratory insufficiency with hypoxia -oxygen protocol initiated 4. Hyponatremia-IV fluids ordered. More likely than not secondary to fever and increased insensible water loss. Will check a urine sodium and urine creatinine. 5. chronic medical conditions include: DM II/HTN/HLD/morbid obesity/chronic back pain/canal stenosis and radiculopathy/suspected sleep apnea(never went for the sleep study that was ordered)/endometriosis - complicate care, management, prognosis and recovery. Check a PA and lateral chest x-ray in the a.m. Dr. Queen has been consulted and I discussed the case with him Sputum culture, urine for Legionella and urine for pneumococcal pneumonia have been ordered If the respiratory panel is negative and she develops infiltrates on the chest x-ray tomorrow she may be a candidate for a COVID-19 test. May need CPAP overnight if she desaturates with sleeping Smoking cessation counselling given Weight loss recommended Encouraged her to follow through with PFT's and sleep study Check a HGBA1C SSI coverage while on high dose IV steroids Continue home medications. Decrease the Klonopin to 0.5 mg p.o. every 12 hours as needed anxiety Inpatient E&M: 30589 Init Hosp L3
--- NOTE | 2019-09-03 21:18 | PCM.RX.CS ---
<Joaquim Maldonado - Last Filed: 09/03/19 21:18> Consult Pharmacy has been consulted to manage selected antiobiotic: Vancomycin Type of Consult: New start Suspected Infection: Pneumonia Labs: Sodium 134 mmol/L (136-145) L 09/03/19 17:30 Potassium 3.8 mmol/L (3.5-5.1) 09/03/19 17:30 Chloride 101 mmol/L (98-107) 09/03/19 17:30 Carbon Dioxide 27.0 mmol/L (21.0-32.0) 09/03/19 17:30 Anion Gap 6 (5-15) 09/03/19 17:30 BUN 5 mg/dL (7-18) L 09/03/19 17:30 Creatinine 1.00 mg/dL (0.55-1.02) 09/03/19 17:30 Est GFR (MDRD) Af Amer 77 mL/min (>60) 09/03/19 17:30 Est GFR (MDRD) Non-Af 63 mL/min (>60) 09/03/19 17:30 BUN/Creatinine Ratio 5.0 RATIO (10-20) L 09/03/19 17:30 Glucose 211 mg/dL (74-106) H 09/03/19 17:30 Microbiology: Microbiology 09/03/19 17:46 Mucosa - Nose Influenza Types A,B Direct FA (ESSIE) - Final Weight used for dosin lb 12.835 oz Estimated Creatinine Clearance: 55ml/min Goal Trough: 15-20 mcg/mL Pharmacy Plan for Drug Dosing: Pt to receive a 15mg/kg loading dose (Vancomycin 1250mg IV x1) on 09/03/19 at 2100. Initial dosing recommendation based on pt's weight and renal function is for Vancomycin 750mg IV q12h to start 09/04/19 at 0900. Trough will be drawn before the 4th total dose on 09/05/19 at 0830. Pharmacy Service will continue to monitor and adjust dosing as required. Follow-Up Labs: Trough Vancomycin - 09/05/19 at 0830 <Hubert Mcgee - Last Filed: 09/05/19 09:40> Consult Labs: Sodium 137 mmol/L (136-145) 09/05/19 05:42 Potassium 4.6 mmol/L (3.5-5.1) 09/05/19 05:42 Chloride 106 mmol/L (98-107) 09/05/19 05:42 Carbon Dioxide 23.0 mmol/L (21.0-32.0) 09/05/19 05:42 Anion Gap 8 (5-15) 09/05/19 05:42 BUN 8 mg/dL (7-18) 09/05/19 05:42 Creatinine 1.08 mg/dL (0.55-1.02) H 09/05/19 05:42 Est GFR (MDRD) Af Amer 70 mL/min (>60) 09/05/19 05:42 Est GFR (MDRD) Non-Af 58 mL/min (>60) L 09/05/19 05:42 BUN/Creatinine Ratio 7.4 RATIO (10-20) L 09/05/19 05:42 Glucose 422 mg/dL (74-106) H 09/05/19 05:42 Vancomycin Trough 4.9 ug/mL (5.0-15.0) L 09/05/19 08:30 Microbiology: Microbiology 09/03/19 21:26 Mucosa - Nasopharyngeal Respiratory Panel (PCR) - Final Influenza A (Subtype H1) 09/03/19 17:46 Mucosa - Nose Influenza Types A,B Direct FA (ESSIE) - Final Pharmacy Plan for Drug Dosing: Pharmacy Service will continue to monitor and adjust dosing as required.
[2019-09-03] MEDS: oxyCODONE 5 MG Tablet PO (21:36)
[2019-09-03] MEDS: Insulin Lispro 100 UNIT/ML INSULN.PEN SC (21:36)
[2019-09-03] MEDS: Pregabalin 75 MG Capsule 150 MG PO (21:36)
[2019-09-03] MEDS: guaiFENesin 1,200 MG Tablet 1200 MG PO (21:36)
[2019-09-03] MEDS: Amitriptyline 100 MG Tablet 150 MG PO (21:36)
[2019-09-03 21:42] LABS: Urine Sodium 46 mmol/L (Not Establ.)
[2019-09-03 21:44] LABS: Reflex Lactate? Y
[2019-09-03 21:51] LABS: Bedside Glucose 311 mg/dL (70-110)
[2019-09-03] MEDS: clonazePAM 0.5 MG Tablet PO (22:22)
[2019-09-03] MEDS: 0.9% Saline Lock 10 ML Syringe IV (22:23)
[2019-09-03 22:55] LABS: M R Staph aureus DNA By PCR Negative (Negative); Probe Check PASS; Specimen Processing Control PASS
[2019-09-03 22:56] LABS: Lactic Acid 6.5 mmol/L (0.4-1.9)
[2019-09-03 23:02] LABS: Magnesium 1.4 mg/dL (1.6-2.6)
[2019-09-03 23:23] LABS: Hemoglobin A1c 8.3 % (4.2-6.3)
[2019-09-04] VITALS (26 sets, daily range): BP systolic 99–123; BP diastolic 54–76; PULSE 66–99; RESP 16–21; TEMP 36.7–36.9; O2SAT 87–96
--- NOTE | 2019-09-04 01:06 | NURSING ---
Patient removing pepsi cola from her purse and hiding them in her own personal cups. Pt is a diabetic on a diabetic diet. She would like me to call you and tell you she is not going to stop drinking her pop and will be very upset if we take them away from her.Dr Gaxiola would like for us to tell the patient we will let her keep the pop, but we are very disappointed in the fact she is making it more difficult for us to care for her at this time by not being compliant with her dietary restrictions.
--- NOTE | 2019-09-04 01:12 | CPS ---
NURSING INFORMED RT THAT PATIENT WAS INCREASED TO 6 LPM DUE TO LOW SP02. AT TIME OF VISIT, PATIENT WAS 88% ON 6 LPM NC. PATIENT INCREASED TO 7 LPM VIA HIGH FLOW NC. PATIENTS NURSE AWARE.
--- NOTE | 2019-09-04 01:55 | CPS ---
ABG ATTEMPTED TIMES 1 IN LEFT RADIAL WITHOUT SUCCESS. RT OBTAINED ABG IN LEFT BRACHIAL TIMES 1. RESULTS OF TESTING GIVEN TO PATIENTS NURSE AND RESULTS SENT TO DR. OBRIEN. NURSING PAGED TO DR. OBRIEN WITH RESULTS. DR. OBRIEN STATED THAT SHE WAS GOING TO CANCEL BIPAP ORDER AND PLACE CPAP ORDER PRN. NO ADVERSE REACTION NOTED.
[2019-09-04 02:10] LABS: Allen Test POS; Base Excess -11 mmol/L (-2 to +2); Blood Gas Specimen Type ART; O2 Delivery Device Nasal Can; PO2 76 mmHG (75-100); SITE L Brachial; SO2 92 % (95-99); Time Given 150; Total Carbon Dioxide 18 mmol/L; pCO2 43.3 mmHg (35-45)
[2019-09-04] MEDS: oxyCODONE 5 MG Tablet PO ×4 (02:19→20:33)
[2019-09-04 04:01] LABS: Hematocrit 37.7 % (37-47); Hemoglobin 11.9 g/dL (12.0-15.0); Mean Corp Hgb Conc 31.6 g/dL (32-36); Mean Corpuscular Hgb 29.1 pg (27.0-32.0); Mean Corpuscular Volume 92.2 fL (81-99); Mean Platelet Vol. 10.6 fl (6.2-12.0); Platelet Count 239 K/mm3 (150-450); RBC Distribution Width CV 13.1 % (11.6-14.6); RBC Distribution Width SD 44.7 fl (35.1-43.9); Red Blood Count 4.09 M/mm3 (4.2-5.4); White Blood Count 6.3 K/mm3 (4.4-11.0)
[2019-09-04 04:35] LABS: ALB/GLOB Ratio 0.8 RATIO (0.9-2.4); AST(SGOT) 51 U/L (15-37); Alanine Aminotransfer ALT/SGPT 32 U/L (13-56); Albumin, Serum 2.6 g/dL (3.2-5.0); Alkaline Phosphatase 91 U/L (45-117); Anion Gap 8 (5-15); BUN 5 mg/dL (7-18); BUN/Creat Ratio 5.1 RATIO (10-20); Calcium,Total 7.3 mg/dL (8.5-10.1); Chloride 111 mmol/L (98-107); Creatinine, Serum 0.97 mg/dL (0.55-1.02); EST Glomerular Filtration Rate 65 mL/min (>60); Est Glom Filt Rate - Afr Amer 79 mL/min (>60); Estimated Creatinine Clearance 57.32 ml/min; Globulin 3.2 g/dL (2.2-4.2); Glucose 348 mg/dL (74-106); Magnesium 2.1 mg/dL (1.6-2.6); Phosphorus 2.4 mg/dL (2.5-4.9); Potassium 4.7 mmol/L (3.5-5.1); Protein, Total 5.8 g/dL (6.4-8.2); Sodium Level 141 mmol/L (136-145)
[2019-09-04 04:36] LABS: Lactic Acid 3.7 mmol/L (0.4-1.9)
[2019-09-04] MEDS: Oseltamivir Phosphate 75 MG Capsule PO ×2 (05:07→22:18)
--- NOTE | 2019-09-04 05:55 | RAD_ITS ---
STUDY: X-RAY CHEST REASON FOR EXAM: Female, 44 years old. Fever, cough AND SOB TECHNIQUE: Single AP portable view of the chest. COMPARISON: September 03, 2019 chest x-ray, FINDINGS: There is less expansion of the lungs. There is a patchy left lower lobe infiltrate. There is no demonstrated pleural abnormality. Normal size heart. Normal mediastinum and sherry. Normal visualized pulmonary arteries. Normal visualized aortic arch and descending thoracic aorta. Normal visualized thoracic spine. Normal visualized ribs, clavicles, and shoulders. There is no demonstrated abnormality of the visualized soft tissue structures of the upper abdomen. RAD/Chest 1 View (Portable) IMPRESSION: Patchy left lower lobe infiltrate suspicious for pneumonia. Electronically Signed: Leanna Carrington MD at 8:28 EDT Tel , Service support ,
--- NOTE | 2019-09-04 06:27 | PCM.CON.CC ---
Reason for Consult Date of Consultation: 09/04/19 Reason for Consultation: Severe sepsis History of Present Illness: The patient is a 44-year-old female, with a history as outlined below, who presented to the emergency department with complaints of a subjective fever, shortness of breath and cough. The patient does have a suspected history of COPD, questionable obstructive sleep apnea and tobacco dependency. She has a [id number] smoking history and utilizes 2 L/min of supplemental oxygen on a nightly basis. The patient was last hospitalized for breathing related complications in September 2018. She did follow-up in the pulmonary medicine clinic later that month, at which time, PFTs and a sleep study were ordered. The patient did complete the diagnostic polysomnogram, which did not reveal evidence of sleep apnea that necessitated treatment. Nevertheless, she failed to complete her pulmonary function studies and has yet to follow-up in the pulmonary medicine clinic. She continues to smoke between 0.75 and 1 pack of cigarettes per day. On presentation to the emergency department, the patient was noted to be febrile, tachycardic and tachypneic. Laboratory evaluation initially revealed a normal white blood cell count. Chemistry profile was largely unremarkable. Hemoglobin A1c was elevated to 8.3. Lactate was elevated to 3.5, which later peaked at 6.5. Magnesium was low at 1.4. MRSA screen was negative. Initial plain film chest x-ray revealed no acute cardiopulmonary process. The patient received aerosolized bronchodilators and IV steroids. She was subsequently admitted to the medical intensive care unit for further management of her severe sepsis. Overnight, no issues were identified by the nursing staff. Respiratory viral panel was found to be positive for influenza A. In addition to Tamiflu, the patient is also receiving Levaquin and vancomycin. Past Medical History Past Medical History (Chronic Problems): Chronic Problems (Last Reviewed 09/03/19 @ 19:[address] Deepthi Monique, ) COPD (chronic obstructive pulmonary disease) (Chronic) has not had PFT's Obesity (BMI 30.0-34.9) (Chronic) Chronic prescription benzodiazepine use (Chronic) Family history of bipolar disorder (Chronic) in her sister Nicotine abuse (Chronic) JCARLOS (obstructive sleep apnea) (Chronic) DJD (degenerative joint disease), lumbar (Chronic) Lumbar spinal stenosis (Chronic) Peripheral neuropathy (Chronic) DM2 (diabetes mellitus, type 2) (Chronic) Depression (Chronic) Benign essential HTN (Chronic) Anxiety (Chronic) Medical History: Medical History (Last Reviewed 09/03/19 @ 19:[address] Deepthi Monique DO) Bronchitis (Acute) J40 Nicotine abuse (Chronic) Z72.0 JCARLOS (obstructive sleep apnea) (Chronic) G47.33 COPD exacerbation (Suspected) J44.1 She has never had a sleep study DJD (degenerative joint disease), lumbar (Chronic) M47.816 Lumbar spinal stenosis (Chronic) Peripheral neuropathy (Chronic) G62.9 DM2 (diabetes mellitus, type 2) (Chronic) E11.9 Depression (Chronic) F32.9 Benign essential HTN (Chronic) I10 Anxiety (Chronic) F41.9 Pneumonia (Resolved) J18.9 has had MRSA pneumonia in the past Allergies sulfamethoxazole [From Bactrim] Allergy (Verified 09/03/19 16:26) Rash trimethoprim [From Bactrim] Allergy (Verified 09/03/19 16:26) Rash erythromycin base [Erythromycin Base] Adverse Reaction (Verified 09/03/19 16:26) Other ketorolac tromethamine [From Toradol] Adverse Reaction (Verified 09/03/19 16:26) Other IV FORM ONLY PLASTIC TAPE Adverse Reaction (Uncoded 08/04/19 15:14) Rash Home Medications: Ambulatory Orders Medication Instructions Recorded Estradiol [Estrace] 2 mg PO QHS 04/02/13 Metoprolol Tartrate [Lopressor 25 mg PO BID 04/02/13 (beta ángel)] metFORMIN HCl [Glucophage] 1,000 mg PO BIDCM 04/02/13 Cyanocobalamin [Vitamin B12] 500 mcg PO DAILY@0800 03/22/14 Clonazepam 1 mg PO Q6H PRN PRN 04/29/18 Albuterol Inhaler [Ventolin Hfa] 2 puff INHALATION Q4H PRN PRN #1 08/04/19 inhaler Fluticasone/Vilanterol [Breo 1 ea IH DAILY 08/04/19 Ellipta 200-25 Mcg INH] Amitriptyline HCl [Elavil] 150 mg PO QHS 09/03/19 Ibuprofen [Advil] 400 - 600 mg PO Q4H PRN PRN 09/03/19 Ipratropium/Albuterol Sulfate 3 ml INHALATION Q6H 09/03/19 [Duoneb] Potassium Chloride [K-Dur] 10 meq PO BID 09/03/19 Pregabalin [Lyrica] 150 mg PO BID 09/03/19 Surgical History: appendectomy, hysterectomy - With bilateral oophorectomy, - - She had a lung biopsy at the [facility] which was negative Psychiatric History: Depression, - - She has a sister who has bipolar disorder [employer] History: endometriosis Lives: Alone Smoking Status: Current every day smoker Tobacco Use: Cigarettes Alcohol: Rare Drugs: None - *Family History Sibling History Items: - - Migraines, bipolar disorder Maternal History Items: COPD, - - Mother of COPD Paternal History Items: - - Her father at the age of 65 from COPD Review of Systems Constitutional: Reports: Malaise, Fatigue Eyes: Denies: Blurred vision, Double vision HEENT: Denies: Head Aches, Sinus Congestion, Sinus Drainage Cardiovascular: Denies: Chest Pain, Palpitations Respiratory: Reports: Cough, Shortness of Breath. Denies: Sputum production Gastrointestinal: Denies: Abdominal Pain, Nausea, Vomiting Genitourinary: Denies: Dysuria Musculoskeletal: Denies: Joint Pain, Joint Tenderness Skin: Denies: Rash, Wounds Neurological: Denies: Numbness, Tingling, Focal weakness Psychiatric: Denies: Anxiety, Depression, Homicidal Ideations, Suicidal Ideations Hematologic/ Lymphatic: Reports: Anemia Patient Problems: Active and Suspected Problems (Last Reviewed 09/03/19 @ 19:[address] Deepthi Monique, DO) Severe sepsis (Acute) Hyponatremia (Acute) Lactic acidosis (Acute) Respiratory insufficiency (Acute) With hypoxia COPD exacerbation (Suspected) She has never had a sleep study Objective: The patient's most recent lab work, culture data and imaging studies have all been personally reviewed. Surface echocardiogram from September 2018 revealed evidence of diastolic dysfunction with an ejection fraction of 70%. - Physical Exam Vitals/I&O's: Vital Signs Temp Pulse Resp BP Pulse Ox 98.0 F 82 16 101/59 L 87 09/04/19 04:00 09/04/19 06:00 09/04/19 06:00 09/04/19 06:00 09/04/19 06:00 Oxygen Flow Rate (L/min) 7 Oxygen Delivery Method Nasal Cannula Weight: 194 lb 7.163 oz Body Mass Index (BMI) 35.2 Intake and Output for Last 24 Hours 09/02/19 09/03/19 09/04/19 23:59 23:59 23:59 Intake Total 3290.0 / 3640.0 2433 Balance 3290.0 / 3640.0 2433 General: Alert, Cooperative, No apparent distress HEENT: Atraumatic, PERRLA, Normocephalic Oral: No Gingival or Mucosal Lesions/ Ulcerations Neck: Supple, No Nodes, Trachea Midline Lungs: No rhonchi, No wheeze, No rales, Diminished Cardiovascular: Regular rate, Regular Rhythm, Normal S1, Normal S2, No murmurs Abdomen: Bowel Sounds Present, Soft, Non Tender, Obese Extremities: No clubbing, No cyanosis, No edema Skin: No breakdown Musculoskeletal: No Tenderness to Palpation of Joints or Extremities, No Muscle Wasting Lymphatic: No Cervical, Supraclavicular, or Inguinal Adenopathy Neurological: Cranial nerves II-XII grossly intact, Neuro grossly intact Psych/Mental Status: Alert and oriented to time, place, person, mood and affect Labs (Last 48 Hours) 09/03/19 09/03/19 09/03/19 17:30 17:30 17:30 WBC 7.5 RBC 5.01 Hgb 14.6 Hct 45.0 MCV 89.8 MCH 29.1 MCHC 32.4 RDW Std Deviation 42.6 RDW Coeff of Afshin 12.9 Plt Count 245 MPV 10.8 Immature Gran % (Auto) 0.900 Neut % (Auto) 80.4 H Lymph % (Auto) 14.2 L [place] % (Auto) 3.7 Eos % (Auto) 0.5 Baso % (Auto) 0.3 Absolute Neuts (auto) 6.0 Absolute Lymphs (auto) 1.06 Nucleated RBC % 0 Platelet Estimate ADEQUATE RBC Morphology NORM C+C Specimen Type Sample Site pH Bicarbonate Actual POC Total CO2 Base Excess O2 Saturation ABG pCO2 ABG pO2 [place] Test O2 Delivery Device Liter Flow Blood Gas Notified Whom Blood Gas Notified Time Sodium 134 L Potassium 3.8 Chloride 101 Carbon Dioxide 27.0 Anion Gap 6 BUN 5 L Creatinine 1.00 Estim Creat Clear Calc 55.60 Est GFR (MDRD) Af Amer 77 Est GFR (MDRD) Non-Af 63 BUN/Creatinine Ratio 5.0 L Glucose 211 H Hemoglobin A1c Lactic Acid 3.5 H* Calcium 8.7 Phosphorus Magnesium Total Bilirubin AST ALT Alkaline Phosphatase Total Protein Albumin Globulin Albumin/Globulin Ratio Urine Color Urine Clarity Urine pH Ur Specific [place] Urine Protein Urine Glucose (UA) Urine Ketones Urine Occult Blood Urine Nitrite Urine Bilirubin Urine Urobilinogen Ur Leukocyte Esterase Urine RBC Urine WBC Ur Squamous Epith Cells Urine Bacteria Urine Mucus Ur Random Sodium Urine Creatinine MRSA (PCR) POC Glucose 09/03/19 09/03/19 09/03/19 17:30 17:30 17:30 WBC RBC Hgb Hct MCV MCH MCHC RDW Std Deviation RDW Coeff of Afshin Plt Count MPV Immature Gran % (Auto) Neut % (Auto) Lymph % (Auto) [place] % (Auto) Eos % (Auto) Baso % (Auto) Absolute Neuts (auto) Absolute Lymphs (auto) Nucleated RBC % Platelet Estimate RBC Morphology Specimen Type Sample Site pH Bicarbonate Actual POC Total CO2 Base Excess O2 Saturation ABG pCO2 ABG pO2 [place] Test O2 Delivery Device Liter Flow Blood Gas Notified Whom Blood Gas Notified Time Sodium Potassium Chloride Carbon Dioxide Anion Gap BUN Creatinine Estim Creat Clear Calc Est GFR (MDRD) Af Amer Est GFR (MDRD) Non-Af BUN/Creatinine Ratio Glucose Hemoglobin A1c 8.3 H Lactic Acid Calcium Phosphorus Magnesium 1.4 L Total Bilirubin AST ALT Alkaline Phosphatase Total Protein Albumin Globulin Albumin/Globulin Ratio Urine Color Yellow Urine Clarity Clear Urine pH 6.0 Ur Specific [place] 1.010 Urine Protein Negative Urine Glucose (UA) 100 H Urine Ketones Negative Urine Occult Blood Negative Urine Nitrite Negative Urine Bilirubin Negative Urine Urobilinogen Normal Ur Leukocyte Esterase 25 H Urine RBC 0 SEEN Urine WBC 0-5 SEEN Ur Squamous Epith Cells 0 SEEN Urine Bacteria 1+ Urine Mucus 0 SEEN Ur Random Sodium Urine Creatinine MRSA (PCR) POC Glucose 09/03/19 09/03/19 09/03/19 17:30 17:30 20:50 WBC RBC Hgb Hct MCV MCH MCHC RDW Std Deviation RDW Coeff of Afshin Plt Count MPV Immature Gran % (Auto) Neut % (Auto) Lymph % (Auto) [place] % (Auto) Eos % (Auto) Baso % (Auto) Absolute Neuts (auto) Absolute Lymphs (auto) Nucleated RBC % Platelet Estimate RBC Morphology Specimen Type Sample Site pH Bicarbonate Actual POC Total CO2 Base Excess O2 Saturation ABG pCO2 ABG pO2 [place] Test O2 Delivery Device Liter Flow Blood Gas Notified Whom Blood Gas Notified Time Sodium Potassium Chloride Carbon Dioxide Anion Gap BUN Creatinine Estim Creat Clear Calc Est GFR (MDRD) Af Amer Est GFR (MDRD) Non-Af BUN/Creatinine Ratio Glucose Hemoglobin A1c Lactic Acid Calcium Phosphorus Magnesium Total Bilirubin AST ALT Alkaline Phosphatase Total Protein Albumin Globulin Albumin/Globulin Ratio Urine Color Urine Clarity Urine pH Ur Specific [place] Urine Protein Urine Glucose (UA) Urine Ketones Urine Occult Blood Urine Nitrite Urine Bilirubin Urine Urobilinogen Ur Leukocyte Esterase Urine RBC Urine WBC Ur Squamous Epith Cells Urine Bacteria Urine Mucus Ur Random Sodium 46 Urine Creatinine 25.70 MRSA (PCR) Negative POC Glucose 09/03/19 09/03/19 09/04/19 21:35 22:20 01:51 WBC RBC Hgb Hct MCV MCH MCHC RDW Std Deviation RDW Coeff of Afshin Plt Count MPV Immature Gran % (Auto) Neut % (Auto) Lymph % (Auto) [place] % (Auto) Eos % (Auto) Baso % (Auto) Absolute Neuts (auto) Absolute Lymphs (auto) Nucleated RBC % Platelet Estimate RBC Morphology Specimen Type ART Sample Site L Brachial pH 7.20 L Bicarbonate Actual 17.0 L POC Total CO2 18 Base Excess -11 L O2 Saturation 92 L ABG pCO2 43.3 ABG pO2 76 [place] Test POS O2 Delivery Device Nasal Can Liter Flow 7.0 Blood Gas Notified Whom ICU MD Blood Gas Notified Time 150 Sodium Potassium Chloride Carbon Dioxide Anion Gap BUN Creatinine Estim Creat Clear Calc Est GFR (MDRD) Af Amer Est GFR (MDRD) Non-Af BUN/Creatinine Ratio Glucose Hemoglobin A1c Lactic Acid 6.5 H* Calcium Phosphorus Magnesium Total Bilirubin AST ALT Alkaline Phosphatase Total Protein Albumin Globulin Albumin/Globulin Ratio Urine Color Urine Clarity Urine pH Ur Specific [place] Urine Protein Urine Glucose (UA) Urine Ketones Urine Occult Blood Urine Nitrite Urine Bilirubin Urine Urobilinogen Ur Leukocyte Esterase Urine RBC Urine WBC Ur Squamous Epith Cells Urine Bacteria Urine Mucus Ur Random Sodium Urine Creatinine MRSA (PCR) POC Glucose 311 H 09/04/19 09/04/19 09/04/19 03:50 03:50 03:50 WBC 6.3 RBC 4.09 L Hgb 11.9 L Hct 37.7 MCV 92.2 MCH 29.1 MCHC 31.6 L RDW Std Deviation 44.7 H RDW Coeff of Afshin 13.1 Plt Count 239 MPV 10.6 Immature Gran % (Auto) Neut % (Auto) Lymph % (Auto) [place] % (Auto) Eos % (Auto) Baso % (Auto) Absolute Neuts (auto) Absolute Lymphs (auto) Nucleated RBC % Platelet Estimate RBC Morphology Specimen Type Sample Site pH Bicarbonate Actual POC Total CO2 Base Excess O2 Saturation ABG pCO2 ABG pO2 [place] Test O2 Delivery Device Liter Flow Blood Gas Notified Whom Blood Gas Notified Time Sodium 141 Potassium 4.7 Chloride 111 H Carbon Dioxide 22.0 Anion Gap 8 BUN 5 L Creatinine 0.97 Estim Creat Clear Calc 57.32 Est GFR (MDRD) Af Amer 79 Est GFR (MDRD) Non-Af 65 BUN/Creatinine Ratio 5.1 L Glucose 348 H Hemoglobin A1c Lactic Acid 3.7 H* Calcium 7.3 L Phosphorus 2.4 L Magnesium 2.1 Total Bilirubin 0.10 L AST 51 H ALT 32 Alkaline Phosphatase 91 Total Protein 5.8 L Albumin 2.6 L Globulin 3.2 Albumin/Globulin Ratio 0.8 L Urine Color Urine Clarity Urine pH Ur Specific [place] Urine Protein Urine Glucose (UA) Urine Ketones Urine Occult Blood Urine Nitrite Urine Bilirubin Urine Urobilinogen Ur Leukocyte Esterase Urine RBC Urine WBC Ur Squamous Epith Cells Urine Bacteria Urine Mucus Ur Random Sodium Urine Creatinine MRSA (PCR) POC Glucose Microbiology 09/03/19 21:26 Mucosa - Nasopharyngeal Respiratory Panel (PCR) - Final Influenza A (Subtype H1) 09/03/19 17:46 Mucosa - Nose Influenza Types A,B Direct FA (ESSIE) - Final Clinical Impression(s) from Imaging Studies Chest X-Ray 09/03/19 17:10 IMPRESSION: Normal x-ray examination of the chest. Electronically Signed: Yamil Colon MD at 17:42 EDT , Service support , Current Medications Acetaminophen (Tylenol) 650 mg PO Q6H PRN PRN PRN Reason: Mild Pain (1-3)/Temp > 100.7 F Albuterol Sulfate (Ventolin Aerosols) 2.5 mg INHALATION Q2H PRN PRN PRN Reason: SOB/Wheezing Albuterol/Ipratropium (Duoneb) 3 ml INHALATION Q4H.RT FARHANA Last Admin: 09/04/19 03:21 Dose: Not Given Documented by: Amitriptyline HCl (Elavil) 150 mg PO QHS [facility] Last Admin: 09/03/19 21:36 Dose: 150 mg Documented by: Bisacodyl (Dulcolax) 5 mg PO DAILY PRN PRN PRN Reason: Constipation Clonazepam (Klonopin) 0.5 mg PO Q12H PRN PRN PRN Reason: ANXIETY Last Admin: 09/03/19 22:22 Dose: 0.5 mg Documented by: Cyanocobalamin (Vitamin B12) 500 mcg PO DAILY@0800 [facility] Enoxaparin Sodium (Lovenox) 40 mg SC DAILY [facility] Glucagon () 1 mg IM .X1 PRN PRN Reason: Hypoglycemia Guaifenesin (Mucinex) 1,200 mg PO BID [facility] Last Admin: 09/03/19 21:36 Dose: 1,200 mg Documented by: Sodium Chloride () 1,000 mls @ 150 mls/hr IV .Q6H40M [facility] Last Infusion: 09/04/19 05:41 Dose: 150 mls/hr Documented by: Vancomycin IV Pharmacy to Dose (1 ea/ Sodium Chloride) 500 mls @ 250 mls/hr IV X1 PRN; Protocol PRN Reason: Rx to Dose Levofloxacin (Levaquin Iv) 750 mg in 150 mls @ 100 mls/hr IV Q24 FARHANA Sodium Chloride () 250 mls @ 15 mls/hr IV .[id number] PRN PRN Reason: Saline Flush Sodium Chloride () 250 mls @ 15 mls/hr IV .[id number] PRN PRN Reason: Additional IVPB Infusion Dextrose (Dextrose 10%-Water) 250 mls @ 999 mls/hr IV .Q16M PRN; Protocol PRN Reason: HYPOGLYCEMIA Vancomycin HCl 750 mg/ Sodium (Chloride) 265 mls @ 250 mls/hr IV Q12H [facility] Ibuprofen (Motrin) 800 mg PO TID PRN PRN PRN Reason: Pain Score 1-10/10 Insulin Human Lispro (Humalog Kwikpen (Bkc)) 0 unit SC ACHS [facility]; Protocol Last Admin: 09/03/19 21:36 Dose: 6 u Documented by: Magnesium Hydroxide (Milk Of Magnesia) 30 ml PO DAILY PRN PRN PRN Reason: Constipation Melatonin (Melatonin) 3 mg PO QHS PRN PRN PRN Reason: INSOMNIA [facility] Methylprednisolone (Solu-Medrol) 40 mg IV Q8 [facility] Last Admin: 09/04/19 05:07 Dose: 40 mg Documented by: Metoprolol Tartrate (Lopressor (Beta Ángel)) 25 mg PO BID [facility] Last Admin: 09/03/19 21:45 Dose: Not Given Documented by: Nitroglycerin (Nitrostat) 0.4 mg SUBLINGUAL Q5M PRN PRN Reason: CARDIAC/CHEST PAIN Ondansetron HCl (Zofran) 4 mg IV Q8H PRN PRN PRN Reason: NAUSEA/VOMITING Oseltamivir Phosphate (Tamiflu) 75 mg PO BID [facility] Stop: 09/08/19 22:01 Last Admin: 09/04/19 05:07 Dose: 75 mg Documented by: Oxycodone HCl (Oxyir) 5 - 10 mg PO Q4H PRN PRN PRN Reason: Pain Score 4-5/10 Last Admin: 09/04/19 02:19 Dose: 10 mg Documented by: Potassium Chloride (K-Dur) 40 meq PO DAILY@0800 [facility] Pregabalin (Lyrica) 150 mg PO BID [facility] Last Admin: 09/03/19 21:36 Dose: 150 mg Documented by: Prochlorperazine Edisylate (Compazine Iv) 5 mg IV Q4H PRN PRN PRN Reason: Breakthrough Nausea/Vomiting Senna/Docusate Sodium (Senokot-S, Jacquelyn-Colace) 2 tablet PO BID PRN PRN PRN Reason: Constipation Sodium Chloride () 10 - 40 ml IV UD PRN PRN Reason: SALINE FLUSH Last Admin: 09/03/19 22:23 Dose: 20 ml Documented by: Throat Lozenges (Cepacol Sore Throat Lozenge) 1 lozenge MUCOUS MEM Q2H PRN PRN PRN Reason: SORE THROAT Assessment/Plan Active and Suspected Problems (Last Reviewed 09/03/19 @ 19:[address] Deepthi Monique ) Severe sepsis (Acute) Hyponatremia (Acute) Lactic acidosis (Acute) Respiratory insufficiency (Acute) With hypoxia COPD exacerbation (Suspected) She has never had a sleep study RECOMMENDATIONS: 1. Continue scheduled bronchodilators and IV steroids. 2. Continue Tamiflu x5 days. 3. Given the lack of infiltrate on chest x-ray, it is reasonable to discontinue antibiotics at this time. 4. Recommend holding metformin and starting sliding scale insulin coverage. 5. Continue gentle IV fluid hydration to offset insensible losses. 6. Wean supplemental oxygen to maintain saturations at or above 90%. Encourage incentive spirometer use and mobilize patient as tolerated. IMPRESSIONS: 1. Severe sepsis secondary to influenza A infection leading to COPD exacerbation The patient has been adequately volume resuscitated and remains hemodynamically stable. Continue Tamiflu with plans to complete 5 days of treatment. Antibiotics can be discontinued from my perspective. 2. Acute hypoxemic respiratory failure secondary to COPD with exacerbation due to influenza A infection Continue to wean supplemental oxygen to maintain saturations at or above 90%. Continue current supportive measures as noted above. Continue scheduled bronchodilators along with IV steroids. Encourage incentive spirometer use and mobilize patient as tolerated. 3. Nicotine dependency I personally spent 5 minutes discussing the deleterious effects of continued tobacco use with the patient, including modalities which could be utilized to achieve a smoke-free lifestyle. The patient remains pre-contemplative. Nicotine replacement therapy can be offered to the patient while admitted to the hospital. 4. Diabetes mellitus/hypertension/hyperlipidemia/morbid obesity Complicates care, management, recovery and prognosis. Recommend holding metformin and utilizing sliding scale insulin coverage while admitted to the hospital. This note was generated with [employer] dictation software. It may contain incorrect words, spelling, and punctuation that were not noted in checking the note before signing. Inpatient E&M: 13767 Init Hosp L3 - Behavior Interventions Behavior Intervention: 26777 Smoking Cessation 3-10 min
[2019-09-04] MEDS: 0.9% Normal Saline 1,000 ML 150 ML IV (07:02)
[2019-09-04 07:59] LABS: Reflex Lactate? Y
[2019-09-04] MEDS: Ipratropium/Albuterol Sulfate 3 ML AMPUL.NEB INHALATION ×5 (08:03→22:47)
--- NOTE | 2019-09-04 08:37 | PN_ITS ---
Patient Problems: Active and Suspected Problems (Last Reviewed 09/03/19 @ 19:[address] Deepthi Monique, DO) Severe sepsis (Acute) Hyponatremia (Acute) Lactic acidosis (Acute) Respiratory insufficiency (Acute) With hypoxia COPD exacerbation (Suspected) She has never had a sleep study Reason for Visit: Acute hypoxic respiratory failure, severe sepsis Subjective: Shortness of breath has mildly improved. Complain of dry nose. T-max 100.6 Fahrenheit last evening. Tachycardia has improved. Blood pressure 106/73, map 84. Influenza A positive Objective: On physical exam General: Alert, Oriented x3, Cooperative HEENT: Atraumatic, PERRLA, EOMI, Normocephalic Neck: Supple, No JVD, Negative Carotid Bruits Lungs: Clear to auscultation, No wheeze, No rales, Diminished, Rhonchi Cardiovascular: Regular rate, Regular Rhythm, Normal S1, Normal S2, No murmurs Abdomen: Bowel Sounds Present, Soft, Non Tender, Non-Distended Extremities: Capillary Refill Less than 3 Seconds, Edema Skin: No rashes, No breakdown Musculoskeletal: No Tenderness to Palpation of Joints or Extremities, Arthritic Changes Neurological: Cranial nerves II-XII grossly intact, Deep Tendon Reflexes 2+/4 and Symmetrical, Neuro grossly intact, Motor Exam 5/5 strength throughout Psych/Mental Status: Normal Affect, Appropriate Vitals/I&O's: Vital Signs Temp Pulse Resp BP Pulse Ox 98.0 F 78 16 105/62 91 09/04/19 04:00 09/04/19 08:04 09/04/19 08:04 09/04/19 08:00 09/04/19 08:04 Oxygen Flow Rate (L/min) 8 Oxygen Delivery Method Nasal Cannula Weight: 194 lb 7.163 oz Body Mass Index (BMI) 35.2 Intake and Output for Last 24 Hours 09/02/19 09/03/19 09/04/19 23:59 23:59 23:59 Intake Total 3290.0 / 3640.0 262 / 2629 Balance 3290.0 / 3640.0 2628 / 2629 Microbiology Past 72 Hours 09/03/19 21:26 Mucosa - Nasopharyngeal Respiratory Panel (PCR) - Final Influenza A (Subtype H1) 09/03/19 17:46 Mucosa - Nose Influenza Types A,B Direct FA (ESSIE) - Final Laboratory Results 09/03/19 17:30: WBC 7.5, RBC 5.01, Hgb 14.6, Hct 45.0, MCV 89.8, MCH 29.1, MCHC 32.4, RDW Std Deviation 42.6, RDW Coeff of Afshin 12.9, Plt Count 245, MPV 10.8, Immature Gran % (Auto) 0.900, Neut % (Auto) 80.4 H, Lymph % (Auto) 14.2 L, Redwood % (Auto) 3.7, Eos % (Auto) 0.5, Baso % (Auto) 0.3, Absolute Neuts (auto) 6.0, Absolute Lymphs (auto) 1.06, Nucleated RBC % 0, Platelet Estimate ADEQUATE, RBC Morphology NORM C+C 09/03/19 17:30: Sodium 134 L, Potassium 3.8, Chloride 101, Carbon Dioxide 27.0, Anion Gap 6, BUN 5 L, Creatinine 1.00, Estim Creat Clear Calc 55.60, Est GFR (MDRD) Af Amer 77, Est GFR (MDRD) Non-Af 63, BUN/Creatinine Ratio 5.0 L, Glucose 211 H, Calcium 8.7 09/03/19 17:30: Lactic Acid 3.5 H* 09/03/19 17:30: Urine Color Yellow, Urine Clarity Clear, Urine pH 6.0, Ur Specific Clarissa 1.010, Urine Protein Negative, Urine Glucose (UA) 100 H, Urine Ketones Negative, Urine Occult Blood Negative, Urine Nitrite Negative, Urine Bilirubin Negative, Urine Urobilinogen Normal, Ur Leukocyte Esterase 25 H, Urine RBC 0 SEEN, Urine WBC 0-5 SEEN, Ur Squamous Epith Cells 0 SEEN, Urine Bacteria 1+, Urine Mucus 0 SEEN 09/03/19 17:30: Magnesium 1.4 L 09/03/19 17:30: Hemoglobin A1c 8.3 H 09/03/19 17:30: Urine Creatinine 25.70 09/03/19 17:30: Ur Random Sodium 46 09/03/19 20:50: MRSA (PCR) Negative 09/03/19 21:35: POC Glucose 311 H 09/03/19 22:20: Lactic Acid 6.5 H* 09/04/19 01:51: Specimen Type ART, Sample Site L Brachial, pH 7.20 L, Bicarbonate Actual 17.0 L, POC Total CO2 18, Base Excess -11 L, O2 Saturation 92 L, ABG pCO2 43.3, ABG pO2 76, Wayne Test POS, O2 Delivery Device Nasal Can, Liter Flow 7.0, Blood Gas Notified Whom ICU MD, Blood Gas Notified Time 150 09/04/19 03:50: WBC 6.3, RBC 4.09 L, Hgb 11.9 L, Hct 37.7, MCV 92.2, MCH 29.1, MCHC 31.6 L, RDW Std Deviation 44.7 H, RDW Coeff of Afshin 13.1, Plt Count 239, MPV 10.6 09/04/19 03:50: Sodium 141, Potassium 4.7, Chloride 111 H, Carbon Dioxide 22.0, Anion Gap 8, BUN 5 L, Creatinine 0.97, Estim Creat Clear Calc 57.32, Est GFR (MDRD) Af Amer 79, Est GFR (MDRD) Non-Af 65, BUN/Creatinine Ratio 5.1 L, Glucose 348 H, Calcium 7.3 L, Phosphorus 2.4 L, Magnesium 2.1, Total Bilirubin 0.10 L, AST 51 H, ALT 32, Alkaline Phosphatase 91, Total Protein 5.8 L, Albumin 2.6 L, Globulin 3.2, Albumin/Globulin Ratio 0.8 L 09/04/19 03:50: Lactic Acid 3.7 H* Current Medications Acetaminophen (Tylenol) 650 mg PO Q6H PRN PRN PRN Reason: Mild Pain (1-3)/Temp > 100.7 F Albuterol Sulfate (Ventolin Aerosols) 2.5 mg INHALATION Q2H PRN PRN PRN Reason: SOB/Wheezing Albuterol/Ipratropium (Duoneb) 3 ml INHALATION Q4H.RT FARHANA Last Admin: 09/04/19 08:03 Dose: 3 ml Documented by: Amitriptyline HCl (Elavil) 150 mg PO QHS FARHANA Last Admin: 09/03/19 21:36 Dose: 150 mg Documented by: Bisacodyl (Dulcolax) 5 mg PO DAILY PRN PRN PRN Reason: Constipation Clonazepam (Klonopin) 0.5 mg PO Q12H PRN PRN PRN Reason: ANXIETY Last Admin: 09/03/19 22:22 Dose: 0.5 mg Documented by: Cyanocobalamin (Vitamin B12) 500 mcg PO DAILY@0800 [facility] Enoxaparin Sodium (Lovenox) 40 mg SC DAILY [facility] Glucagon () 1 mg IM .X1 PRN PRN Reason: Hypoglycemia Guaifenesin (Mucinex) 1,200 mg PO BID [facility] Last Admin: 09/03/19 21:36 Dose: 1,200 mg Documented by: Sodium Chloride () 1,000 mls @ 150 mls/hr IV .Q6H40M [facility] Last Admin: 09/04/19 07:02 Dose: 150 mls/hr Documented by: Vancomycin IV Pharmacy to Dose (1 ea/ Sodium Chloride) 500 mls @ 250 mls/hr IV X1 PRN; Protocol PRN Reason: Rx to Dose Levofloxacin (Levaquin Iv) 750 mg in 150 mls @ 100 mls/hr IV Q24 [facility] Sodium Chloride () 250 mls @ 15 mls/hr IV .[id number] PRN PRN Reason: Saline Flush Sodium Chloride () 250 mls @ 15 mls/hr IV .[id number] PRN PRN Reason: Additional IVPB Infusion Dextrose (Dextrose 10%-Water) 250 mls @ 999 mls/hr IV .Q16M PRN; Protocol PRN Reason: HYPOGLYCEMIA Vancomycin HCl 750 mg/ Sodium (Chloride) 265 mls @ 250 mls/hr IV Q12H [facility] Ibuprofen (Motrin) 800 mg PO TID PRN PRN PRN Reason: Pain Score 1-10/10 Insulin Human Lispro (Humalog Kwikpen (Bkc)) 0 unit SC ACHS [facility]; Protocol Last Admin: 09/03/19 21:36 Dose: 6 u Documented by: Magnesium Hydroxide (Milk Of Magnesia) 30 ml PO DAILY PRN PRN PRN Reason: Constipation Melatonin (Melatonin) 3 mg PO QHS PRN PRN PRN Reason: INSOMNIA [facility] Methylprednisolone (Solu-Medrol) 40 mg IV Q8 [facility] Last Admin: 09/04/19 05:07 Dose: 40 mg Documented by: Metoprolol Tartrate (Lopressor (Beta Ángel)) 25 mg PO BID [facility] Last Admin: 09/03/19 21:45 Dose: Not Given Documented by: Nitroglycerin (Nitrostat) 0.4 mg SUBLINGUAL Q5M PRN PRN Reason: CARDIAC/CHEST PAIN Ondansetron HCl (Zofran) 4 mg IV Q8H PRN PRN PRN Reason: NAUSEA/VOMITING Oseltamivir Phosphate (Tamiflu) 75 mg PO BID [facility] Stop: 09/08/19 22:01 Last Admin: 09/04/19 05:07 Dose: 75 mg Documented by: Oxycodone HCl (Oxyir) 5 - 10 mg PO Q4H PRN PRN PRN Reason: Pain Score 4-5/10 Last Admin: 09/04/19 02:19 Dose: 10 mg Documented by: Potassium Chloride (K-Dur) 40 meq PO DAILY@0800 [facility] Pregabalin (Lyrica) 150 mg PO BID [facility] Last Admin: 09/03/19 21:36 Dose: 150 mg Documented by: Prochlorperazine Edisylate (Compazine Iv) 5 mg IV Q4H PRN PRN PRN Reason: Breakthrough Nausea/Vomiting Senna/Docusate Sodium (Senokot-S, Jacquelyn-Colace) 2 tablet PO BID PRN PRN PRN Reason: Constipation Sodium Chloride () 10 - 40 ml IV UD PRN PRN Reason: SALINE FLUSH Last Admin: 09/03/19 22:23 Dose: 20 ml Documented by: Throat Lozenges (Cepacol Sore Throat Lozenge) 1 lozenge MUCOUS MEM Q2H PRN PRN PRN Reason: SORE THROAT STROKE Vital Signs/Narrative: Vital Signs Pulse Resp BP Pulse Ox 09/04/19 08:04 78 16 91 09/04/19 08:00 78 18 105/62 92 09/04/19 07:00 80 18 106/73 92 09/04/19 06:00 82 16 101/59 L 87 09/04/19 05:00 85 20 H 104/59 L 92 Medical Necessity - Tobacco Use Smoking Status: Current every day smoker Tobacco Use: Cigarettes Assessment/Plan All Active Problems (Last Reviewed 09/03/19 @ 19:[address] Deepthi Monique DO) Severe sepsis (Acute) Hyponatremia (Acute) Lactic acidosis (Acute) Respiratory insufficiency (Acute) Bronchitis (Acute) Pneumonia (Resolved) This 44-year-old female with multiple comorbidities admitted with fever, nonproductive cough, shortness of breath for 3 to 5 days and respiratory panel positive of influenza A and chest x-ray finding of patchy left lower lobe infiltrate consistent with pneumonia was admitted in ICU with severe sepsis se condary to pneumonia. She has history of MRSA pneumonia. 1 severe sepsis (tachycardia, fever, tachypnea and lactic acidosis) secondary to influenza A infection and possible bacterial superinfection left lower lobe pneumonia: Respiratory panel positive of influenza A subtype H1. Patient on antibiotic vancomycin and Levaquin. Tamiflu to complete 5 days, total of 10 doses. ABG 7.2/43/76 on 7 L of oxygen. 2. Acute hypoxic respiratory failure secondary to COPD exacerbation and pneumonia: Patient on a scheduled bronchodilator, IV steroid, incentive spirometry, chest physiotherapy and Mucinex. Patient was advised PFT and split sleep study but has not done it. 3. Hyponatremia-IV fluids ordered. More likely than not secondary to fever and increased insensible water loss. Will check a urine sodium and urine creatinine. 4. Diabetes mellitus type 2: Glucose is uncontrolled. A1c 8.3. On Accu-Chek and insulin and cover with blood sliding scale. On Lantus 10 units subcutaneous twice daily. chronic medical conditions include: HTN/HLD/morbid obesity/chronic back pain/canal stenosis and radiculopathy/suspected sleep apnea and endometriosis post total abdominal hysterectomy- complicate care, management, prognosis and recovery. And has chronic retention of bladder and does self intermittent catheterization. DVT prophylaxis: On Lovenox 40 mils subcu daily Active Medications Acetaminophen (Tylenol) 650 mg PO Q6H PRN PRN PRN Reason: Mild Pain (1-3)/Temp > 100.7 F Albuterol Sulfate (Ventolin Aerosols) 2.5 mg INHALATION Q2H PRN PRN PRN Reason: SOB/Wheezing Albuterol/Ipratropium (Duoneb) 3 ml INHALATION Q4H.RT [facility] Last Admin: 09/04/19 08:03 Dose: 3 ml Documented by: Amitriptyline HCl (Elavil) 150 mg PO QHS [facility] Last Admin: 09/03/19 21:36 Dose: 150 mg Documented by: Bisacodyl (Dulcolax) 5 mg PO DAILY PRN PRN PRN Reason: Constipation Clonazepam (Klonopin) 0.5 mg PO Q12H PRN PRN PRN Reason: ANXIETY Last Admin: 09/03/19 22:22 Dose: 0.5 mg Documented by: Cyanocobalamin (Vitamin B12) 500 mcg PO DAILY@0800 [facility] Enoxaparin Sodium (Lovenox) 40 mg SC DAILY [facility] Glucagon () 1 mg IM .X1 PRN PRN Reason: Hypoglycemia Guaifenesin (Mucinex) 1,200 mg PO BID [facility] Last Admin: 09/03/19 21:36 Dose: 1,200 mg Documented by: Sodium Chloride () 1,000 mls @ 150 mls/hr IV .Q6H40M [facility] Last Admin: 09/04/19 07:02 Dose: 150 mls/hr Documented by: Vancomycin IV Pharmacy to Dose (1 ea/ Sodium Chloride) 500 mls @ 250 mls/hr IV X1 PRN; Protocol PRN Reason: Rx to Dose Levofloxacin (Levaquin Iv) 750 mg in 150 mls @ 100 mls/hr IV Q24 [facility] Sodium Chloride () 250 mls @ 15 mls/hr IV .[id number] PRN PRN Reason: Saline Flush Sodium Chloride () 250 mls @ 15 mls/hr IV .[id number] PRN PRN Reason: Additional IVPB Infusion Dextrose (Dextrose 10%-Water) 250 mls @ 999 mls/hr IV .Q16M PRN; Protocol PRN Reason: HYPOGLYCEMIA Vancomycin HCl 750 mg/ Sodium (Chloride) 265 mls @ 250 mls/hr IV Q12H [facility] Ibuprofen (Motrin) 800 mg PO TID PRN PRN PRN Reason: Pain Score 1-10/10 Insulin Human Lispro (Humalog Kwikpen (Bkc)) 0 unit SC ACHS [facility]; Protocol Last Admin: 09/03/19 21:36 Dose: 6 u Documented by: Magnesium Hydroxide (Milk Of Magnesia) 30 ml PO DAILY PRN PRN PRN Reason: Constipation Melatonin (Melatonin) 3 mg PO QHS PRN PRN PRN Reason: INSOMNIA [facility]ophage) [facility] Methylprednisolone (Solu-Medrol) 40 mg IV Q8 [facility] Last Admin: 09/04/19 05:07 Dose: 40 mg Documented by: Metoprolol Tartrate (Lopressor (Beta Ángel)) 25 mg PO BID [facility] Last Admin: 09/03/19 21:45 Dose: Not Given Documented by: Nitroglycerin (Nitrostat) 0.4 mg SUBLINGUAL Q5M PRN PRN Reason: CARDIAC/CHEST PAIN Ondansetron HCl (Zofran) 4 mg IV Q8H PRN PRN PRN Reason: NAUSEA/VOMITING Oseltamivir Phosphate (Tamiflu) 75 mg PO BID [facility] Stop: 09/08/19 22:01 Last Admin: 09/04/19 05:07 Dose: 75 mg Documented by: Oxycodone HCl (Oxyir) 5 - 10 mg PO Q4H PRN PRN PRN Reason: Pain Score 4-5/10 Last Admin: 09/04/19 02:19 Dose: 10 mg Documented by: Potassium Chloride (K-Dur) 40 meq PO DAILY@0800 [facility] Pregabalin (Lyrica) 150 mg PO BID [facility] Last Admin: 09/03/19 21:36 Dose: 150 mg Documented by: Prochlorperazine Edisylate (Compazine Iv) 5 mg IV Q4H PRN PRN PRN Reason: Breakthrough Nausea/Vomiting Senna/Docusate Sodium (Senokot-S, Jacquelyn-Colace) 2 tablet PO BID PRN PRN PRN Reason: Constipation Sodium Chloride () 10 - 40 ml IV UD PRN PRN Reason: SALINE FLUSH Last Admin: 09/03/19 22:23 Dose: 20 ml Documented by: Throat Lozenges (Cepacol Sore Throat Lozenge) 1 lozenge MUCOUS MEM Q2H PRN PRN PRN Reason: SORE THROAT Inpatient E&M: [id number] [place] [id number]
[2019-09-04] MEDS: Pregabalin 75 MG Capsule 150 MG PO ×2 (09:00→22:17)
[2019-09-04] MEDS: Metoprolol Tartrate 25 MG Tablet PO ×2 (09:00→22:18)
[2019-09-04] MEDS: metFORMIN HCl 500 MG Tablet PO ×2 (09:00→17:53)
[2019-09-04] MEDS: Cyanocobalamin 500 MCG Tablet PO (09:01)
[2019-09-04] MEDS: guaiFENesin 1,200 MG Tablet 1200 MG PO ×2 (09:01→22:18)
[2019-09-04] MEDS: Enoxaparin 40 MG/0.4 ML Syringe SC (09:01)
[2019-09-04] MEDS: Insulin Lispro 100 UNIT/ML INSULN.PEN SC ×4 (09:05→22:28)
[2019-09-04 10:06] LABS: Bedside Glucose 327 mg/dL (70-110)
[2019-09-04] MEDS: levoFLOXacin IV 750 MG/150 ML BAG 100 MG IV (10:09)
[2019-09-04 12:31] LABS: Bedside Glucose 368 mg/dL (70-110)
--- NOTE | 2019-09-04 14:27 | CM.UR ---
EDY SEVILLA Face to Face with patient for initial transition planning/care coordination assessment. EDY SEVILLA introduced self and role at [facility]. Patient lying in bed, alert and oriented. Patient willing to participate in assessment and is able to answer all questions appropriately. Care providers, pharmacy, and demographics verified. Patient wishes to discharge home, denies need for home health at this time. Patient states she has no further needs or concerns at this time. CM to follow for discharge planning needs that may arise. PCP: Amanda Specialists: Dr. Morales (pain mgmt) Preferred Pharmacy: [facility] Insurance: [facility] mcr/mateus dual complete Prescription Benefit: [facility] dual complete--states she does have co-pays. Living Will/HPOA: None LNOK: Sister Living Arrangements: Patient lives with sister in a one story home. Only has 1 step to get in. Transportation: Self. States they currently have a car. DME/HHC: Oxygen 2 LNC during sleep, [facility]. Disposition Plan: Home, No needs anticipated. RX will need faxed to [employer], if o2 orders change. Ronnie Borjas RN, CCM.
[2019-09-04 17:11] LABS: Bedside Glucose 284 mg/dL (70-110)
[2019-09-04] MEDS: Ibuprofen 400 MG Tablet 800 MG PO (17:14)
[2019-09-04] MEDS: 0.9% Saline Lock 10 ML Syringe IV ×2 (17:16→22:17)
--- NOTE | 2019-09-04 18:29 | NURSING ---
Estradiol sent to pharmacy to be verified.
[2019-09-04] MEDS: ESTRADIOL 2 MG TABLET PO (22:17)
[2019-09-04] MEDS: clonazePAM 0.5 MG Tablet PO (22:17)
[2019-09-04] MEDS: Amitriptyline 100 MG Tablet 150 MG PO (22:18)
[2019-09-05] VITALS (18 sets, daily range): BP systolic 115–149; BP diastolic 62–80; PULSE 69–86; RESP 15–21; TEMP 36.7–36.8; O2SAT 95–97
[2019-09-05 00:31] LABS: Bedside Glucose 274 mg/dL (70-110)
[2019-09-05] MEDS: Ipratropium/Albuterol Sulfate 3 ML AMPUL.NEB INHALATION ×6 (02:57→23:35)
[2019-09-05] MEDS: oxyCODONE 5 MG Tablet PO ×3 (04:09→20:37)
[2019-09-05] MEDS: 0.9% Saline Lock 10 ML Syringe IV ×3 (05:48→15:52)
[2019-09-05 05:54] LABS: Absolute Lymphocyte Count 1.75 X10^3/uL (0.83-4.51); Absolute Neutrophil Count 16.1 X10^3/uL (2.0-7.7); Basophil# 0.04 X10^3/uL; Basophil% 0.2 % (0-1); Eosinophil# 0.06 X10^3/uL; Eosinophils% 0.3 % (0-5); Hematocrit 39.8 % (37-47); Hemoglobin 12.3 g/dL (12.0-15.0); Lymphocyte # 1.75 X10^3/ul (4.0); Lymphocyte % 9.2 % (19-41); Mean Corp Hgb Conc 30.9 g/dL (32-36); Mean Corpuscular Hgb 28.9 pg (27.0-32.0); Mean Corpuscular Volume 93.6 fL (81-99); Mean Platelet Vol. 10.6 fl (6.2-12.0); Monocyte# 0.78 X10^3/uL; Monocyte% 4.1 % (0-10); NRBC Flagged by Analyzer 0 % (0-5); Neutrophil # 16.13 X10^3/uL (2.7-7.7); Neutrophil % 84.4 % (47-70); Platelet Count 272 K/mm3 (150-450); RBC Distribution Width CV 13.7 % (11.6-14.6); RBC Distribution Width SD 46.5 fl (35.1-43.9); Red Blood Count 4.25 M/mm3 (4.2-5.4); White Blood Count 19.1 K/mm3 (4.4-11.0)
[2019-09-05 06:24] LABS: Anion Gap 8 (5-15); BUN 8 mg/dL (7-18); BUN/Creat Ratio 7.4 RATIO (10-20); Calcium,Total 8.2 mg/dL (8.5-10.1); Chloride 106 mmol/L (98-107); Creatinine, Serum 1.08 mg/dL (0.55-1.02); EST Glomerular Filtration Rate 58 mL/min (>60); Est Glom Filt Rate - Afr Amer 70 mL/min (>60); Estimated Creatinine Clearance 51.48 ml/min; Glucose 422 mg/dL (74-106); Potassium 4.6 mmol/L (3.5-5.1); Sodium Level 137 mmol/L (136-145)
[2019-09-05] MEDS: Insulin Lispro 100 UNIT/ML INSULN.PEN SC ×4 (06:35→22:08)
[2019-09-05] MEDS: Insulin Lispro 100 UNIT/ML INSULN.PEN 9 UNIT SC (06:59)
[2019-09-05 07:01] LABS: Bedside Glucose 459 mg/dL (70-110)
--- NOTE | 2019-09-05 07:25 | PN_ITS ---
Patient Problems: Active and Suspected Problems (Last Reviewed 09/03/19 @ 19:[address] Deepthi Monique, DO) Severe sepsis (Acute) Hyponatremia (Acute) Lactic acidosis (Acute) Respiratory insufficiency (Acute) With hypoxia COPD exacerbation (Suspected) She has never had a sleep study Subjective: The patient was seen and examined at the bedside this morning. Events from the last 24 hours have been reviewed. The patient is currently afebrile, hemodynamically stable and maintaining appropriate oxygen saturations on 4 L/min via nasal cannula. Patient still reports the presence of shortness of breath. Objective: The patient's most recent lab work, culture data and imaging studies have all b een personally reviewed. Respiratory viral panel was positive for influenza A. - Physical Exam Vitals/I&O's: Vital Signs Temp Pulse Resp BP Pulse Ox 98.0 F 74 18 115/62 97 09/05/19 04:00 09/05/19 04:00 09/05/19 04:00 09/05/19 04:00 09/05/19 04:00 Oxygen Flow Rate (L/min) 4 Oxygen Delivery Method Nasal Cannula Weight: 196 lb 10.437 oz Body Mass Index (BMI) 35.2 Intake and Output for Last 24 Hours 09/03/19 09/04/19 09/05/19 23:59 23:59 23:59 Intake Total 3290.0 / 3640.0 5389 / 5389 240 / 240 Balance 3290.0 / 3640.0 5389 / 5389 240 / 240 General: Alert, Cooperative, No apparent distress HEENT: Atraumatic, Normocephalic Oral: No Gingival or Mucosal Lesions/ Ulcerations Neck: Supple, No Nodes, Trachea Midline Lungs: No rhonchi, No wheeze, No rales, Diminished Cardiovascular: Regular rate, Regular Rhythm, Normal S1, Normal S2, No murmurs Abdomen: Bowel Sounds Present, Soft, Non Tender, Obese Extremities: No clubbing, No cyanosis, No edema Skin: No breakdown Musculoskeletal: No Tenderness to Palpation of Joints or Extremities Lymphatic: No Cervical, Supraclavicular, or Inguinal Adenopathy Neurological: Neuro grossly intact Psych/Mental Status: Normal Affect, Appropriate Labs (Last 48 Hours) 09/03/19 09/03/19 09/03/19 17:30 17:30 17:30 WBC 7.5 RBC 5.01 Hgb 14.6 Hct 45.0 MCV 89.8 MCH 29.1 MCHC 32.4 RDW Std Deviation 42.6 RDW Coeff of Afshin 12.9 Plt Count 245 MPV 10.8 Immature Gran % (Auto) 0.900 Neut % (Auto) 80.4 H Lymph % (Auto) 14.2 L [place] % (Auto) 3.7 Eos % (Auto) 0.5 Baso % (Auto) 0.3 Absolute Neuts (auto) 6.0 Absolute Lymphs (auto) 1.06 Nucleated RBC % 0 Platelet Estimate ADEQUATE RBC Morphology NORM C+C Specimen Type Sample Site pH Bicarbonate Actual POC Total CO2 Base Excess O2 Saturation ABG pCO2 ABG pO2 Wayne Test O2 Delivery Device Liter Flow Blood Gas Notified Whom Blood Gas Notified Time Sodium 134 L Potassium 3.8 Chloride 101 Carbon Dioxide 27.0 Anion Gap 6 BUN 5 L Creatinine 1.00 Estim Creat Clear Calc 55.60 Est GFR (MDRD) Af Amer 77 Est GFR (MDRD) Non-Af 63 BUN/Creatinine Ratio 5.0 L Glucose 211 H Hemoglobin A1c Lactic Acid 3.5 H* Calcium 8.7 Phosphorus Magnesium Total Bilirubin AST ALT Alkaline Phosphatase Total Protein Albumin Globulin Albumin/Globulin Ratio Urine Color Urine Clarity Urine pH Ur Specific [place] Urine Protein Urine Glucose (UA) Urine Ketones Urine Occult Blood Urine Nitrite Urine Bilirubin Urine Urobilinogen Ur Leukocyte Esterase Urine RBC Urine WBC Ur Squamous Epith Cells Urine Bacteria Urine Mucus Ur Random Sodium Urine Creatinine MRSA (PCR) POC Glucose 09/03/19 09/03/19 09/03/19 17:30 17:30 17:30 WBC RBC Hgb Hct MCV MCH MCHC RDW Std Deviation RDW Coeff of Afshin Plt Count MPV Immature Gran % (Auto) Neut % (Auto) Lymph % (Auto) [place] % (Auto) Eos % (Auto) Baso % (Auto) Absolute Neuts (auto) Absolute Lymphs (auto) Nucleated RBC % Platelet Estimate RBC Morphology Specimen Type Sample Site pH Bicarbonate Actual POC Total CO2 Base Excess O2 Saturation ABG pCO2 ABG pO2 Wayne Test O2 Delivery Device Liter Flow Blood Gas Notified Whom Blood Gas Notified Time Sodium Potassium Chloride Carbon Dioxide Anion Gap BUN Creatinine Estim Creat Clear Calc Est GFR (MDRD) Af Amer Est GFR (MDRD) Non-Af BUN/Creatinine Ratio Glucose Hemoglobin A1c 8.3 H Lactic Acid Calcium Phosphorus Magnesium 1.4 L Total Bilirubin AST ALT Alkaline Phosphatase Total Protein Albumin Globulin Albumin/Globulin Ratio Urine Color Yellow Urine Clarity Clear Urine pH 6.0 Ur Specific [place] 1.010 Urine Protein Negative Urine Glucose (UA) 100 H Urine Ketones Negative Urine Occult Blood Negative Urine Nitrite Negative Urine Bilirubin Negative Urine Urobilinogen Normal Ur Leukocyte Esterase 25 H Urine RBC 0 SEEN Urine WBC 0-5 SEEN Ur Squamous Epith Cells 0 SEEN Urine Bacteria 1+ Urine Mucus 0 SEEN Ur Random Sodium Urine Creatinine MRSA (PCR) POC Glucose 09/03/19 09/03/19 09/03/19 17:30 17:30 20:50 WBC RBC Hgb Hct MCV MCH MCHC RDW Std Deviation RDW Coeff of Afshin Plt Count MPV Immature Gran % (Auto) Neut % (Auto) Lymph % (Auto) [place] % (Auto) Eos % (Auto) Baso % (Auto) Absolute Neuts (auto) Absolute Lymphs (auto) Nucleated RBC % Platelet Estimate RBC Morphology Specimen Type Sample Site pH Bicarbonate Actual POC Total CO2 Base Excess O2 Saturation ABG pCO2 ABG pO2 Wayne Test O2 Delivery Device Liter Flow Blood Gas Notified Whom Blood Gas Notified Time Sodium Potassium Chloride Carbon Dioxide Anion Gap BUN Creatinine Estim Creat Clear Calc Est GFR (MDRD) Af Amer Est GFR (MDRD) Non-Af BUN/Creatinine Ratio Glucose Hemoglobin A1c Lactic Acid Calcium Phosphorus Magnesium Total Bilirubin AST ALT Alkaline Phosphatase Total Protein Albumin Globulin Albumin/Globulin Ratio Urine Color Urine Clarity Urine pH Ur Specific [place] Urine Protein Urine Glucose (UA) Urine Ketones Urine Occult Blood Urine Nitrite Urine Bilirubin Urine Urobilinogen Ur Leukocyte Esterase Urine RBC Urine WBC Ur Squamous Epith Cells Urine Bacteria Urine Mucus Ur Random Sodium 46 Urine Creatinine 25.70 MRSA (PCR) Negative POC Glucose 09/03/19 09/03/19 09/04/19 21:35 22:20 01:51 WBC RBC Hgb Hct MCV MCH MCHC RDW Std Deviation RDW Coeff of Afshin Plt Count MPV Immature Gran % (Auto) Neut % (Auto) Lymph % (Auto) [place] % (Auto) Eos % (Auto) Baso % (Auto) Absolute Neuts (auto) Absolute Lymphs (auto) Nucleated RBC % Platelet Estimate RBC Morphology Specimen Type ART Sample Site L Brachial pH 7.20 L Bicarbonate Actual 17.0 L POC Total CO2 18 Base Excess -11 L O2 Saturation 92 L ABG pCO2 43.3 ABG pO2 76 Wayne Test POS O2 Delivery Device Nasal Can Liter Flow 7.0 Blood Gas Notified Whom ICU MD Blood Gas Notified Time 150 Sodium Potassium Chloride Carbon Dioxide Anion Gap BUN Creatinine Estim Creat Clear Calc Est GFR (MDRD) Af Amer Est GFR (MDRD) Non-Af BUN/Creatinine Ratio Glucose Hemoglobin A1c Lactic Acid 6.5 H* Calcium Phosphorus Magnesium Total Bilirubin AST ALT Alkaline Phosphatase Total Protein Albumin Globulin Albumin/Globulin Ratio Urine Color Urine Clarity Urine pH Ur Specific [place] Urine Protein Urine Glucose (UA) Urine Ketones Urine Occult Blood Urine Nitrite Urine Bilirubin Urine Urobilinogen Ur Leukocyte Esterase Urine RBC Urine WBC Ur Squamous Epith Cells Urine Bacteria Urine Mucus Ur Random Sodium Urine Creatinine MRSA (PCR) POC Glucose 311 H 09/04/19 09/04/19 09/04/19 03:50 03:50 03:50 WBC 6.3 RBC 4.09 L Hgb 11.9 L Hct 37.7 MCV 92.2 MCH 29.1 MCHC 31.6 L RDW Std Deviation 44.7 H RDW Coeff of Afshin 13.1 Plt Count 239 MPV 10.6 Immature Gran % (Auto) Neut % (Auto) Lymph % (Auto) [place] % (Auto) Eos % (Auto) Baso % (Auto) Absolute Neuts (auto) Absolute Lymphs (auto) Nucleated RBC % Platelet Estimate RBC Morphology Specimen Type Sample Site pH Bicarbonate Actual POC Total CO2 Base Excess O2 Saturation ABG pCO2 ABG pO2 Wayne Test O2 Delivery Device Liter Flow Blood Gas Notified Whom Blood Gas Notified Time Sodium 141 Potassium 4.7 Chloride 111 H Carbon Dioxide 22.0 Anion Gap 8 BUN 5 L Creatinine 0.97 Estim Creat Clear Calc 57.32 Est GFR (MDRD) Af Amer 79 Est GFR (MDRD) Non-Af 65 BUN/Creatinine Ratio 5.1 L Glucose 348 H Hemoglobin A1c Lactic Acid 3.7 H* Calcium 7.3 L Phosphorus 2.4 L Magnesium 2.1 Total Bilirubin 0.10 L AST 51 H ALT 32 Alkaline Phosphatase 91 Total Protein 5.8 L Albumin 2.6 L Globulin 3.2 Albumin/Globulin Ratio 0.8 L Urine Color Urine Clarity Urine pH Ur Specific [place] Urine Protein Urine Glucose (UA) Urine Ketones Urine Occult Blood Urine Nitrite Urine Bilirubin Urine Urobilinogen Ur Leukocyte Esterase Urine RBC Urine WBC Ur Squamous Epith Cells Urine Bacteria Urine Mucus Ur Random Sodium Urine Creatinine MRSA (PCR) POC Glucose 09/04/19 09/04/19 09/04/19 07:01 12:24 16:46 WBC RBC Hgb Hct MCV MCH MCHC RDW Std Deviation RDW Coeff of Afshin Plt Count MPV Immature Gran % (Auto) Neut % (Auto) Lymph % (Auto) [place] % (Auto) Eos % (Auto) Baso % (Auto) Absolute Neuts (auto) Absolute Lymphs (auto) Nucleated RBC % Platelet Estimate RBC Morphology Specimen Type Sample Site pH Bicarbonate Actual POC Total CO2 Base Excess O2 Saturation ABG pCO2 ABG pO2 Wayne Test O2 Delivery Device Liter Flow Blood Gas Notified Whom Blood Gas Notified Time Sodium Potassium Chloride Carbon Dioxide Anion Gap BUN Creatinine Estim Creat Clear Calc Est GFR (MDRD) Af Amer Est GFR (MDRD) Non-Af BUN/Creatinine Ratio Glucose Hemoglobin A1c Lactic Acid Calcium Phosphorus Magnesium Total Bilirubin AST ALT Alkaline Phosphatase Total Protein Albumin Globulin Albumin/Globulin Ratio Urine Color Urine Clarity Urine pH Ur Specific [place] Urine Protein Urine Glucose (UA) Urine Ketones Urine Occult Blood Urine Nitrite Urine Bilirubin Urine Urobilinogen Ur Leukocyte Esterase Urine RBC Urine WBC Ur Squamous Epith Cells Urine Bacteria Urine Mucus Ur Random Sodium Urine Creatinine MRSA (PCR) POC Glucose 327 H 368 H 284 H 09/04/19 09/05/19 09/05/19 22:22 05:42 05:42 WBC 19.1 H RBC 4.25 Hgb 12.3 Hct 39.8 MCV 93.6 MCH 28.9 MCHC 30.9 L RDW Std Deviation 46.5 H RDW Coeff of Afshin 13.7 Plt Count 272 MPV 10.6 Immature Gran % (Auto) 1.800 H Neut % (Auto) 84.4 H Lymph % (Auto) 9.2 L [place] % (Auto) 4.1 Eos % (Auto) 0.3 Baso % (Auto) 0.2 Absolute Neuts (auto) 16.1 H Absolute Lymphs (auto) 1.75 Nucleated RBC % 0 Platelet Estimate RBC Morphology Specimen Type Sample Site pH Bicarbonate Actual POC Total CO2 Base Excess O2 Saturation ABG pCO2 ABG pO2 Wayne Test O2 Delivery Device Liter Flow Blood Gas Notified Whom Blood Gas Notified Time Sodium 137 Potassium 4.6 Chloride 106 Carbon Dioxide 23.0 Anion Gap 8 BUN 8 Creatinine 1.08 H Estim Creat Clear Calc 51.48 Est GFR (MDRD) Af Amer 70 Est GFR (MDRD) Non-Af 58 L BUN/Creatinine Ratio 7.4 L Glucose 422 H Hemoglobin A1c Lactic Acid Calcium 8.2 L Phosphorus Magnesium Total Bilirubin AST ALT Alkaline Phosphatase Total Protein Albumin Globulin Albumin/Globulin Ratio Urine Color Urine Clarity Urine pH Ur Specific [place] Urine Protein Urine Glucose (UA) Urine Ketones Urine Occult Blood Urine Nitrite Urine Bilirubin Urine Urobilinogen Ur Leukocyte Esterase Urine RBC Urine WBC Ur Squamous Epith Cells Urine Bacteria Urine Mucus Ur Random Sodium Urine Creatinine MRSA (PCR) POC Glucose 274 H 09/05/19 06:34 WBC RBC Hgb Hct MCV MCH MCHC RDW Std Deviation RDW Coeff of Afshin Plt Count MPV Immature Gran % (Auto) Neut % (Auto) Lymph % (Auto) [place] % (Auto) Eos % (Auto) Baso % (Auto) Absolute Neuts (auto) Absolute Lymphs (auto) Nucleated RBC % Platelet Estimate RBC Morphology Specimen Type Sample Site pH Bicarbonate Actual POC Total CO2 Base Excess O2 Saturation ABG pCO2 ABG pO2 Wayne Test O2 Delivery Device Liter Flow Blood Gas Notified Whom Blood Gas Notified Time Sodium Potassium Chloride Carbon Dioxide Anion Gap BUN Creatinine Estim Creat Clear Calc Est GFR (MDRD) Af Amer Est GFR (MDRD) Non-Af BUN/Creatinine Ratio Glucose Hemoglobin A1c Lactic Acid Calcium Phosphorus Magnesium Total Bilirubin AST ALT Alkaline Phosphatase Total Protein Albumin Globulin Albumin/Globulin Ratio Urine Color Urine Clarity Urine pH Ur Specific [place] Urine Protein Urine Glucose (UA) Urine Ketones Urine Occult Blood Urine Nitrite Urine Bilirubin Urine Urobilinogen Ur Leukocyte Esterase Urine RBC Urine WBC Ur Squamous Epith Cells Urine Bacteria Urine Mucus Ur Random Sodium Urine Creatinine MRSA (PCR) POC Glucose 459 H* Microbiology 09/03/19 21:26 Mucosa - Nasopharyngeal Respiratory Panel (PCR) - Final Influenza A (Subtype H1) 09/03/19 17:46 Mucosa - Nose Influenza Types A,B Direct FA (ESSIE) - Final Clinical Impression(s) from Imaging Studies Chest X-Ray 09/03/19 17:10 IMPRESSION: Normal x-ray examination of the chest. Electronically Signed: Yamil Colon MD at 17:42 EDT , Service support , Chest X-Ray 09/04/19 05:55 IMPRESSION: Patchy left lower lobe infiltrate suspicious for pneumonia. Electronically Signed: Leanna Carrington MD at 8:28 EDT Tel , Service support , Current Medications Acetaminophen (Tylenol) 650 mg PO Q6H PRN PRN PRN Reason: Mild Pain (1-3)/Temp > 100.7 F Albuterol Sulfate (Ventolin Aerosols) 2.5 mg INHALATION Q2H PRN PRN PRN Reason: SOB/Wheezing Albuterol/Ipratropium (Duoneb) 3 ml INHALATION Q4H.RT [facility] Last Admin: 09/05/19 06:58 Dose: 3 ml Documented by: Amitriptyline HCl (Elavil) 150 mg PO QHS [facility] Last Admin: 09/04/19 22:18 Dose: 150 mg Documented by: Bisacodyl (Dulcolax) 5 mg PO DAILY PRN PRN PRN Reason: Constipation Clonazepam (Klonopin) 0.5 mg PO Q12H PRN PRN PRN Reason: ANXIETY Last Admin: 09/04/19 22:17 Dose: 0.5 mg Documented by: Cyanocobalamin (Vitamin B12) 500 mcg PO DAILY@0800 [facility] Last Admin: 09/04/19 09:01 Dose: 500 mcg Documented by: Enoxaparin Sodium (Lovenox) 40 mg SC DAILY [facility] Last Admin: 09/04/19 09:01 Dose: 40 mg Documented by: Estradiol (Estradiol) 2 mg PO QHS [facility] Last Admin: 09/04/19 22:17 Dose: 2 mg Documented by: Glucagon () 1 mg IM .X1 PRN PRN Reason: Hypoglycemia Guaifenesin (Mucinex) 1,200 mg PO BID [facility] Last Admin: 09/04/19 22:18 Dose: 1,200 mg Documented by: Vancomycin IV Pharmacy to Dose (1 ea/ Sodium Chloride) 500 mls @ 250 mls/hr IV X1 PRN; Protocol PRN Reason: Rx to Dose Levofloxacin (Levaquin Iv) 750 mg in 150 mls @ 100 mls/hr IV Q24 [facility] Last Infusion: 09/04/19 11:40 Dose: Infused Documented by: Sodium Chloride () 250 mls @ 15 mls/hr IV .[id number] PRN PRN Reason: Additional IVPB Infusion Dextrose (Dextrose 10%-Water) 250 mls @ 999 mls/hr IV .Q16M PRN; Protocol PRN Reason: HYPOGLYCEMIA Vancomycin HCl 750 mg/ Sodium (Chloride) 265 mls @ 250 mls/hr IV Q12H [facility] Last Infusion: 09/04/19 23:02 Dose: Infused Documented by: Ibuprofen (Motrin) 800 mg PO TID PRN PRN PRN Reason: Pain Score 1-10/10 Last Admin: 09/04/19 17:14 Dose: 800 mg Documented by: Insulin Human Lispro (Humalog Kwikpen (Bkc)) 0 unit SC ACHS [facility]; Protocol Last Admin: 09/05/19 06:35 Dose: 11 u Documented by: Magnesium Hydroxide (Milk Of Magnesia) 30 ml PO DAILY PRN PRN PRN Reason: Constipation Melatonin (Melatonin) 3 mg PO QHS PRN PRN PRN Reason: INSOMNIA [facility] Last Admin: 09/04/19 17:53 Dose: 500 mg Documented by: Methylprednisolone (Solu-Medrol) 40 mg IV Q8 [facility] Last Admin: 09/05/19 05:47 Dose: 40 mg Documented by: Metoprolol Tartrate (Lopressor (Beta Ángel)) 25 mg PO BID [facility] Last Admin: 09/04/19 22:18 Dose: 25 mg Documented by: Nicotine (Nicoderm Cq (Pbkc)) 21 mg TRANSDERM. DAILY [facility] Last Admin: 09/04/19 12:31 Dose: 21 mg Documented by: Nitroglycerin (Nitrostat) 0.4 mg SUBLINGUAL Q5M PRN PRN Reason: CARDIAC/CHEST PAIN Ondansetron HCl (Zofran) 4 mg IV Q8H PRN PRN PRN Reason: NAUSEA/VOMITING Oseltamivir Phosphate (Tamiflu) 75 mg PO BID [facility] Stop: 09/08/19 22:01 Last Admin: 09/04/19 22:18 Dose: 75 mg Documented by: Oxycodone HCl (Oxyir) 5 - 10 mg PO Q4H PRN PRN PRN Reason: Pain Score 4-5/10 Last Admin: 09/05/19 04:09 Dose: 10 mg Documented by: Potassium Chloride (K-Dur) 40 meq PO DAILY@0800 [facility] Last Admin: 09/04/19 09:00 Dose: 40 meq Documented by: Pregabalin (Lyrica) 150 mg PO BID [facility] Last Admin: 09/04/19 22:17 Dose: 150 mg Documented by: Prochlorperazine Edisylate (Compazine Iv) 5 mg IV Q4H PRN PRN PRN Reason: Breakthrough Nausea/Vomiting Senna/Docusate Sodium (Senokot-S, Jacquelyn-Colace) 2 tablet PO BID PRN PRN PRN Reason: Constipation Sodium Chloride () 10 - 40 ml IV UD PRN PRN Reason: SALINE FLUSH Last Admin: 09/05/19 05:48 Dose: 10 ml Documented by: Throat Lozenges (Cepacol Sore Throat Lozenge) 1 lozenge MUCOUS MEM Q2H PRN PRN PRN Reason: SORE THROAT Medical Necessity - Tobacco Use Smoking Status: Current every day smoker Tobacco Use: Cigarettes Assessment/Plan All Active Problems (Last Reviewed 09/03/19 @ 19:[address] Deepthi Monique, DO) Severe sepsis (Acute) Hyponatremia (Acute) Lactic acidosis (Acute) Respiratory insufficiency (Acute) Bronchitis (Acute) Pneumonia (Resolved) RECOMMENDATIONS: 1. Continue scheduled bronchodilators and IV steroids. 2. Continue Tamiflu x5 days. 3. Given the lack of infiltrate on chest x-ray, it is reasonable to discontinue antibiotics at this time. 4. Recommend holding metformin and starting sliding scale insulin coverage. 5. Wean supplemental oxygen to maintain saturations at or above 90%. Encourage incentive spirometer use and mobilize patient as tolerated. 6. The patient needs to follow-up once again in the pulmonary medicine clinic within 2 weeks of discharge from the hospital. IMPRESSIONS: 1. Severe sepsis secondary to influenza A infection leading to COPD exacerbation The patient has been adequately volume resuscitated and remains hemodynamically stable. Continue Tamiflu with plans to complete 5 days of treatment. Antibiotics can be discontinued from my perspective. 2. Acute hypoxemic respiratory failure secondary to COPD with exacerbation due to influenza A infection Continue to wean supplemental oxygen to maintain saturations at or above 90%. Continue current supportive measures as noted above. Continue scheduled bronchodilators along with IV steroids. Encourage incentive spirometer use and mobilize patient as tolerated. 3. Nicotine dependency Tobacco cessation counseling was provided. Nicotine replacement therapy can be offered to the patient while admitted to the hospital. 4. Diabetes mellitus/hypertension/hyperlipidemia/morbid obesity Complicates care, management, recovery and prognosis. Recommend holding metformin and utilizing sliding scale insulin coverage while admitted to the hospital. This note was generated with [employer] dictation software. It may contain incorrect words, spelling, and punctuation that were not noted in checking the note before signing. Inpatient E&M: 93924 Subs Hosp L2
[2019-09-05 09:05] LABS: Vancomycin, Trough Level 4.9 ug/mL (5.0-15.0)
[2019-09-05] MEDS: metFORMIN HCl 500 MG Tablet PO ×2 (09:07→17:14)
[2019-09-05] MEDS: levoFLOXacin IV 750 MG/150 ML BAG 100 MG IV (09:08)
[2019-09-05] MEDS: Metoprolol Tartrate 25 MG Tablet PO ×2 (09:08→22:06)
[2019-09-05] MEDS: Cyanocobalamin 500 MCG Tablet PO (09:08)
[2019-09-05] MEDS: guaiFENesin 1,200 MG Tablet 1200 MG PO ×2 (09:09→22:07)
[2019-09-05] MEDS: Pregabalin 75 MG Capsule 150 MG PO ×2 (09:09→22:06)
[2019-09-05] MEDS: Oseltamivir Phosphate 75 MG Capsule PO ×2 (09:10→22:06)
[2019-09-05] MEDS: Enoxaparin 40 MG/0.4 ML Syringe SC (09:13)
--- NOTE | 2019-09-05 11:28 | PN_ITS ---
Patient Problems: Active and Suspected Problems (Last Reviewed 09/03/19 @ 19:[address] Deepthi Monique, DO) Severe sepsis (Acute) Hyponatremia (Acute) Lactic acidosis (Acute) Respiratory insufficiency (Acute) With hypoxia COPD exacerbation (Suspected) She has never had a sleep study Reason for Visit: Follow-up for severe sepsis secondary to left lower lobe pneumonia Objective: No fever or chills. Pulse ox 95% on 4 L of oxygen. Still gets short of breath on exertion. Vitals/I&O's: Vital Signs Temp Pulse Resp BP Pulse Ox 98.2 F 71 16 122/68 H 95 09/05/19 08:55 09/05/19 11:20 09/05/19 08:55 09/05/19 09:08 09/05/19 08:55 Oxygen Flow Rate (L/min) 4 Oxygen Delivery Method Nasal Cannula Weight: 196 lb 10.437 oz Body Mass Index (BMI) 35.2 Intake and Output for Last 24 Hours 09/03/19 09/04/19 09/05/19 23:59 23:59 23:59 Intake Total 3290.0 / 3640.0 5389 / 5389 390 / 390 Balance 3290.0 / 3640.0 5389 / 5389 390 / 390 General: Alert, Oriented x3, Cooperative HEENT: Atraumatic, PERRLA, EOMI, Normocephalic Neck: Supple, No JVD, Negative Carotid Bruits Lungs: Diminished - Air entry diffusely diminished bilaterally., Rhonchi Cardiovascular: Regular rate, Regular Rhythm, Normal S1, Normal S2, No murmurs Abdomen: Bowel Sounds Present, Soft, Non Tender, Non-Distended Extremities: No edema, Capillary Refill Less than 3 Seconds Skin: No rashes, No breakdown Musculoskeletal: No Tenderness to Palpation of Joints or Extremities Neurological: Cranial nerves II-XII grossly intact, Deep Tendon Reflexes 2+/4 and Symmetrical, Neuro grossly intact Psych/Mental Status: Normal Affect, Appropriate Microbiology Past 72 Hours 09/03/19 21:26 Mucosa - Nasopharyngeal Respiratory Panel (PCR) - Final Influenza A (Subtype H1) 09/03/19 17:46 Mucosa - Nose Influenza Types A,B Direct FA (ESSIE) - Final Laboratory Results 09/04/19 12:24: POC Glucose 368 H 09/04/19 16:46: POC Glucose 284 H 09/04/19 22:22: POC Glucose 274 H 09/05/19 05:42: WBC 19.1 H, RBC 4.25, Hgb 12.3, Hct 39.8, MCV 93.6, MCH 28.9, MCHC 30.9 L, RDW Std Deviation 46.5 H, RDW Coeff of Afshin 13.7, Plt Count 272, MPV 10.6, Immature Gran % (Auto) 1.800 H, Neut % (Auto) 84.4 H, Lymph % (Auto) 9.2 L , Payne % (Auto) 4.1, Eos % (Auto) 0.3, Baso % (Auto) 0.2, Absolute Neuts (auto) 16.1 H, Absolute Lymphs (auto) 1.75, Nucleated RBC % 0 09/05/19 05:42: Sodium 137, Potassium 4.6, Chloride 106, Carbon Dioxide 23.0, Anion Gap 8, BUN 8, Creatinine 1.08 H, Estim Creat Clear Calc 51.48, Est GFR (MDRD) Af Amer 70, Est GFR (MDRD) Non-Af 58 L, BUN/Creatinine Ratio 7.4 L, Glucose 422 H, Calcium 8.2 L 09/05/19 06:34: POC Glucose 459 H* 09/05/19 08:30: Vancomycin Trough 4.9 L Current Medications Acetaminophen (Tylenol) 650 mg PO Q6H PRN PRN PRN Reason: Mild Pain (1-3)/Temp > 100.7 F Albuterol Sulfate (Ventolin Aerosols) 2.5 mg INHALATION Q2H PRN PRN PRN Reason: SOB/Wheezing Albuterol/Ipratropium (Duoneb) 3 ml INHALATION Q4H.RT FARHANA Last Admin: 09/05/19 11:10 Dose: 3 ml Documented by: Amitriptyline HCl (Elavil) 150 mg PO QHS [facility] Last Admin: 09/04/19 22:18 Dose: 150 mg Documented by: Bisacodyl (Dulcolax) 5 mg PO DAILY PRN PRN PRN Reason: Constipation Clonazepam (Klonopin) 0.5 mg PO Q12H PRN PRN PRN Reason: ANXIETY Last Admin: 09/04/19 22:17 Dose: 0.5 mg Documented by: Cyanocobalamin (Vitamin B12) 500 mcg PO DAILY@0800 [facility] Last Admin: 09/05/19 09:08 Dose: 500 mcg Documented by: Enoxaparin Sodium (Lovenox) 40 mg SC DAILY [facility] Last Admin: 09/05/19 09:13 Dose: 40 mg Documented by: Estradiol (Estradiol) 2 mg PO QHS [facility] Last Admin: 09/04/19 22:17 Dose: 2 mg Documented by: Glucagon () 1 mg IM .X1 PRN PRN Reason: Hypoglycemia Guaifenesin (Mucinex) 1,200 mg PO BID [facility] Last Admin: 09/05/19 09:09 Dose: 1,200 mg Documented by: Levofloxacin (Levaquin Iv) 750 mg in 150 mls @ 100 mls/hr IV Q24 [facility] Last Infusion: 09/05/19 10:40 Dose: Infused Documented by: Sodium Chloride () 250 mls @ 15 mls/hr IV .[id number] PRN PRN Reason: Additional IVPB Infusion Dextrose (Dextrose 10%-Water) 250 mls @ 999 mls/hr IV .Q16M PRN; Protocol PRN Reason: HYPOGLYCEMIA Ibuprofen (Motrin) 400 mg PO TID PRN PRN PRN Reason: Pain Score 1-10/10 Insulin Glargine (Lantus (Bkc)) 10 units SC BID [facility] Insulin Human Lispro (Humalog Kwikpen (Bkc)) 0 unit SC ACHS [facility]; Protocol Last Admin: 09/05/19 11:23 Dose: 8 u Documented by: Insulin Human Lispro (Humalog Kwikpen (Bkc)) 10 unit SC TIDAC [facility] Magnesium Hydroxide (Milk Of Magnesia) 30 ml PO DAILY PRN PRN PRN Reason: Constipation Melatonin (Melatonin) 3 mg PO QHS PRN PRN PRN Reason: INSOMNIA [facility] Last Admin: 09/05/19 09:07 Dose: 500 mg Documented by: Metoprolol Tartrate (Lopressor (Beta Ángel)) 25 mg PO BID [facility] Last Admin: 09/05/19 09:08 Dose: 25 mg Documented by: Nicotine (Nicoderm Cq (Pbkc)) 21 mg TRANSDERM. DAILY [facility] Last Admin: 09/05/19 09:10 Dose: 21 mg Documented by: Nitroglycerin (Nitrostat) 0.4 mg SUBLINGUAL Q5M PRN PRN Reason: CARDIAC/CHEST PAIN Ondansetron HCl (Zofran) 4 mg IV Q8H PRN PRN PRN Reason: NAUSEA/VOMITING Oseltamivir Phosphate (Tamiflu) 75 mg PO BID [facility] Stop: 09/08/19 22:01 Last Admin: 09/05/19 09:10 Dose: 75 mg Documented by: Oxycodone HCl (Oxyir) 5 - 10 mg PO Q4H PRN PRN PRN Reason: Pain Score 4-5/10 Last Admin: 09/05/19 11:16 Dose: 5 mg Documented by: Potassium Chloride (K-Dur) 40 meq PO DAILY@0800 [facility] Last Admin: 09/05/19 09:08 Dose: 40 meq Documented by: Prednisone () 40 mg PO DAILY@0800 [facility] Pregabalin (Lyrica) 150 mg PO BID [facility] Last Admin: 09/05/19 09:09 Dose: 150 mg Documented by: Prochlorperazine Edisylate (Compazine Iv) 5 mg IV Q4H PRN PRN PRN Reason: Breakthrough Nausea/Vomiting Senna/Docusate Sodium (Senokot-S, Jacquelyn-Colace) 2 tablet PO BID PRN PRN PRN Reason: Constipation Sodium Chloride () 10 - 40 ml IV UD PRN PRN Reason: SALINE FLUSH Last Admin: 09/05/19 09:19 Dose: 10 ml Documented by: Throat Lozenges (Cepacol Sore Throat Lozenge) 1 lozenge MUCOUS MEM Q2H PRN PRN PRN Reason: SORE THROAT STROKE Vital Signs/Narrative: Vital Signs Temp Pulse Resp BP Pulse Ox 09/05/19 11:20 71 09/05/19 09:08 79 122/68 H 09/05/19 08:55 98.2 F 79 16 122/68 H 95 09/05/19 07:55 95 Medical Necessity - Tobacco Use Smoking Status: Current every day smoker Tobacco Use: Cigarettes Assessment/Plan All Active Problems (Last Reviewed 09/03/19 @ 19:[address] Deepthi Monique DO) Severe sepsis (Acute) Hyponatremia (Acute) Lactic acidosis (Acute) Respiratory insufficiency (Acute) Bronchitis (Acute) Pneumonia (Resolved) This 44-year-old female with multiple comorbidities admitted with fever, nonproductive cough, shortness of breath for 3 to 5 days and respiratory panel positive of influenza A and chest x-ray finding of patchy left lower lobe infiltrate consistent with pneumonia was admitted in ICU with severe sepsis secondary to pneumonia. She has history of MRSA pneumonia. 1 severe sepsis (tachycardia, fever, tachypnea and lactic acidosis) secondary to influenza A infection and possible bacterial superinfection left lower lobe pneumonia with mixed acid-base abnormality: Respiratory panel positive of influenza A subtype H1. Patient on antibiotic vancomycin and Levaquin. Tamiflu to complete 5 days, total of 10 doses. ABG 7.2 on 7 L of oxygen and bicarb 22, chloride 111, anion gap 5 suggestive of non-anion gap metabolic acidosis due to lactic acidosis. 3: No fever. Respiratory status is better. 2. Acute hypoxic respiratory failure secondary to COPD exacerbation and pneumonia: Patient on a scheduled bronchodilator, IV steroid, incentive spirometry, chest physiotherapy and Mucinex. Patient was advised PFT and split sleep study but has not done it. 3: Prednisone 40 mg oral daily from tomorrow a.m.. Discontinue Solu-Medrol 3. Hyponatremia-IV fluids ordered. More likely than not secondary to fever and increased insensible water loss. Will check a urine sodium and urine creatinine. 09/04: Sodium 137, K4.6. 4. Diabetes mellitus type 2: Glucose is uncontrolled. A1c 8.3. On Accu-Chek and insulin and cover with blood sliding scale. On Lantus 10 units subcutaneous twice daily. 09/04: Glucose 459. Solu-Medrol discontinued. Started on Lantus 10 units twice daily, Humulin insulin 10 units subcutaneous 3 times daily with meals along with sliding scale coverage. Continue Accu-Cheks. other chronic medical conditions include: HTN/HLD/morbid obesity/chronic back pain/canal stenosis and radiculopathy/suspected sleep apnea and endometriosis post total abdominal hysterectomy- complicate care, management, prognosis and recovery. And has chronic retention of bladder and does self intermittent catheterization. DVT prophylaxis: On Lovenox 40 mg subcu daily Total time of the visit including total time spent in counseling or coordination of care, (more than 50% of the total time, spent in obtaining medical information from nurses and other ancillary care providers), coordination of care with consultants and nursing staff, review of labs and imaging is 30 minutes Microbiology Past 72 Hours 09/03/19 21:26 Mucosa - Nasopharyngeal Respiratory Panel (PCR) - Final Influenza A (Subtype H1) 09/03/19 17:46 Mucosa - Nose Influenza Types A,B Direct FA (ESSIE) - Final Microbiology Past 72 Hours 09/03/19 21:26 Mucosa - Nasopharyngeal Respiratory Panel (PCR) - Final Influenza A (Subtype H1) 09/03/19 17:46 Mucosa - Nose Influenza Types A,B Direct FA (ESSIE) - Final Laboratory Results 09/04/19 16:46: POC Glucose 284 H 09/04/19 22:22: POC Glucose 274 H 09/05/19 05:42: WBC 19.1 H, RBC 4.25, Hgb 12.3, Hct 39.8, MCV 93.6, MCH 28.9, MCHC 30.9 L, RDW Std Deviation 46.5 H, RDW Coeff of Afshin 13.7, Plt Count 272, MPV 10.6, Immature Gran % (Auto) 1.800 H, Neut % (Auto) 84.4 H, Lymph % (Auto) 9.2 L , Payne % (Auto) 4.1, Eos % (Auto) 0.3, Baso % (Auto) 0.2, Absolute Neuts (auto) 16.1 H, Absolute Lymphs (auto) 1.75, Nucleated RBC % 0 09/05/19 05:42: Sodium 137, Potassium 4.6, Chloride 106, Carbon Dioxide 23.0, Anion Gap 8, BUN 8, Creatinine 1.08 H, Estim Creat Clear Calc 51.48, Est GFR (MDRD) Af Amer 70, Est GFR (MDRD) Non-Af 58 L, BUN/Creatinine Ratio 7.4 L, Glucose 422 H, Calcium 8.2 L 09/05/19 06:34: POC Glucose 459 H* 09/05/19 08:30: Vancomycin Trough 4.9 L Active Medications Acetaminophen (Tylenol) 650 mg PO Q6H PRN PRN PRN Reason: Mild Pain (1-3)/Temp > 100.7 F Albuterol Sulfate (Ventolin Aerosols) 2.5 mg INHALATION Q2H PRN PRN PRN Reason: SOB/Wheezing Albuterol/Ipratropium (Duoneb) 3 ml INHALATION Q4H.RT FARHANA Last Admin: 09/05/19 11:10 Dose: 3 ml Documented by: Amitriptyline HCl (Elavil) 150 mg PO QHS [facility] Last Admin: 09/04/19 22:18 Dose: 150 mg Documented by: Bisacodyl (Dulcolax) 5 mg PO DAILY PRN PRN PRN Reason: Constipation Clonazepam (Klonopin) 0.5 mg PO Q12H PRN PRN PRN Reason: ANXIETY Last Admin: 09/04/19 22:17 Dose: 0.5 mg Documented by: Cyanocobalamin (Vitamin B12) 500 mcg PO DAILY@0800 [facility] Last Admin: 09/05/19 09:08 Dose: 500 mcg Documented by: Enoxaparin Sodium (Lovenox) 40 mg SC DAILY [facility] Last Admin: 09/05/19 09:13 Dose: 40 mg Documented by: Estradiol (Estradiol) 2 mg PO QHS [facility] Last Admin: 09/04/19 22:17 Dose: 2 mg Documented by: Glucagon () 1 mg IM .X1 PRN PRN Reason: Hypoglycemia Guaifenesin (Mucinex) 1,200 mg PO BID [facility] Last Admin: 09/05/19 09:09 Dose: 1,200 mg Documented by: Levofloxacin (Levaquin Iv) 750 mg in 150 mls @ 100 mls/hr IV Q24 [facility] Last Infusion: 09/05/19 10:40 Dose: Infused Documented by: Sodium Chloride () 250 mls @ 15 mls/hr IV .[id number] PRN PRN Reason: Additional IVPB Infusion Dextrose (Dextrose 10%-Water) 250 mls @ 999 mls/hr IV .Q16M PRN; Protocol PRN Reason: HYPOGLYCEMIA Ibuprofen (Motrin) 400 mg PO TID PRN PRN PRN Reason: Pain Score 1-10/10 Insulin Glargine (Lantus (Bkc)) 10 units SC BID [facility] Insulin Human Lispro (Humalog Kwikpen (Bkc)) 0 unit SC ACHS [facility]; Protocol Last Admin: 09/05/19 11:23 Dose: 8 u Documented by: Insulin Human Lispro (Humalog Kwikpen (Bkc)) 10 unit SC TIDAC [facility] Magnesium Hydroxide (Milk Of Magnesia) 30 ml PO DAILY PRN PRN PRN Reason: Constipation Melatonin (Melatonin) 3 mg PO QHS PRN PRN PRN Reason: INSOMNIA [facility] Last Admin: 09/05/19 09:07 Dose: 500 mg Documented by: Metoprolol Tartrate (Lopressor (Beta Ángel)) 25 mg PO BID [facility] Last Admin: 09/05/19 09:08 Dose: 25 mg Documented by: Nicotine (Nicoderm Cq (Pbkc)) 21 mg TRANSDERM. DAILY [facility] Last Admin: 09/05/19 09:10 Dose: 21 mg Documented by: Nitroglycerin (Nitrostat) 0.4 mg SUBLINGUAL Q5M PRN PRN Reason: CARDIAC/CHEST PAIN Ondansetron HCl (Zofran) 4 mg IV Q8H PRN PRN PRN Reason: NAUSEA/VOMITING Oseltamivir Phosphate (Tamiflu) 75 mg PO BID [facility] Stop: 09/08/19 22:01 Last Admin: 09/05/19 09:10 Dose: 75 mg Documented by: Oxycodone HCl (Oxyir) 5 - 10 mg PO Q4H PRN PRN PRN Reason: Pain Score 4-5/10 Last Admin: 09/05/19 11:16 Dose: 5 mg Documented by: Potassium Chloride (K-Dur) 40 meq PO DAILY@0800 [facility] Last Admin: 09/05/19 09:08 Dose: 40 meq Documented by: Prednisone () 40 mg PO DAILY@0800 [facility] Pregabalin (Lyrica) 150 mg PO BID [facility] Last Admin: 09/05/19 09:09 Dose: 150 mg Documented by: Prochlorperazine Edisylate (Compazine Iv) 5 mg IV Q4H PRN PRN PRN Reason: Breakthrough Nausea/Vomiting Senna/Docusate Sodium (Senokot-S, Jacquelyn-Colace) 2 tablet PO BID PRN PRN PRN Reason: Constipation Sodium Chloride () 10 - 40 ml IV UD PRN PRN Reason: SALINE FLUSH Last Admin: 09/05/19 09:19 Dose: 10 ml Documented by: Throat Lozenges (Cepacol Sore Throat Lozenge) 1 lozenge MUCOUS MEM Q2H PRN PRN PRN Reason: SORE THROAT Inpatient E&M: 218[address] [facility] Hosp L3
[2019-09-05 12:36] LABS: Bedside Glucose 355 mg/dL (70-110)
[2019-09-05] MEDS: clonazePAM 0.5 MG Tablet PO (13:08)
[2019-09-05] MEDS: Ondansetron 4 MG/2 ML Vial IV (15:51)
[2019-09-05] MEDS: Insulin Lispro 100 UNIT/ML INSULN.PEN 10 UNIT SC (17:10)
[2019-09-05 18:11] LABS: Bedside Glucose 167 mg/dL (70-110)
[2019-09-05] MEDS: Amitriptyline 100 MG Tablet 150 MG PO (22:06)
[2019-09-05] MEDS: ESTRADIOL 2 MG TABLET PO (22:09)
[2019-09-05 23:31] LABS: Bedside Glucose 194 mg/dL (70-110)
[2019-09-06] VITALS (10 sets, daily range): BP systolic 107–135; BP diastolic 69–85; PULSE 67–93; RESP 16–20; TEMP 36.5–36.9; O2SAT 90–97
[2019-09-06] MEDS: oxyCODONE 5 MG Tablet PO ×2 (02:50→08:17)
[2019-09-06] MEDS: Ipratropium/Albuterol Sulfate 3 ML AMPUL.NEB INHALATION ×3 (03:31→10:32)
[2019-09-06 06:27] LABS: Absolute Neutrophil Count 8.6 X10^3/uL (2.0-7.7); Basophil# 0.04 X10^3/uL; Basophil% 0.3 % (0-1); Eosinophil# 0.03 X10^3/uL; Eosinophils% 0.2 % (0-5); Hematocrit 37.3 % (37-47); Hemoglobin 11.7 g/dL (12.0-15.0); Lymphocyte % 26.7 % (19-41); Mean Corp Hgb Conc 31.4 g/dL (32-36); Mean Corpuscular Volume 92.3 fL (81-99); Mean Platelet Vol. 10.6 fl (6.2-12.0); Monocyte# 0.65 X10^3/uL; NRBC Flagged by Analyzer 0.2 % (0-5); Neutrophil # 8.62 X10^3/uL (2.7-7.7); Neutrophil % 65.7 % (47-70); Platelet Count 238 K/mm3 (150-450); RBC Distribution Width CV 13.9 % (11.6-14.6); RBC Distribution Width SD 47.4 fl (35.1-43.9); Red Blood Count 4.04 M/mm3 (4.2-5.4); White Blood Count 13.1 K/mm3 (4.4-11.0)
[2019-09-06 07:09] LABS: Anion Gap 4 (5-15); BUN 8 mg/dL (7-18); BUN/Creat Ratio 9.8 RATIO (10-20); Calcium,Total 8.2 mg/dL (8.5-10.1); Chloride 102 mmol/L (98-107); Creatinine, Serum 0.82 mg/dL (0.55-1.02); EST Glomerular Filtration Rate 80 mL/min (>60); Est Glom Filt Rate - Afr Amer 96 mL/min (>60); Glucose 221 mg/dL (74-106); Potassium 3.6 mmol/L (3.5-5.1); Sodium Level 138 mmol/L (136-145)
[2019-09-06] MEDS: Insulin Lispro 100 UNIT/ML INSULN.PEN SC ×2 (08:04→11:30)
[2019-09-06] MEDS: Insulin Lispro 100 UNIT/ML INSULN.PEN 10 UNIT SC ×2 (08:05→11:31)
[2019-09-06] MEDS: predniSONE 20 MG Tablet 40 MG PO (08:06)
[2019-09-06] MEDS: levoFLOXacin IV 750 MG/150 ML BAG 100 MG IV (08:15)
[2019-09-06] MEDS: Metoprolol Tartrate 25 MG Tablet PO (08:17)
[2019-09-06] MEDS: Pregabalin 75 MG Capsule 150 MG PO (08:17)
[2019-09-06] MEDS: guaiFENesin 1,200 MG Tablet 1200 MG PO (08:19)
[2019-09-06] MEDS: Oseltamivir Phosphate 75 MG Capsule PO (08:19)
[2019-09-06] MEDS: Enoxaparin 40 MG/0.4 ML Syringe SC (08:19)
[2019-09-06] MEDS: Cyanocobalamin 500 MCG Tablet PO (08:19)
[2019-09-06] MEDS: metFORMIN HCl 500 MG Tablet PO (08:33)
[2019-09-06 09:40] LABS: Bedside Glucose 160 mg/dL (70-110)
[2019-09-06 09:48] LABS: Hemoglobin A1c 8.9 % (4.2-6.3)
--- NOTE | 2019-09-06 10:30 | PCM.PN.PUL ---
Patient Problems: Active and Suspected Problems (Last Reviewed 09/03/19 @ 19:[address] Deepthi Monique, DO) Severe sepsis (Acute) Hyponatremia (Acute) Lactic acidosis (Acute) Respiratory insufficiency (Acute) With hypoxia COPD exacerbation (Suspected) She has never had a sleep study Subjective: Patient did okay overnight. Patient continues to have a dry cough, but oxygen saturations have improved. Patient does report she uses 2 L nasal cannula at baseline at home. Patient is still reporting some dyspnea on exertion, but overall feels she is improved. - Physical Exam Vitals/I&O's: Vital Signs Temp Pulse Resp BP Pulse Ox 36.5 C L 72 18 135/85 H 95 09/06/19 08:01 09/06/19 08:17 09/06/19 08:01 09/06/19 08:17 09/06/19 08:01 Oxygen Flow Rate (L/min) 2 Oxygen Delivery Method Nasal Cannula Weight: 89.5 kg Body Mass Index (BMI) 35.2 Intake and Output for Last 24 Hours 09/04/19 09/05/19 09/06/19 23:59 23:59 23:59 Intake Total 5389 / 5389 1440 / 1440 740 / 740 Balance 5389 / 5389 1440 / 1440 740 / 740 General: Alert, Oriented x3, Cooperative, No apparent distress, - - Appears older than stated age. Speaking in full sentences HEENT: Atraumatic, PERRLA, EOMI, Normocephalic, - - Slight scleral injection without icterus. Nasal cannula in place. Oral: Moist Mucosa, No Gingival or Mucosal Lesions/ Ulcerations Neck: Supple, No JVD, No Nodes, Trachea Midline Lungs: No rhonchi, No rales, Diminished, Wheezes, - - Symmetric expansion. Cardiovascular: Regular rate, Regular Rhythm, Normal S1, Normal S2, No murmurs, No rub noted, No Gallop Abdomen: Bowel Sounds Present, Soft, Non Tender, Non-Distended Extremities: No clubbing, No cyanosis, No edema Skin: No rashes, No breakdown Musculoskeletal: No Tenderness to Palpation of Joints or Extremities Lymphatic: No Cervical, Supraclavicular, or Inguinal Adenopathy Neurological: Cranial nerves II-XII grossly intact, Neuro grossly intact, Motor Exam 5/5 strength throughout Psych/Mental Status: Alert and oriented to time, place, person, mood and affect Microbiology Past 72 Hours 09/03/19 17:30 Blood Culture (Wb) - Anticubital Right Blood Culture - Preliminary No growth in 48 hours. 09/03/19 17:30 Blood Culture (Wb) - Anticubital Left Blood Culture - Preliminary No growth in 48 hours. 09/03/19 21:26 Mucosa - Nasopharyngeal Respiratory Panel (PCR) - Final Influenza A (Subtype H1) 09/03/19 17:46 Mucosa - Nose Influenza Types A,B Direct FA (ESSIE) - Final Laboratory Results 09/05/19 11:22: POC Glucose 355 H 09/05/19 17:09: POC Glucose 167 H 09/05/19 22:05: POC Glucose 194 H 09/06/19 05:25: WBC 13.1 H, RBC 4.04 L, Hgb 11.7 L, Hct 37.3, MCV 92.3, MCH 29.0, MCHC 31.4 L, RDW Std Deviation 47.4 H, RDW Coeff of Afshin 13.9, Plt Count 238, MPV 10.6, Immature Gran % (Auto) 2.100 H, Neut % (Auto) 65.7, Lymph % (Auto) 26.7, Owsley % (Auto) 5.0, Eos % (Auto) 0.2, Baso % (Auto) 0.3, Absolute Neuts (auto) 8.6 H, Absolute Lymphs (auto) 3.50, Nucleated RBC % 0.2 09/06/19 05:25: Sodium 138, Potassium 3.6, Chloride 102, Carbon Dioxide 32.0, Anion Gap 4 L, BUN 8, Creatinine 0.82, Estim Creat Clear Calc 67.80, Est GFR (MDRD) Af Amer 96, Est GFR (MDRD) Non-Af 80, BUN/Creatinine Ratio 9.8 L, Glucose 221 H, Calcium 8.2 L 09/06/19 05:25: Hemoglobin A1c 8.9 H 09/06/19 08:03: POC Glucose 160 H Current Medications Acetaminophen (Tylenol) 650 mg PO Q6H PRN PRN PRN Reason: Mild Pain (1-3)/Temp > 100.7 F Albuterol Sulfate (Ventolin Aerosols) 2.5 mg INHALATION Q2H PRN PRN PRN Reason: SOB/Wheezing Albuterol/Ipratropium (Duoneb) 3 ml INHALATION Q4H.RT [facility] Last Admin: 09/06/19 06:45 Dose: 3 ml Documented by: Amitriptyline HCl (Elavil) 150 mg PO QHS [facility] Last Admin: 09/05/19 22:06 Dose: 150 mg Documented by: Bisacodyl (Dulcolax) 5 mg PO DAILY PRN PRN PRN Reason: Constipation Clonazepam (Klonopin) 0.5 mg PO Q12H PRN PRN PRN Reason: ANXIETY Last Admin: 09/05/19 13:08 Dose: 0.5 mg Documented by: Cyanocobalamin (Vitamin B12) 500 mcg PO DAILY@0800 [facility] Last Admin: 09/06/19 08:19 Dose: 500 mcg Documented by: Enoxaparin Sodium (Lovenox) 40 mg SC DAILY [facility] Last Admin: 09/06/19 08:19 Dose: 40 mg Documented by: Estradiol (Estradiol) 2 mg PO QHS [facility] Last Admin: 09/05/19 22:09 Dose: 2 mg Documented by: Glucagon () 1 mg IM .X1 PRN PRN Reason: Hypoglycemia Guaifenesin (Mucinex) 1,200 mg PO BID [facility] Last Admin: 09/06/19 08:19 Dose: 1,200 mg Documented by: Levofloxacin (Levaquin Iv) 750 mg in 150 mls @ 100 mls/hr IV Q24 [facility] Last Admin: 09/06/19 08:15 Dose: 100 mls/hr Documented by: Sodium Chloride () 250 mls @ 15 mls/hr IV .[id number] PRN PRN Reason: Additional IVPB Infusion Dextrose (Dextrose 10%-Water) 250 mls @ 999 mls/hr IV .Q16M PRN; Protocol PRN Reason: HYPOGLYCEMIA Ibuprofen (Motrin) 400 mg PO TID PRN PRN PRN Reason: Pain Score 1-10/10 Insulin Glargine (Lantus (Bkc)) 10 units SC BID [facility] Last Admin: 09/06/19 08:19 Dose: 10 units Documented by: Insulin Human Lispro (Humalog Kwikpen (Bkc)) 0 unit SC ACHS [facility]; Protocol Last Admin: 09/06/19 08:04 Dose: 2 u Documented by: Insulin Human Lispro (Humalog Kwikpen (Bkc)) 10 unit SC TIDAC [facility] Last Admin: 09/06/19 08:05 Dose: 10 units Documented by: Magnesium Hydroxide (Milk Of Magnesia) 30 ml PO DAILY PRN PRN PRN Reason: Constipation Melatonin (Melatonin) 3 mg PO QHS PRN PRN PRN Reason: INSOMNIA [facility] Admin: 09/06/19 08:33 Dose: 500 mg Documented by: Metoprolol Tartrate (Lopressor (Beta Ángel)) 25 mg PO BID [facility] Last Admin: 09/06/19 08:17 Dose: 25 mg Documented by: Nicotine (Nicoderm Cq (Pbkc)) 21 mg TRANSDERM. DAILY [facility] Last Admin: 09/06/19 08:18 Dose: 21 mg Documented by: Nitroglycerin (Nitrostat) 0.4 mg SUBLINGUAL Q5M PRN PRN Reason: CARDIAC/CHEST PAIN Ondansetron HCl (Zofran) 4 mg IV Q8H PRN PRN PRN Reason: NAUSEA/VOMITING Last Admin: 09/05/19 15:51 Dose: 4 mg Documented by: Oseltamivir Phosphate (Tamiflu) 75 mg PO BID [facility] Stop: 09/08/19 22:01 Last Admin: 09/06/19 08:19 Dose: 75 mg Documented by: Oxycodone HCl (Oxyir) 5 - 10 mg PO Q4H PRN PRN PRN Reason: Pain Score 4-10/10 Last Admin: 09/06/19 08:17 Dose: 10 mg Documented by: Potassium Chloride (K-Dur) 40 meq PO DAILY@0800 [facility] Last Admin: 09/06/19 08:17 Dose: 40 meq Documented by: Prednisone () 40 mg PO DAILY@0800 [facility] Last Admin: 09/06/19 08:06 Dose: 40 mg Documented by: Pregabalin (Lyrica) 150 mg PO BID [facility] Last Admin: 09/06/19 08:17 Dose: 150 mg Documented by: Prochlorperazine Edisylate (Compazine Iv) 5 mg IV Q4H PRN PRN PRN Reason: Breakthrough Nausea/Vomiting Senna/Docusate Sodium (Senokot-S, Jacquelyn-Colace) 2 tablet PO BID PRN PRN PRN Reason: Constipation Sodium Chloride () 10 - 40 ml IV UD PRN PRN Reason: SALINE FLUSH Last Admin: 09/05/19 15:52 Dose: 10 ml Documented by: Throat Lozenges (Cepacol Sore Throat Lozenge) 1 lozenge MUCOUS MEM Q2H PRN PRN PRN Reason: SORE THROAT Medical Necessity - Tobacco Use Smoking Status: Current every day smoker Tobacco Use: Cigarettes Assessment/Plan All Active Problems (Last Reviewed 09/03/19 @ 19:[address] Deepthi Monique, DO) Severe sepsis (Acute) Hyponatremia (Acute) Lactic acidosis (Acute) Respiratory insufficiency (Acute) Bronchitis (Acute) Pneumonia (Resolved) RECOMMENDATIONS: 1. Continue scheduled bronchodilators. Wean steroids over the next 12 to 14 days. 2. Continue Tamiflu x5 days. 3. Given the lack of infiltrate on chest x-ray, it is reasonable to discontinue Levaquin at this time. 4. Continue sliding scale insulin. Likely okay to reassume metformin on discharge 5. Wean supplemental oxygen to maintain saturations at or above 90%. Walking oximetry prior to discharge. 6. Likely okay to discharge if able to tolerate 6 L or less with ambulation. 7. The patient needs to follow-up once again in the pulmonary medicine clinic within 2 weeks of discharge from the hospital. IMPRESSIONS: 1. Severe sepsis secondary to influenza A infection leading to COPD exacerbation The patient has been adequately volume resuscitated and remains hemodynamically stable. Continue Tamiflu with plans to complete 5 days of treatment. Levaquin can be discontinued from my perspective. 2. Acute hypoxemic respiratory failure secondary to COPD with exacerbation due to influenza A infection Continue to wean supplemental oxygen to maintain saturations at or above 90%. Continue current supportive measures as noted above. Continue scheduled bronchodilators along with steroids. Steroids can likely be weaned over the next 12 to 14 days. Patient has not completed outpatient PFT for quantification and clarification of lung function, so treatment similar to COPD would be reasonable. Encourage incentive spirometer use and mobilize patient as tolerated. Patient should follow-up with nurse practitioner 2 weeks after discharge from the hospital 3. Nicotine dependency Tobacco cessation counseling was provided. Nicotine replacement therapy can be offered to the patient while admitted to the hospital. 4. Diabetes mellitus/hypertension/hyperlipidemia/morbid obesity Complicates care, management, recovery and prognosis. Okay to reinitiate metformin on discharge from my perspective. Anticipate elevated blood sugars as long as patient requires supplemental steroids. Inpatient E&M: 83807 Subs Hosp L2
--- NOTE | 2019-09-06 11:43 | CASEMGMT ---
Call to Tania at [facility] [place] and [place] states [place]'s order for home oxygen is 2liters continous at this time. Per Marisol SNOW, pt does not qualify for more home oxygen at this time. She states that pt's ambulatory pulse ox stayed above 90% on 2liters. Sheeba SNOW CM
[2019-09-06 11:46] LABS: Bedside Glucose 360 mg/dL (70-110)
--- NOTE | 2019-09-06 11:51 | DCINST_ITS ---
- Discharge Diagnoses Current Active Problems: Current Active and Chronic Problems (Last Reviewed 09/03/19 @ 19:[address] Deepthi Monique, DO) Severe sepsis (Acute) Obesity (BMI 30.0-34.9) (Chronic) Hyponatremia (Acute) Lactic acidosis (Acute) Respiratory insufficiency (Acute) With hypoxia You will use the following diet at home:: Calorie/Carbohydrate Controlled (specify 1200, 1400, etc) Discharge Activity: Return to Normal Activity Call your doctor if you observe: Fever of 101 or Higher, Shortness of breath, Dizziness, Fainting spells, Chest pain Allergies/Adverse Reactions: Allergies sulfamethoxazole [From Bactrim] Allergy (Verified 09/03/19 16:26) Rash trimethoprim [From Bactrim] Allergy (Verified 09/03/19 16:26) Rash erythromycin base [Erythromycin Base] Adverse Reaction (Verified 09/03/19 16:26) Other ketorolac tromethamine [From Toradol] Adverse Reaction (Verified 09/03/19 16:26) Other IV FORM ONLY PLASTIC TAPE Adverse Reaction (Uncoded 08/04/19 15:14) Rash Medications to take at Discharge Estradiol [Estrace] 2 mg PO QHS 04/02/13 Metoprolol Tartrate [Lopressor (beta mike)] 25 mg PO BID 04/02/13 metFORMIN HCl [Glucophage] 1,000 mg PO BIDCM 04/02/13 Cyanocobalamin [Vitamin B12] 500 mcg PO DAILY@0800 03/22/14 Clonazepam 1 mg PO Q6H PRN PRN 04/29/18 Albuterol Inhaler [Ventolin Hfa] 2 puff INHALATION Q4H PRN PRN #1 inhaler 08/04/19 Fluticasone/Vilanterol [Breo Ellipta 200-25 Mcg INH] 1 ea IH DAILY 08/04/19 Amitriptyline HCl [Elavil] 150 mg PO QHS 09/03/19 Ibuprofen [Motrin] 400 - 600 mg PO Q4H PRN PRN 09/03/19 Ipratropium/Albuterol Sulfate [Duoneb] 3 ml INHALATION Q6H 09/03/19 Potassium Chloride [K-Dur] 10 meq PO BID 09/03/19 Pregabalin [Lyrica] 150 mg PO BID 09/03/19 Oseltamivir Phosphate [Tamiflu] 75 mg PO BID #5 cap 09/06/19 Prednisone See Taper PO DAILY #30 tab 09/06/19 levoFLOXacin tablet [Levaquin tablet] 750 mg PO DAILY #5 tab 09/06/19 The following prescriptions were given: levoFLOXacin tablet [Levaquin tablet] 750 mg PO DAILY #5 tab Transmission Status: Pending to [facility] Prednisone See Taper PO DAILY #30 tab Transmission Status: Pending to [facility] Oseltamivir Phosphate [Tamiflu] 75 mg PO BID #5 cap Transmission Status: Pending to [facility] Primary Care Physician: Robert Patel DO [Primary Care Provider] - Please follow up with your Primary Care Physician in: 1 Week Test Results: Test results from this visit will be discussed in further detail at your follow- up appointment, if applicable. Please Follow Up With: Skyla Burleson NP-C When: 2 Weeks Proposed Discharge Date: 09/06/19
--- NOTE | 2019-09-06 12:05 | CASEMGMT ---
Pt concerned about co-pay for meds. Meds e-scribed to [facility] retail pharmacy and Jun to call this EDY SEVILLA with co-pay prices when obtained. Call back from Jun in retail pharmacy and she states total co-pay for all meds is $5.75 and pt stated had $10. Marisol SNOW updated at this time, voices understanding. Sheeba SNOW CM
[2019-09-06] MEDS: clonazePAM 0.5 MG Tablet PO (12:13)
--- NOTE | 2019-09-06 12:17 | PHA.DC.MR ---
Pharmacy Service has performed discharge medication reconciliation for this patient. The patient's discharge medication list was reviewed for discrepancies and discrepancies were resolved. Home Medications Estradiol [Estrace] 2 mg PO QHS 04/02/13 Metoprolol Tartrate [Lopressor (beta mike)] 25 mg PO BID 04/02/13 metFORMIN HCl [Glucophage] 1,000 mg PO BIDCM 04/02/13 Cyanocobalamin [Vitamin B12] 500 mcg PO DAILY@0800 03/22/14 Clonazepam 1 mg PO Q6H PRN PRN 04/29/18 Albuterol Inhaler [Ventolin Hfa] 2 puff INHALATION Q4H PRN PRN #1 inhaler 08/04/19 Fluticasone/Vilanterol [Breo Ellipta 200-25 Mcg INH] 1 ea IH DAILY 08/04/19 Amitriptyline HCl [Elavil] 150 mg PO QHS 09/03/19 Ibuprofen [Motrin] 400 - 600 mg PO Q4H PRN PRN 09/03/19 Ipratropium/Albuterol Sulfate [Duoneb] 3 ml INHALATION Q6H 09/03/19 Potassium Chloride [K-Dur] 10 meq PO BID 09/03/19 Pregabalin [Lyrica] 150 mg PO BID 09/03/19 Oseltamivir Phosphate [Tamiflu] 75 mg PO BID #5 cap 09/06/19 Prednisone See Taper PO DAILY #30 tab 09/06/19 levoFLOXacin tablet [Levaquin tablet] 750 mg PO DAILY #5 tab 09/06/19
--- NOTE | 2019-09-06 13:03 | DS.PCM_ITS ---
<Marisol Andersen - Last Filed: 09/06/19 13:14> Discharge Date and Diagnosis Date of Admission: 09/03/19 Date of Discharge: 09/06/19 - Primary Discharge Diagnosis Active and Suspected Problems (Last Reviewed 09/03/19 @ 19:[address] Deepthi Monique DO) 1. Severe sepsis secondary to influenza A and left lower lobe pneumonia 2. Acute on chronic hypoxic respiratory failure secondary to exacerbation of COPD as a result of influenza A and left lower lobe pneumonia 3. Type 2 diabetes mellitus 4. Hypertension 5. Hyperlipidemia 6. Morbid obesity 7. Chronic back pain 8. Tobacco dependence - Secondary Discharge Diagnosis Chronic Problems (Last Reviewed 09/03/19 @ 19:[address] Deepthi Monique DO) COPD (chronic obstructive pulmonary disease) (Chronic) has not had PFT's Obesity (BMI 30.0-34.9) (Chronic) Chronic prescription benzodiazepine use (Chronic) Family history of bipolar disorder (Chronic) in her sister Nicotine abuse (Chronic) JCARLOS (obstructive sleep apnea) (Chronic) DJD (degenerative joint disease), lumbar (Chronic) Lumbar spinal stenosis (Chronic) Peripheral neuropathy (Chronic) DM2 (diabetes mellitus, type 2) (Chronic) Depression (Chronic) Benign essential HTN (Chronic) Anxiety (Chronic) Hospital Course and Treatment Imaging Results: Diagnostic Data Chest X-Ray 09/04/19 05:55 IMPRESSION: Patchy left lower lobe infiltrate suspicious for pneumonia. Electronically Signed: Leanna Carrington MD at 8:28 EDT Tel , Service support , Dr. Negrete- Pulmonary medicine Operations: None Procedures: None Summary of Care Provided: The patient is a 44 year old F admitted 09/03/2019 due to cough, fever. 1. Severe sepsis secondary to influenza A and left lower lobe pneumonia-chest x-ray admission with patchy left lower lobe infiltrate. Positive for influenza A. Blood cultures negative. Sputum culture pending. Continue Levaquin at discharge to complete course. Complete course of Tamiflu. Follow-up with primary care physician in 1 week. Follow-up with pulmonary medicine in 2 weeks. 2. Acute on chronic hypoxic respiratory failure secondary to exacerbation of COPD as a result of influenza A and left lower lobe pneumonia-on baseline O2 requirements. Continue supplement oxygen to maintain O2 at or above 90%. Prednisone taper at discharge. Continue home aerosol regimen. Follow-up with pulmonary medicine in 2 weeks as noted above. 3. Type 2 diabetes mellitus-continue home metformin regimen. Hemoglobin A1c 8.9%. Patient concerned with cost of adding new medications/insulin. Recommend carb controlled diet and close follow-up with primary care physician for further monitoring and adjustment. 4. Hypertension-stable, continue metoprolol regimen. 5. Hyperlipidemia-not on statin, outpatient follow-up. 6. Morbid obesity-encouraged diet lifestyle modifications. 7. Chronic back pain-follows with pain management. Requesting narcotics at discharge-instructed to follow-up with pain management. 8. Tobacco dependence-encourage cessation. 9. Anxiety/depression-continue Elavil, clonazepam regimen. General: Alert, Oriented x3, Cooperative HEENT: Atraumatic, PERRLA, EOMI, Normocephalic Neck: Supple, No JVD, Negative Carotid Bruits Lungs: Diminished - Air entry diffusely diminished bilaterally., Rhonchi Cardiovascular: Regular rate, Regular Rhythm, Normal S1, Normal S2, No murmurs Abdomen: Bowel Sounds Present, Soft, Non Tender, Non-Distended Extremities: No edema, Capillary Refill Less than 3 Seconds Skin: No rashes, No breakdown Musculoskeletal: No Tenderness to Palpation of Joints or Extremities Neurological: Cranial nerves II-XII grossly intact, Deep Tendon Reflexes 2+/4 and Symmetrical, Neuro grossly intact Psych/Mental Status: Normal Affect, Appropriate Patient seen and examined prior to discharge. Physical assessment as noted above. Patient is stable for discharge with follow up recommendations as noted above. This patient was seen by LYSSA Magaña under the supervision of Dr. Huffman. - Physical Exam Vitals/I&O's: Vital Signs Temp Pulse Resp BP Pulse Ox 98.4 F 93 18 107/72 93 09/06/19 12:54 09/06/19 12:54 09/06/19 12:54 09/06/19 12:54 09/06/19 12:54 Oxygen Flow Rate (L/min) 2 Oxygen Delivery Method Nasal Cannula Weight: 197 lb 5.019 oz Body Mass Index (BMI) 35.2 Intake and Output for Last 24 Hours 09/04/19 09/05/19 09/06/19 23:59 23:59 23:59 Intake Total 5389 / 5389 1440 / 1440 890 / 890 Balance 5389 / 5389 1440 / 1440 890 / 890 Microbiology Past 72 Hours 09/03/19 17:30 Blood Culture (Wb) - Anticubital Right Blood Culture - Preliminary No growth in 48 hours. 09/03/19 17:30 Blood Culture (Wb) - Anticubital Left Blood Culture - Preliminary No growth in 48 hours. 09/03/19 21:26 Mucosa - Nasopharyngeal Respiratory Panel (PCR) - Final Influenza A (Subtype H1) 09/03/19 17:46 Mucosa - Nose Influenza Types A,B Direct FA (ESSIE) - Final Laboratory Results 09/05/19 17:09: POC Glucose 167 H 09/05/19 22:05: POC Glucose 194 H 09/06/19 05:25: WBC 13.1 H, RBC 4.04 L, Hgb 11.7 L, Hct 37.3, MCV 92.3, MCH 29. 0, MCHC 31.4 L, RDW Std Deviation 47.4 H, RDW Coeff of Afshin 13.9, Plt Count 238, MPV 10.6, Immature Gran % (Auto) 2.100 H, Neut % (Auto) 65.7, Lymph % (Auto) 26.7, Crockett % (Auto) 5.0, Eos % (Auto) 0.2, Baso % (Auto) 0.3, Absolute Neuts (auto) 8.6 H, Absolute Lymphs (auto) 3.50, Nucleated RBC % 0.2 09/06/19 05:25: Sodium 138, Potassium 3.6, Chloride 102, Carbon Dioxide 32.0, Anion Gap 4 L, BUN 8, Creatinine 0.82, Estim Creat Clear Calc 67.80, Est GFR (MDRD) Af Amer 96, Est GFR (MDRD) Non-Af 80, BUN/Creatinine Ratio 9.8 L, Glucose 221 H, Calcium 8.2 L 09/06/19 05:25: Hemoglobin A1c 8.9 H 09/06/19 08:03: POC Glucose 160 H 09/06/19 11:29: POC Glucose 360 H Current Medications Acetaminophen (Tylenol) 650 mg PO Q6H PRN PRN PRN Reason: Mild Pain (1-3)/Temp > 100.7 F Albuterol Sulfate (Ventolin Aerosols) 2.5 mg INHALATION Q2H PRN PRN PRN Reason: SOB/Wheezing Albuterol/Ipratropium (Duoneb) 3 ml INHALATION Q4H.RT [facility] Last Admin: 09/06/19 10:32 Dose: 3 ml Documented by: Amitriptyline HCl (Elavil) 150 mg PO QHS [facility] Last Admin: 09/05/19 22:06 Dose: 150 mg Documented by: Bisacodyl (Dulcolax) 5 mg PO DAILY PRN PRN PRN Reason: Constipation Clonazepam (Klonopin) 0.5 mg PO Q12H PRN PRN PRN Reason: ANXIETY Last Admin: 09/06/19 12:13 Dose: 0.5 mg Documented by: Cyanocobalamin (Vitamin B12) 500 mcg PO DAILY@0800 [facility] Last Admin: 09/06/19 08:19 Dose: 500 mcg Documented by: Enoxaparin Sodium (Lovenox) 40 mg SC DAILY [facility] Last Admin: 09/06/19 08:19 Dose: 40 mg Documented by: Estradiol (Estradiol) 2 mg PO QHS [facility] Last Admin: 09/05/19 22:09 Dose: 2 mg Documented by: Glucagon () 1 mg IM .X1 PRN PRN Reason: Hypoglycemia Guaifenesin (Mucinex) 1,200 mg PO BID [facility] Last Admin: 09/06/19 08:19 Dose: 1,200 mg Documented by: Levofloxacin (Levaquin Iv) 750 mg in 150 mls @ 100 mls/hr IV Q24 [facility] Last Infusion: 09/06/19 11:34 Dose: Infused Documented by: Sodium Chloride () 250 mls @ 15 mls/hr IV .[id number] PRN PRN Reason: Additional IVPB Infusion Dextrose (Dextrose 10%-Water) 250 mls @ 999 mls/hr IV .Q16M PRN; Protocol PRN Reason: HYPOGLYCEMIA Ibuprofen (Motrin) 400 mg PO TID PRN PRN PRN Reason: Pain Score 1-10/10 Insulin Glargine (Lantus (Bk)) 10 units SC BID [facility] Last Admin: 09/06/19 08:19 Dose: 10 units Documented by: Insulin Human Lispro (Humalog Kwikpen ([facility])) 0 unit SC ACHS [facility]; Protocol Last Admin: 09/06/19 11:30 Dose: 8 u Documented by: Insulin Human Lispro (Humalog Kwikpen (Bkc)) 10 unit SC TIDAC [facility] Last Admin: 09/06/19 11:31 Dose: 10 units Documented by: Magnesium Hydroxide (Milk Of Magnesia) 30 ml PO DAILY PRN PRN PRN Reason: Constipation Melatonin (Melatonin) 3 mg PO QHS PRN PRN PRN Reason: INSOMNIA [facility] Last Admin: 09/06/19 08:33 Dose: 500 mg Documented by: Metoprolol Tartrate (Lopressor (Beta Ángel)) 25 mg PO BID [facility] Last Admin: 09/06/19 08:17 Dose: 25 mg Documented by: Nicotine (Nicoderm Cq (Pbkc)) 21 mg TRANSDERM. DAILY [facility] Last Admin: 09/06/19 08:18 Dose: 21 mg Documented by: Nitroglycerin (Nitrostat) 0.4 mg SUBLINGUAL Q5M PRN PRN Reason: CARDIAC/CHEST PAIN Ondansetron HCl (Zofran) 4 mg IV Q8H PRN PRN PRN Reason: NAUSEA/VOMITING Last Admin: 09/05/19 15:51 Dose: 4 mg Documented by: Oseltamivir Phosphate (Tamiflu) 75 mg PO BID [facility] Stop: 09/08/19 22:01 Last Admin: 09/06/19 08:19 Dose: 75 mg Documented by: Oxycodone HCl (Oxyir) 5 - 10 mg PO Q4H PRN PRN PRN Reason: Pain Score 4-10/10 Last Admin: 09/06/19 08:17 Dose: 10 mg Documented by: Potassium Chloride (K-Dur) 40 meq PO DAILY@0800 [facility] Last Admin: 09/06/19 08:17 Dose: 40 meq Documented by: Prednisone () 40 mg PO DAILY@0800 [facility] Last Admin: 09/06/19 08:06 Dose: 40 mg Documented by: Pregabalin (Lyrica) 150 mg PO BID [facility] Last Admin: 09/06/19 08:17 Dose: 150 mg Documented by: Prochlorperazine Edisylate (Compazine Iv) 5 mg IV Q4H PRN PRN PRN Reason: Breakthrough Nausea/Vomiting Senna/Docusate Sodium (Senokot-S, Jacquelyn-Colace) 2 tablet PO BID PRN PRN PRN Reason: Constipation Sodium Chloride () 10 - 40 ml IV UD PRN PRN Reason: SALINE FLUSH Last Admin: 09/05/19 15:52 Dose: 10 ml Documented by: Throat Lozenges (Cepacol Sore Throat Lozenge) 1 lozenge MUCOUS MEM Q2H PRN PRN PRN Reason: SORE THROAT Discharge Diet: Carb Control Diet Discharge Activity: Return to Normal Activity Call your doctor if you observe: Fever of 101 or Higher, Shortness of breath, Dizziness, Fainting spells, Chest pain Home Medications: Medications to take at Discharge Estradiol [Estrace] 2 mg PO QHS 04/02/13 Metoprolol Tartrate [Lopressor (beta ángel)] 25 mg PO BID 04/02/13 metFORMIN HCl [Glucophage] 1,000 mg PO BIDCM 04/02/13 Cyanocobalamin [Vitamin B12] 500 mcg PO DAILY@0800 03/22/14 Clonazepam 1 mg PO Q6H PRN PRN 04/29/18 Albuterol Inhaler [Ventolin Hfa] 2 puff INHALATION Q4H PRN PRN #1 inhaler 08/04/19 Fluticasone/Vilanterol [Breo Ellipta 200-25 Mcg INH] 1 ea IH DAILY 08/04/19 Amitriptyline HCl [Elavil] 150 mg PO QHS 09/03/19 Ibuprofen [Motrin] 400 - 600 mg PO Q4H PRN PRN 09/03/19 Ipratropium/Albuterol Sulfate [Duoneb] 3 ml INHALATION Q6H 09/03/19 Potassium Chloride [K-Dur] 10 meq PO BID 09/03/19 Pregabalin [Lyrica] 150 mg PO BID 09/03/19 Oseltamivir Phosphate [Tamiflu] 75 mg PO BID #5 cap 09/06/19 Prednisone See Taper PO DAILY #30 tab 09/06/19 levoFLOXacin tablet [Levaquin tablet] 750 mg PO DAILY #5 tab 09/06/19 Following Prescrptions Were Given to Patient: levoFLOXacin tablet [Levaquin tablet] 750 mg PO DAILY #5 tab Transmission Status: Received by [facility] Prednisone See Taper PO DAILY #30 tab Transmission Status: Received by [facility] Oseltamivir Phosphate [Tamiflu] 75 mg PO BID #5 cap Transmission Status: Received by [facility] Primary Care Physician: Robert Patel DO [Primary Care Provider] - Please follow up with your Primary Care Physician in: 1 Week Please Follow Up With: Skyla Burleson NP-C When: 2 Weeks Disposition: Home Minutes spent on discharge:: 35 Patient Condition:: Stable Medical Necessity - Tobacco Use Smoking Status: Current every day smoker Tobacco Use: Cigarettes Meaningful Use Info Meaningful Use Diagnoses (Choose all that apply): None applicable <Caitlin Huffman E - Last Filed: 09/06/19 13:29> Discharge Date and Diagnosis - Secondary Discharge Diagnosis Chronic Problems (Last Updated 09/06/19 @ 13:04 by LYSSA Magaña) COPD (chronic obstructive pulmonary disease) (Chronic) has not had PFT's Obesity (BMI 30.0-34.9) (Chronic) Chronic prescription benzodiazepine use (Chronic) Family history of bipolar disorder (Chronic) in her sister Nicotine abuse (Chronic) JCARLOS (obstructive sleep apnea) (Chronic) DJD (degenerative joint disease), lumbar (Chronic) Lumbar spinal stenosis (Chronic) Peripheral neuropathy (Chronic) DM2 (diabetes mellitus, type 2) (Chronic) Depression (Chronic) Benign essential HTN (Chronic) Anxiety (Chronic) Hospital Course and Treatment Summary of Care Provided: Hospitalist note: Discharge summary above reviewed and I concur with the above discharge and treatment plan. Patient presented to the emergency room because of fever, cough, shortness of breath for 5 days and she was found to have left lower lobe infiltrate and also found to have influenza A. She was found to have severe sepsis which is attributed to acute right lower lobe community-acquired pneumonia and influenza A and also found to have acute on chronic hypoxic respiratory failure secondary to COPD exacerbation which was triggered by influenza A. Patient was treated with IV antibiotics, steroids and bronchodilators. Respiratory panel for viruses came back positive for influenza A. Blood culture showed no growth in 48 hours. Patient does have a history of COPD and she has been on oxygen at home at 2 L. During this hospital stay, she required up to 7 L of oxygen and with above-mentioned treatment, patient improved and she was able to come down to 2 L of oxygen which is her baseline at home. Patient discharged home in a stable condition, discharged on tapering prednisone, Tamiflu, Levaquin to complete total of 7 days of treatment, continued on her previous other home medications without any changes, plan to follow-up with PCP in 1 week and follow-up with pulmonology in 2 weeks. - Physical Exam General: Alert, Oriented x3, Cooperative, No apparent distress. HEENT: Atraumatic, PERRLA, EOMI. Neck: Supple, No JVD, Negative Carotid Bruits, Trachea Midline, Thyroid Normal. Lungs: Diminished breath sounds bilateral,, rhonchi, no wheezes.. Cardiovascular: Regular rate, Regular Rhythm, Normal S1, Normal S2, PMI Normal. Abdomen: Bowel Sounds Present, Soft, Non Tender, Non-Distended, No Hepato- splenomegaly. Extremities: No clubbing, No cyanosis, No edema Skin: No rashes, No breakdown Neurological: Cranial nerves are intact, neuro grossly intact This note was generated with AssertID dictation software. It may contain incorrect words, spelling, and punctuation that were not noted in checking the note before signing. - Physical Exam Vitals/I&O's: Vital Signs Temp Pulse Resp BP Pulse Ox 98.4 F 93 18 107/72 93 09/06/19 12:54 09/06/19 12:54 09/06/19 12:54 09/06/19 12:54 09/06/19 12:54 Oxygen Flow Rate (L/min) 2 Oxygen Delivery Method Nasal Cannula Weight: 197 lb 5.019 oz Body Mass Index (BMI) 35.2 Intake and Output for Last 24 Hours 09/04/19 09/05/19 09/06/19 23:59 23:59 23:59 Intake Total 5389 / 5389 1440 / 1440 890 / 890 Balance 5389 / 5389 1440 / 1440 890 / 890 Microbiology Past 72 Hours 09/03/19 17:30 Blood Culture (Wb) - Anticubital Right Blood Culture - Preliminary No growth in 48 hours. 09/03/19 17:30 Blood Culture (Wb) - Anticubital Left Blood Culture - Preliminary No growth in 48 hours. 09/03/19 21:26 Mucosa - Nasopharyngeal Respiratory Panel (PCR) - Final Influenza A (Subtype H1) 09/03/19 17:46 Mucosa - Nose Influenza Types A,B Direct FA (ESSIE) - Final Laboratory Results 09/05/19 17:09: POC Glucose 167 H 09/05/19 22:05: POC Glucose 194 H 09/06/19 05:25: WBC 13.1 H, RBC 4.04 L, Hgb 11.7 L, Hct 37.3, MCV 92.3, MCH 29.0, MCHC 31.4 L, RDW Std Deviation 47.4 H, RDW Coeff of Afshin 13.9, Plt Count 238, MPV 10.6, Immature Gran % (Auto) 2.100 H, Neut % (Auto) 65.7, Lymph % (Auto) 26.7, Crockett % (Auto) 5.0, Eos % (Auto) 0.2, Baso % (Auto) 0.3, Absolute Neuts (auto) 8.6 H, Absolute Lymphs (auto) 3.50, Nucleated RBC % 0.2 09/06/19 05:25: Sodium 138, Potassium 3.6, Chloride 102, Carbon Dioxide 32.0, Anion Gap 4 L, BUN 8, Creatinine 0.82, Estim Creat Clear Calc 67.80, Est GFR (MDRD) Af Amer 96, Est GFR (MDRD) Non-Af 80, BUN/Creatinine Ratio 9.8 L, Glucose 221 H, Calcium 8.2 L 09/06/19 05:25: Hemoglobin A1c 8.9 H 09/06/19 08:03: POC Glucose 160 H 09/06/19 11:29: POC Glucose 360 H Disposition: Home Minutes spent on discharge:: 32 Patient Condition:: Stable Meaningful Use Info Meaningful Use Diagnoses (Choose all that apply): None applicable Inpatient E&M: 17678 Disch Hosp
--- NOTE | 2019-09-07 15:16 | CASEMGMT ---
EDY SEVILLA Discharge Follow-Up Phone Call. Lace: 14 Strata: 4 Discharge Date: 09/06/19 Adm Dx: Severe sepsis, acute exac COPD. Call to pt to inquire about how she has been doing since being discharged from the hospital. She states she is wore out but doing okay. She states she was able to get her new prescriptions. She inquired about the Prednisone and how to taper it, as she states is unable to find the taper instructions. EDY SEVILLA reviewed the Prednisone tapering schedule as what is listed on the ambulatory orders that were E-scribed to [facility]. Pt states she was writing the instructions down and voices understanding. She denies having any other questions about the other medications, discharge instructions, or appts. She states she has not called to make the follow-up appts yet, but plans to do so soon. Ingrid SHERWOOD RN, CM
== END 2019-09-06 13:17 | disposition home or self-care (01) | DRG 193 ==
LOC: ED 18:47 → ICU 20:03 → PCU 09-04 14:27
PROVIDERS: Family Medicine; Internal Medicine; Admitting Provider Internal Medicine; Emergency Provider Emergency Medicine; PCP Family Medicine; Visit Provider Hospitalist
DX: J10.00 Influenza due to other identified influenza virus with unspecified type of pneumonia (principal); J96.21 Acute and chronic respiratory failure with hypoxia; E87.1 Hypo-osmolality and hyponatremia; J44.1 Chronic obstructive pulmonary disease with (acute) exacerbation; J44.0 Chronic obstructive pulmonary disease with (acute) lower respiratory infection; F17.210 Nicotine dependence, cigarettes, uncomplicated; E11.65 Type 2 diabetes mellitus with hyperglycemia; E66.01 Morbid (severe) obesity due to excess calories; E78.5 Hyperlipidemia, unspecified; G89.29 Other chronic pain; M54.9 Dorsalgia, unspecified; I10 Essential (primary) hypertension; Z68.35 Body mass index [BMI] 35.0-35.9, adult; Z79.84 Long term (current) use of oral hypoglycemic drugs
CPT/HCPCS: 36415; 36600; 71045; 80048; 80053; 80202; 81001; 82570; 82803; 82962; 83036; 83605; 83735; 84100; 84300; 85025; 85027; 87040; 87070; 87106; 87205; 87633; 87641; 87804; 93005; 94640; 97802; 99251; 99285; 99406; J7030; J7050; A4216; G0463; J2405

== ENCOUNTER 2019-12-17 09:46 | Emergency (ER) | payer MEDICARE, SELFPAY ==
[2019-09-03 20:20] VITALS: BMI 35.2
[2019-12-17 09:47] VITALS: BP 154/96; PULSE 76; RESP 15; TEMP 36.3; O2SAT 97; BMI 34.7
--- NOTE | 2019-12-17 10:11 | EKG12_ITS ---
Test Reason : SOB Blood Pressure : / mmHG Vent. Rate : 067 BPM Atrial Rate : 067 BPM P-R Int : 166 ms QRS Dur : 098 ms QT Int : 372 ms P-R-T Axes : 060 036 028 degrees QTc Int : 393 ms Normal sinus rhythm Low voltage QRS Incomplete right bundle branch block Borderline ECG Confirmed by SHELBY DANILESON, FERNANDO ([id number]), book editor CADEN LIMA ([id number]) on 12/21/2019 11:09:04 AM Referred By: ROHITH Confirmed By:FERNANDO RYAN MD
--- NOTE | 2019-12-17 10:27 | ED.DCSUM_ITS ---
History of Present Illness Chief Complaint: Shortness of Breath Informant: Patient Narrative: Patient presents with cough and congestion she thinks her shortness of breath is somewhat worse than normal she has COPD she has home nebulizers there is but she has not used them. She is also concerned because her sister whom she lives with was exposed to coronavirus. She has no fever or chills she has a cough which is nonproductive. She has no back pain she has no chest pain she has no abdominal pain. Past Medical History - Allergies and Home Meds Allergies/Adverse Reactions: Allergies sulfamethoxazole [From Bactrim] Allergy (Verified 09/03/19 16:26) Rash trimethoprim [From Bactrim] Allergy (Verified 09/03/19 16:26) Rash erythromycin base [Erythromycin Base] Adverse Reaction (Verified 09/03/19 16:26) Other ketorolac tromethamine [From Toradol] Adverse Reaction (Verified 09/03/19 16:26) Other IV FORM ONLY PLASTIC TAPE Adverse Reaction (Uncoded 08/04/19 15:14) Rash Primary Care Physician: Robert Patel DO [Primary Care Provider] - Past Medical History: - - Hypertension, hypercholesterolemia, diabetes, COPD Surgical History: appendectomy, hysterectomy - With bilateral oophorectomy, - - She had a lung biopsy at the [facility] which was negative Smoking Status: Current every day smoker - Family History Sibling Family History: Reports: - - Migraines, bipolar disorder Maternal Family History: Reports: COPD, - - Mother of COPD Paternal Family History: Reports: - - Her father at the age of 65 from COPD Review of Systems All systems negative except as indicated General: Denies: Fever ENT: Reports: - - Some chronic upper airway congestion, she denies any new congestion or rhinorrhea Cardiovascular: Denies: Chest pain Respiratory: Reports: Dyspnea, Cough. Denies: Sputum Gastrointestinal: Denies: Abdominal pain, Nausea Musculoskeletal: Denies: Myalgias, Arthralgias Skin: Denies: Rash Neurological: Denies: Headache, Weakness Hematologic: Denies: Easy bruising Physical Exam Vital Signs/Narrative: Vital Signs Temp Pulse Resp BP Pulse Ox 12/17/19 09:47 97.4 F L 76 15 154/96 H 97 Inital Vital Signs reviewed: Yes General: Well nourished, Well developed Head: Normocephalic Eyes: Perrl Neck: Supple Cardiovascular: Regular rate, Regular rhythm Respiratory: - - Patient has bilateral wheezing, she does not appear in significant distress, she is not tachypneic at the time I evaluate her, she is speaking in full sentences. Abdomen: Soft, Nontender Back: Nontender, Normal Inspection Extremities: Nontender, No edema Skin: Normal color, No rash Neurological: Normal Strength, Normal Sensation Psychological: Normal affect Diagnostic/Tx/Re-eval Chest X-Ray - ED: 1 View, Read by ED Physician, Read by Radiologist, Normal, Heart, Lungs, Mediastinum - Rhythm Strip Rhythm Strip: Sinus Rhythm Rate: 67 Ectopy: None - EKG Initial EKG Interpretation: Sinus Rhythm, - - Rate 67. Normal IN interval. Normal QTc interval. Incomplete right bundle branch block. Otherwise unremarkable EKG Interpreted by emergency doctor - Medical Decision Making Patient has a normal chest x-ray, unremarkable blood work she appears well. She has no chest pain or any reason to get a cardiac work-up a screening EKG was unremarkable. Because of concerns for COVID the department policy is to not give any nebulizer treatments at this time, she was given an inhaler, she does have a nebulizer machine at home and she has DuoNeb, she is told to use this every 3 hours. She has home oxygen only she uses it when she needs it I told her she probably should use a sensor oxygenation is in the low 90s but she does appear quite well. She wants to be discharged I believe this is reasonable I will treat her with steroids since I believe the patient has a COPD exacerbation and she was tested for COVID however this is low likelihood I am aware that steroids can make COVID worse however at this time and weighing the risks and benefits I believe steroids are warranted. I told the patient if this she worsens at all she needs to return right away, she agrees and will come right back she seems quite trustworthy, she lives with her sister whom I talked to and she also seems quite trustworthy and they will return if anything worsens. Her cough is nonproductive, she does not have a white count or evidence of pneumonia at this time she does not meet criteria for antibiotic treatment. ED Disposition - Plan for ED Patient: Disposition: Home or Assisted Living Diagnosis: COPD (chronic obstructive pulmonary disease) Instructions: ED COPD Flare Prescriptions: Prednisone [Deltasone] 60 mg PO DAILY #15 tab Transmission Status: Pending to [facility] Referrals: Robert Patel DO [Primary Care Provider] - 3-5 Days
[2019-12-17 10:34] LABS: Absolute Neutrophil Count 5.4 X10^3/uL (2.0-7.7); Basophil# 0.04 X10^3/uL; Basophil% 0.4 % (0-1); Eosinophil# 0.36 X10^3/uL; Eosinophils% 3.7 % (0-5); Hematocrit 44.8 % (37-47); Lymphocyte % 33.1 % (19-41); Mean Corp Hgb Conc 31.3 g/dL (32-36); Mean Corpuscular Hgb 29.5 pg (27.0-32.0); Mean Corpuscular Volume 94.5 fL (81-99); Mean Platelet Vol. 10.9 fl (6.2-12.0); Monocyte# 0.61 X10^3/uL; Monocyte% 6.3 % (0-10); NRBC Flagged by Analyzer 0 % (0-5); Neutrophil # 5.42 X10^3/uL (2.7-7.7); Neutrophil % 56.2 % (47-70); Platelet Count 248 K/mm3 (150-450); RBC Distribution Width CV 13.2 % (11.6-14.6); RBC Distribution Width SD 45.8 fl (35.1-43.9); Red Blood Count 4.74 M/mm3 (4.2-5.4); White Blood Count 9.7 K/mm3 (4.4-11.0)
--- NOTE | 2019-12-17 10:35 | RAD_ITS ---
STUDY: X-RAY CHEST REASON FOR EXAM: Female, 44 years old. INCREASED SOB. POSSIBLE COVID EXPOSURE TECHNIQUE: Single AP portable view of the chest. COMPARISON: 09/04/2019 FINDINGS: EKG leads overlie the chest The lungs are clear and expanded. There is no demonstrated pleural abnormality. Normal size heart. Normal mediastinum and sherry. Normal visualized pulmonary arteries. Normal visualized aortic arch and descending thoracic aorta. Normal visualized thoracic spine. Normal visualized ribs, clavicles, and shoulders. There is no demonstrated abnormality of the visualized soft tissue structures of the upper abdomen. RAD/Chest 1 View (Portable) IMPRESSION: No acute pulmonary process Electronically Signed: Wilmar Rivero MD at 10:57 EDT , Service support ,
[2019-12-17 10:36] VITALS: BP 139/91; PULSE 72; RESP 18; TEMP 36.6; O2SAT 95
[2019-12-17] MEDS: MethylPREDNISolone 125 MG/2 ML Vial IV (10:37)
[2019-12-17 10:48] LABS: Anion Gap 5 (5-15); BUN 7 mg/dL (7-18); BUN/Creat Ratio 8.9 RATIO (10-20); Calcium,Total 8.8 mg/dL (8.5-10.1); Chloride 103 mmol/L (98-107); Creatinine, Serum 0.79 mg/dL (0.55-1.02); EST Glomerular Filtration Rate 83 mL/min (>60); Est Glom Filt Rate - Afr Amer 101 mL/min (>60); Estimated Creatinine Clearance 70.38 ml/min; Glucose 146 mg/dL (74-106); Potassium 4.2 mmol/L (3.5-5.1); Sodium Level 139 mmol/L (136-145)
[2019-12-17 10:53] VITALS: O2SAT 95
[2019-12-17 11:47] VITALS: BP 131/77; PULSE 84; RESP 17; O2SAT 95
== END 2019-12-17 11:50 | disposition home or self-care (01) ==
PROVIDERS: Emergency Provider Emergency Medicine; PCP Family Medicine
DX: J44.9 Chronic obstructive pulmonary disease, unspecified (principal); F17.200 Nicotine dependence, unspecified, uncomplicated; E11.9 Type 2 diabetes mellitus without complications; I10 Essential (primary) hypertension; Z79.84 Long term (current) use of oral hypoglycemic drugs
CPT/HCPCS: 71045; 80048; 85025; 87635; 93005; 96374; 99285; G2023; A4216; U0003

== ENCOUNTER → 2020-07-21 14:35 | Outpatient (CLI) | payer MEDICARE, SELFPAY ==
[2020-07-21 17:21] LABS: Absolute Lymphocyte Count 3.44 X10^3/uL (0.83-4.51); Absolute Neutrophil Count 5.1 X10^3/uL (2.0-7.7); Basophil# 0.05 X10^3/uL; Basophil% 0.5 % (0-1); Eosinophil# 0.78 X10^3/uL; Eosinophils% 7.8 % (0-5); Hematocrit 46.3 % (37-47); Hemoglobin 14.4 g/dL (12.0-15.0); Lymphocyte # 3.44 X10^3/ul (4.0); Lymphocyte % 34.4 % (19-41); Mean Corp Hgb Conc 31.1 g/dL (32-36); Mean Corpuscular Hgb 28.9 pg (27.0-32.0); Mean Corpuscular Volume 92.8 fL (81-99); Mean Platelet Vol. 11.6 fl (6.2-12.0); Monocyte# 0.61 X10^3/uL; Monocyte% 6.1 % (0-10); NRBC Flagged by Analyzer 0 % (0-5); Neutrophil # 5.09 X10^3/uL (2.7-7.7); Platelet Count 263 K/mm3 (150-450); RBC Distribution Width CV 13.1 % (11.6-14.6); RBC Distribution Width SD 44.8 fl (35.1-43.9); Red Blood Count 4.99 M/mm3 (4.2-5.4)
[2020-07-21 17:47] LABS: Hemoglobin A1c 6.7 % (3.8-5.6)
[2020-07-21 17:50] LABS: ALB/GLOB Ratio 0.9 RATIO (0.9-2.4); AST(SGOT) 36 U/L (15-37); Alanine Aminotransfer ALT/SGPT 24 U/L (13-56); Albumin, Serum 3.2 g/dL (3.2-5.0); Alkaline Phosphatase 121 U/L (45-117); Anion Gap 5 (5-15); BUN 8 mg/dL (7-18); BUN/Creat Ratio 10.7 RATIO (10-20); Calcium,Total 8.8 mg/dL (8.5-10.1); Chloride 104 mmol/L (98-107); Cholesterol 107 mg/dL (200); Creatinine, Serum 0.75 mg/dL (0.55-1.02); EST Glomerular Filtration Rate 89 mL/min (>60); Est Glom Filt Rate - Afr Amer 107 mL/min (>60); Globulin 3.4 g/dL (2.2-4.2); Glucose 135 mg/dL (74-106); High Density Lipoprotein 42 mg/dL; Protein, Total 6.6 g/dL (6.4-8.2); Sodium Level 139 mmol/L (136-145); Thyroid Stim Hormone (TSH) 1.24 uIU/mL (0.358-3.74); Triglycerides 92 mg/dL; Very Low Density Lipoprotein 18 mg/dL (5-40)
[2020-07-21 17:53] LABS: Microalbumin,Random Urine < 5.0 mg/L (NO RANGE EST.)
== END ==
PROVIDERS: PCP Family Medicine; Visit Provider Family Medicine
DX: Z00.00 Encounter for general adult medical examination without abnormal findings (principal); Z20.828 Contact with and (suspected) exposure to other viral communicable diseases; E11.9 Type 2 diabetes mellitus without complications; I10 Essential (primary) hypertension; R53.83 Other fatigue
CPT/HCPCS: 36415; 80053; 80061; 82043; 82570; 83036; 84443; 85025; 87635; U0005; U0003

== ENCOUNTER 2020-08-26 20:51 | Emergency (ER) | payer MEDICARE, SELFPAY ==
[2020-08-26 20:52] VITALS: BP 156/102; PULSE 93; RESP 16; TEMP 36.6; O2SAT 92; BMI 34.7
--- NOTE | 2020-08-26 21:20 | EKG12_ITS ---
Test Reason : SOB Blood Pressure : / mmHG Vent. Rate : 083 BPM Atrial Rate : 083 BPM P-R Int : 196 ms QRS Dur : 100 ms QT Int : 368 ms P-R-T Axes : 054 016 031 degrees QTc Int : 432 ms Normal sinus rhythm Incomplete right bundle branch block Septal infarct , age undetermined Abnormal ECG Confirmed by JEAN PAUL DANIELSON, REEMA ([id number]), editor farm journal CADEN LIMA ([id number]) on 08/29/2020 12:21:52 PM Referred By: FARAZ Confirmed By:REEMA REAVES MD
--- NOTE | 2020-08-26 21:22 | ED.VISSUMM ---
- ER Visit Summary Date of Service: 08/26/20 Chief Complaint: Cough and shortness of breath. History of Present Illness: The patient is a 45 F 3 COPD on nighttime oxygen. Also aae-zgqsynq-btpnszvof diabetic. States for 2 to 3 days she has had a productive cough of brown sputum. No hemoptysis. Mild chest discomfort from coughing. Also states she has had a low-grade fever of 99-100. Denies nausea, vomiting or diarrhea. No leg pain or swelling. No history of DVT or PE. No recent travel, surgery or immobilization. Physical Examination: Middle-aged female no acute distress vital signs stable afebrile. Pulse ox 92% on room air no hypoxia. H EENT exam unremarkable. Moist mucous membranes. Posterior pharynx normal. Strong smell of tobacco smoke. Neck nontender. No lymphadenopathy. Lungs dry cough. Expiratory wheezing throughout. No rales or rhonchi. Equal symmetrical. No distress. Heart regular rhythm rate about 90 no murmur. Abdomen soft nontender. Moving all 4 extremities. Calves are nontender without edema or cords. Neurologically she is awake and alert with no focal motor deficits. Test Results: X-ray portable 1 view interpreted by myself and radiologist shows chronic changes. Atelectasis. No obvious infiltrate. Normal cardiac silhouette. Normal mediastinum. COVID-19 rapid antigen was negative. Repeat exam patient is doing well at 2314. Her breathing is improved. Her wheezing is improved. She and I discussed her test results. She will be given her first dose of Zithromax here. Emergency Department Course and Treatment: Middle-aged female with suspected bronchitis rule out note pneumonia, rule out Covid or cardiac etiology. EKG and chest x-ray being obtained. She will be given p.o. prednisone 60 mg and DuoNeb and albuterol aerosols to be attained. Treatment Plan: Inhaler as needed. Prednisone 40 mg a day for 1 week. Stop smoking. Follow-up with her primary care physician. Return if worse. At the max daily. Disposition: discharge Impression: Acute bronchitis Exacerbation COPD with bronchospasm History of diabetes This note was generated with [employer] dictation software. It may contain incorrect words, spelling, and punctuation that were not noted in review of the chart prior to signing ED Disposition - Plan for ED Patient: Referrals: Robert Patel DO [Primary Care Provider] -
[2020-08-26] MEDS: predniSONE 20 MG Tablet 60 MG PO (21:27)
[2020-08-26] MEDS: Ipratropium/Albuterol Sulfate 3 ML AMPUL.NEB INHALATION (21:29)
[2020-08-26] MEDS: Albuterol 2.5 MG/3 ML VIAL.NEB. INHALATION (21:29)
[2020-08-26 21:37] VITALS: PULSE 100; RESP 16
--- NOTE | 2020-08-26 21:37 | RAD_ITS ---
STUDY: X-RAY CHEST REASON FOR EXAM: Female, 45 years old. Cough and copd TECHNIQUE: Frontal view COMPARISON: 12/17/2019 FINDINGS: The lungs are expanded with mild interstitial prominence. Left basilar atelectasis. Normal size heart. Normal mediastinum and sherry. Normal visualized pulmonary arteries. Normal visualized aortic arch and descending thoracic aorta. Normal visualized thoracic spine. Normal visualized ribs, clavicles, and shoulders. There is no demonstrated abnormality of the visualized soft tissue structures of the upper abdomen. RAD/Chest 1 View (Portable) IMPRESSION: Left basilar atelectasis. Mild interstitial prominence. Electronically Signed: Herbert Lemus DO at 21:48 EST Tel [phone], Service support ,
[2020-08-26 22:15] VITALS: O2SAT 87
[2020-08-26 22:25] VITALS: BP 155/90; PULSE 88; RESP 22; TEMP 36.4; O2SAT 91
[2020-08-26 22:33] VITALS: O2SAT 95
--- NOTE | 2020-08-26 23:19 | ED.DEP ---
ED Disposition - Plan for ED Patient: Disposition: Home or Assisted Living Instructions: ED Bronchitis with Wheezing (Adult), ED COPD Flare Prescriptions: Prednisone [Deltasone] 40 mg PO DAILY 7 Days #7 tab Prescription Printed Azithromycin [Zithromax] 250 mg PO DAILY #4 tab Prescription Printed Referrals: Robert Patel DO [Primary Care Provider] - 3-5 Days if not improving Additional Instructions: Stop smoking ! Prednisone daily till gone. Zithromax daily till gone. Follow-up your primary care physician. Return the emergency department if feeling worse.
[2020-08-27] MEDS: Acetaminophen 500 MG Tablet 1000 MG PO (00:08)
[2020-08-27] MEDS: Azithromycin 250 MG Tablet 500 MG PO (00:08)
[2020-08-27 00:10] VITALS: BP 153/90; PULSE 93; RESP 16
== END 2020-08-27 00:10 | disposition home or self-care (01) ==
PROVIDERS: Emergency Provider Emergency Medicine; PCP Family Medicine
DX: J20.9 Acute bronchitis, unspecified (principal); J44.1 Chronic obstructive pulmonary disease with (acute) exacerbation; J44.0 Chronic obstructive pulmonary disease with (acute) lower respiratory infection; F17.200 Nicotine dependence, unspecified, uncomplicated; I10 Essential (primary) hypertension; E11.9 Type 2 diabetes mellitus without complications; Z79.84 Long term (current) use of oral hypoglycemic drugs
CPT/HCPCS: 71045; 87426; 93005; 94640; 99283

== ENCOUNTER → 2020-09-25 10:13 | Outpatient (CLI) | payer MEDICARE, SELFPAY ==
[2020-08-26 20:52] VITALS: BMI 34.7
[2020-09-25 12:23] LABS: Absolute Lymphocyte Count 3.67 X10^3/uL (0.83-4.51); Absolute Neutrophil Count 5.2 X10^3/uL (2.0-7.7); Basophil# 0.05 X10^3/uL; Basophil% 0.5 % (0-1); Eosinophils% 5.9 % (0-5); Hematocrit 49.1 % (37-47); Hemoglobin 15.5 g/dL (12.0-15.0); Lymphocyte # 3.67 X10^3/ul (4.0); Lymphocyte % 35.9 % (19-41); Mean Corp Hgb Conc 31.6 g/dL (32-36); Mean Corpuscular Hgb 28.7 pg (27.0-32.0); Mean Corpuscular Volume 90.9 fL (81-99); Monocyte# 0.69 X10^3/uL; Monocyte% 6.8 % (0-10); NRBC Flagged by Analyzer 0 % (0-5); Neutrophil # 5.18 X10^3/uL (2.7-7.7); Neutrophil % 50.6 % (47-70); Platelet Count 289 K/mm3 (150-450); RBC Distribution Width CV 13.1 % (11.6-14.6); RBC Distribution Width SD 44.3 fl (35.1-43.9); White Blood Count 10.2 K/mm3 (4.4-11.0)
[2020-09-25 12:34] LABS: AST(SGOT) 45 U/L (15-37); Alanine Aminotransfer ALT/SGPT 43 U/L (13-56); Albumin, Serum 3.6 g/dL (3.2-5.0); Alkaline Phosphatase 117 U/L (45-117); Anion Gap 4 (5-15); BUN 6 mg/dL (7-18); BUN/Creat Ratio 7.6 RATIO (10-20); Calcium,Total 9.1 mg/dL (8.5-10.1); Chloride 106 mmol/L (98-107); Creatinine, Serum 0.79 mg/dL (0.55-1.02); EST Glomerular Filtration Rate 83 mL/min (>60); Est Glom Filt Rate - Afr Amer 101 mL/min (>60); Globulin 3.6 g/dL (2.2-4.2); Glucose 167 mg/dL (74-106); Protein, Total 7.2 g/dL (6.4-8.2); Sodium Level 140 mmol/L (136-145)
[2020-09-25 12:35] LABS: Hemoglobin A1c 6.7 % (3.8-5.6)
== END ==
PROVIDERS: PCP Family Medicine; Referring Provider Family Medicine; Visit Provider Family Medicine
DX: Z01.818 Encounter for other preprocedural examination (principal); E11.9 Type 2 diabetes mellitus without complications
CPT/HCPCS: 36415; 80053; 83036; 85025

== ENCOUNTER → 2020-12-01 17:36 | Outpatient (CLI) | payer MEDICARE, SELFPAY ==
[2020-12-01 18:03] LABS: OXY Internal Control LINE = VALID (VALID); Oxycodone Drug Screen Positive (<100 ng/mL)
[2020-12-01 18:05] LABS: Amphetamine Urine VISTA NEGATIVE (<1000 ng/mL); Barbiturate Urine VISTA NEGATIVE (< 200 ng/mL); Benzodiazepine Urine VISTA NEGATIVE (< 200 ng/mL); Cocaine Urine VISTA NEGATIVE (< 300 ng/mL); Ecstacy Urine VISTA NEGATIVE (< 500 ng/mL); Methadone Urine VISTA NEGATIVE (< 300 ng/mL); PCP Urine VISTA NEGATIVE (< 25 ng/mL); THC Urine VISTA NEGATIVE (< 50 ng/mL); Vista UDS pH Range 5
== END ==
PROVIDERS: PCP Family Medicine; Referring Provider Family Medicine; Visit Provider Family Medicine
DX: Z51.81 Encounter for therapeutic drug level monitoring (principal); F11.90 Opioid use, unspecified, uncomplicated
CPT/HCPCS: 80307; 80365; G0480

== ENCOUNTER → 2020-12-29 17:34 | Outpatient (CLI) | payer MEDICARE, SELFPAY ==
[2020-12-29 18:09] LABS: OXY Internal Control LINE = VALID (VALID)
[2020-12-29 18:10] LABS: Oxycodone Drug Screen Positive (<100 ng/mL)
[2020-12-29 18:11] LABS: Amphetamine Urine VISTA NEGATIVE (<1000 ng/mL); Barbiturate Urine VISTA NEGATIVE (< 200 ng/mL); Benzodiazepine Urine VISTA NEGATIVE (< 200 ng/mL); Cocaine Urine VISTA NEGATIVE (< 300 ng/mL); Ecstacy Urine VISTA NEGATIVE (< 500 ng/mL); Methadone Urine VISTA NEGATIVE (< 300 ng/mL); PCP Urine VISTA NEGATIVE (< 25 ng/mL); THC Urine VISTA NEGATIVE (< 50 ng/mL); Vista UDS pH Range 5
== END ==
PROVIDERS: PCP Family Medicine; Referring Provider Family Medicine; Visit Provider Family Medicine
DX: F11.90 Opioid use, unspecified, uncomplicated (principal); Z79.899 Other long term (current) drug therapy
CPT/HCPCS: 80307; 80365; G0480

== ENCOUNTER → 2021-02-02 | Outpatient (CLI) | payer MEDICARE, SELFPAY | END | disposition home or self-care (01) | PROVIDERS: PCP Family Medicine; Referring Provider Family Medicine; Visit Provider Family Medicine | DX: Z03.818 Encounter for observation for suspected exposure to other biological agents ruled out (principal) | CPT/HCPCS: 87635; U0005; U0003 ==

== ENCOUNTER → 2021-04-05 08:08 | Outpatient (CLI) | payer MEDICARE, SELFPAY | PROVIDERS: Visit Provider Family Medicine | DX: Z20.828 Contact with and (suspected) exposure to other viral communicable diseases (principal) | CPT/HCPCS: 87635; U0005; U0003 ==

== ENCOUNTER 2021-07-12 17:59 | Outpatient (CLI) | payer MEDICARE, SELFPAY | END 2021-07-12 23:59 | disposition short-term general hospital (02) | PROVIDERS: PCP Family Medicine; Referring Provider Family Medicine; Visit Provider Family Medicine | DX: Z20.822 Contact with and (suspected) exposure to COVID-19 (principal) | CPT/HCPCS: 87635; U0003; U0005 ==

== ENCOUNTER 2022-01-17 05:36 | Inpatient (IN) | payer MEDICARE, MEDICAID, SELFPAY ==
--- NOTE | 2021-12-18 14:08 | RAD_ITS ---
STUDY: X-RAY CHEST REASON FOR EXAM: Female, 46 years old. CHEST PAIN Preop TECHNIQUE: XR Chest 2 Views COMPARISON: None FINDINGS: There is no demonstrated pleural abnormality. Normal size heart. Normal mediastinum and sherry. Normal visualized pulmonary arteries. Normal visualized aortic arch and descending thoracic aorta. Normal visualized thoracic spine. Normal visualized ribs, clavicles, and shoulders. There is no demonstrated abnormality of the visualized soft tissue structures of the upper abdomen. RAD/Chest PA and Lateral IMPRESSION: There are no acute findings. Electronically Signed: Mikael Rosa MD at 16:47 EDT ,
--- NOTE | 2021-12-18 14:09 | EKG12_ITS ---
Test Reason : PREOP Blood Pressure : / mmHG Vent. Rate : 060 BPM Atrial Rate : 060 BPM P-R Int : 182 ms QRS Dur : 106 ms QT Int : 408 ms P-R-T Axes : 054 020 044 degrees QTc Int : 408 ms Normal sinus rhythm Incomplete right bundle branch block Confirmed by SHELBY DANIELSON, FERNANDO ([id number]), editorial project manager CADEN LIMA ([id number]) on 12/19/2021 8:52:36 AM Referred By: MILVIA Confirmed By:FERNANDO RYAN MD
[2021-12-18 15:46] LABS: Absolute Lymphocyte Count 4.16 X10^3/uL (0.83-4.51); Absolute Neutrophil Count 4.7 X10^3/uL (2.0-7.7); Basophil# 0.04 X10^3/uL; Basophil% 0.4 % (0-1); Eosinophil# 0.42 X10^3/uL; Eosinophils% 4.2 % (0-5); Hematocrit 43.7 % (37-47); Hemoglobin 14.1 g/dL (12.0-15.0); Lymphocyte # 4.16 X10^3/ul (0.83-4.51); Lymphocyte % 41.6 % (19-41); Mean Corp Hgb Conc 32.3 g/dL (32-36); Mean Corpuscular Hgb 29.3 pg (27.0-32.0); Mean Corpuscular Volume 90.7 fL (81-99); Monocyte# 0.67 X10^3/uL; Monocyte% 6.7 % (0-10); NRBC Flagged by Analyzer 0 % (0-5); Neutrophil # 4.69 X10^3/uL (2.7-7.7); Neutrophil % 46.9 % (47-70); Platelet Count 253 K/mm3 (150-450); RBC Distribution Width CV 13.9 % (11.6-14.6); RBC Distribution Width SD 46.3 fl (35.1-43.9); Red Blood Count 4.82 M/mm3 (4.2-5.4)
[2021-12-18 15:51] LABS: Prothrombin Time (Protime)PT. 12.6 SECONDS (11.7-14.9)
[2021-12-18 15:52] LABS: Partial Thromboplast Time 26.6 Seconds (24.1-36.2)
[2021-12-18 16:04] LABS: Anion Gap 4 (5-15); BUN 6 mg/dL (7-18); BUN/Creat Ratio 9.1 RATIO (10-20); Calcium,Total 8.8 mg/dL (8.5-10.1); Chloride 106 mmol/L (98-107); Creatinine, Serum 0.66 mg/dL (0.55-1.02); EST Glomerular Filtration Rate 102 mL/min (>60); Est Glom Filt Rate - Afr Amer 123 mL/min (>60); Glucose 86 mg/dL (74-106); Potassium 4.3 mmol/L (3.5-5.1); Sodium Level 139 mmol/L (136-145)
[2021-12-18 16:12] LABS: Hemoglobin A1c 6.7 % (3.8-5.6)
--- NOTE | 2022-01-07 07:36 | HP.PCM_ITS ---
History and Physical History and Physical [facility] Patient Name: Mila Rodriguez : 1975 From:? SHERI OCONNOR PA-C? DATE OF SURGERY:? 01/17/2022 SCHEDULED PROCEDURE: lumbar 5-sacral 1 posterior lumbar interbody fusion, posterior decompression, posterior spinal fusion with instrumentation HISTORY OF PRESENT ILLNESS: Preoperative history and physical exam was performed on January 04, 2022.? Patient did have her recent surgery canceled on December 27, 2021 secondary to a hospital issue.? Patient has already had preoperative workup.? Since the cancellation t here is been no change in medical history.? This is a 46-year-old female who has been having ongoing chronic low back pain since 2011.? Around that time she states she was helping her mom when she went to stand up she felt a pop in her back.? Since then she has had continued pain.? Patient states the pain is aching in the lumbar sacral region.? She does get radiation of the pain into the left buttock region and posterior thigh.? She states she has pain with all activities of daily living.? Rest can be helpful.? She gets occasional tingling into the bilateral feet with the left being worse than the right.? Patient has tried previous conservative measures including nonsteroidal anti-inflammatories and Tylenol without relief.? She has tried physical therapy with minimal relief.? Patient has seen pain management with Dr. Gibson and Dr. Kulkarni in which she has been treated in the past with injections.? She only was able to get short-term relief with the injections.? She denies any history of other back surgeries.? Denies any loss of bowel or bladder control.? She has been treated for her fibromyalgia with Lyrica and Cymbalta.? She has medical history pertinent for, aspirin.? She uses occasional oxygen.? We have obtain surgical clearance from the primary care physician Dr. Patel.? We are also reaching out to Dr. Patel with regards to postoperative pain medications.? She is in a pain contract.? She currently denies any chest pain, shortness of breath, fevers chills or recent infections. REVIEW OF SYSTEMS: ROS: Const: Reports vision problems. Denies anorexia, anxiety, change in appetite, fever and weight change,hard of hearing. CV: Denies chest pain, heart murmur, irregular heartbeat and peripheral vascular disease. Resp: Reports asthma and cough, but denies pneumonia, sleep apnea, SOB, tuberculosis and wheezing. GI: Denies constipation, diarrhea, heartburn, nausea, bloody stools and vomiting, and difficulty swallowing. : Genital: reports menstruation problems. Urinary: denies incontinence. Musculo: Reports leg swelling, but denies trouble walking and weakness and limp. Skin: Reports history of shingles and tattoo, but denies Raynaud's. Neuro: Denies ambulatory dysfunction, dizziness, numbness/tingling and tremor. Psych: Reports stress, but denies anxiety, depression, insomnia and mental illness. Deonte/Lymph: Denies anemia, bleeding/bruising tendency and past transfusion. Reviewed, no changes. PAST MEDICAL HISTORY: Advance Care Plan: No Advance Directives Effective Date: 05/31/2020 PMH: Medical Problems: High Blood Pressure, Diabetes, Fibromyalgia, Migraines, Depression, Colitis, COPD, Asthma, Oxygen Dependent Accidents: Fracture - thumb fx Surgical Hx: Laproscopy, Hysterectomy, Appendectomy Anesthesia Complications: None Assistive Devices: Glasses, Dentures Reviewed, no changes. SOCIAL HISTORY: SH: Marital: .Occupation: Disabled.Work Status: Disabled.Hand Dominance: Right-handed. Personal Habits:? Tobacco Use: Patient is a former smoker.Cigarette Use: Currently smokes.Alcohol: Occasionally.Drug Use: Denies Use.Enjoy Exercising: Never Exercises. Reviewed, no changes. VITALS: Ht: 64 Wt: 162lb Wt k.483 BMI: 27.8 BP: 122/84 Pulse: 76 Resp: 16 T: 97.4 T: 36.3C Pain Level: 7 O2SatR: 97 ALLERGIES: Erythromycin - Nausea,Vomiting Toradol - Turns Mean Plastic Tape - Rash Adhesives Bactrim Chantix? MEDICATIONS: Tizanidine HCL 4 mg take 1 tablet by mouth twice A day as needed, Oxygen? @ home as needed, Metoprolol 50 mg 1 tab PO bid, Cymbalta 60 mg 1 cap PO qpm, Estradiol 2 mg 1po daily, Lyrica 75 mg 1 by mouth twice a day, Crestor 5 mg 1po daily, Percocet 5-325 mg 1-2 by mouth every 4-6 hour as needed pain, Bupropion Hydrochloride ER (SR) 150 mg 1po qday, Trelegy Ellipta 100-62.5-25 mcg/Inh daily, Amitriptyline HCL 150 mg 1po qday, Potassium Chloride 20 Meq/15ML (10%) 10meq, Triamcinolone Acetonide 0.1 % apply as needed, Ventolin HFA 108 (90 Base) mcg/Act inhale 2 puffs as instructed every 4 hours as needed for wheezing/shortness of breath. PRE-OP EXAM:? General appearance:NORMAL? ? ? Other: Eyes: Conjunctivae and lids: NORMAL? Pupils: ERR Ears, Nose, Mouth, and Throat: NORMAL? Other: Inspection of lips, teeth and gums: NORMAL? ?Other: Neck: Examination of neck: no masses noted. Respiratory: Assessment of respiratory effort: NORMAL? ?Other: ?Auscultation of lungs: clear to auscultation no wheezes, rhonchi or rales. Cardiovascular:? Auscultation of heart: regular rate and rhythm, no murmurs, gallops or rubs. PHYSICAL EXAMINATION: On exam this is a pleasant 46-year-old female in no acute distress.? She does have tenderness to palpation in the lower lumbar region around L5.? She has tenderness to palpation of the bilateral paraspinals.? There is tenderness to palpation in the sciatic notch bilaterally.? Sensation intact to light touch to bilateral lower extremities.? She does get numbness and tingling in bilateral feet. IMAGING STUDIES: Previous x-rays a lumbar spine show severe degenerative changes at L5-S1 with loss of disc height, disc osteophyte complex formation and facet arthrosis.? Minimal anterior listhesis of L5 on S1.? There is mild to moderate degenerative changes of bilateral SI joints with loss of joint space, subchondral sclerosis, osteophyte formation Previous MRI shows no gross instability.? Radiologist didn't comment on an L5 left pedicle/pars osseous stress without fracture.? L5-S1 there is severe loss of disc height and signal.? Minimal posterior disc bulge.? Mild central canal stenosis.? Severe bilateral facet arthrosis.? There is moderate bilateral subarticular and foraminal stenosis. IMPRESSION: 1.? Spinal stenosis lumbar region without neurogenic claudication 2.? Type 2 diabetes mellitus next 3.? Hypertension 4.? Fibromyalgia 5.? Migraines 6.? Chronic obstructive pulmonary disease 7.? Depression 8.? Asthma 9.? Nicotine dependence PLAN: Dr. Tad Rosario did discuss and review with the patient all treatment options including surgical versus nonsurgical options.? Patient does wish to proceed with the above-stated procedure.? Potential risks, benefits, and complications of the procedure were discussed in detail including but not limited to , infection, nerve and blood vessel damage, persistent pain, numbness, tingling, paresthesias, blood clot, pulmonary embolism, and requirement for possible further surgery.? The patient expressed full understanding and has no further questions for the doctor.? Patient does agree to proceed with the above-stated procedure and has signed the surgery consent form. We discussed the current risks associated with COVID 19.? This does include the risk of exposure while in the hospital.? Patient was reassured local hospitals have low infection rates and are taking all necessary precautions to avoid exposure to patients.? In addition, we discussed strategies that can be used to help limit exposure including those that limit the patient's time in the hospital.? Also using strategies to limit the patient's need for continued inpatient services after being discharged from the hospital.? Patient was notified that we will need to comply with any screening or testing the hospital wishes to perform or that surgery may be delayed for any positive results. This dictation was created using voice recognition software. Phonetic and/or grammatical errors may exist. ___? I have re-examined the patient.? There are no clinical changes since date of exam. ___? See progress notes for changes. ___? Dictated on admission Date: ? ? ?Time: Signature:
[2022-01-17] VITALS (13 sets, daily range): BP systolic 98–162; BP diastolic 57–89; PULSE 60–72; RESP 14–18; TEMP 35.7–37.1; O2SAT 90–99; BMI 30.2
--- OUTSIDE RECORDS SUMMARY | 2022-01-17 05:38 | XMS RPT_ITS | CCD ---
:1975 Author Organization [facility] Care Team Providers Name Role Phone WALDO RAMIREZ Unavailable Unavailable AWLDO RAMIREZ Unavailable Unavailable MARTA DR PATY CANTU Primary Care Physician Allergies Allergy Reported Allergen(s) Allergy Type Date of Reaction(s) F acility Classification Onset Adhesive Tape; Propensity to 09-11-19 AO Stephanie woodward (1 source) Translations: adverse [facility] [ADHESIVE TAPE reactions [place] (ROSINS)] (disorder) Repository [facility]; [facility] [BACLOFEN] [place] Repository erythromycin; Drug Allergy 10-30-19 [facility] (2 sources) Translations: [facility] [ERYTHROMYCIN] [place] Repository ketorolac; Drug Allergy 07-04-19 [facility] (1 source) Translations: 07 [facility] [KETOROLAC [place] TROMETHAMINE] Repository sulfamethoxazole / Drug [facility] trimethoprim; 13 [facility] Translations: [place] [SULFAMETHOXAZOLE-TR Repo sitory IMETHOPRIM] Adhesive Tape Allergy to Rash [facility] (1 source) substance Work Phone: Ketorolac; Drug Allergy [facility] (1 source) Translations: [ketorolac] Sulfamethoxazole / Drug Allergy [facility] (1 source) Trimethoprim; Translations: [sulfamethoxazole-tr imethoprim] Sulfonamides Drug allergy [facility] (1 source) (Antibiotic); Translations: [sulfa drugs] Medications Current Medications Medication Drug Class(es) Dates Sig (Normalized) Sig (Orig inal) DuoNeb Anticholinergic, Start: DuoNeb Dose = 3 (1 source) beta2-Adrenergic 08-06-2019 mL, Nebuliz ed, Agonist QID, PRN Wheezing Start Date: 08/06/19 Status: Ordered albuterol MDI (90 mcg/inh) CFC free inhalation aerosol Start: take 2 puff(s) by albuterol MDI (1 source) 09-15-2019 inhalation every (90 mcg/inh ) CFC four hours as free inhalatio n needed aerosol INHALE 2 PUFFS EVERY 4 HOURS NEEDED Start Date: 09/15/19 Status: Ordered amitriptyline hydrochloride 150 mg oral tablet Tricyclic Start: take 1 dose by Elavil Dose : (1 source) Antidepressant 12-06-2017 mouth once daily 150 mg =, Oral, at bedtime qHS, 0 Refill(s ) Start Date: 12/06/17 Status: Ordered Breo Ellipta 200 mcg-25 mcg/inh inhalation powder Star t: Breo Ellipta 200 (1 source) 09-15-2019 mcg-25 mcg/inh inhalation powder USE 1 INHALATION SILVIA Y RINSE WITH WATE R & SPIT OUT DO NOT SWALLOW Start Date: 09/15/19 Status: Ordered DULoxetine 60 mg delayed release oral capsule Serotonin and St art: take 1 capsule by DULoxetine 60 mg (1 source) Norepinephrine 09-15-2019 mouth once daily oral ulysses yed Reuptake Inhibitor release c apsule TAKE 1 CAPSULE BY MOUTH EVERY DAY Start Date: 09/15/19 Status: Ordered metFORMIN hydrochloride 1000 mg oral tablet Biguanide Start: take 1 tablet by metFORMIN 1000 (1 source) 09-15-2019 mouth twice daily mg oral ta blet TAKE 1 TABLET B Y MOUTH TWICE A DAY Start Date: 09/15/19 Status: Ordered 24 hr metoprolol succinate 25 mg extended release oral table t beta-Adrenergic Start: metoprolol (1 source) Ángel 12-06-2017 succinate 25 mg oral tablet, extended releas e Dose : 25 mg = 1 tab(s), Oral, BID, 0 Refill(s ) Start Date: 12/06/17 Status: Ordered naproxen sodium 220 mg oral tablet Nonsteroidal Start: naproxen sodium (1 source) Anti-inflammatory 11-08-2020 220 mg ora l Drug tablet Dose : 440 mg = 2 tab(s), Oral, q8h, PRN as needed for headache, # 60 tab(s), 0 Refill(s) Start Date: 11/08/20 Status: Ordered potassium chloride 10 meq oral tablet Start: brendon e 1 tablet by potassium (1 source) 06-01-2019 mouth twice daily chloride 1 0 mEq oral tablet, extended releas e TAKE 1 TABLET B Y MOUTH TWICE A DAY Start Date: 06/01/19 Status : Ordered pregabalin 150 mg oral capsule Start: take 1 dos e by Lyrica Dose : (1 source) 12-05-2017 mouth twice daily 150 mg =, Oral, BID, 0 Refill(s ) Start Date: 12/05/17 Status: Ordered rosuvastatin calcium 10 mg oral tablet HMG-CoA Reductase Start: Crestor 10 mg (1 source) Inhibitor 12-06-2017 oral tablet (NF ) Dose : 10 mg = 1 tab(s), Oral, qHS, # 30 tab(s), 0 Refill(s) Start Date: 12/06/17 Status: Ordered Completed/Discontinued Medications Medication Drug Class(es) Dates Sig (Normalized) Sig (Orig inal) acetaminophen 325 mg / oxyCODONE hydrochloride 5 mg oral tab let Opioid Agonist Start: acetaminophen-oxyC (1 source) 11-08-2020 ODONE 325 mg-5 mg oral tablet Dos e = 1 tab(s), Oral, q6h, PRN for pa in, 0 Refill(s), 86 Start Date: 11/08/20 Status: Ordered Misc Medication Start: Misc Medicat ion Pt (1 source) 08-17-2019 wears O2, 2 lit ers at HS, 0 Refill(s), 84 Start Date: 08/17/19 Status: Ordered Problems Active Problems Problem Classification Problem Date Documented Date Ep isodic/Chronic Asthma Asthma 08-17-2019 Chronic (1 source) Chronic kidney disease Chronic kidney disease 08-17-19 20 Chronic (1 source) stage 2 Chronic obstructive pulmonary disease and bronchiectas is Chronic obstructive lung 08-17-2019 Chronic (1 source) disease 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 Diabetes mellitus without complication Diabetes mellitus 08-17-2019 Chronic (1 source) Disorders of lipid metabolism Hyperlipidemia 0 Chronic (1 source) Essential hypertension Hypertensive disorder 0 Chronic (1 source) Fluid and electrolyte disorders Hyponatremia 0 Episodic (1 source) Headache; including migraine Migraine 08-17-2019 Chronic (1 source) Mood disorders Depressive disorder 08-17-2019 Chroni c (1 source) Mycoses Candidiasis of mouth 08-17-2019 Episodi c (1 source) Other acquired deformities Scoliosis deformity of 11-21 Chronic (1 source) spine Other connective tissue disease Fibromyalgia 8 Episodic (1 source) Other nutritional; endocrine; and metabolic disorders Hypoalbumi nemia 08-17-2019 Chronic (1 source) Other screening for suspected conditions (not mental disorders or infectious disease) Electrocardiogram 08-17-2019 Episodic (1 source) abnormal Residual codes; unclassified Tobacco user 08-17-2019 Episodic (1 source) Respiratory failure; insufficiency; arrest (adult) Patient on ox ygen 08-17-2019 Chronic (1 source) Rheumatoid arthritis and related disease Arthropathy of lumbar 09-20-2019 Chronic (1 source) facet joint Comment on above: Noted on x-ray 09/09 Screening and history of mental health and substance a buse codes H/O: psychiatric disorder 08-17-2019 Episodic (1 source) Spondylosis; intervertebral disc disorders; other back problems Prolapsed lumbar intervertebral 08-17-2019 Chronic (1 source) disc Suicide and intentional self-inflicted injury H/O: attempted sindhu cide 08-17-2019 Episodic (1 source) Past or Other Problems Problem Classification Problem Date Documented Date Ep isodic/Chronic Abdominal hernia Incisional hernia Onset: Episod ic (1 source) without obstruction 03-26-2017 or gangrene; Translations: [Incisional hernia without obstruction or gangrene] Results Test Name Value Interpretation Reference Range Facility XR CHEST 2 VIEWS on 09-26-2021 XR CHEST 2 VIEWS ORIGINAL [facility] EX[facility]INATION: ([place]) TWO XRAY VIEWS OF THE CHEST09/25/2021 3:06 pm CHEST AP/PA and LATERAL HISTORY: ORDERING SYSTEM PROVIDED HISTORY: Reason for Exam: ENCOUNTER FOR PREPPROCEDURAL CARDIOVA SCULAR EXAMINATION FINDINGS: Compared to the prior study of 01/25/2020, there has b een no significant change. The heart is normal in size and configur ation. No vascular congestion or parenchymal infiltrate is identified. The pleural m argins are smooth. Mild degenerative changes are present in the thoracic spine. IMPRESSION: No acute process or interval change. Interpreted by: Fabien Elizalde MD Preliminary Report By: Fabien Elizalde MD Electronically signed By Fabien Elizalde MD Dictated Date: 09/26/2021 3:49:37 AM Prelim Date: 09/26/2021 3:51:30 AM Sign Date: 09/26/2021 3:51:30 AM Ordering Provider: JAZMINE FERREIRA on 01-05-2021 CNOV Office Visit (DAVEY) Normal [facility] MILA RODRIGUEZ ([id number]) 1975 F [facility] Medical Date Time Provider Department Center 01/05/21 12:00 PM JOSSIE OSWALD During your visit today, we recorded the following inf ormation about you: Temperature Pulse Blood pressure Weight 97.3 degrees 69/minute 116/76 75.8 kg Height 1.626 m Jossie Oswald MD 01/05/2021 12:46 PM Signed NEUROSURGERY CONSULT NOTE Jossie Oswald MD Date of visit: December, Patient Name: Ms.Gayle Will Rodriguez Date of : 1975 Current Age: [age] year old Sex: female MRN/E# [id number] Chief Complaint: Patient presents with: New Patient Evaluation HISTORY OF PRESENT ILLNESS : The patient is a 45 year old female with a past medica l history of hypertension, asthma, COPD, diabetes, fi bromyalgia, and pituitary adenoma, AGA who is referred by Dr. Steel for neurosurgical evaluat ion. Ms. Rodriguez presents to the office today as a new patie nt with imaging for evaluation of low back pain. She describes a alcides gstanding history of low back pain since 2003. Since then she has suffered with pers istent back pain with radiation to the bilateral lower extremities angel t fluctuate. Symptoms radiate down to the hip, posterolateral aspect of the leg to t he medial calf, to the ankle. She has participated in multiple modalities of conservative therapy without relief. She was evaluated by Orthopedic Spine, Dr. Steel who obtained imaging. She states Dr. Steel wanted to perform a lumb ar fusion but told her she is too high risk for anesthesia given her [place] PD. He then referred her here for a second opinion. She presents today for evaluatio n and plan of care. Symptoms: low back pain with radiation to the bilatera l lower extremities. PREVIOUS CONSERVATIVE TREATMENTS: NSAID's (Meloxicam) Muscle relaxants PREVIOUS SURGERY: None PAIN EVALUATION 01/05/2021 1207 Pain Level: 5 Pain Location: Back-Lower lower back, L buttock, L leg Description: Sharp;Stabbing;Tingling Duration Units: Years Frequency: Continuous Intervention/Comfort measure: Medication PAST MEDICAL HISTORY Diagnosis Date - [facility] - Asthma - Diabetes (HCC) - Endometriosis, site unspecified Endometriosis - Hypertension - Mental disorder - Migraine with aura, without mention of intract able migraine without mention of status migrainosus - Pituitary adenoma ([facility]) pituitary microadenoma - Smoker - Vitamin B 12 deficiency 12/27/2010 PAST SURGICAL HISTORY Procedure Laterality Date - APPENDECTOMY jun 2008 - BRONCHOSCOPY 2008 - EXPLORATORY OF ABDOMEN 2001 Laparotomy, exp/removal of endometriosis at her naval - L'SCOPE DX W/WO BRUSHINGS/WASHINGS 2002 Laparoscopy - L'SCOPE DX W/WO BRUSHINGS/WASHINGS 2006 Laparoscopy - LAPAROSCOPY W/REM ADNEX STRUCT 01/27/09 LSO, right ovarian cystectomy, lysis of adhesions - PAST SURGICAL HISTORY OF 2009 vaginal hysterectomy RSO - PAST SURGICAL HISTORY OF 09/08/14 lumbar pain injections. - REPAIR INCISIONAL HERNIA,REDUCIBLE 03/26/2017 Hernia repair, incisional ocasio - 13.[address] FAMILY HISTORY Problem Relation Age of Onset - Heart Mother - COPD Mother - Hypertension Mother - Cervical Cancer Mother - Heart Father - Diabetes Father - COPD Father - Hypertension Father - Diabetes Sister ALLERGIES Allergen Reactions - Bactrim [Sulfametho* Rash, Itching - Baclofen Mental Status Change Makes her jumpy. - Erythromycin GI Upset - Toradol [Ketorolac * Mental Status Change agitation - Adhesive Tape (Kusum* Rash, Itching SURGICAL TAPE Current Outpatient Medications Medication Sig Dispense Refill - estradiol (ESTRACE) 0.01 % (0.1 mg/gram) vaginal cre am USE 0.5 G VAGINALLY ONCE DAILY. FOR 2 WEEKS, THEN 3 TIMES A WEEK FOR 2 WEEKS THEN 1-3 TIMES WEEKS 42.5 g 2 - ipratropium-albuterol (DUO NEB) 0.5 mg-3 mg(2.5 mg base)/3 mL nebu Inhale 3 mL as instructed every 6 hours as needed. - OXYGEN, HOME THERAPY, Inhale 2 L/min as instructed d jostin at bedtime. - oxyCODONE-acetaminophen (PERCOCET) 5-325 mg tablet T david 1 tablet by mouth every 4 hours as needed for Pain. 28 tablet 0 - pregabalin (LYRICA) 150 mg capsule Take 150 mg by mo uth twice daily. One every morning, one every night at bedtime - rosuvastatin (CRESTOR) 10 mg tablet Take 10 mg by mo uth daily at bedtime. - POTASSIUM ORAL Take 2 tablets by mouth once daily. - DULoxetine (CYMBALTA) 60 mg capsule Take 60 mg by mo uth once daily. - metoprolol tartrate, short acting, 25 mg tablet Take 1 tablet by mouth twice daily. 60 tablet 5 - amitriptyline 100 mg tablet Take one(1) to one and a half (1.5) tablets daily at bedtime. 45 tablet 5 - metFORMIN (GLUCOPHAGE) 500 mg tablet Take 1 ta blet by mouth twice daily. 60 tablet 11 - Catheter (FEMALE CATHETER) 14 Fr misc To use as directed for self cat (more content not included)... ANES POST on 03-26-2017 ANES POST HNO ID: [id number]: Kya Acevesice: [facility] [place] AnesthesiologyAuthor Type: AnesthesiologistType: Anesthesia PostOpFiled: 03/26/2017 3:00 PMNote Text:POST ANESTHESIA EVALUATION NOTESERVICE DATE: 03/26/2017SERVICE TIME: 3:00 PMDOB: 1975Vitals: [id number] Temp: 36.1 ?C (97 ?F) 36.8 ?C (98.2 ?F) 03/26/1713P: 150/75 143/85 152/87 141/85 03/26/1713Pulse: 95 95 96 94 03/26/1713Resp: 16 16 16 16 03/26/1714pO2: 93% 94% 93% 92%Validated Vital Signs: YesPOST ANES STATUS: No apparent anesthetic complications. The patient isappropriately hydrated with stable respiratory and cardiovascular status.Patient has safe and adequate airway control. The patient has appropriatepain relief and no significant post operative nausea or vomiting. Thepatient has achieved baseline mental status.Further assessment by Anesthesia Service: NoneOther Remarks:SIGNATURE: Kya Becerra MD PATIENT NAME: Mila Solis HansenDATE: March 26, 2017 : 3:00 PM PAGER/CONTACT #: [phone] ANES PREOP on 03-26-2017 ANES PREOP HNO ID: [id number]: Kya Smithervice: [facility] [place] AnesthesiologyAuthor Type: AnesthesiologistType: Anesthesia PreOpFiled: 03/26/2017 8:33 AMNote Text: ANESTHESIOLOGY DAY OF SURGERY NOTESERVICE DATE: 03/26/2017SERVICE TIME: 8:32 AMDOB: 1975Procedure(s) (LRB):LAPAROSCOPIC HERNIORRHAPHY INCISIONAL ABDOMEN REDUCIBLE (N/A)Surgeon(s):Waldo MonroyanEstimated body mass index is 32.13 kg/(m2) as calculated from thefollowing: Height as of this encounter: 157.5 cm (5' 2.01). Weight as of this encounter: 79.7 kg (175 lb 11.3 oz).Most recent hematocrit and potassium results:Hematocrit 48.1 01/14/2017Potassium 4.9 01/14/2017ANES DOS/PREOP NOTE:Vitals: [id number]: 168/98Pulse: 76Resp: 16Temp: 36.1 ?C (97 ?F)TempSrc: Temporal ArterySpO2: 96%Weight: 79.7 kg (175 lb 11.3 oz)Height: 157.5 cm (5' 2.01)ACTIVE PROBLEM LISTOther and Unspecified Coagulation DefectsAbdominal Pain, Unspecified SiteTobacco Use DisorderUnspecified Essential HypertensionNonspecific (Abnormal) Findings On Radiological and Other Examination ofLung FieldEdemaAnxiety State, UnspecifiedBenign Neoplasm of Pituitary Gland and Craniopharyngeal Duct (Pouch) (Hcc)Bronchitis, AcuteSciaticaAsthmaEndometriosisPelvic Mass in FemaleEndometriosis, Site UnspecifiedPituitary Adenoma (Hcc)SmokerHypertensionMigraine With Aura, Without Mention of Intractable Migraine WithoutMention of Status MigrainosusVitamin B 12 DeficiencyControlled Type 2 Diabetes Mellitus Without Complication, WithoutLong-Term Current Use of Insulin (Hcc)Urinary RetentionDepressionLumbar SpondylosisLumbar StenosisDdd (Degenerative Disc Disease), LumbarThoracic Or Lumbosacral Neuritis Or Radiculitis, UnspecifiedLumbosacral Spondylosis Without MyelopathyHernia, IncisionalPAST MEDICAL HISTORYDiagnosis Date- Anxiety [facility]- Asthma- Diabetes (HCC)- Endometriosis, site unspecified Endometriosis- Hypertension- Mental disorder- Migraine with aura, without mention of intractable migraine withoutmention of status migrainosus- Pituitary adenoma (HCC) pituitary microadenoma- Smoker- Vitamin B 12 deficiency 12/27/2010PAST SURGICAL HISTORYProcedure Laterality Date- APPENDECTOMY jun 2008- BRONCHOSCOPY 2008- EXPLORATORY OF ABDOMEN 2001 Laparotomy, exp/removal of endometriosis at her naval- L'SCOPE DX W/WO BRUSHINGS/WASHINGS 2002 Laparoscopy- L'SCOPE DX W/WO BRUSHINGS/WASHINGS 2006 Laparoscopy- LAPAROSCOPY W/REM ADNEX STRUCT 01/27/09 LSO, right ovarian cystectomy, lysis of adhesions- PAST SURGICAL HISTORY OF 2009 vaginal hysterectomy RSO- PAST SURGICAL HISTORY OF 09/08/14 lumbar pain injections.FAMILY HISTORYProblem Relation Age of Onset- Heart Mother- COPD Mother- Hypertension Mother- Cervical Cancer Mother- Heart Father- Diabetes Father- COPD Father- Hypertension Father- Diabetes SisterSocial History:Social HistorySubstance Use Topics- Smoking status: Former Smoker Packs/day: 1.00 Years: 25.00 Types: Cigarettes Quit date: 01/27/2017- Smokeless tobacco: Never Used- Alcohol use Yes Comment: holidaysNo current facility-administered medications on file prior to encounter.Current Outpatient Prescriptions on File Prior to Encounter:estradiol (ESTRACE) 2 mg tablet Take 1 tablet by mouth once daily.pregabalin (LYRICA) 150 mg capsule Take 150 mg by mouth twice daily. Oneevery morning, one every night at bedtimeclonazePAM (KLONOPIN) 1 mg tablet Take 1 mg by mouth three times daily asneeded.rosuvastatin (CRESTOR) 10 mg tablet Take 10 mg by mouth daily at bedtime.esomeprazole (NEXIUM) 40 mg capsule Take 40 mg by mouth once daily.oxyCODONE-acetaminophen (PERCOCET) 5-325 mg tablet Take 1 tablet by mouthevery 8 hours as needed.POTASSIUM ORAL Take 2 tablets by mouth once daily.CYANOCOBALAMIN, VITAMIN B-12, (VITAMIN B-12 ORAL) Take by mouth oncedaily.DULoxetine (CYMBALTA) 60 mg capsule Take 60 mg by mouth once daily.metoprolol tartrate, short acting, 25 mg tablet Take 1 tablet by mouthtwice daily.amitriptyline 100 mg tablet Take one(1) to one and a half (1.5) tabletsdaily at bedtime.metFORMIN (GLUCOPHAGE) 500 mg tablet Take 1 tablet by mouth twice daily.albuterol HFA 90 mcg/Actuation INHALATION inhaler Inhale 2 Puffs asinstructed every 4 hours as needed.diclofenac, EC, (VOLTAREN) 75 mg EC tablet Take 75 mg by mouth twicedaily.Catheter (FEMALE CATHETER) 14 Fr misc To use as directed for self cath.Dx:R33.9ondansetron (ZOFRAN) 4 mg tablet Take 4 mg by mouth four times daily asneeded.metoclopramide HCl 10 mg tablet Take 10 mg by mouth four times daily.Current Facility-Administered Medications:lactated ringers infusion 30 mL/hr INTRAVENOUS CONTINUOUS Waldo TGuttmanceFAZolin 2 g in dextrose (iso-osmotic) 100 mL (ANCEF, KEFZOL) 2 gINTRAVENOUS Pre-Op Once Waldo Fields [facility] HospitalanAllergies:ALLERGIESAllergen Reactions- Bactrim [Sulfametho* Rash, Itching- Baclofen Mental Status Change Makes her jumpy.- Erythromycin GI Upset- Toradol [Ketorolac * Mental Status Change agitation- Adhesive Tape (Kusum* Rash, Itching SURGICAL TAPEDOS EXAM: Adequate NPO Status: YesAnesthetic Risks, Benefits, Alternatives, Personnel and Consent Discussed:YesPatient agrees to proceed: YesPrevious Anesthesia: Nausea and/or vomitingAirway Assessment: MP 2; Neck ROM: Full ROM without neurologic symptoms;Airway Evaluation: Short NeckSymptoms of Sleep Apnea: HypertensionDentition: EdentulousAdditional Physical Exam:Lungs: Patient health status unchanged since recent history and physical.See history and physical for exam findings.Cardiac: Patient health status unchanged since recent history andphysical. See history and physical for exam findings.Additional Pertinent Findings: N/ABlood Products: Not anticipated for this procedureAnesthetic Plan: GeneralAnesthetic Monitoring: Standard ASA MonitorsPain Management Plan: Parenteral or OralASA Class: 3Other Medical Problems: NoneChronic Beta Ángel medication administered within 24 hours: N/AI have interviewed and examined the patient. I have reviewed the medicalrecord and/or the pre-anesthesia evaluation, pertinent labs, and testresults.Significant changes in the patient's condition since the History andPhysical, not otherwise documented in primary service progress notes: NoThis contains updated information obtained within 48 hours ofSurgery/Procedure.SIGNATURE: Kya Becerra MD PATIENT NAME: Mila RodriguezDATE: March 26, 2017 : 8:32 AM CSN: [id number] BRIEF OP NOT on 03-26-2017 BRIEF OP NOT HNO ID: [id number]: Waldo Fields [facility] HospitalanService: General SurgeryAuthor Type: PhysicianType: Brief Op NoteFiled: 03/26/2017 11:51 AMNote Text:BRIEF OPERATIVE NOTATION FOR SURGICAL PROCEDURE.Mila Rodriguez 1975 [id number] femaleLOG ID: [id number]/Procedure Date: 03/26/2017Incision/Procedure Start Time: 10:24 AMIncision Close/Procedure End Time: 11:42 AMSurgeon(s)/Proceduralist(s) and Dry Mill Operator(s):Surgeon(s) and Role: * Waldo Ramirez - PrimaryPhysician Dry Mill Operator: Veronica Ozuna (Pa)) WheelerREFERRKAREN PHYSICIAN:OutpatientDEPT: KIMBERLY PROVIDER: Clementina POS:[id number]: GeneralASA CLASS: 3 - SevereDIAGNOSIS: incisional hernia, ventral herniaPROCEDURE: laparoscopic incisional hernia repair - incarcerated -[id number]: 500EBL: 50Specimens: hernia sac and falciformADDITIONAL DIAGNOSES:FINDINGS: mesh - ventrio ST 17.8 x 13.8 Ref - [id number] Lot [id number]: NonePMHx -PAST MEDICAL HISTORYDiagnosis Date- Anxiety Meds managed by [facility] as of 09/07/12- Asthma- Diabetes (HCC)- Endometriosis, site unspecified Endometriosis- Hypertension- Mental disorder- Migraine with aura, without mention of intractable migraine withoutmention of status migrainosus- Pituitary adenoma (HCC) pituitary microadenoma- Smoker- Vitamin B 12 deficiency 12/27/2010COMORBIDITIES - Obesity, HTN and NIDDMPost Op Occurrences - NoneWound Classification - CleanOperative note dictated in the dictation system. - [id number] Ramirez MD HISTORY PHYSICAL on 03-26-2017 HISTORY HNO ID: [id number]: Waldo Chicaservice: No [facility] PHYSICAL General SurgeryAuthor Type: PhysicianType: Hospital HANDPFiled: 03/26/2017 9:16 AMNote Text:HISTORY AND PHYSICAL?Mila Solis Michael1975??REFERRING PHYSICIAN: Self?CHIEF COMPLAINT: New Patient (hernia consult)?HPI: Mila is a 41 year old female with a complaint of a bulge anddiscomfort in her umbilical region. The patient notes discomfort in thisarea with moving. The symptoms have increased, over the past few weeksafter she was trying to move a heavy object and fell. The patient notes aprevious history of removal of an endometrial implant in her periumbilicalincision [place] [address] [place]. She has had multiple additionalsurgical procedures. She is noted episodic pain in this area since thattime.?The patient notes no symptoms of bowel obstruction and denies nausea orvomiting.The patient was seen by her primary care physician who felt the patienthas a hernia. Mila was referred for evaluation and treatment.?The patient is being seen by me today at the request of Dr. Paty Davis, DO for my opinion and advice regarding abdominal pain and likelyrecurrent incisional hernia.?The patient states she has completely quit smoking for the past 2-3 days.?CT Scan demonstrated the following:?IMPRESSION:Several fat containing midline supraumbilical ventral hernias.Hepatomegaly with steatosis.?The umbilical and ventral defects are approximately 5 cm apart with eachhaving approximately 1 cm defect.?? PAST?MEDICAL?HISTORYPAST MEDICAL HISTORYDiagnosis Date- Anxiety ?? Meds managed by [facility] as of 09/07/12- Asthma ?- Diabetes (HCC) ?- Endometriosis, site unspecified ?? Endometriosis- Hypertension ?- Mental disorder ?- Migraine with aura, without mention of intractable migraine withoutmention of status migrainosus ?- Pituitary adenoma (HCC) ?? pituitary microadenoma- Smoker ?- Vitamin B 12 deficiency 12/27/2010?? PAST?SURGICAL?HISTORY PAST SURGICAL HISTORYjan 2008: [id number]: [id number]: EXPLORATORY OF ABDOMEN Comment: Laparotomy, exp/removal of endometriosis at her [id number]: L'SCOPE DX W/WO BRUSHINGS/WASHINGS Comment: [id number]: L'SCOPE DX W/WO BRUSHINGS/WASHINGS Comment: Laparoscopy01/27/09: LAPAROSCOPY W/REM ADNEX STRUCT Comment: LSO, right ovarian cystectomy, lysis of [id number]: PAST SURGICAL HISTORY OF Comment: vaginal hysterectomy RSO3/: PAST SURGICAL HISTORY OF Comment: lumbar pain injections.?? CURRENT?MEDICATIONS ?Current Outpatient Prescriptions:diclofenac, EC, (VOLTAREN) 75 mg EC tablet Take 75 mg by mouth twicedaily.Catheter (FEMALE CATHETER) 14 Fr misc To use as directed for self cath.Dx:R33.9estradiol (ESTRACE) 2 mg tablet Take 1 tablet by mouth once daily.ARIPiprazole (ABILIFY) 2 mg tablet Take 2 mg by mouth once daily.pregabalin (LYRICA) 150 mg capsule Take 150 mg by mouth twice daily. Oneevery morning, one every night at bedtimeclonazePAM (KLONOPIN) 1 mg tablet Take 1 mg by mouth three times daily asneeded.rosuvastatin (CRESTOR) 10 mg tablet Take 10 mg by mouth daily at bedtime.meloxicam (MOBIC) 15 mg tablet Take 15 mg by mouth once daily. prnesomeprazole (NEXIUM) 40 mg capsule Take 40 mg by mouth once daily.ondansetron (ZOFRAN) 4 mg tablet Take 4 mg by mouth four times daily asneeded.oxyCODONE-acetaminophen (PERCOCET) 5-325 mg tablet Take 1 tablet by mouthevery 8 hours as needed.POTASSIUM ORAL Take 2 tablets by mouth once daily.cholecalciferol, Vitamin D3, (VITAMIN D-3) 400 unit tab Take 400 Units bymouth once daily.CYANOCOBALAMIN, VITAMIN B-12, (VITAMIN B-12 ORAL) Take by mouth oncedaily.lubiprostone (AMITIZA) 24 mcg capsule Take 24 mcg by mouth twice dailywith meals.metoclopramide HCl 10 mg tablet Take 10 mg by mouth four times daily.DULoxetine (CYMBALTA) 60 mg capsule Take 60 mg by mouth once daily.buPROPion SR (WELLBUTRIN SR) 150 mg 12 hr tablet Take 300 mg by mouth oncedaily.metoprolol tartrate, short acting, 25 mg tablet Take 1 tablet by mouthtwice daily.amitriptyline 100 mg tablet Take one(1) to one and a half (1.5) tabletsdaily at bedtime.metFORMIN (GLUCOPHAGE) 500 mg tablet Take 1 tablet by mouth twice daily.albuterol HFA 90 mcg/Actuation INHALATION inhaler Inhale 2 Puffs asinstructed every 4 hours as needed.budesonide-formoterol 80-4.5 mcg/Actuation INHALATION inhaler Inhale 2Puffs as instructed twice daily.?No current facility-administered medications for this visit.?ALLERGIES: Bactrim [Sulfamethoxazole-Trimethoprim]; Baclofen;Erythromycin; Toradol [Ketorolac Tromethamine]; Adhesive Tape (Rosins)?PERSONAL HISTORY: SOCIAL?HISTORY Social History Marital status: Spouse name: Years of education: Number of children: 0?Occupational HistoryOccupation Employer Commentcashier [employer]?Social History Main Topics Smoking status: Current Every Day Smoker Packs/day: 1.00 Years: 25.00 Types: Cigarettes Last attempt to quit: 09/01/2009 Smokeless status: Never Used Alcohol use: Yes Comment: holidays Drug use: No Sexual activity: Not Currently Partners with: Male??FAMILY HISTORY: FAMILY?HISTORY ?FAMILY HISTORY? Heart Mother ?? COPD Mother ?? Hypertension Mother ?? Cervical Cancer Mother ?? Heart Father ?? Diabetes Father ?? COPD Father ?? Hypertension Father ?? Diabetes Sister ???REVIEW OF SYMPTOMS: The review of systems data was entered by the nurse and reviewed by me?There are no exam notes on file for this visit.???PHYSICAL EXAMINATION:?General: The patient is 41 year old female, well nourished, well hydratedin no acute distress. The patient is oriented to time, place, and person.?VITALS: Last menstrual period 11/06/2010. There is no height or weight onfile to calculate BMI.?HEENT: Normal cephalic, ataumatic, pupils are equally round, sclera areanicteric, mucous membranes are moist, oropharynx is clear. Neck has nomasses, asymmetry or lymphadenopathy. Thyroid is unremarkable.?Respiratory: Clear to auscultation and percussion. Normal respiratoryexcursion and pattern.?Cardiac: Examination is regular rate and rhythm.?Abdominal exam: Soft, nontender, with no palpable masses. Nohepatosplenomegaly. A moderate incisional hernia?Rectal exam: exam deferred?Extremities: no clubbing, cyanosis or edema. No adenopathy.?Other:??LABORATORY VALUES: As Noted?RADIOLOGIC STUDIES: As Noted?AssessmentIMPRESSION: Recurrent periumbilical incisional hernia?PLAN:My plan is to perform a laparoscopic incisional hernia repair with mesh.The planned surgical procedure was discussed extensively with the patient. The risks, benefits, anticipated outcomes and possible complications werementioned. Mila undersands that all hernia repair surgery has a chanceof recurrence and/or chronic post operative pain. My staff has alsoexplained the procedure in understandable terms and the patient was giventhe option to take printed material concerning the planned procedure. Thepatient had the opportunity to ask questions concerning the plannedprocedure. The patient freely consents to the planned procedure.?All tobacco/nicotine use needs to be completely stopped at least 4 weeksprior to surgery and not used in any form for 8 weeks following surgerydue to nicotine's prevention of appropriate wound healing?A letter was sent to Dr. Paty Patel, indicating the above findingfor this patient.??Diagnoses: (K43.2) Incisional hernia, without obstruction or gangrene(primary encounter diagnosis)?Anticipated CPT Code: laparoscopic incisional hernia repair - 74218-766?Anticipated Anesthetic: General?Patient weight: Last menstrual period 11/06/2010. BMI: There is noheight or weight on file to calculate BMI.?Planned antibiotic: Ancef 2gm IVPB strategy planning consultant to OR?SCDs needed - Yes??Return to Clinic: The patient is instructed to follow-up with me after thetesting has been completed.? Waldo Ramirez MD NURSING PROG on 03-26-2017 NURSING PROG HNO ID: [id number]: Hieu Jordan, [facility] [place] RNService: NursingAuthor Type: Registered NurseType: Nursing Progress NoteFiled: 03/26/2017 3:14 PMNote Text:Pt up at bedside no new bleeding from umbilical site.ambulated to bathroomgait steady tolerated activity well.voided q/s returned to bed NURSING PROG HNO ID: [id number] [facility] Author: Hieu PadillaRnHazel Jordan RN Service: Nursing Author Type: Registered Nurse Type: Nursing Progress Note Filed: 03/26/2017 1:06 PM Note Text: LAP SITE ABOVE UMBILICUS RE SUTURED PER DIYA WEISS NURSING PROG HNO ID: [id number] [facility] Author: Hieu PadillaRn) EDY Jordan Service: Nursing Author Type: Registered Nurse Type: Nursing Progress Note Filed: 03/26/2017 12:55 PM Note Text: LAP SITE ABOVE UMBILICUS OPEN STERI STRIPS NO LONGER H OLDING LAP SITE CLOSED. DIYA ARCINIEGA NURSING PROG HNO ID: [id number] [facility] Author: Hieu PadillaRn) EDY Jordan Service: Nursing Author Type: Registered Nurse Type: Nursing Progress Note Filed: 03/26/2017 12:46 PM Note Text: UMBILICAL SITE REMAINS OOZING MODERATE BLOOD PA STAFF NOTIFIED NURSING PROG HNO ID: [id number]: Hieu (Rn) Nikki [facility] [place] RNService: NursingAuthor Type: Registered NurseType: Nursing Progress NoteFiled: 03/26/2017 12:34 PMNote Text:UMBILICAL SITE CONTINUES TO OOZE MODERATE BLOOD DR RAMIREZ AWARE PRESSUREHELD X5 MIN NEW DRESSING APPLIED OPERATIVE NO on 03-26-2017 OPERATIVE NO HNO ID: [id number]: Waldo Fields [facility] [place] GuttmanService: General SurgeryAuthor Type: PhysicianType: Operative ReportFiled: 03/27/2017 6:36 PMNote Text:[facility]- Operative ReportMILA RODRIGUEZ LDOB: 1975 AGE: 41 SEX: FMRN: [id number] ACCTNUM: [id number] SVC: GENS LOCATION: [id number] PHYSICIAN: WALDO MONROYANDATE OF PROCEDURE: 03/26/2017SURGEON: Waldo Ramirez M.D.CREDIT COLLECTIONS CLERK: NONEANESTHESIA: General endotracheal.PREOPERATIVE DIAGNOSIS(ES): Incisional hernia and ventral hernia with adefect noted just above the umbilicus about 4.5 cm above that point inthe midline.POSTOPERATIVE DIAGNOSIS(ES): Incisional hernia and ventral hernia arenoted. Each of with about a 1 cm defect with transverse colon omentumstuck in the superior defect and adhesions of the transverse mesocolonomentum to the right upper quadrant.NAME OF OPERATION: Laparoscopic incisional hernia repair, incarceratedrepaired with mesh and lysis of adhesions using a Ventrio ST mesh 17.8 x13.8 cm, reference number [id number], lot number [id number], expires on07/12/2018.INDICATIONS:ESTIMATED BLOOD LOSS: 50 cc.COMPLICATIONS: None.SPECIMENS: Hernia sac and falciform ligament. DRAINS: None.URINE OUTPUT: No catheter.START TIME: 10:24.END TIME: 11:42.ASA: 3.IV FLUIDS: 500 cc.DISPOSITION: The patient taken to PACU in stable condition.FINDINGS: As I described above.PROCEDURE: The patient was brought to the operative suite. After bothmidline defects were marked in the holding area, the patient concurredthis planned operative site. . Time-out was performed verifyingpatient, site, procedure, physician, critical nursing, VTE, antibioticprophylaxis. The patient received 2 g of Ancef, had sequentialcompression device was placed. Following induction of generalanesthetic, the patient was prepped and draped in a usual fashion. Time-out was performed verifying the patient, site, procedure, position. Local anesthetic was injected above the umbilicus. Incision was carried down.Though it was initially felt to be the hernia sac, some preperitoneal fatwas noted in the hernia sac. At this point, a 5 port was used as aVisiport to access the abdominal cavity. A pneumoperitoneum to 15 mmHgwas insufflated. Three 5 mm ports were placed in the left lateralposition and then the supraumbilical port was upsized to a 10 mm Hassonport. Later in the case, 1 of the 5 ports was moved to the rightparamedian position to allow good triangulation for placement of thetacks. At this point, the patient was noted to have no incarceratedmaterial in the supraumbilical defect and again incarcerated transversecolon and omentum in the supraumbilical defect. The falciform ligamentwas divided at the level of the umbilicus, dissected along the upperabdominal wall and down the falciform ligament was again divided with theHarmonic Scalpel just below the liver, bad segment of the falciform wasremoved and sent with hernia sac for pathology. At this point, theincarcerated transverse colon and omentum was bluntly reduced and freedfrom the hernia sac. The patient was then noted to have omentaladhesions to the right upper quadrant. These were taken down sharply andusing via SonoSite harmonic scalpel device. Following this, the patientwas noted to have significant preperitoneal fat and both defects and fatin the preperitoneal space. The hernia sacs were mobilized and theexcess fat and peritoneum between the 2 defects was dissected free andsent out as hernia sac. The total length between the 2 defects was 6 cmwith each defect being approximately 1 cm in size. Superior defect isbeing slightly larger. A 17 x 13 x 8 cm Ventrio mesh was felt to givegood overlay. This was marked as craniocaudal dimension and 0 Surgiprosuture was placed at just the superior aspect of the middle part of themesh. A small incision made between the 2 defects and a granny tightenerwas used to grasp the 0 Surgipro suture as the midpoint covering bothdefects nicely. At this point, interrupted 0 Surgipro sutures wereplaced in the 12 o'clock, 6 o'clock, 9 and 3 o'clock to allow goodplacement in transection suture. Next multiple absorbable tacks placedaround the clock fashion the outer ring, at the mid part, and thenthroughout the mesh with good approximation and flat laying of the mesh.The 5 ports under direct visualization. The pneumoperitoneum wasreleased. The skin was closed with interrupted 4-0 Biosyn subcuticularsutures. Steri-Strips and dressing were applied. The patient toleratedthe procedure well, was brought to recovery room in stable condition.I was present for the entire procedure case. Veronica Sandra, my physicianassistant performed subcuticular closure.Waldo Ramirez M.D.General SurgeryRG:[id number]: 03/26/2017 11:51:07T: 03/26/2017 22:57:03Job #: [id number] SURGICAL PATHOLOGY on 03-26-2017 [facility]: [id number] Normal [place] PATHOLOGY Physician: WALDO RAMIREZ [facility] FINA L DIAGNOSISFalciform ligament, excision - Tendinous fibroadipose tissue.- Negative for malignancy.MELLY/MARY/kizzy 03/28/2017 Jose michaels MD(Electronic Signature) SPE CI MEN SUBMITTEDA: FALCIFORM LIGAMENT CLINICAL DATAHERNIA , INCISIONAL, LMP: HYSTERECTOMYLAPAROSCOPIC INC ISIONAL HERNIA REPAIRGROSS DESCRIPTIONA. Received in formalin labeled falciform ligament are multiple seg mentsof hay-pink fibromembranous and adipose soft tissue aggregating to 8.9 x8.3 x 1.8 cm. No nodularity or induration is identified. Representativesections are submitted in cassette A1.RCN/ray/03/27/17G ross examination performed at [facility], [address] [place] [address] 44 195 of Report: 03/28/2017Date of Procedure: 03/26/2017Date of Receipt: 03/26/2017Submitted by: WALDO RAMIREZ MDLocation: MEORDiagnostic interpretation perfor med at [facility], [address] [place] [id number]. Comment on above: Performed By: #### PATHS ### #[facility] [id number] [place], [place] [id number] [id number] NURSING PROG on 03-20-2017 NURSING PROG HNO ID: [id number]: Prud[facility] RNService: (none)Author Type: Registered NurseType: Nursing Progress NoteFiled: 03/20/2017 2:01 PMNote Text:PACC Nurse Progress NoteHistory AND Physical:PACC Visit Date: NEED HANDP DAY of Surgery ok per Meseret Cruz PAOriginal HANDP Date: need day of surgeryED visit Date: N/AOutside HANDP Scanned Date: N/ALabs Within Last 6 Months:CBC: Date 01/14/2017 in [facility]. No new lab per PACC protocolBMP/CMP: Date 01/14/2017 in [facility]. No new lab per PACC protocolImaging Within Last 12 Months:CT ScanCardiac Testing:EKG in last 12 Months: Yes: Date: 02/14/2017, Scanned Date:No, Comment:NSR, RBBBLast Menstrual Period:LMP Date: N/APostmenopausal >1yr: No,S/P Hysterectomy: YesBMI Percentile (PEDS):N/ARisk Assessment:N/AAnesthesia Review:N/ANarrative:Original PACC date 02/14/2017 surgery rescheduled. Can have HANDP day ofsurgery per Meseret KEANE. Per HANDP known diabetic. History of urinaryretention, self cath 2 to 4 times dailyChart Check:ROSEMARIE Avinaeptember 2016 1:57 PM HOSP on 01-30-2017 HOSP Patient:Mila Rodriguez LMRN: Height:5' 2(1.575 Normal [facility] m)Weight:No patient weight recorded within the last 30 days.Outpatient Medications as of 03/26/17:varenicline (CHANTIX) 0.5 mg tabletdiclofenac, EC, (VOLTAREN) 75 m g EC tabletCatheter (FEMALE CATHETER) 14 Fr miscestradio l (ESTRACE) 2 mg tabletpregabalin (LYRICA) 150 mg capsuleclonazePAM (KLONOPIN) 1 mg tabletrosuvastatin (CRESTOR) 10 mg tabletesomeprazole (NEXIUM) 40 mg capsuleondansetron (ZOFRAN) 4 mg tabletoxyCODONE-acetaminophen (PERCOCET) 5-325 mg tabletPOTASSIUM ORALCYANOCOBALAMIN, VITAMIN B-12, (VITAMIN B-12 ORAL)metoclopramide HCl 10 mg tabletDULoxetine (CYMBALTA) 60 mg capsulemetoprolol tartrate, short acting, 25 mg tabletamitriptyline 100 mg tabletmetFORMIN (GLUCOPHAGE) 500 mg tabletalbuterol HFA 90 mcg/Actuation INHALATION inhalerAdmission/Clini c Administered Medications as of 03/26/17:lactated ringer s infusionceFAZolin 2 g in dextrose (iso-osmotic) 100 mL (ANCEF, KEFZOL)scopolamine 1 mg over 3 days 1 Patch (TRANSDERM-SCOP)scopolamine - VERIFY patchscopolamine - REMOVE PATCHProblem List:Other and unspecified coagulation defects [D68.9]Abdominal pain, unspecified site [R10.9]Tobacco use disorder [F17.200]Unspecified essential hypertension [I10]Nonspecific (abnormal) findings on radiological and other examination of lungfield [793.1]Edema [R60.9]Anxiety state, unspecified [F41.1]Benign neoplasm of pituitary gland and craniopharyngeal duct (pouch) (HCC)[D35.2, D35.3]Bronchitis, acute [J20.9]Sciatica [M54.30]Asthma [J45.909]Endometriosis [N80.9]Pelvic mass in female [R19.00]Endometriosis, site unspecified [N80.9]Pituitary adenoma (HCC) [D35.2]Smoker [F17.200]Hypertension [I10]Migraine with aura, without mention of intractable migraine without mention ofstatus migrainosus [G43.109]Vitamin B 12 deficiency [E53.8]Controlled type 2 diabetes mellitus without complication, without long-termcurrent use of insulin (HCC) [E11.9]Urinary retention [R33.9]Depression [F32.9]Lumbar spondylosis [M47.816]Lumbar stenosis [M48.061]DDD (degenerative disc disease), lumbar [M51.36]Thoracic or lumbosacral neuritis or radiculitis, unspecified [HAP6785]Lumbosacral spondylosis without myelopathy [M47.817]Hernia, incisional [K43.2]Allergies:Bactrim [Sulfamethoxazole-Trimethoprim]BaclofenErythromycinTor a dol [Ketorolac Tromethamine]Adhesive Tape (Rosins)Date Verified: 03/26/17Lab ValuesNo results within the last 30 days for the following basenames: K,HCTNo progress notes entered within the past 30 days Encounters Encounter Date Encounter Type Care Provider Facility Start: 09-25-2021 Patient encounter [facility] End: 09-25-2021 procedure Work P isaak: Start: 03-26-2017 Ambulatory WALDO RAMIREZ [facility] End: 03-26-2017 Procedures Date Procedure Procedure Detail Performing Clin ician Abdominal hysterectomy JAZMINE GOSS DO Work Phone: Appendectomy JAZMINE STEEL DO Work Phone: Excision of colon JAZMINE STEEL DO Work Phone: Hernia of abdominal cavity NHAN STEEL DO (disorder) Work Phone: Immunizations Immunization Date Immunization Notes Care Provider Facility 06-04-2021 COVID-19, mRNA, LNP-S, JAZMINE STEEL DO [facility] PF, 100 mcg or 50 mcg Work Phone: dose; Translations: [Moderna COVID-19 Vaccine] 01-25-2020 tetanus toxoid, reduced JAZMINE STEEL DO [facility] diphtheria toxoid, and Work Phone: acellular pertussis vaccine, adsorbed Social History Date Type Detail Facility Start: 11-08-2020 Tobacco smoking status Heavy tobacco smoker [facility] (finding) Work Phone: Comment on above: Pt in process of quiting smo paul Sex Assigned At Sex [place] [facility] Work Phone: Progress note 01-05-2021 Note Date & Type Note Facility 01-05-2021 Note HNO ID: [id number] [facility] Author: Jossie Oswald MD Service: ? Author Type: Physician Type: Progress Notes Filed: 01/05/2021 12:46 PM Note Text: NEUROSURGERY CONSULT NOTE Jossie Oswald MD Date of visit: December, Patient Name: Ms.Gayle Will Rodriguez Date of : 1975 Current Age: [age] year old Sex: female MRN/E# [id number] Chief Complaint: Patient presents with: New Patient Evaluation HISTORY OF PRESENT ILLNESS : The patient is a 45 year old female with a past medical history of hypertension, asthma, COPD, diabetes, fi bromyalgia, and pituitary adenoma, AGA who is referred by Dr. Steel for hira rosurgical evaluation. Ms. Rodriguez presents to the office today as a new patient with imaging for evaluation of low back pain. She describ es a longstanding history of low back pain since 2003. Since then she has suffered with persistent back pain with radiation to the bilateral low er extremities that fluctuate. Symptoms radiate down to the hip, manager managing olateral aspect of the leg to the medial calf, to the ankle. She has parti cipated in multiple modalities of conservative therapy without relief. She was evaluated by Orthopedic Spine, Dr. Steel who obtained imaging. S he states Dr. Steel wanted to perform a lumbar fusion but told her she is too high risk for anesthesia given her COPD. He then referred her her e for a second opinion. She presents today for evaluation and plan o f care. Symptoms: low back pain with radiation t o the bilateral lower extremities. PREVIOUS CONSERVATIVE TREATMENTS: NSAID's (Meloxicam) Muscle relaxants PREVIOUS SURGERY: None PAIN EVALUATION 01/05/2021 1207 Pain Level: 5 Pain Location: Back-Lower lower back, L buttock, L leg Description: Sharp;Stabbing;Tingling Duration Units: Years Frequency: Continuous Intervention/Comfort measure: Medication PAST MEDICAL HISTORY Diagnosis Date - Anxiety Meds managed by [facility] as of 09/07/12 - Asthma - Diabetes (HCC) - Endometriosis, site unspecified Endometriosis - Hypertension - Mental disorder - Migraine with aura, without mention of intractable migraine without mention of status migrainosus - Pituitary adenoma ([facility]) pituitary microadenoma - Smoker - Vitamin B 12 deficiency 12/27/2010 PAST SURGICAL HISTORY Procedure Laterality Date - APPENDECTOMY jun 2008 - BRONCHOSCOPY 2008 - EXPLORATORY OF ABDOMEN 2001 Laparotomy, exp/removal of endometriosis at her naval - L'SCOPE DX W/WO BRUSHINGS/WASHINGS 200 3 Laparoscopy - L'SCOPE DX W/WO BRUSHINGS/WASHINGS 200 7 Laparoscopy - LAPAROSCOPY W/REM ADNEX STRUCT 01/27/09 LSO, right ovarian cystectomy, lysis of adhesions - PAST SURGICAL HISTORY OF 2009 vaginal hysterectomy RSO - PAST SURGICAL HISTORY OF 09/08/14 lumbar pain injections. - REPAIR INCISIONAL HERNIA,REDUCIBLE 09/2016 Hernia repair, incisional ocasio - 13.[address] FAMILY HISTORY Problem Relation Age of Onset - Heart Mother - COPD Mother - Hypertension Mother - Cervical Cancer Mother - Heart Father - Diabetes Father - COPD Father - Hypertension Father - Diabetes Sister ALLERGIES Allergen Reactions - Bactrim [Sulfametho* Rash, Itching - Baclofen Mental Status Change Makes her jumpy. - Erythromycin GI Upset - Toradol [Ketorolac * Mental Status Aliyah nge agitation - Adhesive Tape (Kusum* Rash, Itching SURGICAL TAPE Current Outpatient Medications Medication Sig Dispense Refill - estradiol (ESTRACE) 0.01 % (0.1 mg/gra m) vaginal cream USE 0.5 G VAGINALLY ONCE DAILY. FOR 2 WEEKS, THEN 3 TIMES A WEEK FOR 2 WEEKS THEN 1-3 TIMES WEEKS 42.5 g 2 - ipratropium-albuterol (DUONEB) 0.5 mg- 3 mg(2.5 mg base)/3 mL nebu Inhale 3 mL as instructed every 6 hours as need ed. - OXYGEN, HOME THERAPY, Inhale 2 L/min a s instructed daily at bedtime. - oxyCODONE-acetaminophen (PERCOCET) 5-3 25 mg tablet Take 1 tablet by mouth every 4 hours as needed for Pain. 28 tablet 0 - pregabalin (LYRICA) 150 mg capsule Brendon e 150 mg by mouth twice daily. One every morning, one every night at bedtim e - rosuvastatin (CRESTOR) 10 mg tablet Ta ke 10 mg by mouth daily at bedtime. - POTASSIUM ORAL Take 2 tablets by mouth once daily. - DULoxetine (CYMBALTA) 60 mg capsule Ta ke 60 mg by mouth once daily. - metoprolol tartrate, short acting, 25 mg tablet Take 1 tablet by mouth twice daily. 60 tablet 5 - amitriptyline 100 mg tablet Take one(1 ) to one and a half (1.5) tablets daily at bedtime. 45 tablet 5 - metFORMIN (GLUCOPHAGE) 500 mg tablet T david 1 tablet by mouth twice daily. 60 tablet 11 - Catheter (FEMALE CATHETER) 14 Fr misc To use as directed for self cath. Dx:R33.9 90 Each 3 No current facility-administered medicat ions for this visit. REVIEW OF SYSTEMS Review of Systems Constitutional: Negative for chills, ana cristina phoresis (Negative for night sweats.) and fever. HENT: Negative for ear discharge and rhi norrhea. Eyes: Negative for discharg (more conten t not included)... Clinical Note 08-31-2020 Note Date & Type Note Facility 08-31-2020 Note Patient Outreach (COVAMN) [facility] MILA RODRIGUEZ ([id number]) 1975 F N FR Date Time Provider Department 08/31/20 [facility], [place] During your visit today, we recorded the following information about you: Allergies As of Date: 08/31/2020 Noted A llergy Reaction BACTRIM (SULFAMETHOXAZOLE-TRIMETH*2012 2 - Rash 9 - Itching BACLOFEN 12/29/2014 1 - Mental Status Ch vianey Comments: Makes her jumpy. ERYTHROMYCIN 10/29/2005 8 - GI Upset TORADOL (KETOROLAC TROMETHAMINE) 007 1 - Mental Status Change Comments: agitation ADHESIVE TAPE (ROSINS) 09/10/2006 2 - Ra sh 9 - Itching Comments: SURGICAL TAPE Date Reviewed: 12/01/2018 Reviewed by: Laina ([facility]) Kyle - Fully Assessed Order(s):SARS-COVID VACCINE 1ST DOSE APPT [[id number]] Order #: [id number] FUTURE Prescriptions as of 08/31/2020 Sig: ESTRADIOL 2 MG TABLET TAKE 1 TABLET BY M OUTH EVERY * ESTRADIOL 0.01% (0.1 MG/GRAM)* USE 0.5 G VAGINALLY ONCE SILVIA* IPRATROPIUM 0.5 MG-ALBUTEROL * Inhale 3 mL as instructed lashonda* OXYGEN (HOME THERAPY) Inhale 2 L/min as instructed * OXYCODONE-ACETAMINOPHEN 5 MG-* Take 1 ta blet by mouth every * VARENICLINE 0.5 MG TABLET Take 0.5 mg by mouth twice da* DICLOFENAC SODIUM 75 MG TABLE* Take 75 m g by mouth twice neva* CATHETER 14 FR To use as directed for se lf c* PREGABALIN 150 MG CAPSULE Take 150 mg by mouth twice da* CLONAZEPAM 1 MG TABLET Take 1 mg by mout h three time* ROSUVASTATIN 10 MG TABLET Take 10 mg by mouth daily at * ONDANSETRON HCL 4 MG TABLET Take 4 mg by mouth four times* OXYCODONE-ACETAMINOPHEN 5 MG-* Take 1 ta blet by mouth every * POTASSIUM ORAL Take 2 tablets by mouth o nce * DULOXETINE 60 MG CAPSULE,ULYSSES* Take 60 m g by mouth once silvia* METOPROLOL TARTRATE 25 MG TAB* Take 1 ta blet by mouth twice * AMITRIPTYLINE 100 MG TABLET Take one(1) to one and a half* METFORMIN 500 MG TABLET Take 1 tablet by mouth twice * Problem List As Of Date 08/31/2020 Noted Resolved COAGULAT DEFECT NEC/NOS [D68.9] 08/28/19 07 Abdominal Pain, Unspecified Site [R10.9] 07/07/2008 More... TOBACCO USE DISORDER [F17.200] 9 More... HYPERTENSION NOS [I10] 10/20/2008 More... Abn Findings-Lung Field [793.1] 11/19/19 09 More... EDEMA [R60.9] 11/18/2008 ANXIETY STATE NOS [F41.1] 11/29/2008 More... Benign neoplasm of pituitary gland and c ranioph*11/29/2008 More... Bronchitis, Acute [J20.9] 05/29/2009 More... Sciatica [M54.30] 03/07/2010 Asthma [J45.909] 08/03/2010 Endometriosis [N80.9] 08/24/2010 Diabetes [E11.9] 06/19/2011 Pelvic mass in female [R19.00] 1 Endometriosis, site unspecified [N80.9] More... Pituitary adenoma [D35.2] More... Smoker [F17.200] Hypertension [I10] Mgrn w aura wo [facility] mgrn [G43.109] Vitamin B 12 deficiency [E53.8] 12/28/19 11 Controlled type 2 diabetes mellitus with out com*06/19/2011 Urinary retention [R33.9] 09/13/2011 Depression [F32.9] 01/08/2012 Lumbar spondylosis [M47.816] 10/16/2012 Lumbar stenosis [M48.061] 10/16/2012 DDD (degenerative disc disease), lumbar [M51.36]10/16/2012 Thoracic or lumbosacral neuritis or radi culitis*09/08/2014 Lumbosacral spondylosis without myelopat hy [M47*12/15/2014 Hernia, incisional [K43.2] 01/30/2017 More... Encounter Status:Closed by MONIK SINHA R on 09/04/20 Evaluation + Plan note Note Date & Type Note Facility Evaluation + Plan note No data available for this [facility] section Work Phone: Hospital Discharge instructions Note Date & Type Note Facility Hospital Discharge instructions No data available for this [facility] section Work Phone: Progress note Note Date & Type Note Facility Progress note No data available for this section [facility] Work Phone: Summary Purpose Family History No Family History Records FoundNo Family History Records FoundNo Family History Records FoundNo Family History Records Found Advance Directives No Advanced Directives Records FoundNo Advanced Directives Records FoundNo Advanced Directives Records FoundNo Advanced Directives Records Found Additional Source Comments INFORMATION SOURCE (unrecognized section and content) DATE CREATED AUTHOR AUTHOR'S ORGANIZ ATION 12/17/2017 [facility] DATE CREATED AUTHOR AUTHOR'S ORGANIZATIO N 01/06/2021 [facility] DATE CREATED AUTHOR AUTHOR'S ORGANIZATIO N 08/11/2021 [facility] DATE CREATED AUTHOR AUTHOR'S ORGANIZATIO N 01/09/2022 [facility] Found ation ([place]) Care Team (unrecognized section and cont ent) Personnel Name: PATY PATEL Meeta CANTU Address: [address] [place] [address] FOR RECORDS PERTAINING TO PATIENTS WHO ARE OR HAVE BEEN ENROLLED IN A CHEMICAL DEPENDENCY/SUBSTANCE ABUSE PROGRAM, SOME INFORMATION MAY BE OMITTED. This clinical summary was aggregated from multiple sources. Caution should be exercised in using it in the provision of clinical care. This summary normalizes information from multiple sources, and as a consequence, information in this document may materially change the coding, format and clinical context of patient data. In addition, data may be omittedin some cases. CLINICAL DECISIONS SHOULD BE BASED ON THE PRIMARY CLINICAL RECORDS. [facility]. provides no warranty or guarantee of the accuracy or completeness of information in this document.
[2022-01-17] MEDS: Lactated Ringers 1,000 ML 15 ML IV (06:00)
[2022-01-17 06:50] LABS: Bedside Glucose 117 mg/dL (74-106)
--- NOTE | 2022-01-17 07:31 | DS.PCM_ITS ---
Providers Date of Admission: 01/17/22 Primary Care Physician: Dr. Robert Patel DO Reason For Visit: lumbar 5- sacral 1 posterior lumbar interbody fusi Diagnosis Discharge Diagnosis (1) Lumbar stenosis: Status: Acute Code(s): M48.061 - Spinal stenosis, lumbar region without neurogenic claudication Medications at Discharge Home Medications estradiol 2 mg tablet 2 mg PO QHS hormone 04/02/13 metformin 500 mg tablet 1,000 mg PO BIDCM dm 04/02/13 metoprolol tartrate 25 mg tablet 50 mg PO BID bp 04/02/13 albuterol sulfate 90 mcg/actuation aerosol inhaler 2 puff inhalation Q4H PRN PRN Wheezing ##1 08/04/19 fluticasone furoate 200 mcg-vilanterol 25 mcg/dose inhalation powder 1 ea IH DAILY copd 08/04/19 amitriptyline 150 mg tablet 150 mg PO QHS headaches 09/03/19 potassium chloride 10 mEq tablet,extended release(part/cryst) 10 meq PO BID hypokalemia 09/03/19 pregabalin 150 mg capsule 150 mg PO BID nerve pain 09/03/19 Rosuvastatin Calcium 10 mg PO DAILY HDL 08/26/20 oxycodone-acetaminophen 5 mg-325 mg tablet (Percocet) 1 tab PO Q6H PRN Pain 12/12/21 oxycodone-acetaminophen 5 mg-325 mg tablet 1 tab PO Q6H PRN PRN Pain 7 days #28 tabs 01/17/22 Hospital Course Operations - (L5-S1 posterior lumbar interbody fusion, decompression, posterior spinal fusion with instrumentation, use of allograft) Summary of Care Provided Minutes Spent on Discharge: 15 Hospital Course: The patient is a 46-year-old female who underwent an L5-S1 fusion on 01/17/2022. She was subsequently admitted. The hospitalist was consulted for medical management. The patient progressed well. Her pain was controlled and she was mobilizing well. Her drain was pulled on postoperative day 1. No significant medical issues were reported and she was subsequently discharged home on 12/22 to follow-up with Dr. Rosario in 3 weeks Physical Exam Const alert, oriented x3 and no apparent distress General Appearance: cooperative, comfortable and well kempt HEENT normocephalic and head/scalp atraumatic Eyes EOMs intact bilaterally and conjunctivae normal Neck full ROM General: normal visual inspection Chest inspection of chest normal and palpation of chest normal Resp normal respiratory effort and normal air movement Effort and Inspection: able to speak in complete sentences Cardio regular rate and peripheral pulses 2+ throughout GI soft to palpation, non-tender and non-distended Back/Spine Back/Spine Narrative: Dressing clean dry and intact. Incision well approximated with interrupted sutures in place. No tenderness erythema drainage or fluctuance. Drain pulled today Cervical Spine: cervical ROM normal Thoracic Spine / Upper Back: normal to inspection Lumbar Spine / Lower Back: normal to inspection Extremity normal to inspection, full ROM, normal capillary refill, no clubbing, cyanosis or edema and no calf tenderness Skin no rashes or lesions noted General Skin Exam: no breakdown Neuro oriented x3, CN's II-XII intact bilaterally, moves all extremities, no focal motor deficits, no sensory deficits noted and deep tendon reflexes 2+ bilaterally Motor Exam: strength 5/5 throughout and muscle tone normal throughout Weight / BMI Weight Weight: 165 lb 5.547 oz Body Mass Index (BMI) 30.2 ABG / Lab / Microbiology Data Result Diagrams: 12/18/21 14:35 12/18/21 14:35 Laboratory: Laboratory Results - last 24 hr 01/17/22 06:15: POC Glucose 117 H D/C Instructions Discharge Diet: No restrictions Discharge Activity: - (No repetitive bending, twisting or lifting greater than 5 pounds) Weight Bearing Status: Weight bearing as tolerated Lifting Restrictions: 5 pounds Call your doctor if your incision/area has: Continuous Slow Oozing, Sudden Increased Bleeding, Increased Pain/ Swelling, Increased Redness, Foul Smelling Discharge and Swelling at the incision site Call your doctor if you observe: Fever of 101 or Higher, Coldness, Increased Pain, Numbness or Tingling, Change in Color, Inability to urinate, Inability to have a bowel movement, Using more than 1 pad per hour, Shortness of breath, Dizziness, Fainting spells, Swelling in the ankles, Chest pain, Prolonged hiccupping, Increased palpitations (irregular heartbeat), Calf discomfort and Uncontrolled pain Change Dressing in: Daily Cleanse incision/area with: Do not get Incision Wet and Keep Dressing Clean & Dry Additional Dressing/Incision Instructions: Change dressing daily with iodine, gauze and tape. [place] dressing to shower Please Follow Up With: Tad Rosario DO When: 3 weeks Meaningful Use Info Meaningful Use Diagnoses (Choose all that apply): None applicable Discharge Plan Admission Admit Date/Time: 01/17/22 05:36 Attending Provider: Tad Rosario Primary Care Provider: Robert Patel Consulting Providers: Rossi Nicholson Instructions Additional Instructions / Restrictions: 1. During your procedure, you received sedation through your IV. Please follow these instructions for the next 24 hours: Do not drive a motor vehicle, do not drink any alcoholic beverages, and do not sign any legal documents or make personal or business decisions. A responsible adult should stay with you at least 6 hours after the procedure. 2. Keep your surgical site/incision clean and the dressing dry and intact. Change dressing daily with iodine gauze and tape. You may use an ice pack at the surgical site to reduce any swelling or discomfort. 3. Monitor the incision site for any signs or symptoms of infection. Watch for redness, excessive swelling or drainage, or continued pain at the incision site after 3 days. Contact your physician immediately for a fever, chills or a temperature of 101.5? F or greater. 4. Take your medication exactly as prescribed by your physician. Do not attempt to wean yourself off any of your medications even though your pain is improving. This process needs to be carefully monitored by your doctor. Take any antibiotics prescribed exactly as directed and until they are gone. 5. Avoid stretching, bending, pulling, twisting or any sudden movements. Do not bend or twist at the waist. 6. No lifting greater than 5 pounds. 7. Do not operate a motor vehicle, equipment or a power tool while taking pain medication 8. Do not have any manipulation done by a chiropractor or any other physician without first consulting with the surgeon 9. Please contact our office if you are even scheduled for a CT scan or an MRI. 10. Please call us if you have any questions, problems or concerns. Discharge Orders/Prescriptions Prescriptions: New oxycodone-acetaminophen 5-325 mg tablet 1 tab PO Q6H PRN PRN (Reason: Pain) 7 Days Qty: 28 0RF Continued metformin 500 MG tablet 1,000 mg PO BIDCM estradiol 2 MG tablet 2 mg PO QHS metoprolol tartrate 25 MG tablet 50 mg PO BID fluticasone furoate-vilanterol 1 EACH blister with device 1 ea IH DAILY albuterol sulfate 1 INHALER inhaler 2 puff inhalation Q4H PRN PRN (Reason: Wheezing) Qty: 1 0RF amitriptyline 150 MG tablet 150 mg PO QHS pregabalin 150 MG capsule 150 mg PO BID potassium chloride 10 MEQ tablet 10 meq PO BID Rosuvastatin Calcium 10 mg PO DAILY oxycodone-acetaminophen [Percocet] 5-325 mg Tablet 1 tab PO Q6H PRN (Reason: Pain) Discontinued ibuprofen 200 MG tablet 400 - 600 mg PO Q4H PRN PRN (Reason: back pain) Other Ambulatory Orders: 12 Lead EKG (Routine) Location: None Selected Ordered By: Dr. Tad Rosario Referrals / Follow Up: Tad Rosario DO [Med Staff - Active Staff] - Robert Patel DO [Primary Care Provider] - Disposition Disposition (needs filled in before D/C Order can be placed): Home, Self Care
--- NOTE | 2022-01-17 07:31 | PCM.OPRPT ---
Problems Associated Problem List Diagnoses (1) Lumbar stenosis: Report of Operation Date of Procedure: 01/17/22 Pre-Operative Diagnosis: 1. Lumbar stenosis, L5-S1 with spondylosis 2. Lumbar degenerative disc disease, L5-S1 Post-Operative Diagnosis: 1. Lumbar stenosis, L5-S1 with spondylosis 2. Lumbar degenerative disc disease, L5-S1 Surgery/Procedure Performed:: 1. L5-S1 posterior lumbar interbody fusion 2. Insertion of intervertebral biomechanical device x1 3. Structural allograft for spinal fusion 4. L5 bilateral laminectomies, foraminotomies, facetectomies, decompression of bilateral nerve roots 5. S1 bilateral laminectomies, foraminotomies, facetectomies, decompression of bilateral nerve roots 6. L5-S1 posterolateral fusion 7. Pedicle screw fixation 8. Local autograft for spinal fusion 9. Neuro monitoring bilateral upper and bilateral lower extremities Description of Surgical Findings:: The patient is a 46-year-old female with intractable back and leg pain. Image studies confirm the above diagnoses. She has failed conservative treatment to include medication, physical therapy and injections. The patient opted for operative intervention understanding the risk to include but not limited to infection, bleeding, damage to nerves arteries and veins, possibility of spinal fluid leak, nonunion, hardware failure, continued pain, need for further surgery, deep vein thrombosis, pulmonary embolism, heart attack, risk of stroke or . The patient was identified in the preoperative holding area. There she received preoperative IV antibiotics Ancef and was then transferred to the operative suite. Once in the operative suite after general endotracheal anesthesia was established, the patient was transferred to the [facility] operating table in the prone position. All bony prominences were padded accordingly. The lumbar spine was prepped and draped in a standard surgical fashion. Bear hugger's were not turned on until the drapes were placed and sealed with Ioban. A midline incision was made and taken down to the level of the lumbodorsal fascia. The fascia was divided and subperiosteal dissection was taken down to the level of the transverse processes and sacral ala of L5 and S1 bilaterally. A bone scalpel was then used to perform cuts of the lamina of L5. Then a series of rongeurs and Kerrisons was used removing the spinous process and lamina at L5. Then facetectomies of greater than 50% were performed as well as foraminotomies decompressing the bilateral nerve roots. Given the severity of the stenosis I needed to perform wide bilateral laminectomies and near complete facetectomies in order to decompress the neural elements, thus creating instability necessitating the fusion. I then proceeded with the interbody fusion. The dura and nerve roots were identified and retracted medially. A knife was utilized to perform an annulotomy on the right at L5-S1. An endplate elevator, curettes, pituitaries were utilized to remove disc material. Endplates were prepared with a rasp. An appropriate sized intervertebral peek cage device measuring 7 mm was packed with morselized cancellous allograft and impacted into position completing the posterior lumbar interbody fusion at the L5-S1 level. I then proceeded with pedicle screw fixation. Starting points were found at the junction of the superior articular process and transverse process and sacral ala at L5 and S1 bilaterally. A power bur was used for the starting points. Pedicle probes were placed bilaterally and then 6.5 x 45 mm screws were placed bilaterally at L5 and 6.5 x 35 mm screws were placed bilaterally at S1. The screws were tested with intraoperative neurophysiologic monitoring and they tested within normal limits. Connecting rods were then applied and secured with set screws. I then proceeded with the posterior lateral fusion. This was accomplished by decorticating the transverse process bilaterally at L5 and the sacral ala bilaterally at S1. This decorticated bone was then bridged with local autograft from the decompression as well as morselized cancellous allograft therefore completing the posterior lateral fusion at L5-S1. The incision was thoroughly irrigated. Tisseel was placed over the dura as a hemostatic agent. A deep drain was placed. The fascia was closed with #1 Vicryl, subcutaneous with 2-0 Vicryl and skin with 2-0 nylon. A sterile dressing was applied with 4 x 4's ABD and tape. Sponge instrument and needle counts were correct at the end of the case. The patient was extubated and taken to the PACU without incident. Neurophysiologic monitoring was maintained at baseline throughout the duration of the case. Estefania Cho PA-C was present during the entire duration of the case and necessary for critical parts of the case including retraction and closure. Surgeon: Tad Rosario road freight brake coupler: Estefania Cho Type of Anesthesia: General Drains: Hemovac Estimated Blood Loss (mL): 300 cc Fluids Replaced: 3000 cc Grafts/Implants Used: Unified spine, Talos, Vitae OS, DBM Complications None Admit VTE Documentation VTE Present on Admission: No
--- NOTE | 2022-01-17 07:31 | PCM.PN.ORT ---
Subjective Subjective The patient was seen and examined postoperatively in the PACU. He is resting comfortably. His pain is controlled. He denies any complaints including numbness tingling or weakness. Objective Data Objective Data Vital Signs: Vital Signs Temp Pulse Resp BP Pulse Ox O2 Del Method 96.3 F L 61 18 162/89 H 96 Room Air 01/17/22 06:16 01/17/22 06:16 01/17/22 06:16 01/17/22 06:16 01/17/22 06:16 01/17/22 06:16 Oxygen Delivery Method Room Air Weight: 165 lb 5.547 oz Body Mass Index (BMI) 30.2 Lab / Micro Data Result Diagrams: 12/18/21 14:35 12/18/21 14:35 Labs: Laboratory Results - last 24 hr 01/17/22 06:15: POC Glucose 117 H Physical Exam Const alert, oriented x3 and no apparent distress General Appearance: cooperative and comfortable HEENT normocephalic and head/scalp atraumatic Eyes EOMs intact bilaterally and conjunctivae normal Neck full ROM General: normal visual inspection Chest inspection of chest normal and palpation of chest normal Resp normal respiratory effort and normal air movement Cardio regular rate, regular rhythm and peripheral pulses 2+ throughout GI soft to palpation, non-tender and non-distended Back/Spine Back/Spine Narrative: Dressing clean dry and intact. Drain in place and functioning with small amount of serosanguineous fluid present Cervical Spine: cervical ROM normal Thoracic Spine / Upper Back: normal to inspection Lumbar Spine / Lower Back: normal to inspection Extremity normal to inspection, full ROM, normal capillary refill, no clubbing, cyanosis or edema and no calf tenderness Skin no rashes or lesions noted General Skin Exam: no breakdown Neuro oriented x3, CN's II-XII intact bilaterally, moves all extremities, no focal motor deficits, no sensory deficits noted and deep tendon reflexes 2+ bilaterally Motor Exam: strength 5/5 throughout and muscle tone normal throughout Assessment & Plan Assessment/Plan (1) Lumbar stenosis: PLAN: Okay to admit to floor See orders Pain control and mobilization as tolerated, back brace on at all times Continue antibiotics while drain in place
[2022-01-17] MEDS: Cefazolin 2 GM in 0.9% Normal Saline 100 ML IV (07:37)
--- NOTE | 2022-01-17 08:10 | RAD_ITS ---
HISTORY: L5-S1 POSTERIOR FUSION. TECHNIQUE: XR Spine Lumbar 2 or 3 Views. 5 spot images. COMPARISON: None. FINDINGS: OSSEOUS STRUCTURES: Posterior instrument and then posterior spinal fusion hardware with interbody fusion material at L5-S1. FLUOROSCOPY TIME: 155.3 seconds. RADIATION DOSE: 43.10 mGy RAD/Lumbar Spine 2 or 3 Views IMPRESSION: Fluoroscopic guidance for lumbar spinal fusion. Refer to operative note. Electronically Signed: Niki Pratt MD at 10:26 EDT ,
[2022-01-17] MEDS: Lactated Ringers 1,000 ML 100 ML IV ×3 (08:45→14:02)
[2022-01-17] MEDS: Heparin 10,000 UNITS/10 ML Vial 10000 UNITS (10:06)
[2022-01-17] MEDS: THROMBIN (RECOMBINANT) 20,000 UNIT VIAL 20000 UNIT TOPICAL (10:07)
[2022-01-17] MEDS: Bupivacaine 0.25% 30 ML Vial (12:34)
[2022-01-17 14:35] LABS: Bedside Glucose 128 mg/dL (74-106)
[2022-01-17] MEDS: Cefazolin 1 GM/50 ML BAG IV ×2 (15:32→21:53)
[2022-01-17] MEDS: Morphine 4 MG/ML Syringe IV ×2 (15:34→19:45)
[2022-01-17] MEDS: Acetaminophen 500 MG Tablet 1000 MG PO ×2 (15:35→21:24)
[2022-01-17] MEDS: oxyCODONE 5 MG Tablet PO ×2 (17:24→21:24)
[2022-01-17] MEDS: metFORMIN HCl 1,000 MG Tablet 1000 MG PO (17:26)
--- NOTE | 2022-01-17 18:24 | PCM.PN.HOSP ---
Subjective Subjective 46-year-old female presents to the hospital with lumbar stenosis for an elective L5-S1 posterior lumbar interbody fusion as well as bilateral laminectomies. She is having a bit of pain but otherwise is feeling fine. She does have a prescription need as well as hypertension and diabetes so we are consulted for medical management Objective Data Objective Data Vital Signs: Vital Signs Temp Pulse Resp BP Pulse Ox O2 Del Method O2 Flow Rate 97.7 F L 60 14 112/68 97 Nasal Cannula 2 01/17/22 17:11 01/17/22 17:11 01/17/22 17:11 01/17/22 17:11 01/17/22 17:11 01/17/22 17:11 01/17/22 17:11 Oxygen Flow Rate (L/min) 2 Oxygen Delivery Method Nasal Cannula Weight: 165 lb 5 oz Body Mass Index (BMI) 30.2 Intake & Output: Intake and Output for Last 24 Hours 01/16/22 01/17/22 01/18/22 03:59 03:59 03:59 Intake Total 3160 / 3160 Output Total 775 / 775 Balance 2385 / 2385 Lab / Micro Data Result Diagrams: 12/18/21 14:35 12/18/21 14:35 Labs: Laboratory Results - last 24 hr 01/17/22 06:15: POC Glucose 117 H 01/17/22 14:14: POC Glucose 128 H Physical Exam Narrative General: Alert, Oriented x3, Cooperative, No apparent distress HEENT: Atraumatic, PERRLA, EOMI, Normocephalic Oral: Moist Mucosa Neck: Supple, No JVD Lungs: Clear to auscultation, Normal air movement, No rhonchi, No wheeze, No rales Cardiovascular: Regular rate, Regular Rhythm, Normal S1, Normal S2, No murmurs Abdomen: Soft, Non Tender, Non-Distended, No Hepato-splenomegaly Extremities: No edema, Capillary Refill Less than 3 Seconds Skin: No rashes, No breakdown, incision CDI, drain in place Musculoskeletal: No Tenderness to Palpation of Joints or Extremities Neurological: Cranial nerves II-XII grossly intact, Motor Exam 5/5 strength throughout, Sensory exam intact to light touch and pain Psych/Mental Status: Normal Affect, Appropriate Assessment & Plan Assessment/Plan (1) Lumbar stenosis: PLAN: Plan 1. Lumbar stenosis status post L5-S1 fusion on 01/17/2022 ? Pain management per primary ? PT/OT ? DVT prophylaxis per primary 2. DM2 ? Stable ? Continue with her metformin ? We will recheck labs in and to monitor her renal function ? Accu-Cheks AC at bedtime 3. HTN/HLD ? Blood pressures are currently stable ? We will continue to monitor ? Continue with her home blood pressure medications ? Continue with her home statin 4. Depression ? Stable ? Continue with her home medications DVT: SCDs Charges/Coding Visit Charges Inpatient E&M: 65330 Subs Hosp L2
[2022-01-17] MEDS: Fluticasone/Salmeterol 232-14 Inhaler 1 PUFF INHALATION (21:16)
[2022-01-17] MEDS: Potassium Chloride Oral Tablet 10 MEQ PO (21:18)
[2022-01-17] MEDS: Pregabalin 75 MG Capsule 150 MG PO (21:24)
[2022-01-17 21:40] LABS: Bedside Glucose 156 mg/dL (74-106)
[2022-01-17] MEDS: Amitriptyline 100 MG Tablet 150 MG PO (21:53)
--- NOTE | 2022-01-17 22:21 | NURSING ---
patient removed back brace per self. States it hurt too bad.
[2022-01-17] MEDS: Estradiol 1 MG Tablet 2 MG PO (23:08)
[2022-01-18] VITALS (8 sets, daily range): BP systolic 100–126; BP diastolic 54–68; PULSE 89–100; RESP 17–18; TEMP 36.8–37.4; O2SAT 92–97
[2022-01-18] MEDS: oxyCODONE 5 MG Tablet PO ×3 (04:54→15:00)
[2022-01-18] MEDS: Acetaminophen 500 MG Tablet 1000 MG PO ×2 (04:54→14:59)
[2022-01-18 06:50] LABS: Bedside Glucose 161 mg/dL (74-106)
[2022-01-18] MEDS: Morphine 4 MG/ML Syringe IV ×2 (07:26→12:18)
[2022-01-18] MEDS: 0.9% Saline Lock 10 ML Syringe IV ×2 (07:26→12:19)
[2022-01-18] MEDS: metFORMIN HCl 1,000 MG Tablet 1000 MG PO ×2 (08:25→17:39)
--- OUTSIDE RECORDS SUMMARY | 2022-01-18 08:35 | XMS RPT_ITS | Continuity of Care Document ---
:1975 External Reference #:[id number] Author Name SHERI OCONNOR PA-C Address [address] [place] [address] Care Team Providers Name Role Phone Reactivation Care Team Information Instructional Interventionist Unavailab RAYMUNDO Segal D.O. Care Team Information Instructional Interventionist Robert Quick DO Primary Care Physician Unavailable Allergies and adverse reactions Active Allergies Criticality Reaction Comments Date Severity Erythromycin Unable to assess Nausea,Vomiting 013 criticality Toradol Unable to assess Turns Mean 02/09/2013 criticality Plastic Tape Unable to assess Rash 02/09/2013 criticality Adhesives Unable to assess 12/10/2021 criticality Bactrim Unable to assess 12/10/2021 criticality Chantix Unable to assess 12/10/2021 criticality Inactive Allergies NKDA Unable to assess criticality 10/23/2005
--- NOTE | 2022-01-18 09:31 | PN.HOSP_ITS ---
Subjective Subjective Patient seen and examined. She was comfortably eating breakfast. She does complain of some pain in her back at the surgical site. She says she received pain meds and that helped with the pain. Review of systems is otherwise negative. Objective Data Objective Data Vital Signs: Vital Signs Temp Pulse Resp BP Pulse Ox O2 Del Method O2 Flow Rate 98.8 F 96 18 126/68 H 96 Nasal Cannula 2 01/18/22 03:07 01/18/22 07:30 01/18/22 03:07 01/18/22 03:07 01/18/22 06:38 01/18/22 06:38 01/18/22 06:38 Oxygen Flow Rate (L/min) 2 Oxygen Delivery Method Nasal Cannula Weight: 165 lb 5 oz Body Mass Index (BMI) 30.2 Intake & Output: Intake and Output for Last 24 Hours 01/16/22 01/17/22 01/18/22 23:59 23:59 23:59 Intake Total 4829.5 / 4829.5 Output Total 1665 / 1665 1525 / 1525 Balance 3164.5 / 3164.5 -1525 / -1525 Lab / Micro Data Result Diagrams: 12/18/21 14:35 12/18/21 14:35 Labs: Laboratory Results - last 24 hr 01/17/22 14:14: POC Glucose 128 H 01/17/22 21:14: POC Glucose 156 H 01/18/22 06:22: POC Glucose 161 H Physical Exam Const alert, oriented x3 and no apparent distress HEENT head/scalp atraumatic, moist oral mucous membranes and oropharynx normal Head and Scalp: normocephalic Mouth: oral and palatal mucosa normal Eyes PERRL, EOMs intact bilaterally and conjunctivae normal Neck no lymphadenopathy, supple and no JVD Resp normal respiratory effort, no retractions, no use of accessory muscles and clear to auscultation bilaterally Resp Narrative: on 2L of oxygen Cardio regular rate, regular rhythm, S1 normal heart sound, S2 normal heart sound and no murmurs GI normal to inspection, nondistended, normoactive bowel sounds, soft to palpation, non-tender and non-distended GI Narrative: abdominal binder in place Extremity normal to inspection and full ROM Neuro oriented x3, CN's II-XII intact bilaterally, moves all extremities and no focal motor deficits Sensorium / Orientation: awake and alert Motor Exam: strength 5/5 throughout Psych affect normal Assessment & Plan Assessment/Plan (1) Lumbar stenosis: PLAN: Plan #Lumbar stenosis s/p L5-S1 posterior lumbar interbody fusion and bilateral laminectomy * today is POD 1 * pain meds as per primary team * PT/'OT on board * fall precautions * incentive spirometry * #Hypertension: on metoprolol and #Type 2 diabetes mellitus: on metformin. ISS. Accuchecks ACHS #Hyperlipidemia: on statin #Depression; on amitriptyline DVT prophylaxis: SCDs, as per primary team Charges/Coding Visit Charges Inpatient E&M: 13194 Subs Hosp L2
--- NOTE | 2022-01-18 09:55 | CASEMGMT ---
EDY SEVILLA Assessment: Face to Face with pt for initial transition planning/care coordination assessment. EDY SEVILLA introduced self and role at [facility], pt voices understanding and consents to assessment. Pt is A/O x4 and answers all questions appropriately at this time. Care providers, pharmacy, and demographics verified/updated. Admitting Dx: Lumbar 5-sacral 1 posterior lumbar interbody fusion? PCP: Amanda Specialists: Abraham, spine OR; Michel, pain mgmt in the past but pt states she will not go back to either. Preferred [facility]acy: [facility] Insurance: [facility] Dual Prescription Benefit: yes LW/HPOA: Pt denies having a LW/DPOA and denies need for info regarding AD. LNOK: Huma Aparicio, sister; Khushbu Elliott, sister (pt states she does not want her sister Khushbu called for anything) Living Arrangements: Pt lives in a two story house on the second level with 6 steps to enter with a rail. Pt states her sister Huma lives on the lower level. Pt reports she is typically I in ADL's and denies concerns at home. Transportation: Pt drives self and denies concerns with transportation. Pt sister is able to transport her to medical appts until she can drive again. DME/HHC/SNF: Pt reports she has a cane, FWW and toilet seat riser in the home. She states she has a BGM but sometimes checks her blood sugars. She states she has enough supplies for her BGM. Pt states she wears oxygen at through [employer] at 2-3L. Will call to verify. Pt denies hx of HHC or SNF stays. Pt states no concerns with going home at time of dc. Pt states no further concerns/needs. CM to follow. Advised pt to ask CM if any further question/concerns/needs arise, voices understanding. Pt Goal: Home Plan: Home
[2022-01-18] MEDS: Fluticasone/Salmeterol 232-14 Inhaler 1 PUFF INHALATION (10:06)
[2022-01-18] MEDS: Atorvastatin Calcium 20 MG Tablet PO (10:07)
[2022-01-18] MEDS: Pregabalin 75 MG Capsule 150 MG PO (10:12)
[2022-01-18] MEDS: Potassium Chloride Oral Tablet 10 MEQ PO (10:12)
[2022-01-18 13:05] LABS: Bedside Glucose 166 mg/dL (74-106)
[2022-01-18 17:00] LABS: Bedside Glucose 193 mg/dL (74-106)
== END 2022-01-18 18:00 | disposition home or self-care (01) | DRG 460 ==
LOC: ACINP 08:17 → MS3 09:35
PROVIDERS: Admitting Provider Orthopaedic Surgery; PCP Family Medicine; Referring Provider Orthopaedic Surgery; Visit Provider Orthopaedic Surgery
PROC: 0SG00AJ Fusion of Lumbar Vertebral Joint with Interbody Fusion Device, Posterior Approach, Anterior Column, Open Approach (ICD-10-PCS; CPT 22630; principal; 2022-01-17 07:00)
DX: M48.061 Spinal stenosis, lumbar region without neurogenic claudication (principal); E11.9 Type 2 diabetes mellitus without complications; Z99.81 Dependence on supplemental oxygen; J44.9 Chronic obstructive pulmonary disease, unspecified; M47.817 Spondylosis without myelopathy or radiculopathy, lumbosacral region; M51.37 Other intervertebral disc degeneration, lumbosacral region; I10 Essential (primary) hypertension; G43.909 Migraine, unspecified, not intractable, without status migrainosus; M79.7 Fibromyalgia; E78.5 Hyperlipidemia, unspecified; F17.210 Nicotine dependence, cigarettes, uncomplicated; F32.A Depression, unspecified; Z79.84 Long term (current) use of oral hypoglycemic drugs; Z79.899 Other long term (current) drug therapy
CPT/HCPCS: 36415; 71046; 72100; 76000; 80048; 82962; 83036; 85025; 85610; 85730; 93005; 97162; C1713; J7120; A4216; J2405

== ENCOUNTER → 2022-04-10 | Outpatient (CLI) | payer MEDICARE, SELFPAY ==
[2022-04-10 12:59] LABS: Syphilis Antibodies Non-reactive
[2022-04-10 16:01] LABS: Chlamydia Trachomatis by PCR Negative (Negative); Neisserai gonorrhoeae by PCR Negative (Negative); Probe Check PASS; Sample Adequacy Control PASS; Specimen Processing Control PASS
== END | disposition home or self-care (01) ==
LOC: BFHLAB 10:19
PROVIDERS: PCP Family Medicine; Visit Provider Family Medicine
DX: N76.0 Acute vaginitis (principal); Z20.9 Contact with and (suspected) exposure to unspecified communicable disease
CPT/HCPCS: 36415; 86780; 87491; 87591

== ENCOUNTER → 2022-06-03 | Outpatient (CLI) | payer MEDICARE, SELFPAY ==
[2022-06-03 12:49] LABS: Amphetamine Urine VISTA NEGATIVE (<1000 ng/mL); Barbiturate Urine VISTA NEGATIVE (< 200 ng/mL); Benzodiazepine Urine VISTA NEGATIVE (< 200 ng/mL); Cocaine Urine VISTA NEGATIVE (< 300 ng/mL); Ecstacy Urine VISTA POSITIVE (< 500 ng/mL); Methadone Urine VISTA NEGATIVE (< 300 ng/mL); PCP Urine VISTA NEGATIVE (< 25 ng/mL); THC Urine VISTA NEGATIVE (< 50 ng/mL); Vista UDS pH Range 5
== END | disposition home or self-care (01) ==
LOC: LABSPEC 10:06
PROVIDERS: PCP Family Medicine; Visit Provider Family Medicine
DX: Z79.899 Other long term (current) drug therapy (principal)
CPT/HCPCS: 80307

== ENCOUNTER → 2022-06-20 | Outpatient (CLI) | payer MEDICARE, SELFPAY ==
[2022-06-20 15:47] LABS: Amphetamine Urine VISTA NEGATIVE (<1000 ng/mL); Barbiturate Urine VISTA NEGATIVE (< 200 ng/mL); Benzodiazepine Urine VISTA NEGATIVE (< 200 ng/mL); Cocaine Urine VISTA NEGATIVE (< 300 ng/mL); Ecstacy Urine VISTA POSITIVE (< 500 ng/mL); Methadone Urine VISTA NEGATIVE (< 300 ng/mL); PCP Urine VISTA NEGATIVE (< 25 ng/mL); THC Urine VISTA NEGATIVE (< 50 ng/mL); Vista UDS pH Range 4
[2022-06-20 15:57] LABS: OXY Internal Control LINE = VALID (VALID); Oxycodone Drug Screen Positive (<100 ng/mL)
== END | disposition home or self-care (01) ==
LOC: BFHLAB 13:49 → LABSPEC 13:50
PROVIDERS: PCP Family Medicine; Visit Provider Family Medicine
DX: Z79.899 Other long term (current) drug therapy (principal)
CPT/HCPCS: 80307; 80365; G0480

== ENCOUNTER → 2022-09-13 | Outpatient (CLI) | payer MEDICARE, SELFPAY ==
[2022-09-13 17:55] LABS: Absolute Lymphocyte Count 4.11 X10^3/uL (0.83-4.51); Absolute Neutrophil Count 5.1 X10^3/uL (2.0-7.7); Basophil# 0.05 X10^3/uL; Basophil% 0.5 % (0-1); Eosinophil# 0.28 X10^3/uL; Eosinophils% 2.7 % (0-5); Hematocrit 38.7 % (37-47); Hemoglobin 11.5 g/dL (12.0-15.0); Lymphocyte # 4.11 X10^3/ul (0.83-4.51); Lymphocyte % 40.3 % (19-41); Mean Corp Hgb Conc 29.7 g/dL (32-36); Mean Corpuscular Hgb 25.3 pg (27.0-32.0); Mean Corpuscular Volume 85.2 fL (81-99); Mean Platelet Vol. 11.1 fl (6.2-12.0); Monocyte# 0.64 X10^3/uL; Monocyte% 6.3 % (0-10); NRBC Flagged by Analyzer 0 % (0-5); Neutrophil # 5.08 X10^3/uL (2.7-7.7); Neutrophil % 49.9 % (47-70); Platelet Count 303 K/mm3 (150-450); RBC Distribution Width SD 56.1 fl (35.1-43.9); Red Blood Count 4.54 M/mm3 (4.2-5.4); White Blood Count 10.2 K/mm3 (4.4-11.0)
[2022-09-13 18:26] LABS: Amphetamine Urine VISTA NEGATIVE (<1000 ng/mL); Barbiturate Urine VISTA NEGATIVE (< 200 ng/mL); Benzodiazepine Urine VISTA NEGATIVE (< 200 ng/mL); Cocaine Urine VISTA NEGATIVE (< 300 ng/mL); Ecstacy Urine VISTA POSITIVE (< 500 ng/mL); Methadone Urine VISTA NEGATIVE (< 300 ng/mL); PCP Urine VISTA NEGATIVE (< 25 ng/mL); THC Urine VISTA NEGATIVE (< 50 ng/mL); Vista UDS pH Range 4
[2022-09-13 18:31] LABS: ALB/GLOB Ratio 1.2 RATIO (0.9-2.4); AST(SGOT) 19 U/L (15-37); Alanine Aminotransfer ALT/SGPT 25 U/L (13-56); Alkaline Phosphatase 86 U/L (45-117); Anion Gap 5 (5-15); BUN 13 mg/dL (7-18); BUN/Creat Ratio 13.5 RATIO (10-20); Calcium,Total 8.4 mg/dL (8.5-10.1); Chloride 106 mmol/L (98-107); Cholesterol 100 mg/dL (200); Creatinine, Serum 0.96 mg/dL (0.55-1.02); EST Glomerular Filtration Rate 65 mL/min (>60); Est Glom Filt Rate - Afr Amer 79 mL/min (>60); Globulin 2.6 g/dL (2.2-4.2); Glucose 198 mg/dL (74-106); High Density Lipoprotein 47 mg/dL; Potassium 4.3 mmol/L (3.5-5.1); Protein, Total 5.6 g/dL (6.4-8.2); Sodium Level 138 mmol/L (136-145); Triglycerides 93 mg/dL; Very Low Density Lipoprotein 19 mg/dL (5-40)
[2022-09-13 18:34] LABS: Microalbumin,Random Urine 25.9 mg/L (NO RANGE EST.); Microalbumin:Creatinine Ratio 22.9 mg/g CRE (<30 mg/g CRE)
[2022-09-13 19:04] LABS: OXY Internal Control LINE = VALID (VALID)
[2022-09-13 19:05] LABS: Oxycodone Drug Screen Positive (<100 ng/mL)
[2022-09-13 19:11] LABS: Hemoglobin A1c 6.8 % (3.8-5.6)
== END | disposition home or self-care (01) ==
LOC: BFHLAB 14:50
PROVIDERS: PCP Family Medicine; Visit Provider Family Medicine
DX: Z00.00 Encounter for general adult medical examination without abnormal findings (principal); E11.9 Type 2 diabetes mellitus without complications; Z79.899 Other long term (current) drug therapy
CPT/HCPCS: 36415; 80053; 80061; 80307; 80365; 82043; 82570; 83036; 85025; G0480

== ENCOUNTER → 2023-12-05 | Outpatient (CLI) | payer MEDICARE, MEDICAID, SELFPAY ==
[2023-12-06 01:02] LABS: Amphetamine Urine VISTA NEGATIVE (<1000 ng/mL); Barbiturate Urine VISTA NEGATIVE (< 200 ng/mL); Benzodiazepine Urine VISTA NEGATIVE (< 200 ng/mL); Cocaine Urine VISTA NEGATIVE (< 300 ng/mL); Ecstacy Urine VISTA POSITIVE (< 500 ng/mL); Methadone Urine VISTA NEGATIVE (< 300 ng/mL); PCP Urine VISTA NEGATIVE (< 25 ng/mL); THC Urine VISTA NEGATIVE (< 50 ng/mL); Vista UDS pH Range 5
[2023-12-06 01:43] LABS: OXY Internal Control LINE = VALID (VALID); Oxycodone Drug Screen Positive (<100 ng/mL)
== END | disposition home or self-care (01) ==
LOC: LABSPEC 15:14
PROVIDERS: PCP Family Medicine; Referring Provider Family Medicine; Visit Provider Family Medicine
DX: Z79.899 Other long term (current) drug therapy (principal)
CPT/HCPCS: 80307; 80365; G0480

== ENCOUNTER → 2024-03-25 | Outpatient (CLI) | payer MEDICARE, SELFPAY ==
[2024-03-25 18:06] LABS: Absolute Lymphocyte Count 2.92 X10^3/uL (0.83-4.51); Absolute Neutrophil Count 4.7 X10^3/uL (2.0-7.7); Basophil# 0.04 X10^3/uL; Basophil% 0.5 % (0-1); Eosinophil# 0.41 X10^3/uL; Eosinophils% 4.7 % (0-5); Hematocrit 41.6 % (37-47); Hemoglobin 12.9 g/dL (12.0-15.0); Lymphocyte # 2.92 X10^3/ul (0.83-4.51); Lymphocyte % 33.6 % (19-41); Mean Corpuscular Volume 90.4 fL (81-99); Mean Platelet Vol. 11.5 fl (6.2-12.0); Monocyte# 0.64 X10^3/uL; Monocyte% 7.4 % (0-10); NRBC Flagged by Analyzer 0 % (0-5); Neutrophil # 4.67 X10^3/uL (2.7-7.7); Neutrophil % 53.7 % (47-70); Platelet Count 241 K/mm3 (150-450); RBC Distribution Width CV 14.4 % (11.6-14.6); RBC Distribution Width SD 47.7 fl (35.1-43.9); White Blood Count 8.7 K/mm3 (4.4-11.0)
[2024-03-25 18:44] LABS: Amphetamine Urine VISTA NEGATIVE (<1000 ng/mL); Barbiturate Urine VISTA NEGATIVE (< 200 ng/mL); Benzodiazepine Urine VISTA NEGATIVE (< 200 ng/mL); Cocaine Urine VISTA NEGATIVE (< 300 ng/mL); Ecstacy Urine VISTA POSITIVE (< 500 ng/mL); Methadone Urine VISTA NEGATIVE (< 300 ng/mL); PCP Urine VISTA NEGATIVE (< 25 ng/mL); THC Urine VISTA NEGATIVE (< 50 ng/mL); Vista UDS pH Range 4
[2024-03-25 18:45] LABS: Microalbumin,Random Urine 6.7 mg/L (NO RANGE EST.); Microalbumin:Creatinine Ratio 12.7 mg/g CRE (<30 mg/g CRE)
[2024-03-25 18:50] LABS: AST(SGOT) 19 U/L (15-37); Alanine Aminotransfer ALT/SGPT 16 U/L (13-56); Albumin, Serum 3.2 g/dL (3.2-5.0); Alkaline Phosphatase 88 U/L (45-117); Anion Gap 3 (5-15); BUN 9 mg/dL (7-18); BUN/Creat Ratio 10.1 RATIO (10-20); Calcium,Total 9.2 mg/dL (8.5-10.1); Chloride 107 mmol/L (98-107); Cholesterol 115 mg/dL (200); Creatinine, Serum 0.89 mg/dL (0.55-1.02); EST Glomerular Filtration Rate 71 mL/min (>60); Est Glom Filt Rate - Afr Amer 86 mL/min (>60); Globulin 3.1 g/dL (2.2-4.2); Glucose 107 mg/dL (74-106); High Density Lipoprotein 50 mg/dL; Potassium 4.6 mmol/L (3.5-5.1); Protein, Total 6.3 g/dL (6.4-8.2); Sodium Level 140 mmol/L (136-145); Thyroid Stim Hormone (TSH) 0.573 uIU/mL (0.358-3.740); Total Bilirubin < 0.10 mg/dL (0.20-1.00); Triglycerides 68 mg/dL; Very Low Density Lipoprotein 14 mg/dL (5-40)
[2024-03-25 19:24] LABS: OXY Internal Control LINE = VALID (VALID); Oxycodone Drug Screen Positive (<100 ng/mL)
== END | disposition home or self-care (01) ==
LOC: BFHLAB 15:07
PROVIDERS: PCP Family Medicine; Referring Provider Family Medicine; Visit Provider Family Medicine
DX: E11.9 Type 2 diabetes mellitus without complications (principal); E78.5 Hyperlipidemia, unspecified; I10 Essential (primary) hypertension; Z79.899 Other long term (current) drug therapy
CPT/HCPCS: 36415; 80053; 80061; 80307; 80365; 82043; 82570; 84443; 85025; G0480

== ENCOUNTER → 2024-07-30 | Outpatient (CLI) | payer MEDICARE, MEDICAID, SELFPAY ==
[2024-07-30 16:34] LABS: Amphetamine Urine NEGATIVE (<1000 ng/mL); Barbiturate Urine VISTA NEGATIVE (< 200 ng/mL); Benzodiazepine Urine VISTA NEGATIVE (< 200 ng/mL); Cocaine Urine VISTA NEGATIVE (< 300 ng/mL); Ecstacy Urine VISTA POSITIVE (< 500 ng/mL); Methadone Urine VISTA NEGATIVE (< 300 ng/mL); Opiates Urine NEGATIVE (< 300 ng/mL); PCP Urine NEGATIVE (< 25 ng/mL); THC Urine VISTA NEGATIVE (< 50 ng/mL); Vista UDS pH Range 5
== END | disposition home or self-care (01) ==
PROVIDERS: PCP Family Medicine; Visit Provider Family Medicine
DX: Z79.899 Other long term (current) drug therapy (principal)
CPT/HCPCS: 80307

== ENCOUNTER → 2025-01-31 | Outpatient (CLI) | payer MEDICARE, MEDICAID, SELFPAY ==
[2025-01-31 21:21] LABS: Barbiturate Urine PRESUMPTIVE POSITIVE (< 200 ng/mL); Benzodiazepine Urine NEGATIVE (< 200 ng/mL); PCP Urine NEGATIVE (< 25 ng/mL); THC Urine NEGATIVE (< 50 ng/mL)
== END | disposition home or self-care (01) ==
LOC: BFHLAB 14:04
PROVIDERS: PCP Family Medicine; Visit Provider Family Medicine
DX: Z79.899 Other long term (current) drug therapy (principal)
CPT/HCPCS: 80307

== ENCOUNTER → 2025-03-15 | Outpatient (CLI) | payer MEDICARE, MEDICAID, SELFPAY ==
--- NOTE | 2025-03-15 13:29 | MRI_ITS ---
PROCEDURE: SPINE LUMBAR W/WO CONTRAST 03/15/2025 REASON FOR EXAM: PAIN BILATERALLY, HX OF FUSION, STENOSIS, SPONDY TECHNIQUE: Procedure Code: [id number] Modality: MR Procedure: SPINE LUMBAR W/WO CONTRAST Multiplanar and multisequence images were obtained without and with intravenous gadolinium-based contrast administration. CONTRAST: Melia scan VOLUME: 14 mL FINDINGS: There is posterior lumbar fusion at L5-S1. No compression deformity. No subluxation. No marrow edema. L1-2 and L2-3 exhibit facet arthrosis without spinal stenosis. Similar findings at L3-4 At L4-5, there is adjacent level spondylosis with facet and ligamentous hypertrophy and concentric disc bulge producing [id number] spinal stenosis. There is left-sided moderate inferior foraminal narrowing. At L5-S1, posterior lumbar pedicle screw fusion without central or foraminal impingement. No pathologic enhancement is noted MRI/Spine Lumbar W/WO Contrast IMPRESSION: Posterior fusion at L5-S1 without recurrent pathology. Adjacent level spondylo sis at L4-5 with [id number] canal narrowing and moderate right L4 foraminal stenosis Reading Location: [facility]
== END | disposition home or self-care (01) ==
LOC: MRI 13:27
PROVIDERS: PCP Family Medicine; Referring Provider Student in an Organized Health Care Education/Training Program; Visit Provider Student in an Organized Health Care Education/Training Program
DX: M48.062 Spinal stenosis, lumbar region with neurogenic claudication (principal); M43.16 Spondylolisthesis, lumbar region; Z98.1 Arthrodesis status
CPT/HCPCS: 72158; A9575; A4216

== ENCOUNTER → 2025-06-13 | Outpatient (CLI) | payer MEDICARE, MEDICAID, SELFPAY ==
[2025-06-13 17:54] LABS: Hematocrit 45.2 % (37-47); Hemoglobin 14.6 g/dL (12.0-15.0); Immature Granulocytes Count 0.050 X10^3/uL (0.0-0.0); Mean Corp Hgb Conc 32.3 g/dL (32-36); Mean Corpuscular Volume 89.7 fL (81-99); Mean Platelet Vol. 11.1 fl (6.2-12.0); NRBC Flagged by Analyzer 0 % (0-5); Platelet Count 290 K/mm3 (150-450); RBC Distribution Width CV 13.7 % (11.6-14.6); RBC Distribution Width SD 44.9 fl (35.1-43.9); Red Blood Count 5.04 M/mm3 (4.2-5.4); White Blood Count 10.1 K/mm3 (4.4-11.0)
[2025-06-13 18:22] LABS: AST(SGOT) 18 U/L (<=31); Alanine Aminotransfer ALT/SGPT 10 U/L (<=34); Albumin, Serum 4.6 g/dL (3.5-5.0); Alkaline Phosphatase 98 U/L (35-104); Anion Gap 10 (7-18); BUN 7 mg/dL (4-19); BUN/Creat Ratio 7.8 RATIO (10-20); Calcium,Total 9.6 mg/dL (7.6-11.0); Carbon Dioxide 27.6 mmol/L (20.0-29.0); Chloride 102 mmol/L (96-106); Cholesterol 127 mg/dL (<=200); Globulin 2.5 g/dL (2.2-4.2); Glucose 86 mg/dL (70-99); Low Density Lipoprotein Calc. 54 mg/dL; Potassium 5.2 mmol/L (3.5-5.1); Triglycerides 101 mg/dL; Very Low Density Lipoprotein 20 mg/dL (5-40); cholesterol:hdl ratio screen 2.35
[2025-06-13 18:41] LABS: Barbiturate Urine PRESUMPTIVE POSITIVE (< 200 ng/mL); Benzodiazepine Urine NEGATIVE (< 200 ng/mL); PCP Urine NEGATIVE (< 25 ng/mL); THC Urine NEGATIVE (< 50 ng/mL)
[2025-06-13 19:01] LABS: Creatinine, Urine (random) 40.00 mg/dL (28.00-217.00); Microalbumin,Random Urine 12.2 mg/L (<20 mg/L)
== END | disposition home or self-care (01) ==
LOC: BFHLAB 15:52
PROVIDERS: PCP Family Medicine; Visit Provider Family Medicine
DX: E11.9 Type 2 diabetes mellitus without complications (principal); I10 Essential (primary) hypertension; E78.5 Hyperlipidemia, unspecified; Z79.899 Other long term (current) drug therapy
CPT/HCPCS: 36415; 80053; 80061; 80307; 82043; 82570; 83036; 84443; 85025